=== PATIENT | female | born 1960 | race Caucasian/White ===

== ENCOUNTER → 2019-04-09 11:04 | Outpatient (CLI) | payer OTHER, SELFPAY ==
--- NOTE | 2019-04-09 11:15 | RAD_ITS ---
STUDY: X-RAY - LEFT FOOT CLINICAL: Female, 58 years old. Patient awoke one day ago with intense heel pain, no trauma TECHNIQUE: 3 view(s) of the foot. COMPARISON: Comparison is made with prior examination of June 02, 2015. FINDINGS: There is a plantar calcaneal spur. Normal visualized subtalar, talonavicular, calcaneocuboid, tarsal and tarsometatarsal articulations. Normal metatarsi. Normal metatarsophalangeal joint of the great toe. Normal tibial and fibular sesamoid bones. Normal interphalangeal joint of the great toe. Normal phalanges of the great toe. Normal second through fifth metatarsophalangeal joints. Normal interphalangeal joints and phalanges of the lesser toes. The soft tissue structures are unremarkable. RAD/Foot min 3 Views IMPRESSION: Plantar spur. Electronically Signed: Dalton Hernandez, at 12:14 EST , Service support ,
== END ==
PROVIDERS: PCP Internal Medicine; Referring Provider Nurse Practitioner; Visit Provider Nurse Practitioner
DX: M79.672 Pain in left foot (principal)
CPT/HCPCS: 73630

== ENCOUNTER → 2019-05-28 12:46 | Outpatient (CLI) | payer OTHER, SELFPAY ==
--- NOTE | 2019-05-28 12:51 | CDU_ITS ---
Reason For Study: stenosis Rt. Velocities/BP Lt. Velocities/BP Prox CCA 91.7/21.3 cm/sec. Prox CCA 92.8/31.4 cm/sec. Mid CCA 69.5/22.6 cm/sec. Mid CCA 82.7/27.4 cm/sec. Dist CCA 65.6/22.6 cm/sec. Dist CCA 64.2/27.4 cm/sec. Prox ICA 56.5/18.6 cm/sec. Prox ICA 60.5/24.9 cm/sec. Mid ICA 182.8/62.1 cm/sec. Mid ICA 213.5/77.5 cm/sec. Dist ICA 134.5/57.7 cm/sec. Dist ICA 185.2/59.2 cm/sec. Rt. ICA/CCA = 2.6. Lt. ICA/CCA = 2.6. Prox ECA 79.9/17.3 cm/sec. Prox ECA 70.4/18.8 cm/sec. Rt. Vert. 130.1/44.5 cm/sec. Lt. Vert. 64.2/29.8 cm/sec. Right Extracranial There is intimal thickening but no significant atherosclerotic plaque noted in the right common carotid artery. There is intimal thickening but no significant atherosclerotic plaque noted in the right internal carotid artery. There is intimal thickening but no significant atherosclerotic plaque noted in the right external carotid artery. Antegrade flow is noted in the right vertebral artery. Left Extracranial There is intimal thickening but no significant atherosclerotic plaque noted in the left common carotid artery. There is intimal thickening but no significant atherosclerotic plaque noted in the left internal carotid artery. There is intimal thickening but no significant atherosclerotic plaque noted in the left external carotid artery. Antegrade flow is noted in the left vertebral artery. Procedure Carotid Duplex [id number]. The exam was diagnostic. Exam performed in department. Interpretation Summary Moderate (50-69%) stenosis right extracranial internal carotid. Moderate (50-69%) stenosis left extracranial internal carotid. Flow within the vertebral arteries is antegrade bilaterally. Ordering Physician: Annabelle Roach Performed By: Mane Nails RVT
--- NOTE | 2019-05-28 13:20 | US_ITS ---
STUDY: THYROID ULTRASOUND REASON FOR EXAM: Female, 58 years old. THYROID NODULES TECHNIQUE: Ultrasound evaluation of the thyroid was performed with real-time and static villalobos-scale imaging. COMPARISON: Comparison is made with prior study dated August 24, 2015. FINDINGS: RIGHT LOBE: The right lobe of the thyroid gland is enlarged and measures 5.6 cm x 2 cm x 1.5 cm. There is a homogeneous echotexture. Once again, multiple nodules are seen throughout the right lobe. The largest measures 7 mm x 7 mm x 5 mm. This is partly solid and cystic. This is essentially unchanged. LEFT LOBE: The left lobe of the thyroid gland is enlarged and measures 5 cm x 1.5 cm x 1.4 cm. There is a homogeneous echotexture. Multiple nodules are seen. The largest nodule measures 5 mm x 4 mm x 4 mm. This is a solid nodule. This has decreased in size. ISTHMUS: The isthmus measures 3.0 mm. The regional lymph nodes are normal. US/Thyroid IMPRESSION: Multiple small bilateral thyroid nodules. There has been essentially no change. Electronically Signed: Dalton Hernandez, at 14:20 EDT , Service support ,
== END ==
PROVIDERS: PCP Internal Medicine; Referring Provider Internal Medicine; Visit Provider Internal Medicine
DX: E04.1 Nontoxic single thyroid nodule (principal); I65.23 Occlusion and stenosis of bilateral carotid arteries
CPT/HCPCS: 76536; 93880

== ENCOUNTER 2021-04-12 14:01 | Outpatient (CLI) | payer OTHER, SELFPAY ==
--- NOTE | 2021-04-12 14:06 | US_ITS ---
STUDY: THYROID ULTRASOUND REASON FOR EXAM: Female, 60 years old. NODULE TECHNIQUE: Ultrasound evaluation of the thyroid was performed with real-time and static villalobos-scale imaging. COMPARISON: report only of May 28 2019 1:31pm. NO IMAGES FINDINGS: RIGHT LOBE: The right lobe of the thyroid gland measures 5.5 x 2.3 cm. There is a homogeneous echotexture. There are nodules. Nodules measure 9 x 8 x 4 mm, 8 x 8 x 4 mm, 6 x 4 x 4 mm, and 5 x 4 x 2 mm. These are noted in the upper and midline. The lesion is solid / cystic with regular margins and silvestre nodular and some have intra-nodular doppler flow. Several nodules have punctate internal foci suggesting calcifications. LEFT LOBE: The left lobe of the thyroid gland measures 4.9 x 1.4 cm. There is a homogeneous echotexture. There are nodules. Nodules are visualized in the upper and lower gland. These measure 5 x 4 x 3 mm, 4 x 4 x3 mm, 6 x 4 x 4 mm, and 4 x 4 x2 mm. The lesion is solid / cystic with regular margins and silvestre nodular and some have intra-nodular doppler flow. Several nodules have punctate internal foci suggesting calcifications. ISTHMUS: The isthmus measures 3 mm. The regional lymph nodes are normal. US/Thyroid IMPRESSION: There are RIGHT nodules. This nodule is mixed cystic and solid, hyperechoic or isoechoic, [id number], smoothly marginated and contains punctate echogenic foci. TI-RADS points: 5. TI-RADS category: TR4. This nodule is moderately suspicious. Recommend follow-up thyroid ultrasounds at 1, 2, 3 and 5 years. There are left nodules. This nodule is mixed cystic and solid, hyperechoic or isoechoic, [id number], smoothly marginated and contains punctate echogenic foci. TI-RADS points: 5. TI-RADS category: TR4. This nodule is moderately suspicious. Recommend follow-up thyroid ultrasounds at 1, 2, 3 and 5 years. Electronically Signed: Eric Larios MD at 15:25 EST ,
--- NOTE | 2021-04-12 14:40 | CT_ITS ---
EXAM: CT ANGIOGRAPHY NECK WITHOUT AND WITH INTRAVENOUS CONTRAST CLINICAL INDICATION: CAD TECHNIQUE: Routine carotid CT angiography protocol was performed without and with intravenous contrast. Nascet criteria using the distal ICAs for comparison were used for evaluation of stenoses. This CT exam was performed using one or more of the following dose reduction techniques: automated exposure control, adjustment of the mA and/or kV according to patient size, and/or use of iterative reconstruction technique. This report was created using [employer] report generation technology. MIP reconstructed images were created and reviewed. CONTRAST: IV 100mL Isovue-370 COMPARISON: None. FINDINGS: VASCULATURE: RIGHT COMMON CAROTID ARTERY: Unremarkable. No occlusion or significant stenosis. No dissection. RIGHT INTERNAL CAROTID ARTERY: Unremarkable. Extracranial segment is patent with no occlusion or significant stenosis. No dissection. RIGHT EXTERNAL CAROTID ARTERY: Unremarkable. No occlusion. RIGHT VERTEBRAL ARTERY: Unremarkable. No occlusion or significant stenosis. No dissection. LEFT COMMON CAROTID ARTERY: Unremarkable. No occlusion or significant stenosis. No dissection. LEFT INTERNAL CAROTID ARTERY: There are no acute findings of the right and left internal carotid artery. ALL ABOVE CRITERIA BY NASCET. Extracranial segment is patent with no occlusion or significant stenosis. No dissection. LEFT EXTERNAL CAROTID ARTERY: Unremarkable. No occlusion. LEFT VERTEBRAL ARTERY: Unremarkable. No occlusion or significant stenosis. No dissection. GREAT VESSELS OF AORTIC ARCH: Unremarkable. Normal anatomy, patent. NECK: BONES/JOINTS: There are degenerative findings of the cervical spine. SOFT TISSUES: Unremarkable. THYROID: The thyroid is heterogenous. It contains nodules. This should be further evaluated with ultrasound. This can be performed as an outpatient. LUNG APICES: Clear. CAROTID STENOSIS REFERENCE USING NASCET CRITERIA: % ICA stenosis = (1 - narrowest ICA diameter/diameter of distal cervical ICA) x 100. Mild - <50% stenosis. Moderate - 50-69% stenosis. Severe - 70-94% stenosis. Near occlusion - 95-99% stenosis. Occluded - 100% stenosis. CT/CTA Neck W/WO Contrast IMPRESSION: 1. The thyroid is heterogenous. It contains nodules. This should be further evaluated with ultrasound. This can be performed as an outpatient. 2. There are no acute findings of the right and left internal carotid artery. ALL ABOVE CRITERIA BY NASCET. Electronically Signed: Eric Larios MD at 15:14 EST ,
== END 2021-04-12 23:59 | disposition home or self-care (01) ==
LOC: CT 14:04
PROVIDERS: PCP Internal Medicine; Referring Provider Internal Medicine; Visit Provider Internal Medicine
DX: I65.23 Occlusion and stenosis of bilateral carotid arteries (principal); E04.1 Nontoxic single thyroid nodule; Z78.0 Asymptomatic menopausal state
CPT/HCPCS: 70498; 76536; Q9967; A4216

== ENCOUNTER 2021-04-21 11:02 | Outpatient (CLI) | payer OTHER, SELFPAY ==
--- NOTE | 2021-04-21 11:10 | BD_ITS ---
STUDY: DUAL ENERGY X-RAY ABSORPTIOMETRY / DXA REASON FOR EXAM: Female, 60 years old. 627.8Menopausal postmenopausalBONE DENSITY REASON FOR EXAM TECHNIQUE: Bone Mineral Density (BMD) measurements of lumbar spine and bilateral hips were obtained. COMPARISON: Comparison is made with prior study dated 10/20/2015. FINDINGS: Lumbar Spine (L1-L4): g/cm2 (0.822) / T-score (-2.0) / Z-score (0.7) Findings are suggestive of osteopenia with a moderate fracture risk. Left Femur Total: g/cm2 (0.818) / T-score (-1.0) / Z-score (-0.1) Left Femoral Neck: g/cm2 (0.713) / T-score (-1.2) / Z-score (0.0) Right Femur Total: g/cm2 (0.896) / T-score (-0.4) / Z-score (0.6) Right Femoral Neck: g/cm2 (0.783) / T-score (-0.6) / Z-score (0.7) The T-Scores on the most recent prior examination were: Lumbar Spine (L1-L4): There has been worsening of bone density since the previous examination. Left Femur Total: which represents a worsening of 11.7%. Right Femur Total: which represents a worsening of 8.8%. BD/Dexa Bone Density Study IMPRESSION: The patient is considered osteopenic as outlined below according to World Pardeep Organization (WHO) criteria with a moderate fracture risk. There has been worsening of bone density since the previous examination. Reference Information: The T-score is the number of standard deviations above or below the standard which is normal for young adults at their peak bone mineral density. The World Health Organization (WHO) interprets the T-scores as follows: Above -1 Normal bone density Between -1 and -2.5 Osteopenia Equal to / or below -2.5 Osteoporosis As a practical clinical guideline, osteopenia may be graded as follows: Mild -1 through -1.5 Moderate -1.6 through -2.0 Severe -2.1 through -2.4 The Z-score is the number of standard deviations above or below age-matched controls. A Z-score of less than -1.5 would be considered abnormal. References: 1. NIH Osteoporosis and Related Bone Diseases www osteo.org 2. International Society for Clinical Densitometry www iscd.org 3. National Osteoporosis Foundation www nof.org Electronically Signed: Dalton Hernandez MD at 14:47 EST ,
== END 2021-04-21 23:59 | disposition home or self-care (01) ==
LOC: OPBD 11:02
PROVIDERS: PCP Internal Medicine; Referring Provider Internal Medicine; Visit Provider Internal Medicine
DX: Z78.0 Asymptomatic menopausal state (principal)
CPT/HCPCS: 77080

== ENCOUNTER 2021-05-12 11:00 | Outpatient (RCR) | payer OTHER, SELFPAY ==
--- NOTE | 2021-03-30 08:55 | HP.PTEVAL_ITS ---
Patient's Visit Information SIRENA NARVAEZ is a 60 year old F referred to Physical Therapy by Dr. Annabelle Roach DO with a diagnosis of L shoulder pain. Date of Evaluation: 03/23/21 Physical Therapist: Diego Singleton DPT - Visit Plan Frequency: 1-2x /Week Duration: 4 Weeks Plan: 1.) Start with RTC stability/strengthening exercises- non painful. 2.) Add in silvestre scapular strengthening exercises- non painful. 3.) progress HEP as tolerated to increase daily carry over. Pt. to continue with her exercise routines avoiding painful movements, patient consents. eval HEP: mid row BTB 3x10, shoulder extension GTB 3x10, shoulder SL ER 1# 3x10- fatigue, avoid pain - Subjective Pt. is here today for her initial evaluation with diagnosis of L shoulder pain. Pt. reports no mech of injury, but feels like it is more from repetitive motions. she reports minimal issues with lifting her L shoulder up, but has a hard time with any sort of weight. She likes to exercises and does so a local recreation center. Pt. reports pain at L shoulder joint and into deltoid region. No falls or mechanical injury of sort. She is still able to do some of her wt. lifting, but has had to stop frequently due to L shoulder pain/weakness. Pt. is sleeping well and is able to do most of her ADLs without issues. She is hopeful to increase her strength and get back to all of her recreational working out routines without increase in L shoulder issues. - Pain L shoulder Pain Intensity (Out of 10): 0 Pain Intensity Range: 0, 5 - Objective POSTURE: Pt. has decent posture in stance. Normal shoulder heights bilaterally. Pt. has normal cervical spine posture as well. PALPATION: Pt. has some mild tenderness at sub acromial space, but not much. Pt. has not pain in cervical spine. NEURO: Normal sensation and DTR of BUEs. ROM: RUE: full shoulder ROM without increase in symptoms. L shoulder: AROM: flexion 170deg mild increase NW at end range, abd 170deg mild increase NW at end range, functional ER C5 NE, functional IR L1 mild increase NW. PROM: full ROM, but does have increased pain with end ranges of motions. MMT: RUE: 5/5 throughout. LUE: elbow: 5/5 throughout; shoulder: flexion 4+/5 increase NW, abd 4+/5 increase NW, ext 5/5, ER 4/5 increase NW, IR 5-/5 mild increase NW - Special Tests R Shoulder Lift Off Test - Subscapular Tear: Negative R Shoulder Drop Sign - IS Test: Negative R Shoulder Empty Can - SS: Positive R Shoulder Belly Press - SupScap: Negative R Shoulder Neer - Impingement: Positive R Shoulder Gonzalez Tu - Impingement: Positive R Shoulder Biceps Load Test - Labrum: Negative R Shoulder Speeds Test - Labrum/Biceps: Positive - Balance/Special Test Scores Quick DASH Score: 40.9075 - Goals Goal 1:: LTG: Pt. to be educated in exercise program for RTC strengthening and silvestre scapular strengthening. Goal Time Frame: 2-4 Weeks Goal 2:: STG: Pt. to have full L shoulder ROM without increase in symptoms. Goal Time Frame: 2 Weeks Goal 3:: LTG: Pt. to have increased L shoulder strength to at least 5-/5 throughout without increase in symptoms. Goal Time Frame: 2-4 Weeks Goal 4:: LTG: Pt. to resume all exercise programs and routines without increased L shoulder pain. Goal Time Frame: 4-6 Weeks - Rehabilitation Potential Physical Therapy Diagnosis: Pt. has signs and symptoms consistent with L shoulder pain. She had some end range soreness and some mild weakness of her RTC on the L side. She had positive signs for impingement and RTC pathologies. With all being said I think she has a strain, maybe a slight degenerative tear of her RTC on the L side causing her symptoms to be worse with impinging the cuff and with straining from resistance exercises. I would like to introduce some RTC stability exercises to ease symptoms with all gym and exercise routines. Rehabilitation Potential: Excellent - Anticipated Interventions Patient/Client Instruction: Educate patient on: Condition, Plan of Care, Risk Factors, Benefits of Fitness Program For the Purpose of:: To foster healthy habits, To improve decision making, To facilitate caregiver knowledge, To improve self management, To prevent re- injury, To improve ability to perform tasks related to life management Therapeutic Exercise to Include: Strength training, Power training, Body mechanics, Postural training, Flexibilty training, Scapular Strength/Stabilization For the Purpose of:: To decrease pain, To increase ROM, To improve nutrient delivery to tissue, To improve muscle performance and motor function, To improve health of tissue, To decrease soft tissue restriction, To increase flexibility/ROM, To improve endurance Manual Therapy Techniques to Include: Mobilization For the Purpose of:: To decrease pain, To decrease swelling/inflammation, To increase ROM, To improve nutrient delivery to tissue Ultrasound (thermal/non thermal): Yes For the Purpose of:: To decrease pain, To increase ROM, To improve nutrient delivery to tissue Thank you for the opportunity to evaluate your patient. For Medicare and Medicare HMO plans, please review the plan of care and approve it. It will need to be FAXED BACK to us at [phone] for Medicare purposes. For Medicare only, by signing this I certify the plan of care. Please let me know if there are questions or concerns regarding this plan of care. Physician Signature: Date:
--- NOTE | 2021-06-04 12:13 | HP.PTDCSUM ---
It has been my pleasure to treat SIRENA NARVAEZ referred by Dr. Annabelle Roach DO, with the diagnosis of L shoulder pain for a total of 6 visit(s). Discharge Date: 05/12/21 Please see the following information for a summary of their discharge status. Subjective: pt. reports I am doing really well. She reports no issues. She is back to all exercise routines without issues. She continues to be consistent with her shoulder exercises as well. L shoulder Pain Intensity (Out of 10): 0 % Improvement: 95 Objective/Function: Pt. is overall doing well. She has full ROM without increase in symptoms. She has good strength and is progressing with ER endurance without issues. Pt. is I with HEP as well. She will be DC from PT at this point in time. No pain pre or post PT this date. Pt. is sleeping without symptoms. Goal 1:: LTG: Pt. to be educated in exercise program for RTC strengthening and silvestre scapular strengthening. Goal Progress: Goal Met Goal 2:: STG: Pt. to have full L shoulder ROM without increase in symptoms. Goal Progress: Goal Met Goal 3:: LTG: Pt. to have increased L shoulder strength to at least 5-/5 throughout without increase in symptoms. Goal Progress: Goal Met Goal 4:: LTG: Pt. to resume all exercise programs and routines without increased L shoulder pain. Goal Progress: Goal Met Plan: Pt. to be Dc to HEP at this point in time. Discharge Comments: Pt. was treated with shoulder strengthening and with DN to teres minor and infraspintus regions. Pt. is doing very well and is I with HEP. Pt. will be DC to HEP at this point in time. If there are questions or concerns regarding this patient's physical therapy, please feel free to call me at [phone]. Thank you for the referral of this patient. Sincerely, Diego Lora Sipos, DPT Balance/Gait/Functional tests - Balance/Special Test Scores Quick DASH Score: 0
== END 2021-05-12 19:00 | disposition home or self-care (01) ==
LOC: PT 11:00
PROVIDERS: PCP Internal Medicine; Referring Provider Internal Medicine; Visit Provider Internal Medicine
DX: M25.512 Pain in left shoulder (principal)
CPT/HCPCS: 97035; 97110; 97161

== ENCOUNTER → 2023-02-17 | Outpatient (CLI) | payer OTHER, SELFPAY ==
--- NOTE | 2023-02-17 07:19 | CT_ITS ---
STUDY: CTA NECK WITH CONTRAST REASON FOR EXAM: Female, 62 years old. Bilateral carotid artery stenosis RADIATION DOSAGE (If Supplied By Facility): CTDIvol = ( 16.60 ) mGy, DLP = ( 375.15 ) mGycm TECHNIQUE: CT angiography with multi-detector data acquisition was performed from the aortic arch to the skull base following intravenous administration of IV 100mL Isovue-370. MIP images were reconstructed from the axial data set. Post-processing of the angiographic images was performed, with multiplanar reformation and 3D reconstruction. Individualized dose optimization techniques were used for this CT. COMPARISON: Comparison is made with prior study dated April 12, 2021. FINDINGS: There is a 6.9 mm hypodensity in the anterior midportion of the right lobe of the thyroid. AORTIC ARCH: There is atherosclerotic calcific plaque formation of the aortic arch and great vessels arising from the aortic arch, without a hemodynamically significant stenosis. There is a normal origin of the brachiocephalic, left common carotid, and left subclavian arteries. RIGHT CAROTID ARTERIES: Normal right common carotid artery (CCA). Normal right common carotid bulb. Normal origin of the right internal carotid (ICA) artery without a hemodynamically significant stenosis. The mid and distal portion of the cervical portion of the right internal carotid artery has a serrated appearance. No significant stenosis seen. Normal origin of the right external carotid artery (ECA). LEFT CAROTID ARTERIES: Normal left common carotid artery (CCA). Normal left common carotid bulb. Normal origin of the left internal carotid (ICA) artery without a hemodynamically significant stenosis. Normal visualized cervical portion of the left internal carotid artery. Normal origin of the left external carotid artery (ECA). VERTEBRAL ARTERIES: Normal bilateral vertebral arteries. CT/CTA Neck W/WO Contrast IMPRESSION: No significant stenosis seen. appearance of the mid and distal cervical portion of the right internal carotid artery. Fibromuscular hyperplasia should be ruled out. No significant stenosis seen. Electronically Signed: Dalton Hernandez MD at 10:19 EST ,
[2023-02-17 07:46] LABS: CREATININE FINGERSTICK < 1.0 mg/dL (0.55-1.02); EGFR FINGERSTICK > 60.0000 mL/min (>60)
== END | disposition home or self-care (01) ==
LOC: CT 07:17
PROVIDERS: PCP Internal Medicine; Referring Provider Internal Medicine; Visit Provider Internal Medicine
DX: I65.23 Occlusion and stenosis of bilateral carotid arteries (principal)
CPT/HCPCS: 70498; Q9967

== ENCOUNTER → 2023-03-09 | Outpatient (CLI) | payer OTHER, SELFPAY ==
--- NOTE | 2023-03-09 16:22 | MRI_ITS ---
STUDY: MRI BRAIN WITH AND WITHOUT CONTRAST (ATTENTION INTERNAL AUDITORY CANALS - I.A.C.''s) REASON FOR EXAM: Female, 62 years old. HEARING LOSS , TINNITUS LEFT EAR TECHNIQUE: Standardized multiplanar fat and water weighted pulse sequences were obtained. ml of 11ml clariscan contrast material was administered intravenously for the contrast portion of the examination. COMPARISON: None. FINDINGS: Normal bilateral temporal bones. Normal bilateral internal auditory canals. There is no demonstrated intracanalicular or cisternal vestibular schwannoma ( acoustic neuroma ). There is no enhancement of the bilateral VIIth or VIIIth cranial nerves. Normal bilateral cochlea, vestibules and semicircular canals. No cerebellar pontine angle mass or cyst. No demonstrated Mondini''s malformation. No visualized abnormal connection between the middle and inner ear. Normal size of the ventricles and extra-axial spaces for the patient''s age. Normal white matter tracts of the supratentorial brain. There is no evidence for recent intracranial ischemia or other cause of cytotoxic edema on diffusion weighted imaging (DWI). Normal T2* images of the brain without demonstrated susceptibility artifact. There is no demonstrated hemosiderin stain. There are no demyelinating plagues of the supratentorial brain, brainstem or cerebellum. There are no findings suspicious for multiple sclerosis (MS). There is no visualized ring-enhancing lesions or abnormal thickening or enhancement of meninges or dura. Normal bilateral basal ganglia. Normal thalami. Normal flow voids within the major intracranial circulation suggesting patency by spin echo criteria. Normal venous enhancement. There is no enhancing intra-axial or extra-axial abnormality. There is no extra-axial fluid accumulation. Normal sella turcica, pituitary gland, infundibular stalk, optic chiasm and hypothalamus. Normal tectal plate and pineal gland. Normal midbrain, lakshmi and medulla. Normal cerebellum. Normal basal cisterns. No demonstrated orbital abnormality, within the constraints of a routine brain study. Normal visualized paranasal sinuses. Normal calvarium and skull base. Normal visualized soft tissue structures. Normal visualized upper cervical spine. MRI/Brain W/WO Contrast IMPRESSION: Normal unenhanced and enhanced MRI of the bilateral internal auditory canals (I.A.C''s). Electronically Signed: Odell Grady MD at 15:32 EST ,
== END | disposition home or self-care (01) ==
LOC: MRI 16:15
PROVIDERS: PCP Internal Medicine; Referring Provider Otolaryngology Otolaryngology/Facial Plastic Surgery; Visit Provider Otolaryngology Otolaryngology/Facial Plastic Surgery
DX: H90.3 Sensorineural hearing loss, bilateral (principal); H93.12 Tinnitus, left ear
CPT/HCPCS: 70553; A9575

== ENCOUNTER → 2023-04-25 | Outpatient (CLI) | payer OTHER, SELFPAY ==
--- NOTE | 2023-04-25 08:45 | BD_ITS ---
STUDY: DUAL ENERGY X-RAY ABSORPTIOMETRY / DXA REASON FOR EXAM: Female, 62 years old. 733.90OsteopeniaBONE DENSITY REASON FOR EXAM TECHNIQUE: Bone Mineral Density (BMD) measurements of lumbar spine and bilateral hips were obtained. COMPARISON: Comparison is made with prior study dated April 21, 2021. FINDINGS: Lumbar Spine (L1-L4): g/cm2 (0.825) / T-score (-2.0) / Z-score (-0.5) Findings are suggestive of osteopenia with a moderate fracture risk. Left Femur Total: g/cm2 (0.786) / T-score (-1.3) / Z-score (-0.2) Left Femoral Neck: g/cm2 (0.686) / T-score (-1.5) / Z-score (-0.1) Right Femur Total: g/cm2 (0.859) / T-score (-0.7) / Z-score (0.4) Right Femoral Neck: g/cm2 (0.743) / T-score (-1.0) / Z-score (0.4) The T-Scores on the most recent prior examination were: Lumbar Spine (L1-L4): There has been improvement of bone density since the previous examination. Left Femur Total: which represents a worsening of 3.9%. Right Femur Total: which represents a worsening of 4.1%. BD/Dexa Bone Density Study IMPRESSION: The patient is considered osteopenic as outlined below according to World Parde[employer] Organization (WHO) criteria with a moderate fracture risk. There has been worsening of bone density since the previous examination. Reference Information: The T-score is the number of standard deviations above or below the standard which is normal for young adults at their peak bone mineral density. The World Health Organization (WHO) interprets the T-scores as follows: Above -1 Normal bone density Between -1 and -2.5 Osteopenia Equal to / or below -2.5 Osteoporosis As a practical clinical guideline, osteopenia may be graded as follows: Mild -1 through -1.5 Moderate -1.6 through -2.0 Severe -2.1 through -2.4 The Z-score is the number of standard deviations above or below age-matched controls. A Z-score of less than -1.5 would be considered abnormal. References: 1. NIH Osteoporosis and Related Bone Diseases www osteo.org 2. International Society for Clinical Densitometry www iscd.org 3. National Osteoporosis Foundation www nof.org Electronically Signed: Dalton Hernandez MD at 14:39 EST ,
== END | disposition home or self-care (01) ==
LOC: OPBD 08:30
PROVIDERS: PCP Internal Medicine; Referring Provider Internal Medicine; Visit Provider Internal Medicine
DX: M85.80 Other specified disorders of bone density and structure, unspecified site (principal)
CPT/HCPCS: 77080

== ENCOUNTER → 2024-11-13 | Outpatient (CLI) | payer OTHER, SELFPAY ==
--- OUTSIDE RECORDS SUMMARY | 2024-11-13 22:09 | XMS RPT_ITS | CCD ---
Author Organization [facility] Care Team Providers Care Rug Dyer Helper Name Role Phone Kevin Gricel Fam Primary Care Provider CiesaChristina E Unavailable Darwin Lanier Unavailable Akshat Casper Unavailable Hearing Services-- Bhavna Mendes Unavail able Kelly Victor Unavailable Tiera Vaughn Unavailable Unavailable Annabelle Roach Unavailable Unavailable Unavailable Ciesa Christina WILLIAM E Unavailable [facility], He [facility] Unavailable Dr. Darwin Lanier Unavailable [phone] Dr. Akshat Casper Unavailable Hearing Services-- Bhavna Mendes Unavail able Kelly Victor Unavailable [phone] Tiera Vaughn RN Unavailable Unavailable Annabelle Roach DO Unavailable Slarb PRODUCTION CORRUGATOR, Amanda Unavailable Unavailable Unavailable Unavailable Elian Fung LPN Unavailable Unavailable Gravius SENIOR BENEFITS ANALYST, Vonda Unavailable Unavailable Rupal Marrero LPN Unavailable Unavailable Dr. Annabelle Roach Primary Care Provider [phone] Dr. Annabelle Roach Referring Provider Dr. Tomas Young Attending Provider Cibowen Christina Unavailable Annabelle Roach DO Unavailable [phone] Gricel Thomas Primary Care Provider [phone] Annabelle Roach Primary Care Unavailable Claudette, Theron Diehl Referring Unavailable Claudette, Theron Diehl Attending Unavailable Doc, Annabelle Primary Care Unavailable Doc, Annabelle Referring Unavailable Doc, Annabelle Attending Unavailable Doc, Annabelle Attending Unavailable Doc, Annabelle Primary Care Unavailable Annabelle Roach Referring Unavailable Gricel Thomas Primary Care Provider [phone] GRICEL THOMAS Referring Unavailab le GRICEL THOMAS Primary Care Unavailab le Allergies Allergy Classification Reported Allergen(s) Allergy Type Date of Onset Reaction(s) Facility (15 sources) Mold spore; Translations: [Mold Spores] Allergy to substance (finding) [facility] Work Phone: Comment on above: and grass (15 sources) Simvastatin; Translations: [Simvastatin *ANTIHYPERLIPID EMICS*] Drug Allergy [facility] Work Phone: Medications Completed/Discontinued Medications Medication Drug Class(es) Dates Sig (Normalized) Sig (Original) acetaminophen 500 mg / HYDROcodone bitartrate 5 mg oral tablet (15 sources) Opioid Agonist Start: 02-08-2011 End: 03-29-2011 take 1 tablet by mouth once daily at bedtime as needed VICODIN, 5-500MG (Oral Tablet) 1 Tablet qhs prn for 0 days Quantity: 20 {Tablet} Refills: 0 Ordered: 29-Mar-2011 Tania Blanco RN Start : 08-Feb-2011 End : 29-Mar-2011 Inactive [id number] 200 actuat albuterol 0.09 mg/actuat metered dose inhaler (15 sources) beta2-Adrenergic Agonist Start: 10-30-2009 End: 02-02-2011 PROVENTIL HFA, 108 (90 Base)MCG/ACT (Inhalation Aerosol Solution) 2 (two) Aerosol Soln qid prn for 0 days Quantity: 1 {Aerosol_Soln} Refills: 0 Ordered: 02-Feb-2011 Mayda Mike Start : 30-Oct-2009 End : 02-Feb-2011 Inactive Start: 10-30-2009 End: 02-02-2011 PROVENTIL HFA, 108 (90 Base) MCG/ACT (Inhalation Aerosol Solution) 2 (two) Aerosol Soln qid prn for 0 days Quantity: 1 {Aerosol_Soln} Refills: 0 Ordered: 02-Feb-2011 Mayda Mike Start : 30-Oct-2009 End : 02-Feb-2011 Inactive amoxicillin 875 mg / clavulanate 125 mg oral tablet (15 sources) Penicillin-class Antibacterial Start: 02-22-2017 End: 03-04-2017 take 1 tablet by mouth twice daily Augmentin 875-125 MG Oral Tablet 1 Tablet bid for 10 days Quantity: 20 {Tablet} Refills: 0 Ordered: 22-Feb-2017 Christina Lawler Mary Start : 22-Feb-2017 End : 04-Mar-2017 Inactive aspirin 81 mg delayed release oral tablet (20 sources) Platelet Aggregation Inhibitor, Nonsteroidal Anti-inflammatory Drug Start: 06-03-2019 End: 03-19-2021 take 1 tablet by mouth once daily Aspirin 81 MG Oral Tablet Delayed Release 1 (one) Tablet daily, for 0 days Quantity: 30 {Tablet} Refills: 0 Ordered: 19-Mar-2021 Amanda Hope LPN Start : 03-Jun-2019 End : 19-Mar-2021 Inactive Start: 10-05-2014 End: 04-09-2019 take 1 tablet by mouth once daily Aspirin Childrens 81 MG Oral Tablet Chewable 1 (one) Tablet Chewable Tablet Chewable qd for 0 days Quantity: 30 {Tablet} Refills: 0 Ordered: 09-Apr-2019 Amanda Hope LPN Start : 05-Oct-2014 End : 09-Apr-2019 Inactive 24 hr clarithromycin 500 mg extended release oral tablet (15 sources) Macrolide Antimicrobial Start: 10-30-2009 End: 02-02-2011 take 2 tablets by mouth once daily BIAXIN XL, 500MG (Oral Tablet Extended Release 24 Hour) 2 (two) Tablet ER 24HR qd for 0 days Quantity: 20 {Tablet_ER_24HR} Refills: 0 Ordered: 02-Feb-2011 Mayda Mike Start : 30-Oct-2009 End : 02-Feb-2011 Inactive codeine phosphate 2 mg/ml / guaiFENesin 20 mg/ml oral solution (15 sources) Opioid Agonist Start: 02-22-2017 End: 04-09-2019 take 4 mL by mouth once daily at bedtime as needed Cheratussin AC 100-10 MG/5ML Oral Solution 4 Milliliter qhs prn for 0 days Quantity: 120 {Milliliter} Refills: 0 Ordered: 09-Apr-2019 Amanda Hope LPN Start : 22-Feb-2017 End : 09-Apr-2019 Inactive 24 hr desloratadine 5 mg / pseudoephedrine sulfate 240 mg extended release oral tablet (15 sources) alpha-Adrenergic Agonist, Histamine-1 Receptor Antagonist take 1 tablet by mouth every twenty-four hours CLARINEX-D 24 HOUR, 5-240MG (Oral Tablet Extended Release 24 Hour) 1 qd (5-240 MG) Inactive diclofenac sodium 20 mg/ml topical solution (20 sources) Nonsteroidal Anti-inflammatory Drug Start: 04-09-2019 End: 05-16-2019 Pennsaid 2 % Transdermal Solution 1 (one) Pump bid for 0 days Quantity: 6 {Packet} Refills: 0 Ordered: 16-May-2019 Vonda Jewell CMA Start : 09-Apr-2019 End : 16-May-2019 Inactive Start: 04-19-2016 End: 01-13-2017 take 1 tablet by mouth twice daily as needed Diclofenac Sodium 50 MG Oral Tablet Delayed Release 1 (one) Tablet DR bid prn with food for 0 days Quantity: 60 {Tablet} Refills: 0 Ordered: 13-Jan-2017 Amanda Hope LPN Start : 19-Apr-2016 End : 13-Jan-2017 Inactive docosahexaenoic acid 120 mg / eicosapentaenoic acid 180 mg oral capsule (15 sources) take 1 capsule by mouth once daily OMEGA 3, 1000MG (Oral Capsule) 1 cap daily (1000 MG) Inactive fexofenadine hydrochloride 180 mg oral tablet (15 sources) Histamine-1 Receptor Antagonist Start: take 1 tablet by mouth once daily JEFERSON, 180MG (Oral Tablet) 1 Tablet daily for 0 days Quantity: 30 {Tablet} Refills: 0 Ordered: 30-Oct-2009 Mellisa Velasquez Start : 22-Oct-2009 Inactive fluticasone furoate 0.0275 mg/actuat metered dose nasal spray (15 sources) Corticosteroid Start: End: VERAMYST, 27.5MCG/SPRAY (Nasal Suspension) 2 (two) Suspension qd prn for 7 days Quantity: 1 {Suspension} Refills: 0 Ordered: 28-Jul-2009 Start : 28-Jul-2009 End : 04-Aug-2009 Inactive meloxicam 15 mg oral tablet (20 sources) Nonsteroidal Anti-inflammatory Drug Start: 022 take 1 tablet by mouth once daily at mealtime Meloxicam 15 MG Oral Tablet 1 (one) Tablet qd with food for 0 days Quantity: 21 {Tablet} Refills: 0 Ordered: 02-Apr-2021 Doc Annabelle Start : 02-Apr-2021 Active Start: 03-19-2021 take 1 tablet by javad th once daily at mealtime Meloxicam 15 MG Oral Tablet 1 (one) Tablet qd with food for 0 days Quantity: 21 {Tablet} Refills: 0 Ordered: 19-Mar-2021 Annabelle Roach DO Start : 19-Mar-2021 Active Start: 10-14-2015 End: 01-13-2017 take 1 tablet by mouth once daily as needed Meloxicam 7.5 MG Oral Tablet 1 (one) Tablet Tablet daily, prn for 0 days Quantity: 30 {Tablet} Refills: 1 Ordered: 13-Jan-2017 Amanda Hope LPN Start : 14-Oct-2015 End : 13-Jan-2017 Inactive naproxen 500 mg oral tablet (15 sources) Nonsteroidal Anti-inflammatory Drug Start: 04-09-2019 End: 05-16-2019 take 1 tablet by mouth twice daily as needed for pain Naproxen 500 MG Oral Tablet 1 (one) Tablet bid prn for pain for 0 days Quantity: 30 {Tablet} Refills: 0 Ordered: 16-May-2019 Vonda Jewell CMA Start : 09-Apr-2019 End : 16-May-2019 Inactive Comments: with food Comment on above: with food No current meds (15 sources) No current meds Inactive ofloxacin 3 mg/ml ophthalmic solution (15 sources) Quinolone Antimicrobial Start: 03-29-2011 End: 07-16-2014 OCUFLOX, 0.3% (Ophthalmic Solution) 1 Solution gtt q 4 hours for 2 days then q 6 hours for 5 days for 0 days Refills: 0 Ordered: 16-Jul-2014 Mayda Mike Start : 29-Mar-2011 End : 16-Jul-2014 Discontinued rosuvastatin calcium 5 mg oral tablet (15 sources) HMG-CoA Reductase Inhibitor Start: 07-31-2015 End: 01-13-2017 take 1 tablet by mouth two times weekly Crestor 5 MG Oral Tablet 1 (one) Tablet 2 times a week for 30 days Quantity: 45 {Tablet} Refills: 4 Ordered: 13-Jan-2017 Amanda Hope LPN Start : 31-Jul-2015 End : 13-Jan-2017 Inactive simvastatin 10 mg oral tablet (15 sources) HMG-CoA Reductase Inhibitor Start: 10-03-2014 End: 01-13-2017 take 1 tablet by mouth once daily Simvastatin 10 MG Oral Tablet 1 (one) Tablet Tablet qd for 0 days Quantity: 30 {Tablet} Refills: 5 Ordered: 13-Jan-2017 Amanda Hope LPN Start : 03-Oct-2014 End : 13-Jan-2017 Inactive sulfacetamide sodium 100 mg/ml ophthalmic solution (15 sources) Sulfonamide Antibacterial Start: 01-13-2017 End: 02-22-2017 Bleph-10 10 % Ophthalmic Solution 1-2 Metric Drop q 2-3 hr x 7 days for 0 days Quantity: 1 {Bottle} Refills: 0 Ordered: 22-Feb-2017 Tania Blanco RN Start : 13-Jan-2017 End : 22-Feb-2017 Inactive NEGATED: Highlighted row has not occurred!drug or medication (2 sources) No Known Historical Medications NEGATED: Highlighted row has not occurred!No Known Historical Medications (13 sources) No Known Historical Medications Problems Active Problems Problem Classification Problem Date Documented Date Episodic/Chronic Headache; including migraine (20 sources) Headache; Translations: [Headache] 06-03-2019 Episodic Comment on above: think may have been coing from neck Immunizations and screening for infectious disease (20 sources) Need for prophylactic vaccination and inoculation against influenza; Translations: [Needs influenza immunization] Resolved: 04-19-2016 04-19-2016 Episodic Inflammation; infection of eye (except that caused by tuberculosis or sexually transmitteddisease) (20 sources) Serous conjunctivitis; Translations: [Conjunctivitis] Resolved: 07-16-2014 01-13-2017 Episodic Nutritional deficiencies (8 sources) Vitamin D deficiency; Translations: [Vitamin D deficiency] 04-28-2021 Chronic Nutritional deficiencies (20 sources) Vitamin B12 deficiency (non anemic); Translations: [Cobalamin deficiency] 06-03-2019 Episodic Comment on above: pt going to do oral since pretty asx - moved her to injecti ons once a month and cherelle in summer and if normal try orals Occlusion or stenosis of precerebral arteries (15 sources) Occlusion and stenosis of bilateral carotid arteries; Translations: [Bilateral stenosis of carotid arteries] Onset: 02-23-2023 06-03-2019 Chronic Comment on above: moderate 50-69% b/l and will do cta with contrazst to fu next yrdoesnt tolerate statins- h/o of trying 3- of them- cresto, lipitor and simvastain-terrible muslce aches Other bone disease and musculoskeletal deformities (8 sources) Osteopenia; Translations: [Osteopenia] 04-28-2021 Episodic Comment on above: mona do ca++ , vit D and wt bearing exercise- cherelle dexa 24mo Other bone disease and musculoskeletal deformities (1 source) Other specified disorders of bone density and structure, unspecified site; Translations: [Other specified disorders of bone density and structure, unspecified site] Onset: 04-25-2023 Episodic Other circulatory disease (15 sources) Cardiovascular symptoms; Translations: [Other symptoms involving cardiovascular system] 06-03-2019 Episodic Other circulatory disease (20 sources) Elevated blood-pressure reading without diagnosis of hypertension; Translations: [Elevated blood-pressure reading without diagnosis of hypertension] Resolved: 05-16-2019 05-16-2019 Episodic Other ear and sense organ disorders (15 sources) Bilateral hearing loss; Translations: [Hearing loss, bilateral] 06-03-2019 Chronic Comment on above: wears hearing aids Other ear and sense organ disorders (1 source) Sensorineural hearing loss, bilateral; Translations: [Sensorineural hearing loss, bilateral] Onset: 03-14-2023 Chronic Other ear and sense organ disorders (15 sources) Impacted cerumen; Translations: [Cerumen impaction] 06-03-2019 Episodic Other lower respiratory disease (20 sources) Cough; Translations: [Cough] 06-03-2019 Episodic Other non-traumatic joint disorders (15 sources) Hip pain; Translations: [Hip pain, acute, right] 06-03-2019 Episodic Other non-traumatic joint disorders (13 sources) Shoulder pain; Translations: [Acute pain of left shoulder] 03-19-2021 Episodic Other screening for suspected conditions (not mental disorders or infectious disease) (20 sources) Patient encounter status; Translations: [Encounter for screening for lipid disorder] 03-19-2021 Episodic Comment on above: pt refused postmenopausal witho ut estrogen Other upper respiratory disease (20 sources) Allergic rhinitis due to other allergen Chronic Other upper respiratory disease (15 sources) Allergic rhinitis; Translations: [Allergic rhinitis due to other allergen] 06-03-2019 Chronic Comment on above: add mucinex and wate r Other upper respiratory infections (20 sources) Acute pharyngitis; Translations: [Acute sinusitis, unspecified] Resolved: 04-19-2016 04-19-2016 Episodic Peripheral and visceral atherosclerosis (15 sources) Arteriosclerotic vascular disease; Translations: [Atherosclerosis] 06-03-2019 Chronic Residual codes; unclassified (20 sources) FH: Diabetes mellitus; Translations: [Family history of diabetes mellitus] 06-03-2019 Episodic Residual codes; unclassified (20 sources) Body mass index 20-24 - normal; Translations: [BMI 21.0-21.9, adult] Resolved: 03-19-2021 03-19-2021 Episodic Residual codes; unclassified (13 sources) Current non-smoker ; Translations: [Current non-smoker] 03-19-2021 Episodic Residual codes; unclassified (13 sources) Postmenopausal state; Translations: [Postmenopausal (Renamed from Postmenopausal status)] 03-19-2021 Episodic Screening and history of mental health and substance abuse codes (1 source) Encounter for screening for depression; Translations: [Encounter for screening for depression] Onset: 05-22-2024 Episodic Spondylosis; intervertebral disc disorders; other back problems (6 sources) Cervical radiculopathy; Translations: [Cervical radiculopathy] 06-03-2019 Chronic Comment on above: doing massotherapy a nd chiropractic Spondylosis; intervertebral disc disorders; other back problems (20 sources) Cervical radiculopathy; Translations: [Cervical radiculopathy] Resolved: 03-19-2021 03-19-2021 Episodic Comment on above: doing massotherapy a nd chiropractic Thyroid disorders (20 sources) Thyroid nodule; Translations: [Thyroid Nodule] 06-03-2019 Chronic Comment on above: fu annual Unclassified (20 sources) Current non-smoker ; Translations: [Current non-smoker] 06-03-2019 Unclassified (20 sources) Unclassified (20 sources) Body mass index 20-24 - normal; Translations: [BMI 24.0-24.9, adult] 06-03-2019 Unclassified (20 sources) Atherosclerosis Unclassified (20 sources) Screening status; Translations: [Encounter for screening for malignant neoplasm of colon (Renamed from Special screening for malignant neoplasms, colon)] 06-03-2019 Comment on above: postmenopausal witho ut estrogen Unclassified (15 sources) Carotid Bruits (785.9) Unclassified (15 sources) Elevated Blood Pressure without diagnosis of Hypertension (796.2) Unclassified (20 sources) screening Resolved: 04-19-2016 04-19-2016 Unclassified (20 sources) Finding of body mass index; Translations: [BMI between 19-24,adult] Resolved: 01-13-2017 01-13-2017 Unclassified (20 sources) Bilateral carotid artery stenosis Unclassified (20 sources) Chronic heel pain, unspecified laterality Unclassified (15 sources) Cerumen impaction Unclassified (20 sources) Hearing loss, bilateral Unclassified (15 sources) Hip pain, acute, right Unclassified (15 sources) Bilateral plantar fasciitis Unclassified (17 sources) BMI 21.0-21.9, adult Unclassified (17 sources) Postmenopausal (Renamed from Postmenopausal status) Unclassified (13 sources) Encounter for screening for lipid disorder Unclassified (13 sources) Acute pain of left shoulder Past or Other Problems Problem Classification Problem Date Documented Date Episodic/Chronic Administrative/socia l admission (15 sources) Administrative reason for encounter; Translations: [Other general medical examination for administrative purposes] Resolved: 1 02-02-2011 Episodic Headache; including migraine (15 sources) Headache; including migraine Influenza (2 sources) Influenza Nonmalignant breast conditions (4 sources) Mammographic microcalcification of breast; Translations: [Mammographic microcalcification found on diagnostic imaging of breast] Onset: 9 01-05-2009 Episodic Occlusion or stenosis of precerebral arteries (1 source) Bilateral carotid artery stenosis; Translations: [Bilateral carotid artery stenosis] 06-03-2019 Comment on above: moderate 50-69% b/l and will do cta with contrazst to fu next yrdoesnt tolerate statins- h/o of trying 3- of them- cresto, lipitor and simvastain-terrible muslce aches Other connective tissue disease (15 sources) Heel pain; Translations: [Chronic heel pain, unspecified laterality] Resolved: 0 05-16-2019 Episodic Comment on above: getting better with therapy Other connective tissue disease (13 sources) Bilateral plantar fasciitis; Translations: [Bilateral plantar fasciitis] Resolved: 0 05-16-2019 Episodic Other connective tissue disease (13 sources) Pain in left foot; Translations: [Left foot pain] Resolved: 0 05-16-2019 Episodic Comment on above: left heel, burning w orse after hike, ? plantar fasciitis, vs burning heels syndrome will rule out stress fracture, send to welding engineer Other connective tissue disease (2 sources) Pain in left foot; Translations: [Left foot pain] Resolved: 0 05-16-2019 Comment on above: left heel, burning w orse after hike, ? plantar fasciitis, vs burning heels syndrome will rule out stress fracture, send to welding engineer Other connective tissue disease (2 sources) Bilateral plantar fasciitis; Translations: [Bilateral plantar fasciitis] Resolved: 0 05-16-2019 Other eye disorders (13 sources) Red left eye; Translations: [Redness of eye, left] Resolved: 0 05-16-2019 Episodic Residual codes; unclassified (2 sources) Needs influenza immunization; Translations: [NEED FOR PROPHYLACTIC VACCINATION AND INOCULATION AGAINST INFLUENZA (V04.81) (Renamed from Need for prophylactic vaccination and inoculation against influenza)] Resolved: 7 04-19-2016 Episodic Residual codes; unclassified (13 sources) Finding of body mass index; Translations: [BMI between 19-24,adult] Resolved: 7 01-13-2017 Episodic Unclassified (20 sources) abnormal carotid doppler 06-03-2019 Unclassified (15 sources) Other general medical examination for administrative purposes (V70.3) Unclassified (15 sources) Cerumen impaction (380.4) Unclassified (15 sources) cyst removed from left breast benign [facility] 06-03-2019 Unclassified (15 sources) Deliveries (Parity); Translations: [Deliveries (Parity)] 06-03-2019 Comment on above: 2 Unclassified (15 sources) Acute Conjuctivitis (372.01) Unclassified (15 sources) Pregnancies (); Translations: [Pregnancies ()] 06-03-2019 Comment on above: 2 Unclassified (15 sources) Carotid Stenosis (433.10) Unclassified (20 sources) [facility] EXAM Resolved: 7 04-19-2016 Unclassified (15 sources) Pharyngitis, acute Unclassified (17 sources) Red left eye; Translations: [Redness of eye, left] Resolved: 0 05-16-2019 Unclassified (15 sources) Unspecified Diagnosis Resolved: 7 04-19-2016 Unclassified (15 sources) Left foot pain Unclassified (1 source) Patient encounter status; Translations: [Screening for osteoporosis (Renamed from Encounter for screening for osteoporosis)] 06-03-2019 Comment on above: postmenopausal witho ut estrogen Results Test Name Value Interpretation Reference Range Facility [facility]CRE[facility] 05-22 [facility] * * *Final Report* * * DATE OF EXAM: May 22 2024 10:42AM [id number] - [facility]CRE[facility] / PROCEDURE REASON: Z12.31 Encounter for screening mammogram for malignant neoplasm of breast * * * * Physician Interpretation * * * * [place] [address] #[id number] - [facility] HISTORY: 63 year-old patient seen for screening. No current complaints. Patient states no personal history of breast cancer. COMPARISON STUDIES: The present examination has been compared to prior imaging studies dated 06/19/2018 (mammogram), 10/02/2019 (mammogram), 03/09/2021 (mammogram), 03/15/2022 (mammogram) and 03/23/2023 (mammogram). MAMMOGRAM TECHNIQUE: The study was acquired using full field digital technology and interpreted from soft copy. Digital Breast Tomosynthesis (DBT) images were obtained and used to assist in the interpretation of this examination. MAMMOGRAM FINDINGS: The breasts are heterogeneously dense, which may obscure small masses. No suspicious masses, calcifications or other abnormalities are seen in either breast. There is a biopsy marker seen in the left breast IMPRESSION: There is no mammographic evidence of malignancy in either breast. Routine screening mammogram is recommended. Annual mammogram will be due in 1 year. BI-RADS Category 1: Negative RISK: Based on the Tyrer-Cuzick (TC) risk assessment model, this patient has a 8.8% lifetime risk of developing breast cancer, meaning they are at average risk for developing breast cancer. However, this is only an estimate based on available history provided on the patient's questionnaire. We encourage all patients to talk with their providers about these results, further recommendations for managing breast health, and appropriate supplemental screening options if the patient has dense breast tissue. Interpreting Radiologist: Evangelina Vick M.D. Electronically signed on: 05/23/2024 [employer]S Sw[employer] Coach: JOSSUE Transcribe Date/Time: May 22 2024 10:16A Dictated by : EVANGELINA VICK MD This examination was interpreted and the report reviewed and electronically signed by: EVANGELINA VICK MD on May 23 2024 4:49PM EST [id number] Normal [facility] Dexa Bone Density Studyon Dexa Bone Density Study [facility] Imaging Services [address] [place] [id number] Dexa Bone Density Study MR#: [id number] Acct: [id number] Name: JUSTINE RAPP Rep #: [id number] : 1960 F 62 From: Dalton parra MD PCP: Dr. Annabelle Roach, Status: REG CLI Study: Dexa Bone Density Study Date of Exam: 04/25/23 Exam# [id number] Ordering Dr: Annabelle Roach DO [id number] STUDY: DUAL ENERGY X-RAY ABSORPTIOMETRY / DXA REASON FOR EXAM: Female, 62 years old. 733.90OsteopeniaBONE DENSITY REASON FOR EXAM TECHNIQUE: Bone Mineral Density (BMD) measurements of lumbar spine and bilateral hips were obtained. COMPARISON: Comparison is made with prior study dated April 21, 2021. FINDINGS: Lumbar Spine (L1-L4): g/cm2 (0.825) / T-score (-2.0) / Z-score (-0.5) Findings are suggestive of osteopenia with a moderate fracture risk. Left Femur Total: g/cm2 (0.786) / T-score (-1.3) / Z-score (-0.2) Left Femoral Neck: g/cm2 (0.686) / T-score (-1.5) / Z-score (-0.1) Right Femur Total: g/cm2 (0.859) / T-score (-0.7) / Z-score (0.4) Right Femoral Neck: g/cm2 (0.743) / T-score (-1.0) / Z-score (0.4) The T-Scores on the most recent prior examination were: Lumbar Spine (L1-L4): There has been improvement of bone density since the previous examination. Left Femur Total: which represents a worsening of 3.9%. Right Femur Total: which represents a worsening of 4.1%. BD/Dexa Bone Density Study IMPRESSION: The patient is considered osteopenic as outlined below according to World Parde[employer] Organization (WHO) criteria with a moderate fracture risk. There has been worsening of bone density since the previous examination. Reference Information: The T-score is the number of standard deviations above or below the standard which is normal for young adults at their peak bone mineral density. The World Health Organization (WHO) interprets the T-scores as follows: Above -1 Normal bone density Between -1 and -2.5 Osteopenia Equal to / or below -2.5 Osteoporosis As a practical clinical guideline, osteopenia may be graded as follows: Mild -1 through -1.5 Moderate -1.6 through -2.0 Severe -2.1 through -2.4 The Z-score is the number of standard deviations above or below age-matched controls. A Z-score of less than -1.5 would be considered abnormal. References: 1. NIH Osteoporosis and Related Bone Diseases www osteo.org 2. International Society for Clinical Densitometry www iscd.org 3. National Osteoporosis Foundation www nof.org Electronically Signed: Dalton Hernandez MD at 14:39 EST , CC: Dr. Annabelle Roach DO Men'S Swim Coach: Signed Normal [facility] Brain W/WO Contraston 2023 Brain W/WO Contrast [facility] Imaging Services [address] [place] [address] Brain W/WO Contrast MR#: [id number] Acct: [id number] Name: JUSTINE RAPP Rep #: [id number] : 1960 F 62 From: Odell stout MD PCP: Dr. Annabelle Roach, Status: REG CLI Study: Brain W/WO Contrast Date of Exam: 03/09/23 Exam# [id number] Ordering Dr: Theron Wilkins [place] [id number] STUDY: MRI BRAIN WITH AND WITHOUT CONTRAST (ATTENTION INTERNAL AUDITORY CANALS - I.A.C.''s) REASON FOR EXAM: Female, 62 years old. HEARING LOSS , TINNITUS LEFT EAR TECHNIQUE: Standardized multiplanar fat and water weighted pulse sequences were obtained. ml of 11ml clariscan contrast material was administered intravenously for the contrast portion of the examination. COMPARISON: None. FINDINGS: Normal bilateral temporal bones. Normal bilateral internal auditory canals. There is no demonstrated intracanalicular or cisternal vestibular schwannoma (acoustic neuroma). There is no enhancement of the bilateral VIIth or VIIIth cranial nerves. Normal bilateral cochlea, vestibules and semicircular canals. No cerebellar pontine angle mass or cyst. No demonstrated Mondini''s malformation. No visualized abnormal connection between the middle and inner ear. Normal size of the ventricles and extra-axial spaces for the patient''s age. Normal white matter tracts of the supratentorial brain. There is no evidence for recent intracranial ischemia or other cause of cytotoxic edema on diffusion weighted imaging (DWI). Normal T2* images of the brain without demonstrated susceptibility artifact. There is no demonstrated hemosiderin stain. There are no demyelinating plagues of the supratentorial brain, brainstem or cerebellum. There are no findings suspicious for multiple sclerosis (MS). There is no visualized ring-enhancing lesions or abnormal thickening or enhancement of meninges or dura. Normal bilateral basal ganglia. Normal thalami. Normal flow voids within the major intracranial circulation suggesting patency by spin echo criteria. Normal venous enhancement. There is no enhancing intra-axial or extra-axial abnormality. There is no extra-axial fluid accumulation. Normal sella turcica, pituitary gland, infundibular stalk, optic chiasm and hypothalamus. Normal tectal plate and pineal gland. Normal midbrain, lakshmi and medulla. Normal cerebellum. Normal basal cisterns. No demonstrated orbital abnormality, within the constraints of a routine brain study. Normal visualized paranasal sinuses. Normal calvarium and skull base. Normal visualized soft tissue structures. Normal visualized upper cervical spine. MRI/Brain W/WO Contrast IMPRESSION: Normal unenhanced and enhanced MRI of the bilateral internal auditory canals (I.A.C''s). Electronically Signed: Odell Grady MD at 15:32 EST , CC: Dr. Theron Wilkins MD; Dr. Annabelle Roach DO Men'S Swim Coach: Signed Normal [facility] Basophil percentageOrdered B y: Annabelle Roach on 02-17-2023 Basophil percentage < 1.0 mg/dL 0.55-1.[address] [facility] CREATININE FINGERSTICKon CREATININE WB < 1.0 Normal 0.55-1.02 [facility] Comment on above: Performed By: #### L 9100.0200 #### [facility] [address] [place], [address] EGFR WB > 60.0000 Normal >60 [facility] Comment on above: Performed By: #### L 9100.0200 #### [facility] [address] [place], [address] CTA Neck W/WO Contraston CTA Neck W/WO Contrast [facility] Imaging Services [address] [place] [address] CTA Neck W/WO Contrast MR#: [id number] Acct: [id number] Name: JUSTINE RAPP Rep #: [id number] : 1960 F 62 From: Dalton parra MD PCP: Dr. Annabelle Roach, Status: REG [facility] Study: CTA Neck W/WO Contrast Date of Exam: 02/17/23 Exam# [id number] Ordering Dr: Annabelle Roach DO [id number] STUDY: CTA NECK WITH CONTRAST REASON FOR EXAM: Female, 62 years old. Bilateral carotid artery stenosis RADIATION DOSAGE (If Supplied By Facility): CTDIvol = ( 16.60 ) mGy, DLP = ( 375.15 ) mGycm TECHNIQUE: CT angiography with multi-detector data acquisition was performed from the aortic arch to the skull base following intravenous administration of IV 100mL Isovue-370. MIP images were reconstructed from the axial data set. Post-processing of the angiographic images was performed, with multiplanar reformation and 3D reconstruction. Individualized dose optimization techniques were used for this CT. COMPARISON: Comparison is made with prior study dated April 12, 2021. FINDINGS: There is a 6.9 mm hypodensity in the anterior midportion of the right lobe of the thyroid. AORTIC ARCH: There is atherosclerotic calcific plaque formation of the aortic arch and great vessels arising from the aortic arch, without a hemodynamically significant stenosis. There is a normal origin of the brachiocephalic, left common carotid, and left subclavian arteries. RIGHT CAROTID ARTERIES: Normal right common carotid artery (CCA). Normal right common carotid bulb. Normal origin of the right internal carotid (ICA) artery without a hemodynamically significant stenosis. The mid and distal portion of the cervical portion of the right internal carotid artery has a serrated appearance. No significant stenosis seen. Normal origin of the right external carotid artery (ECA). LEFT CAROTID ARTERIES: Normal left common carotid artery (CCA). Normal left common carotid bulb. Normal origin of the left internal carotid (ICA) artery without a hemodynamically significant stenosis. Normal visualized cervical portion of the left internal carotid artery. Normal origin of the left external carotid artery (ECA). VERTEBRAL ARTERIES: Normal bilateral vertebral arteries. CT/CTA Neck W/WO Contrast IMPRESSION: No significant stenosis seen. appearance of the mid and distal cervical portion of the right internal carotid artery. Fibromuscular hyperplasia should be ruled out. No significant stenosis seen. Electronically Signed: Dalton Hernandez MD at 10:19 EST , CC: Dr. Annabelle Roach, DO Men'S Swim Coach: Signed Normal [facility] No Panel InformationOrdered By: Annabelle Roach on 02-17-2023 Bedside Estimated GFR (eGFR) > 60.0000 mL/min >60 [facility] [address] CARDIAC SCORINGon -[address] CARDIAC SCORING Patient Name: JUSTINE RAPP STUDY: CT CARDIAC SCORING; 06/29/2021 3:34 pm INDICATION: ATHEROSCLEROSIS I70.9. COMPARISON: None. ACCESSION NUMBER(S): [id number] ORDERING CLINICIAN: CHRISTINA LAWLER TECHNIQUE: Using prospective ECG gating, CT scan of the coronary arteries was performed without intravenous contrast. Coronary calcium scoring was performed according to the method of Agatston. FINDINGS: The score and distribution of calcium in the coronary arteries is as follows: LM 0 LAD 0 LCx 0 RCA 0 Total 0 The visualized mid/lower ascending thoracic aorta, is normal in size, measuring 3.4 cm in diameter. There are mild scattered atherosclerotic calcifications of visualized arch of the thoracic aorta.The heart is normal in size. No pericardial effusion is present.Main pulmonary artery is normal in caliber. There is no evidence of lymphadenopathy or mass within the visualized mediastinum.The visualized esophagus is unremarkable. The visualized segments of the lungsare normally expanded. No focal consolidation, pneumothorax, or pleural effusion. No abnormal pulmonary nodule. Bibasilar scarring/atelectasis is seen predominately involving the left basilar region. The visualized subdiaphragmatic structures appear intact. Small hiatal hernia. There are mild multilevel degenerative changes in the visualized spine. Left breast calcification is present. IMPRESSION: 1. Coronary artery calcium score of 0 *. 2. Small hiatal hernia. 3. Left breast calcification is present. Correlate with recent mammogram. *Coronary Artery Calcium Gated and Nongated Agatston score Score Risk 0 Very low 1-99 Mildly increased 100-299 Moderately increased >300 Moderate to severely increased Delvis et al. JCCT 2016 (http://dx.doi.org/10. 1016/j.jcct.2016.11.00 3) [place] 10-Year CHD Risk with Coronary Artery Calcification can be calcuated using link below https://www.sheffield-nhlbi .org/MESACHDRisk/MesaR iskScore/RiskScore.asp x Estella gillette al. JACC 2015 (http://dx.doi.org/10. 1016/j.j acc.2015.08.035) Electronically signed by: MIGUEL ANGEL MENDEZ MD Normal [facility] LIPID PANEL (03984)Ordered B y: Airport Guide on 03-19-2021 Cholesterol [Mass/Vol] 228 mg/dL Abnormal 100-199 [facility]; [facility] Work Phone: Comment on above: PATIENT WAS FASTINGP ERFORMED BY: [facility]6[address] [facility] [id number] Cholesterol in HDL [Mass/Vol] 101 mg/dL Normal [facility]; [facility] Work Phone: Comment on above: PATIENT WAS FASTINGP ERFORMED BY: RAMU [facility] Gpkyam6576 [address] RoadDublin [place] [id number] Triglyceride [Mass/Vol] 53 mg/dL Normal 0-149 [facility]; [facility] Work Phone: Comment on above: PATIENT WAS FASTINGP ERFORMED BY: CB [facility] Bzjauj3708 [address] RoadDublin [place] [id number] LIPID PANEL (61286) 9 mg/dL Normal 5-40 Compr ens[facility]; [facility] Work Phone: Comment on above: PATIENT WAS FASTINGP ERFORMED BY: RAMU [facility] Zpoual3719 [address] RoadDublin [place] [id number] LIPID PANEL (77281) 118 mg/dL Abnormal 0-99 [facility]; [facility] Work Phone: Comment on above: PATIENT WAS FASTINGP ERFORMED BY: RAMU [facility] Iscqyk8784 [address] RoadDublin [place] [id number] LIPID PANEL (29775) 1.2 {ratio} Normal 0.0-3.2 [facility]; [facility] Work Phone: Comment on above: LDL/HDL Ratio Men Wo men 1/2 Avg.Risk 1.0 1.5 Avg.Risk 3.6 3.2 2X Avg.Risk 6.2 5.0 3X Avg.Risk 8.0 6.1 PATIENT WAS FASTINGP ERFORMED BY: RAMU [facility] Cifocl72[address]Dublin [place] [id number] TSH ([id number])Ordered By: Jhon Baptiste on 03-19-2021 TSH Qn 0.741 {uIU/mL} Normal 0.450-4.500 [facility] Internal Medicine; [facility] Work Phone: Comment on above: PATIENT WAS FASTINGP ERFORMED BY: RAMU [facility] Oubanv60[address] RoadDublin [place] [id number] VITAMIN B-12 (CYANOCOBALAMIN ) (56833)Ordered By: Airport Guide on 03-19-2021 Cobalamin (Vitamin B12) [Mass/Vol] 328 pg/mL Normal 232-1245 [facility]; [facility] Work Phone: Comment on above: PATIENT WAS FASTINGP ERFORMED BY: SingspielUniversity HospitalHjqvbz8886 [facility] [id number] CNCOon 03-09-2021 CNCO HNO ID: [id number] Author: Mammography Coordinator Service: ? Author Type: Physician Type: Letter Filed: 03/10/2021 11:36 PM Note Text: [address] [address] March 09, 2021 PID: [id number] Justine Fernandez Tamela [address] [place] [address] Dear Ms. Rapp, We are pleased to inform you that the results of your recent breast imaging exam on 03/09/2021 are normal. Early detection of cancer is very important. We also understand recommendations regarding breast cancer screening are controversial. Please discuss with your primary care provider which strategy is best for you and whether a mammogram is right for you. Your imaging studies and report will be kept on file at [facility] as part of your permanent medical record and are available for your continuing care. Thank you for allowing us to help in meeting your health care needs. Sincerely, Dr. Webster Interpreting Radiologist [facility] (Normal over 40) Normal [facility] VITAMIN B-12 (CYANOCOBALAMIN ) ([id number])Ordered By: Airport Guide on 11-27-2019 Cobalamin (Vitamin B12) [Mass/Vol] 656 pg/mL Normal 232-1245 [facility] Work Phone: Comment on above: do at very end of ap ril or early july; PATIENT NOT FASTINGPERFORMED BY: LabSt. [facility] Nkzcrs7573 [facility] [id number] [facility] SCREENINGon 10-02-2019 SARIKA SCREENING Final Report DATE OF EXAM: Oct 02 2019 11:30AM LYNDA 0581 - [facility] SCREENING / PROCEDURE REASON: Screening Physician Interpretation #[id number] - SARIKA SCREENING BILATERAL DIGITAL SCREENING MAMMOGRAM WITH CAD: 10/02/2019 HISTORY: Routine screening mammogram. Patient reports no breast problems. RESULT: TECHNIQUE: The study was acquired using full field digital technology and interpreted from soft copy. Current study was also evaluated with a Computer Aided Detection (CAD). Comparison is made to exams dated: 06/19/2018 mammogram, 06/14/2017 mammogram, 02/09/2016 mammogram, 12/09/2014 mammogram, 09/04/2012 mammogram, and 03/15/2011 mammogram - [facility]. The tissue of both breasts is heterogeneously dense. This may lower the sensitivity of mammography. There is a biopsy clip in the left breast. No significant masses, calcifications, or other findings are seen in either breast. There has been no significant interval change. IMPRESSION: BENIGN FINDING There is no mammographic evidence of malignancy. A 1 year screening mammogram is recommended. Butch miller/cris:10/02/2019 11:44:17 Template Layout Worker(s): Arabella Muhammad (Olimpia)(M), [facility] letter sent: Normal over 40 Mammogram BI-RADS: 2 Benign finding Multiple national specialty organizations have released breast cancer screening guidelines for women at average risk for developing breast cancer - guidelines that are based on both evidence and opinion, yet differ on when to start and how often to screen for breast cancer. With representation from Breast Imaging, Internal Medicine, Women's Health, Family Medicine, and Medical/Surgical Oncology, the [facility] has carefully reviewed the data and reached the following consensus: 1) All women should engage in shared decision-making with their providers to decide when to start and how often to screen; 2) All women should have the opportunity to start screening mammography at age 40; 3) For women ages 45-55, we recommend annual screening mammograms; 4) For women ages 55 and over, we support both the transition from an annual to a biennial interval if this aligns more with patient's values and preferences, or continuation with annual screening; 5) All women should discuss with their providers when to stop screening mammograms. Men'S Swim Coach: Cris Transcribe Date/Time: Oct 02 2019 11:15A Dictated by : BUTCH SHELTON MD This examination was interpreted and the report reviewed and electronically signed by: BUTCH SHELTON MD on Oct 02 2019 11:44AM EST Normal [facility] Otheron 10-02-2019 [facility] CBC W/AUTO DIFF WBC (13645)O rdered By: Airport Guide on 05-16-2019 Basophils (Bld) [#/Vol] 0.0 {x10E3/uL} Normal 0.0-0.2 [facility] Work Phone: Comment on above: Test(s) 883338-NQS-S ; 174782-QSR-G; 846832-FPX-V; 813257-Wzucswwakagwj; 055521-Hmvoowvqocc, Total; 754155-CFV-W (Total);610547-Asaca LDL-P; 894071-HTS Size; 831868-XR-SG Scorewas developed and its performance characteristics determinedby [employer]. It has not been cleared or approved by the Foodand Drug Administration.PATIENT WAS FASTINGPERFORMED BY: [employer] [facility] [id number] BY: Liquid70 [facility]ThatBusWilson [facility] Center [id number] Basophils (Bld) [#/Vol] 0.0 10*3/uL Normal 0.0-0.2 [facility]; [facility] Work Phone: Comment on above: Test(s) 065846-DYG-W ; 434525-EPQ-B; 649630-EJV-T; 205341-Vrywifpeovecl; 282669-Kmqhlpyegce, Total; 032849-ETA-R (Total);928545-Zxzsr LDL-P; 160237-AAI Size; 617396-ER-NV Scorewas developed and its performance characteristics determinedby [employer]. It has not been cleared or approved by the Foodand Drug Administration.PATIENT WAS FASTINGPERFORMED BY: Bunkspeed1447 [facility] [id number] BY: Liquid70 [facility]ThatBusWilson [facility] Center [id number] Basophils/100 WBC (Bld) 1 % Normal [facility] Work Phone: Comment on above: Test(s) 846145-WPI-R ; 170691-QUH-A; 075407-NSQ-H; 674727-Xcoryfyedijnv; 044967-Pddgsveswhx, Total; 833832-ZCI-V (Total);217362-Qdqoh LDL-P; 236189-GQT Size; 077121-NQ-VO Scorewas developed and its performance characteristics determinedby [employer]. It has not been cleared or approved by the Foodand Drug Administration.PATIENT WAS FASTINGPERFORMED BY: SpareFoot[address] [id number] BY: SpareFootCarlsbad Medical CenterSogjwn5130 [facility] [id number] Eosinophils (Bld) [#/Vol] 0.2 {x10E3/uL} Normal 0.0-0.4 [facility] Work Phone: Comment on above: Test(s) 520306-JPE-V ; 993860-MAC-G; 861870-NWX-A; 037412-Sgyyrtfqlxjfq; 977911-Lwwguvmpued, Total; 984107-KKM-L (Total);550231-Rucen LDL-P; 444705-XPD Size; 773565-SY-CK Scorewas developed and its performance characteristics determinedby [employer]. It has not been cleared or approved by the Foodand Drug Administration.PATIENT WAS FASTINGPERFORMED BY: SpareFoot[address] [id number] BY: SpareFootUniversity HospitalPisiul8075 [facility] [id number] Eosinophils (Bld) [#/Vol] 0.2 10*3/uL Normal 0.0-0.4 [facility]; [facility] Work Phone: Comment on above: Test(s) 493566-LND-H ; 171043-WBN-B; 320214-YEA-N; 955215-Kvmtwkmqrobko; 172116-Mcmfjjozfvr, Total; 505576-JEC-D (Total);462823-Eyefx LDL-P; 765735-CDE Size; 538777-AH-GG Scorewas developed and its performance characteristics determinedby [employer]. It has not been cleared or approved by the Foodand Drug Administration.PATIENT WAS FASTINGPERFORMED BY: [employer] [address] [id number] BY: SpareFootCarlsbad Medical CenterJxuiec9680 [facility] [id number] Eosinophils/100 WBC (Bld) 3 % Normal [facility] Work Phone: Comment on above: Test(s) 118512-WKX-T ; 394642-CTW-S; 699015-DSH-V; 331205-Txehmcvlxyohk; 417516-Wejwdzxagef, Total; 504413-XCG-A (Total);039695-Ccrpw LDL-P; 985875-KIH Size; 411986-SK-UP Scorewas developed and its performance characteristics determinedby [employer]. It has not been cleared or approved by the Foodand Drug Administration.PATIENT WAS FASTINGPERFORMED BY: [employer] [address] [id number] BY: Iizuu Eomdch6959 [facility] [id number] Erythrocyte distribution width (RBC) [Ratio] 12.0 % Normal 11.7-15.4 [facility] Work Phone: Comment on above: Test(s) 055634-IAU-O ; 803818-WWR-M; 376974-EHH-C; 881671-Lszkbyswmxaee; 330678-Fdrdsztihsc, Total; 377229-QAM-P (Total);541638-Tmzif LDL-P; 517157-VLV Size; 663638-CJ-LA Scorewas developed and its performance characteristics determinedby [employer]. It has not been cleared or approved by the Foodand Drug Administration.PATIENT WAS FASTINGPERFORMED BY: [employer] [address] [id number] BY: MarketoUniversity HospitalEiyzpj2596 [facility] [id number] Hematocrit (Bld) [Volume fraction] 38.6 % Normal 34.0-46.6 [facility] Work Phone: Comment on above: Test(s) 269713-AKU-F ; 774928-YQU-U; 960635-UZQ-W; 559750-Rmbiqjpibfxbb; 318084-Vhaxoirdtzj, Total; 697232-ATW-V (Total);690919-Otpic LDL-P; 024154-ZWZ Size; 061389-CH-VW Scorewas developed and its performance characteristics determinedby [employer]. It has not been cleared or approved by the Foodand Drug Administration.PATIENT WAS FASTINGPERFORMED BY: [employer] [address] [id number] BY: [employer] Tqedje3285 [facility] [id number] Hemoglobin (Bld) [Mass/Vol] 13.5 g/dL Normal 11.1-15.9 [facility] Work Phone: Comment on above: Test(s) 591508-BTM-J ; 987071-KZZ-U; 447637-ANG-V; 641027-Purgjycnjrzum; 447964-Bruwsecvgbv, Total; 461220-IDM-I (Total);321342-Taoop LDL-P; 963357-QTI Size; 795839-ZH-SC Scorewas developed and its performance characteristics determinedby [employer]. It has not been cleared or approved by the Foodand Drug Administration.PATIENT WAS FASTINGPERFORMED BY: [employer] [address] [id number] BY: [employer] Dibnpu6869 [facility] [id number] Immature granulocytes (Bld) [#/Vol] 0.0 {x10E3/uL} Normal 0.0-0.1 [facility] Work Phone: Comment on above: Test(s) 950474-NSB-Y ; 811773-IRU-A; 798547-CAB-T; 423512-Wgjygxblyvplk; 327048-Xufkivvbgbf, Total; 117035-YYT-R (Total);749401-Bpdbi LDL-P; 437233-IVU Size; 672529-IY-NS Scorewas developed and its performance characteristics determinedby [employer]. It has not been cleared or approved by the Foodand Drug Administration.PATIENT WAS FASTINGPERFORMED BY: [employer] [address] [id number] BY: Liquid70 FarfetchAtrium Health Cabarrus [id number] Immature granulocytes (Bld) [#/Vol] 0.0 10*3/uL Normal 0.0-0.1 [facility]; [facility] Work Phone: Comment on above: Test(s) 637262-IOJ-T ; 192023-DKD-W; 019861-EXX-Y; 816244-Amzuxbfwchunz; 098845-Xkioxolpjbi, Total; 817666-PNZ-H (Total);979242-Lcgst LDL-P; 205079-KOK Size; 182935-RD-DT Scorewas developed and its performance characteristics determinedby [employer]. It has not been cleared or approved by the Foodand Drug Administration.PATIENT WAS FASTINGPERFORMED BY: [employer] [address] [id number] BY: [employer]6370 CatchThatBusWilson Medical Center [id number] Immature granulocytes/100 WBC (Bld) 0 % Normal [facility] Work Phone: Comment on above: Test(s) 287593-ALJ-T ; 849701-DTU-S; 177646-EYI-R; 862709-Qpdnmqebglgyc; 146946-Gukrfywvyga, Total; 171756-NVE-H (Total);945811-Bejjh LDL-P; 962558-RAR Size; 250330-FN-DF Scorewas developed and its performance characteristics determinedby [employer]. It has not been cleared or approved by the Foodand Drug Administration.PATIENT WAS FASTINGPERFORMED BY: [employer] [address] [id number] BY: MarketoUniversity HospitalLlbfch2822 [address] YotpoAtrium Health Cabarrus [id number] Lymphocytes (Bld) [#/Vol] 1.2 {x10E3/uL} Normal 0.7-3.1 [facility] Work Phone: Comment on above: Test(s) 270019-VJB-P ; 999337-YWN-W; 662023-EIC-I; 391713-Mzexvetkvbtgg; 005046-Wrrabdnsuko, Total; 747675-SLB-J (Total);550638-Nqkqd LDL-P; 112778-IVO Size; 062981-VS-LQ Scorewas developed and its performance characteristics determinedby [employer]. It has not been cleared or approved by the Foodand Drug Administration.PATIENT WAS FASTINGPERFORMED BY: [employer] [address] [id number] BY: Liquid70 [facility] [id number] Lymphocytes (Bld) [#/Vol] 1.2 10*3/uL Normal 0.7-3.1 [facility]; [facility] Work Phone: Comment on above: Test(s) 359272-HKA-M ; 118439-BWS-L; 264096-RBO-N; 688513-Upucuyggnyxyl; 477961-Bwzfugpruct, Total; 230089-UBZ-S (Total);209551-Odxwr LDL-P; 602277-DQI Size; 795765-EV-IS Scorewas developed and its performance characteristics determinedby [employer]. It has not been cleared or approved by the FoodDedicated Devices Drug Administration.PATIENT WAS FASTINGPERFORMED BY: [employer] [address] [id number] BY: Databricks6370 [facility] [id number] Lymphocytes/100 WBC (Bld) 27 % Normal [facility] Work Phone: Comment on above: Test(s) 440163-DOX-F ; 204623-PLM-I; 855403-QFZ-T; 761797-Gfttwhmwrolck; 870937-Rjtuxdxfkce, Total; 531472-ODI-Y (Total);500543-Hfyxh LDL-P; 886667-MAY Size; 828179-BK-CS Scorewas developed and its performance characteristics determinedby [employer]. It has not been cleared or approved by the Foodand Drug Administration.PATIENT WAS FASTINGPERFORMED BY: [employer] [address] [id number] BY: SpareFoot Izuegf4128 [facility]Is[facility] PharmaceuticalsWilson [facility] [id number] MCH (RBC) [Entitic mass] 35.2 pg Abnormal 26.6-33.0 [facility] Internal Medicine Work Phone: Comment on above: Test(s) 817426-MZM-Q ; 647305-YIK-P; 718196-HDF-Y; 607674-Awphlmbfyijuk; 247045-Sgzvgrtgmck, Total; 607739-QNC-Z (Total);431157-Vrswq LDL-P; 200859-AWB Size; 104054-OE-TY Scorewas developed and its performance characteristics determinedby [employer]. It has not been cleared or approved by the Foodand Drug Administration.PATIENT WAS FASTINGPERFORMED BY: Kera[address] [id number] BY: SpareFootCarlsbad Medical CenterYijzdl9672 [facility]landIsis PharmaceuticalsWilson Medical Center [id number] MCHC (RBC) [Mass/Vol] 35.0 g/dL Normal 31.5-35.7 [facility] Internal Medicine Work Phone: Comment on above: Test(s) 989692-JBD-V ; 444383-DKQ-Z; 403839-ZPM-M; 133833-Phbtvhkblglyo; 823127-Fooipzvoywi, Total; 176245-IGN-Y (Total);597400-Wcidm LDL-P; 862890-HUJ Size; 718416-GS-DS Scorewas developed and its performance characteristics determinedby [employer]. It has not been cleared or approved by the Foodand Drug Administration.PATIENT WAS FASTINGPERFORMED BY: [employer] [address] [id number] BY: SpareFootUniversity HospitalJlodgx6419 [facility] [id number] MCV (RBC) [Entitic vol] 101 fL Abnormal 79-97 [facility] Internal Medicine Work Phone: Comment on above: Test(s) 687153-MUP-V ; 171209-SWJ-M; 057266-ICB-R; 777948-Kjwdtrohcnzxi; 074507-Cibcoeywoyk, Total; 004378-NRD-S (Total);776156-Dexbs LDL-P; 368527-FNT Size; 146190-XB-GL Scorewas developed and its performance characteristics determinedby [employer]. It has not been cleared or approved by the Foodand Drug Administration.PATIENT WAS FASTINGPERFORMED BY: [employer] [address] [id number] BY: [employer] Cllfcn9822 [facility] [id number] Monocytes (Bld) [#/Vol] 0.5 {x10E3/uL} Normal 0.1-0.9 [facility] Work Phone: Comment on above: Test(s) 073465-ZDV-A ; 093675-WSZ-B; 790556-HIO-O; 474303-Jjqssfutvnxol; 875521-Fyuekfddqjy, Total; 277281-KHA-L (Total);923301-Zrzgs LDL-P; 884306-FWK Size; 610653-ZT-IW Scorewas developed and its performance characteristics determinedby [employer]. It has not been cleared or approved by the Foodand Drug Administration.PATIENT WAS FASTINGPERFORMED BY: [employer] [address] [id number] BY: [employer] Pggqdp2471 [facility] [id number] Monocytes (Bld) [#/Vol] 0.5 10*3/uL Normal 0.1-0.9 [facility]; [facility] Work Phone: Comment on above: Test(s) 086941-AGP-S ; 173860-NBW-Z; 922174-KNV-E; 781373-Cydfzxfjgossf; 782245-Tisgravlhua, Total; 862593-KMJ-W (Total);992122-Dqzkg LDL-P; 544054-KEI Size; 577883-PY-VJ Scorewas developed and its performance characteristics determinedby [employer]. It has not been cleared or approved by the Foodand Drug Administration.PATIENT WAS FASTINGPERFORMED BY: [employer] [address] [id number] BY: Sp[employer]Foot Sxfefm7738 [facility] [id number] Monocytes/100 WBC (Bld) 10 % Normal [facility] Work Phone: Comment on above: Test(s) 321048-GZZ-M ; 018132-KNT-U; 470896-ISO-C; 700895-Dbkchairkjcco; 699084-Onpaoxvovcv, Total; 431870-FCH-C (Total);326354-Yoydx LDL-P; 472673-TOT Size; 288458-HH-AC Scorewas developed and its performance characteristics determinedby [employer]. It has not been cleared or approved by the Foodand Drug Administration.PATIENT WAS FASTINGPERFORMED BY: Kera[address] [id number] BY: Liquid70 [facility] [id number] Neutrophils (Bld) [#/Vol] 2.6 {x10E3/uL} Normal 1.4-7.0 [facility] Work Phone: Comment on above: Test(s) 894866-LKU-F ; 185451-HWT-Q; 743328-YMJ-I; 643109-Ffftijklpsuod; 432298-Qhpfofavabh, Total; 244566-FYP-C (Total);621658-Wtlrd LDL-P; 510854-BHP Size; 735347-QR-YK Scorewas developed and its performance characteristics determinedby [employer]. It has not been cleared or approved by the Foodand Drug Administration.PATIENT WAS FASTINGPERFORMED BY: [employer] [address] [id number] BY: MarketoUniversity HospitalTofxma3249 [facility] [id number] Neutrophils (Bld) [#/Vol] 2.6 10*3/uL Normal 1.4-7.0 [facility]; [facility] Work Phone: Comment on above: Test(s) 944428-YMR-T ; 890909-SDI-D; 282253-VYM-G; 885744-Zbbhhdlvahzro; 131753-Mzbplzzslfu, Total; 607672-KSA-H (Total);302282-Dmjyh LDL-P; 779309-UWI Size; 028794-KB-YM Scorewas developed and its performance characteristics determinedby [employer]. It has not been cleared or approved by the Foodand Drug Administration.PATIENT WAS FASTINGPERFORMED BY: [employer] [address] [id number] BY: Liquid70 FarfetchAtrium Health Cabarrus [id number] Neutrophils/100 WBC (Bld) 59 % Normal [facility] Work Phone: Comment on above: Test(s) 523128-CZJ-K ; 359313-QLO-B; 313395-XUX-S; 049101-Rxplycftrxnkk; 573852-Vbaqxuniikn, Total; 339917-EFU-I (Total);767941-Cpxgz LDL-P; 898025-JBQ Size; 157987-FG-VX Scorewas developed and its performance characteristics determinedby [employer]. It has not been cleared or approved by the Foodand Drug Administration.PATIENT WAS FASTINGPERFORMED BY: [employer] [address] [id number] BY: Databricks6370 [facility]osaSaint [facility] [id number] Platelets (Bld) [#/Vol] 240 {x10E3/uL} Normal 150-450 [facility] Work Phone: Comment on above: Test(s) 865056-EZZ-B ; 802038-FVK-I; 914726-MHZ-C; 808104-Oozjizhawwtzt; 082523-Vxkovoyagld, Total; 429203-CYM-O (Total);682416-Eqfqm LDL-P; 666322-CHP Size; 412602-RT-TA Scorewas developed and its performance characteristics determinedby [facility] [employer]. It has not been cleared or approved by the Foodand Drug Administration.PATIENT WAS FASTINGPERFORMED BY: [facility] [facility] Wcdxtexfxk3895 [facility] [id number] BY: cycleWood Solutions [facility] Fponsj4297 Sosa YotpoAtrium Health Cabarrus [id number] Platelets (Bld) [#/Vol] 240 10*3/uL Normal 150-450 [facility] Internal Medicine; [facility] Work Phone: Comment on above: Test(s) 540045-MOC-V ; 129055-WEV-O; 016718-UOB-M; 811437-Rejarrbljsnxz; 662466-Fzbqkmdokpk, Total; 703579-XCK-Z (Total);467149-Xboix LDL-P; 346342-AQT Size; 766950-II-XR Scorewas developed and its performance characteristics determinedby [employer]. It has not been cleared or approved by the Foodand Drug Administration.PATIENT WAS FASTINGPERFORMED BY: [employer]rp Ovmlxgusmp90[address] [id number] BY: cycleWood Solutions [facility] Swkblw5678 [facility] [id number] RBC (Bld) [#/Vol] 3.84 {x10E6/uL} Normal 3.77-5.28 [facility] Internal [facility] Work Phone: Comment on above: Test(s) 181920-TTJ-T ; 689817-WIR-X; 756733-QRI-Y; 049260-Adynvungefoqw; 582867-Stvoquxmtzo, Total; 580614-NFL-D (Total);284191-Zblbo LDL-P; 715733-BXJ Size; 192904-LS-YH Scorewas developed and its performance characteristics determinedby [employer]. It has not been cleared or approved by the Foodand Drug Administration.PATIENT WAS FASTINGPERFORMED BY: [facility] [address] [id number] BY: cycleWood Solutions [facility] Cnqpok2933 [facility] [id number] RBC (Bld) [#/Vol] 3.84 10*6/uL Normal 3.77-5.28 [facility]; [facility] Work Phone: Comment on above: Test(s) 588088-DNT-S ; 924791-SWM-F; 311892-DAW-Y; 766974-Cbjwmywmtubqz; 269936-Aswkawtocis, Total; 905409-CDQ-L (Total);067316-Dgbfi LDL-P; 209765-GIL Size; 243986-LL-UJ Scorewas developed and its performance characteristics determinedby [employer]. It has not been cleared or approved by the Foodand Drug Administration.PATIENT WAS FASTINGPERFORMED BY: Kera[address] [id number] BY: Liquid70 [facility] [id number] WBC (Bld) [#/Vol] 4.5 {x10E3/uL} Normal 3.4-10.8 [facility] Internal Medicine Work Phone: Comment on above: Test(s) 808866-SLR-R ; 447520-KVR-S; 676883-LOM-V; 393743-Pbammrhdqcjll; 678108-Kxhiwodripc, Total; 321676-CIA-E (Total);339124-Bgtqt LDL-P; 770324-KGC Size; 777908-GE-ER Scorewas developed and its performance characteristics determinedby [employer]. It has not been cleared or approved by the Foodand Drug Administration.PATIENT WAS FASTINGPERFORMED BY: Kera[address] [id number] BY: Databricks6370 [facility] [id number] WBC (Bld) [#/Vol] 4.5 10*3/uL Normal 3.4-10.8 [facility]; [facility] Work Phone: Comment on above: Test(s) 831087-GKZ-V ; 755834-SUX-S; 472376-MMI-V; 606384-Nzrfmohiiafqt; 893652-Ejizlmagcnk, Total; 894994-VLM-I (Total);082732-Rqcar LDL-P; 395979-VCY Size; 122851-GI-IT Scorewas developed and its performance characteristics determinedby [employer]. It has not been cleared or approved by the Foodand Drug Administration.PATIENT WAS FASTINGPERFORMED BY: [employer] [address] [id number] BY: Databricks6370 [facility] [id number] METABOLIC PANEL, COMPREHENSI VE (95590)Ordered By: Airport Guide on 05-16-2019 Albumin [Mass/Vol] 4.6 g/dL Normal 3.8-4.9 [facility] Internal Medicine Work Phone: Comment on above: Test(s) 138851-NNH-Z ; 059947-FWK-P; 577943-YLD-V; 228699-Wldsflklxopsi; 235161-Omaxmhyfazf, Total; 123454-FSP-U (Total);821412-Rgzon LDL-P; 058109-LSL Size; 845215-DH-SH Scorewas developed and its performance characteristics determinedby [employer]. It has not been cleared or approved by the Foodand Drug Administration.PATIENT WAS FASTINGPERFORMED BY: [employer] [address] [id number] BY: Databricks6370 [facility] [id number] Albumin/Globulin [Mass ratio] 2.0 {ratio} Normal 1.2-2.2 [facility] Internal Medicine Work Phone: Comment on above: Test(s) 617869-FOD-B ; 482614-CXK-Q; 281771-LPW-O; 297621-Fndmmiysurkra; 860609-Dxrjzcpgtyc, Total; 787384-AZC-Z (Total);724656-Afjea LDL-P; 639580-IPZ Size; 206242-UM-TS Scorewas developed and its performance characteristics determinedby [employer]. It has not been cleared or approved by the Foodand Drug Administration.PATIENT WAS FASTINGPERFORMED BY: [employer] [address] [id number] BY: Liquid70 [facility] [id number] ALP [Catalytic activity/Vol] 77 [iU]/L Normal 39-117 [facility] Work Phone: Comment on above: Test(s) 222847-NFL-D ; 903987-XBU-D; 994807-SBK-K; 878665-Ttewrkkplnsnd; 798076-Uuwlrxztxxq, Total; 665950-HPU-P (Total);110676-Nieju LDL-P; 153902-LUG Size; 888900-HQ-CE Scorewas developed and its performance characteristics determinedby [employer]. It has not been cleared or approved by the Foodand Drug Administration.PATIENT WAS FASTINGPERFORMED BY: [employer] [address] [id number] BY: Liquid70 [facility] [id number] ALP [Catalytic activity/Vol] 77 U/L Normal 39-117 [facility] Internal [facility]; [facility] Work Phone: Comment on above: Test(s) 496333-SPG-J ; 363704-MDK-P; 224926-UVS-D; 330416-Rgwpkhcylyarx; 062720-Lqxyvgdufuu, Total; 032595-KKP-V (Total);737869-Jhzyq LDL-P; 147659-AJW Size; 796757-GS-TY Scorewas developed and its performance characteristics determinedby [employer]. It has not been cleared or approved by the Foodand Drug Administration.PATIENT WAS FASTINGPERFORMED BY: [employer] [address] [id number] BY: Sp[employer]Foot Xvvvxg1636 [facility] [id number] ALT [Catalytic activity/Vol] 11 [iU]/L Normal 0-32 [facility] Work Phone: Comment on above: Test(s) 626400-ARG-C ; 028177-ZWW-W; 668784-TCH-W; 738308-Umhayxqogfhfw; 203293-Rkfmccvkgsj, Total; 262370-BXJ-F (Total);723903-Nkmun LDL-P; 781998-WZQ Size; 269832-FB-CU Scorewas developed and its performance characteristics determinedby [employer]. It has not been cleared or approved by the Foodand Drug Administration.PATIENT WAS FASTINGPERFORMED BY: SpareFoot[address] [id number] BY: SpareFootCarlsbad Medical CenterOllfvu6414 [facility] [id number] ALT [Catalytic activity/Vol] 11 U/L Normal 0-32 [facility]; [facility] Work Phone: Comment on above: Test(s) 156960-QWH-J ; 489834-QTR-W; 135017-NNE-R; 025145-Pryiacnavzdcq; 963930-Jlopgewcdon, Total; 840153-IWP-D (Total);313541-Aanoc LDL-P; 529148-URX Size; 466076-HH-RQ Scorewas developed and its performance characteristics determinedby [employer]. It has not been cleared or approved by the Foodand Drug Administration.PATIENT WAS FASTINGPERFORMED BY: SpareFoot[address] [id number] BY: SpareFoot Rzxvxs0665 Sosa YotpoAtrium Health Cabarrus [id number] AST [Catalytic activity/Vol] 19 [iU]/L Normal 0-40 [facility] Internal Medicine Work Phone: Comment on above: Test(s) 839253-LZC-H ; 841064-KHD-D; 580261-DJA-E; 536624-Xhbbwgkncidhr; 108766-Wfouowecamu, Total; 527132-YPI-J (Total);077525-Swfof LDL-P; 634298-YIM Size; 646634-BU-GZ Scorewas developed and its performance characteristics determinedby [employer]. It has not been cleared or approved by the Foodand Drug Administration.PATIENT WAS FASTINGPERFORMED BY: SpareFoot[address] [id number] BY: SpareFootUniversity HospitalScsvuu9910 [facility] [id number] AST [Catalytic activity/Vol] 19 U/L Normal 0-40 [facility]; [facility] Work Phone: Comment on above: Test(s) 803663-OTJ-O ; 873318-LIO-L; 391837-YPI-T; 559801-Cgsmyewxjppxh; 222533-Opvjwcytgco, Total; 160847-PFL-M (Total);414319-Mcyin LDL-P; 192685-MOE Size; 342999-PI-ZK Scorewas developed and its performance characteristics determinedby [employer]. It has not been cleared or approved by the Foodand Drug Administration.PATIENT WAS FASTINGPERFORMED BY: Kera[address] [id number] BY: Liquid70 [facility]osaSaint [facility] [id number] Bilirubin [Mass/Vol] 0.6 mg/dL Normal 0.0-1.2 [facility] Internal Medicine Work Phone: Comment on above: Test(s) 251830-UIV-J ; 986461-MUV-A; 748386-CPQ-Z; 973179-Wqeragphxplil; 870591-Doemiqrxbzz, Total; 113672-HDI-E (Total);039699-[place] LDL-P; 688163-BSI Size; 131950-ZB-VE Scorewas developed and its performance characteristics determinedby [employer]. It has not been cleared or approved by the Foodand Drug Administration.PATIENT WAS FASTINGPERFORMED BY: [employer] [address] [id number] BY: Databricks6370 [facility] [id number] Calcium [Mass/Vol] 9.5 mg/dL Normal 8.7-10.2 [facility] Internal Medicine Work Phone: Comment on above: Test(s) 199051-VBA-F ; 027200-TFV-G; 921187-BDZ-J; 255718-Enhxncdazoler; 120987-Zpveatmukqh, Total; 645172-ZDW-W (Total);534537-Zihak LDL-P; 163623-XSW Size; 914296-LH-SR Scorewas developed and its performance characteristics determinedby [facility] [employer]. It has not been cleared or approved by the Foodand Drug Administration.PATIENT WAS FASTINGPERFORMED BY: [employer] [address] [id number] BY: Sp[employer]Foot Jjzukc5537 [facility] [id number] Chloride [Moles/Vol] 103 mmol/L Normal 96-106 [facility] Internal Medicine Work Phone: Comment on above: Test(s) 147222-EAG-B ; 559316-JVN-L; 513512-SXJ-Z; 369291-Tfdqppytqgjsq; 346723-Fkpdjjruxla, Total; 900001-ZCU-X (Total);728165-Svbkt LDL-P; 544749-EGI Size; 120169-BN-PJ Scorewas developed and its performance characteristics determinedby [employer]. It has not been cleared or approved by the Foodand Drug Administration.PATIENT WAS FASTINGPERFORMED BY: [employer] [address] [id number] BY: Gnar[employer] Systems6370 [facility] [id number] CO2 [Moles/Vol] 24 mmol/L Normal 20-29 [facility] Internal Medicine Work Phone: Comment on above: Test(s) 189157-MVZ-X ; 349810-VTG-Z; 852144-RXA-P; 453850-Ymcqkqnsyvctv; 602827-Thbnvfsbrcn, Total; 664813-HUY-Q (Total);673069-Bpwqy LDL-P; 930634-AIT Size; 553542-QS-GQ Scorewas developed and its performance characteristics determinedby [employer]. It has not been cleared or approved by the Foodand Drug Administration.PATIENT WAS FASTINGPERFORMED BY: [employer] [address] [id number] BY: [employer] Csndkj5626 [facility] [id number] Creatinine [Mass/Vol] 0.70 mg/dL Normal 0.57-1.00 [facility] Work Phone: Comment on above: Test(s) 596183-HZF-W ; 429106-JPT-W; 201071-LYT-I; 488043-Rcfndcugmngml; 507361-Fecgnoyglzg, Total; 087394-CZH-I (Total);419174-Pzsyn LDL-P; 330179-JQE Size; 606834-XK-UU Scorewas developed and its performance characteristics determinedby [employer]. It has not been cleared or approved by the Foodand Drug Administration.PATIENT WAS FASTINGPERFORMED BY: [employer] [address] [id number] BY: Liquid70 [facility] [id number] GFR/1.73 sq M predicted among blacks CKD-EPI (S/P/Bld) [Vol rate/Area] 111 mL/min/1.73 Normal [facility] Work Phone: Comment on above: Test(s) 499164-NLQ-A ; 034535-VTO-F; 173951-OZG-L; 588028-Ybwadsfglbknf; 228908-Lqnigwhvfgg, Total; 788314-NOI-T (Total);990343-Zaxro LDL-P; 075335-HEL Size; 493350-YP-US Scorewas developed and its performance characteristics determinedby [employer]. It has not been cleared or approved by the Foodand Drug Administration.PATIENT WAS FASTINGPERFORMED BY: [employer] [address] [id number] BY: Databricks6370 [facility] [id number] GFR/1.73 sq M predicted among non-blacks CKD-EPI (S/P/Bld) [Vol rate/Area] 96 mL/min/1.73 Normal [facility] Work Phone: Comment on above: Test(s) 697991-GLP-Q ; 193754-PGB-W; 762933-IAB-T; 984400-Zqayuqhkaircq; 875671-Lohppnsupwp, Total; 670389-ONU-Y (Total);875727-Xpdhs LDL-P; 446078-YME Size; 155171-EV-JR Scorewas developed and its performance characteristics determinedby [employer]. It has not been cleared or approved by the Foodand Drug Administration.PATIENT WAS FASTINGPERFORMED BY: [employer] [id number] BY: SpareFoot Yfocup9527 SosaSysClassAtrium Health Cabarrus [id number] Globulin (S) [Mass/Vol] 2.3 g/dL Normal 1.5-4.5 [facility] Internal Medicine Work Phone: Comment on above: Test(s) 279352-BGW-M ; 387073-CEY-S; 766495-ZLC-U; 842323-Qubewpaaatnxm; 470375-Ototrvoznhi, Total; 343225-YYF-E (Total);687240-Vqcvq LDL-P; 559389-XJL Size; 045857-WT-PQ Scorewas developed and its performance characteristics determinedby [employer] [facility] [employer]. It has not been cleared or approved by the Foodand Drug Administration.PATIENT WAS FASTINGPERFORMED BY: [employer] [address] [id number] BY: Liquid70 Sosa YotpoAtrium Health Cabarrus [id number] Glucose [Mass/Vol] 87 mg/dL Normal 65-99 [facility] Internal Medicine Work Phone: Comment on above: Test(s) 737369-CMQ-Q ; 221966-XNJ-B; 231736-YHF-M; 580332-Eqemscnsbfhqc; 207552-Vhrrfgfbsxw, Total; 376426-ZVZ-M (Total);389577-Rhqyp LDL-P; 402514-CEK Size; 835690-LY-AL Scorewas developed and its performance characteristics determinedby [employer] [facility] [employer]. It has not been cleared or approved by the Foodand Drug Administration.PATIENT WAS FASTINGPERFORMED BY: [employer] [id number] BY: Databricks6370 Sosa YotpoAtrium Health Cabarrus [id number] Potassium [Moles/Vol] 4.5 mmol/L Normal 3.5-5.2 [facility] Internal Medicine Work Phone: Comment on above: Test(s) 534591-LNU-E ; 770027-VPJ-I; 879214-EWF-I; 682702-Qlhjyqgxfpgly; 109715-Sdmrjzwldnj, Total; 859362-HBT-P (Total);831490-Kokvz LDL-P; 566332-LNL Size; 944204-NR-CY Scorewas developed and its performance characteristics determinedby [facility] [employer]. It has not been cleared or approved by the Foodand Drug Administration.PATIENT WAS FASTINGPERFORMED BY: Kera[address] [id number] BY: Liquid70 SosaSaint [facility] Hospital [id number] Protein [Mass/Vol] 6.9 g/dL Normal 6.0-8.5 [facility] Internal Medicine Work Phone: Comment on above: Test(s) 041398-DCF-J ; 888383-KFJ-X; 914966-NOH-J; 185066-Osxnjnympsfbq; 935340-Lgiczlkdrdu, Total; 168631-JNX-W (Total);287614-Wzxea LDL-P; 281315-GIR Size; 241393-BP-GX Scorewas developed and its performance characteristics determinedby [facility] [employer]. It has not been cleared or approved by the Foodand Drug Administration.PATIENT WAS FASTINGPERFORMED BY: Kera[address] [id number] BY: Databricks6370 SosaSaint [facility] [id number] Sodium [Moles/Vol] 142 mmol/L Normal 134-144 [facility] Internal Medicine Work Phone: Comment on above: Test(s) 770042-ANX-K ; 095711-JCG-Z; 054621-NBT-O; 336651-Ryygbcbbhxmfh; 375665-Msatlikddpr, Total; 655210-TDF-T (Total);513142-Hofxh LDL-P; 690777-ORY Size; 165709-FS-YK Scorewas developed and its performance characteristics determinedby [facility] [employer]. It has not been cleared or approved by the Foodand Drug Administration.PATIENT WAS FASTINGPERFORMED BY: [employer] [address] [id number] BY: Marketo Jakjol6147 FarfetchAtrium Health Cabarr[facility] [id number] Urea nitrogen [Mass/Vol] 13 mg/dL Normal 6-24 [facility] Work Phone: Comment on above: Test(s) 715566-UNI-R ; 025670-CRQ-J; 397465-VXL-X; 301292-Xqhikrmimflum; 609407-Ajfaazabbas, Total; 619896-OVL-R (Total);362510-Xancb LDL-P; 286564-TGH Size; 792733-WF-YM Scorewas developed and its performance characteristics determinedby [employer] [facility] [employer]. It has not been cleared or approved by the Foodand Drug Administration.PATIENT WAS FASTINGPERFORMED BY: Kera[address] [id number] BY: [employer]abricks6370 [facility]Wilson [facility] [id number] Urea nitrogen/Creatinine [Mass ratio] 19 mg/mg Normal 9- [facility] Work Phone: Comment on above: Test(s) 047749-KYX-A ; 692371-IPP-Y; 037613-PPD-U; 812978-Meqlgmllcpynu; 119031-Ajmytczildn, Total; 050488-YUD-F (Total);890558-Azlqo LDL-P; 693822-LLO Size; 795512-PQ-DV Scorewas developed and its performance characteristics determinedby [facility] [employer]. It has not been cleared or approved by the Foodand Drug Administration.PATIENT WAS FASTINGPERFORMED BY: [employer] [address] [id number] BY: Iizuu Sibruy4618 [facility] [id number] NMR Profile (64417)Ordered B y: Airport Guide on 05-16-2019 Cholesterol [Mass/Vol] 224 mg/dL Abnormal 100-199 [facility] Work Phone: Comment on above: Test(s) 322016-CFX-H ; 371619-RTA-E; 396410-FIA-I; 149357-Ccjcatbnfozga; 026148-Coihhhtaecy, Total; 035241-EBL-C (Total);349077-Ysikl LDL-P; 910152-FHI Size; 540738-HV-HH Scorewas developed and its performance characteristics determinedby [employer]. It has not been cleared or approved by the Foodand Drug Administration.PATIENT WAS FASTINGPERFORMED BY: Bunkspeed[address] [place] [address] [id number] BY: YappeAtrium Health Cabarrus [id number] Lipoprotein.alpha [Moles/Vol] 37.5 umol/L Normal [facility] Work Phone: Comment on above: Test(s) 307925-JOW-P ; 515123-XNA-C; 998573-KAC-X; 873450-Iqscxrstlgwjw; 776742-Dntefdszzbv, Total; 594874-NTP-T (Total);308995-Hmjzw LDL-P; 334074-FAN Size; 949442-GS-RB Scorewas developed and its performance characteristics determinedby [employer]. It has not been cleared or approved by the Foodand Drug Administration.PATIENT WAS FASTINGPERFORMED BY: Kera[address] [id number] BY: Liquid70 [facility]Saint [facility] [id number] Lipoprotein.beta.subp article [Entitic length] 21.4 nm Normal [facility] Work Phone: Comment on above: INTERPRETATIVE INFORMATION PARTICLE CONCENTRATION AND SIZE <--Lower CVD Risk Higher CVD Risk--> LDL AND HDL PARTICLES Percentile in Reference Population HDL-P (total) High 75th 50th 25th Low >34.9 34.9 30.5 26.7 <26.7 . Small LDL-P Low 25th 50th 75th High <117 117 527 839 >839 . LDL Size <-Large (Pattern A)-> <-Small (Pattern B)-> 23.0 20.6 20.5 19.0 Small LDL-P and LDL Size are associated with CVD risk, but not afterLDL-P is taken into account. Test(s) 699270-YFI-G ; 197529-EEB-T; 893895-MGH-L; 862899-Xkcbgtdedudgq; 461410-Vmqhjehqpqk, Total; 458547-UNS-Z (Total);863898-Ypvnr LDL-P; 831450-HUZ Size; 459898-KM-XR Scorewas developed and its performance characteristics determinedby [employer]. It has not been cleared or approved by the Foodand Drug Administration.PATIENT WAS FASTINGPERFORMED BY: [employer] [address] [id number] BY: [employer] Ldkmpw3226 [facility] [id number] Lipoprotein.beta.subp article [Moles/Vol] 1099 nmol/L Abnormal Comprehens[facility] e Internal Medicine Work Phone: Comment on above: Low < 1000 Moderate 1000 - 1299 Borderline-High 1300 - 1599 High 1600 - 2000 Very High > 2000 Test(s) 076794-BNQ-P ; 364871-ZLP-G; 782792-RMK-Q; 844426-Ebttmgfpuakhh; 502298-Jvfauiseufz, Total; 661698-WOI-M (Total);648741-Rmdcp LDL-P; 408491-WQA Size; 218357-JF-AY Scorewas developed and its performance characteristics determinedby [employer]. It has not been cleared or approved by the Foodand Drug Administration.PATIENT WAS FASTINGPERFORMED BY: BN [facility] [address] [id number] BY: [employer] Cjxjtq0888 [facility] [id number] Lipoprotein.beta.subp article.small [Moles/Vol] <90 Normal [facility] Work Phone: Comment on above: Test(s) 805817-FRQ-K ; 031374-PBC-I; 007554-PPX-U; 791286-Ythugzkmbnfar; 616330-Thqhnzckaix, Total; 081480-JUP-F (Total);232927-Euvhn LDL-P; 300060-LUM Size; 417898-UJ-AT Scorewas developed and its performance characteristics determinedby [employer]. It has not been cleared or approved by the Foodand Drug Administration.PATIENT WAS FASTINGPERFORMED BY: [employer] [address] [id number] BY: [employer]6370 [facility] [id number] Triglyceride [Mass/Vol] 62 mg/dL Normal 0-149 [facility] Work Phone: Comment on above: Test(s) 951342-CIG-X ; 649064-VPR-C; 564914-YFK-N; 041355-Zzbqrabmafwoe; 321377-Cebkbipsdai, Total; 148236-FJN-K (Total);868578-Scpbe LDL-P; 960555-JWT Size; 629164-ZT-EA Scorewas developed and its performance characteristics determinedby [employer]. It has not been cleared or approved by the Foodand Drug Administration.PATIENT WAS FASTINGPERFORMED BY: [employer] [address] [id number] BY: MarketoUniversity HospitalDwfkfx0446 [facility] [id number] NMR Profile (46893) 93 mg/dL Normal [facility] Internal Medicine Work Phone: Comment on above: Test(s) 137627-DAG-V ; 586501-CGN-X; 417757-FXJ-H; 914019-Hvcqlvxsoxrqz; 079267-Hepheamlfsz, Total; 186481-EKZ-F (Total);649924-Eyecn LDL-P; 303153-SDS Size; 565049-UK-BD Scorewas developed and its performance characteristics determinedby [employer]. It has not been cleared or approved by the Foodand Drug Administration.PATIENT WAS FASTINGPERFORMED BY: [employer] [address] [id number] BY: Iizuu Lmrlmy0611 [facility] [id number] NMR Profile (59831) 119 mg/dL Abnormal 0-99 [facility] Internal Medicine Work Phone: Comment on above: . Optimal < 100 Abov e optimal 100 - 129 Borderline 130 - 159 High 160 - 189 Very high > 189 .LDL-C is inaccurate if patient is non-fasting. Test(s) 704174-TUG-K ; 823061-SGC-X; 668155-ABG-W; 777575-Hjjhrwnaicvoy; 249280-Nxkslvrrgml, Total; 766808-BSO-Y (Total);390030-Ldvgs LDL-P; 171483-IJA Size; 769368-GR-IW Scorewas developed and its performance characteristics determinedby [employer]. It has not been cleared or approved by the Foodand Drug Administration.PATIENT WAS FASTINGPERFORMED BY: [employer] [address] [id number] BY: MarketoUniversity HospitalCogdqs4124 [facility] [id number] T3, FREE (TRIDOTHYRONINE) (8 1837)Ordered By: Airport Guide on 05-16-2019 Free T3 [Mass/Vol] 2.7 pg/mL Normal 2.0-4.4 [facility] Internal Medicine Work Phone: Comment on above: Test(s) 569573-KMU-K ; 055024-GKM-O; 177013-NKC-K; 095669-Xprjfpftwdvls; 879658-Lozhilypmhq, Total; 427243-SNW-X (Total);865347-Myfdn LDL-P; 237974-YTE Size; 535358-BN-KB Scorewas developed and its performance characteristics determinedby [employer]. It has not been cleared or approved by the Foodand Drug Administration.PATIENT WAS FASTINGPERFORMED BY: [employer] [address] [id number] BY: SpareFootUniversity HospitalJvivax9866 [facility] [id number] T4, FREE (THYROXINE) (57771) Ordered By: Airport Guide on 05-16-2019 Free T4 [Mass/Vol] 0.91 ng/dL Normal 0.82-1.77 [facility] Internal Medicine Work Phone: Comment on above: Test(s) 643631-RWM-P ; 634313-QOQ-B; 323912-JCY-F; 352526-Mpmvcmnfopkzc; 396033-Dmfibequhsy, Total; 651385-TYH-M (Total);074300-Dcmst LDL-P; 224712-HOS Size; 122182-FH-UV Scorewas developed and its performance characteristics determinedby [employer]. It has not been cleared or approved by the Foodand Drug Administration.PATIENT WAS FASTINGPERFORMED BY: [employer] [address] [id number] BY: Iizuu Hdjwmu1375 [facility] [id number] TSH (77168)Ordered By: [employer] Molding Equipment Operator on 05-16-2019 TSH Qn 0.875 {uIU/mL} Normal 0.450-4.500 [facility] Internal Medicine Work Phone: Comment on above: Test(s) 253744-GCM-B ; 366915-CYF-V; 873156-DXU-K; 247070-Tzojzfdquhklj; 150812-Soywskwwfnd, Total; 571750-JUE-H (Total);886824-Vbroo LDL-P; 197603-YZM Size; 231886-ZW-ZN Scorewas developed and its performance characteristics determinedby [employer]. It has not been cleared or approved by the Foodand Drug Administration.PATIENT WAS FASTINGPERFORMED BY: [employer] [address] [id number] BY: RAMU Messerlin6370 [facility] [id number] C-REACTIVE PROTEIN (32117)Or dered By: Airport Guide on 04-18-2016 CRP [Mass/Vol] 0.6 mg/L Normal 0.0-4.9 [facility] Internal Medicine Work Phone: Comment on above: PATIENT WAS FASTINGP ERFORMED BY: RMAU LabCecily MesserKlozor5809 [facility] [id number] LIPID PANEL (46283)Ordered B y: Airport Guide on 04-18-2016 Cholesterol [Mass/Vol] 181 mg/dL Normal 100-199 [facility] Work Phone: Comment on above: PATIENT WAS FASTINGP ERFORMED BY: RAMU Garcia6370 [facility] [id number] Cholesterol in HDL [Mass/Vol] 81 mg/dL Normal [facility] Work Phone: Comment on above: PATIENT WAS FASTINGP ERFORMED BY: RAMU Messerlin6370 [facility] [id number] Cholesterol in LDL [Mass/Vol] 90 mg/dL Normal 0-99 [facility] Work Phone: Comment on above: PATIENT WAS FASTINGP ERFORMED BY: RAMU Messerlin6370 [facility] [id number] Cholesterol in LDL/Cholesterol in HDL [Mass ratio] 1.1 {ratio_units} Normal 0.0-3.2 [facility] Work Phone: Comment on above: LDL/HDL Ratio Men Wo men 1/2 Avg.Risk 1.0 1.5 Avg.Risk 3.6 3.2 2X Avg.Risk 6.2 5.0 3X Avg.Risk 8.0 6.1 PATIENT WAS FASTINGP ERFORMED BY: RAMU LabCecily MesserMhgaqr8840 [facility] [id number] Cholesterol in VLDL [Mass/Vol] 10 mg/dL Normal 5-40 [facility] Work Phone: Comment on above: PATIENT WAS FASTINGP ERFORMED BY: RAMU Messerlin6370 [facility] [id number] Triglyceride [Mass/Vol] 51 mg/dL Normal 0-149 [facility] Work Phone: Comment on above: PATIENT WAS FASTINGP ERFORMED BY: RAMU Messerlin6370 [facility] [id number] METABOLIC PANEL, COMPREHENSI VE (38678)Ordered By: Airport Guide on 04-18-2016 Albumin [Mass/Vol] 4.5 g/dL Normal 3.5-5.5 [facility] Internal Medicine Work Phone: Comment on above: PATIENT WAS FASTINGP ERFORMED BY: [place] 3978870 [facility] [id number] Albumin/Globulin [Mass ratio] 1.9 {ratio} Normal 1.1-2.5 [facility] Work Phone: Comment on above: Effective May the reference interval for A/G Ratio will be changing to: Age Male Female 0 - 7 days 1.1 - 2.3 1.1 - 2.3 8 - 30 days 1.2 - 2.8 1.2 - 2.8 1 - 6 months 1.3 - 3.6 1.3 - 3.6 7 months - 5 years 1.5 - 2.6 1.5 - 2.6 > 5 years 1.2 - 2.2 1.2 - 2.2 PATIENT WAS FASTINGP ERFORMED BY: [facility]6370 [facility] [id number] ALP [Catalytic activity/Vol] 65 [iU]/L Normal 39-117 [facility] Work Phone: Comment on above: PATIENT WAS FASTINGP ERFORMED BY: [facility]6370 [facility] [id number] ALP [Catalytic activity/Vol] 65 U/L Normal 39-117 [facility]; [facility] Work Phone: Comment on above: PATIENT WAS FASTINGP ERFORMED BY: [facility]6370 [facility] [id number] ALT [Catalytic activity/Vol] 11 [iU]/L Normal 0-32 [facility] Work Phone: Comment on above: PATIENT WAS FASTINGP ERFORMED BY: CB [facility] Rzcjfa5571 Sosa RoadDublin [place] [id number] ALT [Catalytic activity/Vol] 11 U/L Normal 0-32 [facility]; [facility] Work Phone: Comment on above: PATIENT WAS FASTINGP ERFORMED BY: CB [facility] Ytljjm8502 Sosa RoadDublin [place] [id number] AST [Catalytic activity/Vol] 15 [iU]/L Normal 0-40 [facility] Work Phone: Comment on above: PATIENT WAS FASTINGP ERFORMED BY: CB [facility] Wckigl6207 [address] RoadDublin [place] [id number] AST [Catalytic activity/Vol] 15 U/L Normal 0-40 [facility]; [facility] Work Phone: Comment on above: PATIENT WAS FASTINGP ERFORMED BY: [facility] Rzaebh0967 [address] RoadDublin [place] [id number] Bilirubin [Mass/Vol] 0.9 mg/dL Normal 0.0-1.2 [facility] Work Phone: Comment on above: PATIENT WAS FASTINGP ERFORMED BY: [facility] Ncmbuz8688 Sosa RoadDublin [place] [id number] Calcium [Mass/Vol] 9.1 mg/dL Normal 8.7-10.2 [facility] Internal Medicine Work Phone: Comment on above: PATIENT WAS FASTINGP ERFORMED BY: [facility] Itrmre4701 [address] RoadDublin [place] [id number] Chloride [Moles/Vol] 104 mmol/L Normal 96-106 [facility] Work Phone: Comment on above: PATIENT WAS FASTINGP ERFORMED BY: CB [facility] Ersmvv9282 [address] RoadDublin [place] [id number] CO2 [Moles/Vol] 21 mmol/L Normal 18-29 [facility] Internal [facility] Work Phone: Comment on above: PATIENT WAS FASTINGP ERFORMED BY: CB [facility] Bpaait3798 [address] RoadDublin [place] [id number] Creatinine [Mass/Vol] 0.67 mg/dL Normal 0.57-1.00 [facility] Internal Medicine Work Phone: Comment on above: PATIENT WAS FASTINGP ERFORMED BY: CB [facility] Qpehla4298 [address] RoadDublin [place] [id number] GFR/1.73 sq M predicted among blacks CKD-EPI (S/P/Bld) [Vol rate/Area] 115 mL/min/1.73 Normal [facility] Internal Medicine Work Phone: Comment on above: PATIENT WAS FASTINGP ERFORMED BY: CB [facility] Wolmkp8537 [address] RoadDublin [place] [id number] GFR/1.73 sq M predicted among non-blacks CKD-EPI (S/P/Bld) [Vol rate/Area] 100 mL/min/1.73 Normal [facility] Internal Medicine Work Phone: Comment on above: PATIENT WAS FASTINGP ERFORMED BY: CB [facility] Gyqmxs3545 [address] RoadDublin [place] [id number] Globulin (S) [Mass/Vol] 2.4 g/dL Normal 1.5-4.5 [facility] Internal Medicine Work Phone: Comment on above: PATIENT WAS FASTINGP ERFORMED BY: CB [facility] Rrcfhe8659 [address] RoadDublin [place] [id number] Glucose [Mass/Vol] 83 mg/dL Normal 65-99 [facility] Internal Medicine Work Phone: Comment on above: PATIENT WAS FASTINGP ERFORMED BY: CB [facility] Evgzun7509 [address] RoadDublin [place] [id number] Potassium [Moles/Vol] 4.5 mmol/L Normal 3.5-5.2 [facility] Internal Medicine Work Phone: Comment on above: PATIENT WAS FASTINGP ERFORMED BY: CB [facility] Ducmtc1298 [address] RoadDublin [place] [id number] Protein [Mass/Vol] 6.9 g/dL Normal 6.0-8.5 [facility] Internal Medicine Work Phone: Comment on above: PATIENT WAS FASTINGP ERFORMED BY: RAMU Nehemiah Garcia6370 [facility] [id number] Sodium [Moles/Vol] 141 mmol/L Normal 134-144 [facility] Internal Medicine Work Phone: Comment on above: PATIENT WAS FASTINGP ERFORMED BY: RAMU Rafal Qdjirl0824 [facility] [id number] Urea nitrogen [Mass/Vol] 20 mg/dL Normal 6-24 [facility] Work Phone: Comment on above: PATIENT WAS FASTINGP ERFORMED BY: RAMU Anne [facility]St. [facility] Xgaxph9674 [facility] [id number] Urea nitrogen/Creatinine [Mass ratio] 30 mg/mg Abnormal 9- [facility] Work Phone: Comment on above: PATIENT WAS FASTINGP ERFORMED BY: RAMU Anne MarieSt. Louis [facility] Jtymgh1087 [facility] [id number] SED RATE ERYTHROCYTE (15494) Ordered By: Airport Guide on 04-18-2016 ESR (Bld) [Velocity] 2 mm/h Normal 0-40 [facility] Internal Medicine Work Phone: Comment on above: PATIENT WAS FASTINGP ERFORMED BY: RAMU LabSt. [facility] Oadtdf2335 [facility] [id number] LIPID PANEL (82194)Ordered B y: Airport Guide on 07-24-2015 Cholesterol [Mass/Vol] 173 mg/dL Normal 100-199 [facility] Work Phone: Comment on above: PATIENT WAS FASTINGP ERFORMED BY: RAMU LabSt. [facility] Qmwdtz6579 [facility] [id number]; non-emergent till apt Cholesterol in HDL [Mass/Vol] 88 mg/dL Normal [facility] Work Phone: Comment on above: According to ATP-III Guidelines, HDL-C >59 mg/dL is considered anegative risk factor for CHD. PATIENT WAS FASTINGP ERFORMED BY: RAMU LabChildren[facility]6370 [facility] [id number]; non-emergent till apt Cholesterol in LDL [Mass/Vol] 75 mg/dL Normal 0-99 [facility] Work Phone: Comment on above: PATIENT WAS FASTINGP ERFORMED BY: RAMU [facility] Auynbq0603 [facility] [id number]; non-emergent till apt Cholesterol in LDL/Cholesterol in HDL [Mass ratio] 0.9 {ratio_units} Normal 0.0-3.2 [facility] Work Phone: Comment on above: LDL/HDL Ratio Men Wo men 1/2 Avg.Risk 1.0 1.5 Avg.Risk 3.6 3.2 2X Avg.Risk 6.2 5.0 3X Avg.Risk 8.0 6.1 PATIENT WAS FASTINGP ERFORMED BY: RAMU LabChildren'[facility]6370 [facility] [id number]; non-emergent till apt Cholesterol in VLDL [Mass/Vol] 10 mg/dL Normal 5-40 [facility] Work Phone: Comment on above: PATIENT WAS FASTINGP ERFORMED BY: RAMU [facility] Kvmcya8696 [facility] [id number]; non-emergent till apt Triglyceride [Mass/Vol] 51 mg/dL Normal 0-149 [facility] Work Phone: Comment on above: PATIENT WAS FASTINGP ERFORMED BY: RAMU [facility] Zmfvum9682 [facility] [id number]; non-emergent till apt METABOLIC PANEL, COMPREHENSI VE (70968)Ordered By: Airport Guide on 07-24-2015 Albumin [Mass/Vol] 4.5 g/dL Normal 3.5-5.5 [facility] Internal Medicine Work Phone: Comment on above: PATIENT WAS FASTINGP ERFORMED BY: RAMU [facility] Xitrva1649 [facility] [id number] Information: [id number],[id number] Albumin/Globulin [Mass ratio] 2.0 {ratio} Normal 1.1-2.5 [facility] Work Phone: Comment on above: PATIENT WAS FASTINGP ERFORMED BY: RAMU Nehemiah Messerlin6370 [address] Roadblin [place] [id number] Information: 480784,[id number] ALP [Catalytic activity/Vol] 62 [iU]/L Normal 39-117 [facility] Work Phone: Comment on above: PATIENT WAS FASTINGP ERFORMED BY: RAMU [facility] Oflumo3111 [address] Roadblin [place] [id number] Information: [id number],[id number] ALP [Catalytic activity/Vol] 62 U/L Normal 39-117 [facility]; [facility] Work Phone: Comment on above: PATIENT WAS FASTINGP ERFORMED BY: RAMU Nehemiah Messerlin6370 [address] Roadblin [place] [id number] Information: [id number] ALT [Catalytic activity/Vol] 8 [iU]/L Normal 0-32 [facility] Work Phone: Comment on above: PATIENT WAS FASTINGP ERFORMED BY: RAMU Rafal Cophhs1541 [address] [facility]in [place] [id number] Information: 599133,[id number] ALT [Catalytic activity/Vol] 8 U/L Normal 0-32 [facility]; [facility] Work Phone: Comment on above: PATIENT WAS FASTINGP ERFORMED BY: RAMU Rafal Qhnsae3933 [address] [facility]in [place] [id number] Information: 389436,[id number] AST [Catalytic activity/Vol] 16 [iU]/L Normal 0-40 [facility] Work Phone: Comment on above: PATIENT WAS FASTINGP ERFORMED BY: RAMU [facility] Fwrulv2858 [address] [facility] Hospitalblin [place] [id number] Information: [id number] AST [Catalytic activity/Vol] 16 U/L Normal 0-40 [facility]; [facility] Work Phone: Comment on above: PATIENT WAS FASTINGP ERFORMED BY: RAMU [facility] Ahwohl5930 [address] [facility]in [place] [id number] Information: 047089,[id number] Bilirubin [Mass/Vol] 1.0 mg/dL Normal 0.0-1.2 [facility] rehensive Internal Medicine Work Phone: Comment on above: PATIENT WAS FASTINGP ERFORMED BY: RAMU [facility] Pifvvf2699 [address] [facility] [id number] Information: [id number],[id number] Calcium [Mass/Vol] 9.3 mg/dL Normal 8.7-10.2 [facility] Internal Medicine Work Phone: Comment on above: PATIENT WAS FASTINGP ERFORMED BY: RAMU LabChildren'S [facility] Of [facility]6370 [facility] [id number] Information: [id number] Chloride [Moles/Vol] 102 mmol/L Normal 97-108 [facility] Work Phone: Comment on above: PATIENT WAS FASTINGP ERFORMED BY: RAMU [facility] Jshtvl0860 [facility] [id number] Information: [id number] CO2 [Moles/Vol] 24 mmol/L Normal 18-29 [facility] Internal Medicine Work Phone: Comment on above: PATIENT WAS FASTINGP ERFORMED BY: RAMU LabSt. [facility] Pgtqas6603 [facility] [id number] Information: [id number] Creatinine [Mass/Vol] 0.70 mg/dL Normal 0.57-1.00 [facility] Work Phone: Comment on above: PATIENT WAS FASTINGP ERFORMED BY: LabSt. [facility] Qaacqg3031 [facility] [id number] Information: 861144,[id number] GFR/1.73 sq M predicted among blacks CKD-EPI (S/P/Bld) [Vol rate/Area] 114 mL/min/1.73 Normal [facility] Work Phone: Comment on above: PATIENT WAS FASTINGP ERFORMED BY: [place] 3978870 [facility] [id number] Information: 547646,Q88458 GFR/1.73 sq M predicted among non-blacks CKD-EPI (S/P/Bld) [Vol rate/Area] 99 mL/min/1.73 Normal [facility] Internal Medicine Work Phone: Comment on above: PATIENT WAS FASTINGP ERFORMED BY: [address] [id number] Information: [id number] Globulin (S) [Mass/Vol] 2.2 g/dL Normal 1.5-4.5 [facility] Internal Medicine Work Phone: Comment on above: PATIENT WAS FASTINGP ERFORMED BY: [address] [id number] Information: [id number],[id number] Glucose [Mass/Vol] 91 mg/dL Normal 65-99 [facility] Internal Medicine Work Phone: Comment on above: PATIENT WAS FASTINGP ERFORMED BY: [address] [id number] Information: 652877,[id number] Potassium [Moles/Vol] 4.3 mmol/L Normal 3.5-5.2 [facility] Internal Medicine Work Phone: Comment on above: PATIENT WAS FASTINGP ERFORMED BY: [address] [id number] Information: [id number] Protein [Mass/Vol] 6.7 g/dL Normal 6.0-8.5 [facility] Internal Medicine Work Phone: Comment on above: PATIENT WAS FASTINGP ERFORMED BY: [place] 3978870 [facility] [id number] Information: 076721,H72614 Sodium [Moles/Vol] 141 mmol/L Normal 134-144 [facility] Internal Medicine Work Phone: Comment on above: PATIENT WAS FASTINGP ERFORMED BY: RAMU [facility] Owouhn8[address] [facility] [id number] Information: 666807,[id number] Urea nitrogen [Mass/Vol] 14 mg/dL Normal 6-24 [facility] Work Phone: Comment on above: PATIENT WAS FASTINGP ERFORMED BY: RAMU [facility] Xmused2128 [address] [facility] [id number] Information: [id number] Urea nitrogen/Creatinine [Mass ratio] 20 mg/mg Normal 9-23 [facility] Work Phone: Comment on above: PATIENT WAS FASTINGP ERFORMED BY: RAMU [facility] Onkfvv6657 [facility] [id number] Information: [id number],[id number] LIPID PANEL (76058)Ordered B y: Airport Guide on 02-10-2015 Cholesterol [Mass/Vol] 172 mg/dL Normal 100-199 [facility] Work Phone: Comment on above: PATIENT WAS FASTINGP ERFORMED BY: RAMU [facility] Lbtlwr8309 [facility] [id number] Cholesterol in HDL [Mass/Vol] 88 mg/dL Normal [facility] Work Phone: Comment on above: According to ATP-III Guidelines, HDL-C >59 mg/dL is considered anegative risk factor for CHD. PATIENT WAS FASTINGP ERFORMED BY: RAMU [facility] Atzhoo0418 [facility] [id number] Cholesterol in LDL [Mass/Vol] 75 mg/dL Normal 0-99 [facility] Work Phone: Comment on above: PATIENT WAS FASTINGP ERFORMED BY: RAMU [facility] Ybjjcu2021 [facility] [id number] Cholesterol in LDL/Cholesterol in HDL [Mass ratio] 0.9 {ratio_units} Normal 0.0-3.2 Comprehensive Internal Medicine Work Phone: Comment on above: LDL/HDL Ratio Men Wo men 1/2 Avg.Risk 1.0 1.5 Avg.Risk 3.6 3.2 2X Avg.Risk 6.2 5.0 3X Avg.Risk 8.0 6.1 PATIENT WAS FASTINGP ERFORMED BY: RAMU Rafalkristen Hnjcat9818 [facility] [place] [id number] Cholesterol in VLDL [Mass/Vol] 9 mg/dL Normal 5-40 [facility] Work Phone: Comment on above: PATIENT WAS FASTINGP ERFORMED BY: RAMU Nehemiah Garcia6370 [facility] [place] [id number] Triglyceride [Mass/Vol] 45 mg/dL Normal 0-149 [facility] Work Phone: Comment on above: PATIENT WAS FASTINGP ERFORMED BY: RAMU Messerlin6370 [facility] [id number] METABOLIC PANEL, COMPREHENSI VE ([id number])Ordered By: Airport Guide on 02-10-2015 Albumin [Mass/Vol] 4.2 g/dL Normal 3.5-5.5 [facility] Internal Medicine Work Phone: Comment on above: PATIENT WAS FASTINGP ERFORMED BY: RAMU Messerlin6370 [facility] [id number] Information: [id number]; apt. Albumin/Globulin [Mass ratio] 1.8 {ratio} Normal 1.1-2.5 [facility] Work Phone: Comment on above: PATIENT WAS FASTINGP ERFORMED BY: RAMU Messerlin6370 [facility] [id number] Information: [id number]; apt. ALP [Catalytic activity/Vol] 69 [iU]/L Normal 39-117 [facility] Work Phone: Comment on above: PATIENT WAS FASTINGP ERFORMED BY: RAMU Rafalkristen Itowhm1445 [facility] Road[facility] [place] [id number] Information: [id number]; apt. ALP [Catalytic activity/Vol] 69 U/L Normal 39-117 [facility]; [facility] Work Phone: Comment on above: PATIENT WAS FASTINGP ERFORMED BY: [facility] Iquaaq39[address] Roadblin [place] [id number] Information: [id number]; apt. ALT [Catalytic activity/Vol] 14 [iU]/L Normal 0-32 [facility] Work Phone: Comment on above: PATIENT WAS FASTINGP ERFORMED BY: CB [facility] Rtmatq6175 S[address] Roadblin [place] [id number] Information: [id number]; apt. ALT [Catalytic activity/Vol] 14 U/L Normal 0-32 [facility]; [facility] Work Phone: Comment on above: PATIENT WAS FASTINGP ERFORMED BY: [facility] Mzerlq3685 [address] Roadblin [place] [id number] Information: [id number]; apt. AST [Catalytic activity/Vol] 19 [iU]/L Normal 0-40 [facility] Work Phone: Comment on above: PATIENT WAS FASTINGP ERFORMED BY: [facility] Dmyaoa94[address] Roadbl[address] [place] [id number] Information: [id number]; apt. AST [Catalytic activity/Vol] 19 U/L Normal 0-40 [facility]; [facility] Work Phone: Comment on above: PATIENT WAS FASTINGP ERFORMED BY: [facility] Xumnrr7209 [address] RoadCone Health Medcenter High Pointin [place] [id number] Information: [id number]; apt. Bilirubin [Mass/Vol] 0.5 mg/dL Normal 0.0-1.2 [facility] Internal Medicine Work Phone: Comment on above: PATIENT WAS FASTINGP ERFORMED BY: [facility] Bowslb3[address] Road[address] [place] [id number] Information: [id number]; apt. Calcium [Mass/Vol] 9.6 mg/dL Normal 8.7-10.2 [facility] Internal Medicine Work Phone: Comment on above: PATIENT WAS FASTINGP ERFORMED BY: RAMU [facility] Rqzthi7706 [address] [facility] [id number] Information: [id number]; apt. Chloride [Moles/Vol] 105 mmol/L Normal 97-108 [facility] Work Phone: Comment on above: PATIENT WAS FASTINGP ERFORMED BY: CB [facility] Ngpryn2114 S[address] [facility] [place] [id number] Information: [id number],[id number]; apt. CO2 [Moles/Vol] 26 mmol/L Normal 18-29 [facility] Internal Medicine Work Phone: Comment on above: PATIENT WAS FASTINGP ERFORMED BY: RAMU [facility] Ndrzkr4887 [facility] [id number] Information: 611350,L98094; apt. Creatinine [Mass/Vol] 0.76 mg/dL Normal 0.57-1.00 [facility] Work Phone: Comment on above: PATIENT WAS FASTINGP ERFORMED BY: ARMU [facility] Fslqxt3711 [facility] [id number] Information: 479044,[id number]; apt. GFR/1.73 sq M predicted among blacks CKD-EPI (S/P/Bld) [Vol rate/Area] 104 mL/min/1.73 Normal [facility] Work Phone: Comment on above: PATIENT WAS FASTINGP ERFORMED BY: RAMU [facility] Jxigjl8522 [facility] [id number] Information: [id number]; apt. GFR/1.73 sq M predicted among non-blacks CKD-EPI (S/P/Bld) [Vol rate/Area] 90 mL/min/1.73 Normal [facility] Work Phone: Comment on above: PATIENT WAS FASTINGP ERFORMED BY: [facility]6370 [facility] [id number] Information: [id number]; apt. Globulin (S) [Mass/Vol] 2.4 g/dL Normal 1.5-4.5 [facility] Internal Medicine Work Phone: Comment on above: PATIENT WAS FASTINGP ERFORMED BY: [place] 3978870 [facility] [id number] Information: [id number],G69554; apt. Glucose [Mass/Vol] 95 mg/dL Normal 65-99 [facility] Internal Medicine Work Phone: Comment on above: PATIENT WAS FASTINGP ERFORMED BY: [place] 3978870 [facility] [id number] Information: 355412,[id number]; apt. Potassium [Moles/Vol] 4.8 mmol/L Normal 3.5-5.2 [facility] Internal Medicine Work Phone: Comment on above: PATIENT WAS FASTINGP ERFORMED BY: [address] [id number] Information: 178663,R15046; apt. Protein [Mass/Vol] 6.6 g/dL Normal 6.0-8.5 [facility] Internal Medicine Work Phone: Comment on above: PATIENT WAS FASTINGP ERFORMED BY: [place] 3978870 [facility] [id number] Information: 543314,S35713; apt. Sodium [Moles/Vol] 142 mmol/L Normal 134-144 [facility] Internal Medicine Work Phone: Comment on above: PATIENT WAS FASTINGP ERFORMED BY: [facility]6370 [facility] [id number] Information: 213783,[id number]; apt. Urea nitrogen [Mass/Vol] 13 mg/dL Normal 6-24 [facility] Work Phone: Comment on above: PATIENT WAS FASTINGP ERFORMED BY: [facility]6370 [facility] [id number] Information: [id number],[id number]; apt. Urea nitrogen/Creatinine [Mass ratio] 17 mg/mg Normal 9-23 [facility] Work Phone: Comment on above: PATIENT WAS FASTINGP ERFORMED BY: [place] 3978870 [facility] [id number] Information: 157001,S57796; apt. Rapid Strep Test, Office ([phone])on 12-11-2014 S. pyogenes Ag EIA Ql (Throat) Negative Normal [facility]; [facility] Work Phone: S. pyogenes Ag IA Ql (Unsp spec) Negative Normal [facility] Work Phone: FRANSISCA CULTURE-OTHER ([id number])Ord ered By: Airport Guide on 03-29-2011 Bacteria identified Respiratory culture Nom (Unsp spec) RRF Normal [facility] Work Phone: Comment on above: Routine respiratory addy throat; PATIENT NOT FASTINGPERFORMED BY: [place] 3978870 [facility] [id number] Information: SRC:GAYATRI S19592 Bacteria identified Respiratory culture Nom (Unsp spec) Final report Normal [facility] Work Phone: Comment on above: throat; PATIENT NOT FASTINGPERFORMED BY: [facility]6370 [facility] [id number] Information: SRC:THRT [id number] Rapid Strep Test, Office ([phone])on 03-29-2011 S. pyogenes Ag EIA Ql (Throat) Negative Normal [facility]; [facility] Work Phone: S. pyogenes Ag IA Ql (Unsp spec) Negative Normal [facility] Work Phone: LIPID PANEL ([id number])Ordered B y: Airport Guide on 07-28-2009 Cholesterol [Mass/Vol] 181 mg/dL Normal 100-199 [facility] Work Phone: Comment on above: PATIENT WAS FASTINGP ERFORMED BY: [facility] Hmwukf7627 [facility] [id number] Information: ADD C84570 AND DRAW FEE 99 6660 Cholesterol in HDL [Mass/Vol] 87 mg/dL Normal [facility] Work Phone: Comment on above: According to ATP-III Guidelines, HDL-C >59 mg/dL is considered anegative risk factor for CHD. PATIENT WAS FASTINGP ERFORMED BY: [facility] Ixvebk5228 [facility] [id number] Information: ADD [id number] AND DRAW FEE 99 6660 Cholesterol in LDL [Mass/Vol] 85 mg/dL Normal 0-99 [facility] Work Phone: Comment on above: PATIENT WAS FASTINGP ERFORMED BY: [facility] Afxsew6058 [facility] [id number] Information: ADD [id number] AND DRAW FEE 99 6660 Cholesterol in LDL/Cholesterol in HDL [Mass ratio] 1.0 {ratio_units} Normal 0.0-3.2 [facility] Work Phone: Comment on above: PATIENT WAS FASTINGP ERFORMED BY: [facility] Wogfol4737 [facility] [id number] Information: ADD [id number] AND DRAW FEE 99 6660 Cholesterol in VLDL [Mass/Vol] 9 mg/dL Normal 5-40 [facility] Work Phone: Comment on above: PATIENT WAS FASTINGP ERFORMED BY: [facility] Izxjws7619 [facility] [id number] Information: ADD [id number] AND DRAW FEE 99 6660 Triglyceride [Mass/Vol] 43 mg/dL Normal 0-149 [facility] Work Phone: Comment on above: PATIENT WAS FASTINGP ERFORMED BY: [facility] Fbkdgf4291 [facility] [id number] Information: ADD [id number] AND DRAW FEE 99 [id number] Vital Signs Date Time Vital Sign Value Performing Clinician Facility 04-28-2021 08:18-0500 Body height 156.84 cm Annabelle Roach DO Work Phone: [facility]; [facility] Work Phone: Comment on above: partial vs taken as this is phone encoun ter due to covid 04-28-2021 08:18-0500 Body mass index (BMI) [Ratio] 21.39 kg/m2 Annabelle Millanon DO Work Phone: [facility]; [facility] Work Phone: Comment on above: partial vs taken as this is phone encoun ter due to covid 04-28-2021 08:18-0500 Body surface area Derived from formula 1.51 m2 Annabelle Roach DO Work Phone: [facility]; [facility] Work Phone: Comment on above: partial vs taken as this is phone encoun ter due to covid 04-28-2021 08:18-0500 Body weight 52.62 kg Annabelle Roach DO Work Phone: [facility]; [facility] Work Phone: Comment on above: partial vs taken as this is phone encoun ter due to covid 04-28-2021 08:18-0500 Diastolic blood pressure 72 mm[Hg] Annabelle Roach DO Work Phone: [facility]; [facility] Work Phone: Comment on above: Patient Position: Sitting partial vs taken as this is phone encounter due to covid 04-28-2021 08:18-0500 Heart rate 76 /min Annabelle Millanon DO Work Phone: [facility]; [facility] Work Phone: Comment on above: Pattern: Regular partial vs taken as this is phone encounter due to covid 04-28-2021 08:18-0500 Systolic blood pressure 114 mm[Hg] Annabelle Doc DO Work Phone: [facility]; [facility] Work Phone: Comment on above: Patient Position: Sitting partial vs taken as this is phone encounter due to covid 04-21-2021 10:08-0500 Body height 157.[address] Annabelle Roach Work Phone: [facility] Work Phone: 03-19-2021 09:43-0500 Body height 156.84 cm Annabelle Roach DO Work Phone: [facility]; [facility] Work Phone: Comment on above: intentional wt loss so far 27#-- IF and exercising 03-19-2021 09:43-0500 Body mass index (BMI) [Ratio] 21.39 kg/m2 Annabelle Roach DO Work Phone: [facility]; [facility] Work Phone: Comment on above: intentional wt loss so far 27#-- IF and exercising 03-19-2021 09:43-0500 Body surface area Derived from formula 1.51 m2 Annabelle Roach DO Work Phone: [facility]; [facility] Work Phone: Comment on above: intentional wt loss so far 27#-- IF and exercising 03-19-2021 09:43-0500 Body temperature 97.6 [degF] Annabelle Roach DO Work Phone: [facility]; [facility] Work Phone: Comment on above: Method: Oral intentional wt loss so far 27#-- IF and exercising 03-19-2021 09:43-0500 Body weight 52.62 kg Annabelle Roach DO Work Phone: [facility]; [facility] Work Phone: Comment on above: intentional wt loss so far 27#-- IF and exercising 03-19-2021 09:43-0500 Diastolic blood pressure 68 mm[Hg] Annabelle Roach DO Work Phone: [facility]; [facility] Work Phone: Comment on above: Patient Position: Sitting; Cuff Location : Left Arm; Cuff Size: Standard intentional wt loss so far 27#-- IF and exercising 03-19-2021 09:43-0500 Heart rate 73 /min Annabelle Raoch DO Work Phone: [facility]; [facility] Work Phone: Comment on above: Pattern: Regular intentional wt loss so far 27#-- IF and exercising 03-19-2021 09:43-0500 Respiratory rate 16 /min Annabelle Roach DO Work Phone: [facility]; [facility] Work Phone: Comment on above: Pattern: Unlabored intentional wt loss so far 27#-- IF and exercising 03-19-2021 09:43-0500 SaO2% (BldA) [Mass fraction] 99 % Annabelle Roach DO Work Phone: [facility]; [facility] Work Phone: Comment on above: Room air intentional wt loss so far 27#-- IF and exercising 03-19-2021 09:43-0500 Systolic blood pressure 108 mm[Hg] Annabelle Roach DO Work Phone: [facility]; [facility] Work Phone: Comment on above: Patient Position: Sitting; Cuff Location : Left Arm; Cuff Size: Standard intentional wt loss so far 27#-- IF and exercising 06-03-2019 08:46-0400 BMI (Body Mass Index) 24.71 kg/m2 Tiera Vaughn RN [facility] Work Phone: Comment on above: Vital signs not obtained d/t call or vir tual visit 06-03-2019 08:46-0400 Body weight 60.78 kg Tiera Vaughn RN [facility] Work Phone: Comment on above: Vital signs not obtained d/t call or vir tual visit 06-03-2019 08:46-0400 BSA (Body Surface Area) 1.61 m2 Tiera Vaughn RN [facility] Work Phone: Comment on above: Vital signs not obtained d/t call or vir tual visit 06-03-2019 08:46-0400 Height 156.84 cm Tiera Vaughn RN [facility] Work Phone: Comment on above: Vital signs not obtained d/t call or vir tual visit 05-16-2019 07:31-0400 BMI (Body Mass Index) 24.71 kg/m2 Vonda Jewell CMA [facility] Work Phone: 05-16-2019 07:31-0400 Body Temperature 96.5 [degF] Vonda Jewell CMA [facility] Work Phone: Comment on above: Method: Temporal 05-16-2019 07:31-0400 Body weight 60.78 kg Vonda Jewell CMA [facility] Work Phone: 05-16-2019 07:31-0400 BP Diastolic 87 mm[Hg] Vonda Jewell CMA [facility] Work Phone: Comment on above: Patient Position: Sitting; Cuff Location : Left Arm; Cuff Size: Standard 05-16-2019 07:31-0400 BP Systolic 126 mm[Hg] Vonda Jewell CMA [facility] Work Phone: Comment on above: Patient Position: Sitting; Cuff Location : Left Arm; Cuff Size: Standard 05-16-2019 07:31-0400 BSA (Body Surface Area) 1.61 m2 Vonda Jewell CMA [facility] Work Phone: 05-16-2019 07:31-0400 Height 156.84 cm Vonda Jewell CMA [facility] Work Phone: 05-16-2019 07:31-0400 Pulse (Heart Rate) 62 /min Vonda Jewell CMA Comprehens hortencia Internal Medicine Work Phone: Comment on above: Pattern: Regular 05-16-2019 07:31-0400 Pulse Oximetry 98 % Christina Lawler [facility] Work Phone: Comment on above: Room air 05-16-2019 07:31-0400 Respiratory Rate 14 /min Vonda Jewell CMA [facility] Work Phone: Comment on above: Pattern: Unlabored 05-16-2019 07:31-0400 SaO2% (BldA) [Mass fraction] 98 % Vonda Jewell [facility]; [facility] Work Phone: Comment on above: Room air 04-09-2019 10:08-0500 BMI (Body Mass Index) 24.15 kg/m2 Amanda Slarb [employer]ODUCTION COR[employer]ATOR [facility] Work Phone: 04-09-2019 10:08-0500 Body Temperature 97.3 [degF] Amanda Slarb [employer]ODUCTION [employer] [facility] Work Phone: 04-09-2019 10:08-0500 Body weight 59.42 kg Amanda Slarb PRODUCTION COR[employer]ATOR [facility] Work Phone: 04-09-2019 10:08-0500 BP Diastolic 80 mm[Hg] Amanda Slarb [employer]ODUCTION [employer] [facility] Work Phone: Comment on above: Patient Position: Sitting; Cuff Location : Left Arm; Cuff Size: Standard 04-09-2019 10:08-0500 BP Systolic 122 mm[Hg] Amanda Slarb PRODUCTION COR[employer]ATOR [facility] Work Phone: Comment on above: Patient Position: Sitting; Cuff Location : Left Arm; Cuff Size: Standard 04-09-2019 10:08-0500 BSA (Body Surface Area) 1.59 m2 Amanda Slarb PRODUCTION COR[employer]ATOR [facility] Work Phone: 04-09-2019 10:08-0500 Height 156.84 cm Amanda Slarb PRODUCTION COR[employer]ATOR [facility] Work Phone: 04-09-2019 10:08-0500 Pulse (Heart Rate) 83 /min Amanda Slarb PRODUCTION COR[employer]ATOR Comprehens[facility] e [facility] Work Phone: Comment on above: Pattern: Regular 04-09-2019 10:08-0500 Pulse Oximetry 98 % Christina Lawler [facility] Work Phone: Comment on above: Room air 04-09-2019 10:08-0500 Respiratory Rate 16 /min Amanda Slarb [employer]ODUCTION COR[employer]ATOR [facility] Work Phone: Comment on above: Pattern: Unlabored 04-09-2019 10:08-0500 SaO2% (BldA) [Mass fraction] 98 % Amanda Jayy DRISCOLL [facility]; [facility] Work Phone: Comment on above: Room air 02-22-2017 08:42-0500 BMI (Body Mass Index) 24.15 kg/m2 Tania Blanco RN [facility] Work Phone: 02-22-2017 08:42-0500 Body Temperature 97.9 [degF] Tania Blanco RN [facility] Work Phone: Comment on above: Method: Temporal 02-22-2017 08:42-0500 Body weight 59.42 kg Tania Blanco RN [facility] Work Phone: 02-22-2017 08:42-0500 BP Diastolic 62 mm[Hg] Tania Blanco RN [facility] Work Phone: Comment on above: Patient Position: Sitting; Cuff Location : Left Arm; Cuff Size: Standard 02-22-2017 08:42-0500 BP Systolic 110 mm[Hg] Tania Blanco RN [facility] Work Phone: Comment on above: Patient Position: Sitting; Cuff Location : Left Arm; Cuff Size: Standard 02-22-2017 08:42-0500 BSA (Body Surface Area) 1.59 m2 Tania Blanco RN [facility] Work Phone: 02-22-2017 08:42-0500 Height 156.84 cm Tania Blanco RN [facility] Work Phone: 02-22-2017 08:42-0500 Pulse (Heart Rate) 82 /min Tania Blanco RN [facility] Work Phone: Comment on above: Pattern: Regular 02-22-2017 08:42-0500 Pulse Oximetry 98 % Christina Belkysbowen [facility] Work Phone: Comment on above: Room air 02-22-2017 08:42-0500 Respiratory Rate 16 /min Tania Blanco RN [facility] Work Phone: Comment on above: Pattern: Unlabored 02-22-2017 08:42-0500 SaO2% (BldA) [Mass fraction] 98 % Tania Blanco RN [facility]; [facility] Work Phone: Comment on above: Room air 01-13-2017 10:11-0500 BMI (Body Mass Index) 24.15 kg/m2 Amanda Hope [employer]ODUCTION COR[employer]UGATOR [facility] Work Phone: 01-13-2017 10:11-0500 Body Temperature 96.9 [degF] Amanda Slarb PRODUCTION CORRUGATOR [facility] Work Phone: 01-13-2017 10:11-0500 Body weight 59.42 kg Amanda Saundrarb [employer]ODUCTION CORRUGATOR [facility] Work Phone: 01-13-2017 10:11-0500 BP Diastolic 74 mm[Hg] Amanda Slarb PRODUCTION CORRUGATOR [facility] Work Phone: Comment on above: Patient Position: Sitting; Cuff Location : Left Arm; Cuff Size: Standard 01-13-2017 10:11-0500 BP Systolic 122 mm[Hg] Amanda Slarb PRODUCTION CORRUGATOR [facility] Work Phone: Comment on above: Patient Position: Sitting; Cuff Location : Left Arm; Cuff Size: Standard 01-13-2017 10:11-0500 BSA (Body Surface Area) 1.59 m2 Amanda Slarb PRODUCTION CORRUGATOR [facility] Work Phone: 01-13-2017 10:11-0500 Height 156.84 cm Amanda Saundrarb PRODUCTION CORRUGATOR [facility] Work Phone: 01-13-2017 10:11-0500 Pulse (Heart Rate) 74 /min Amanda Arguellorb PRODUCTION CORRUGATOR Comprehens[facility] e [facility] Medicine Work Phone: Comment on above: Pattern: Regular 01-13-2017 10:11-0500 Pulse Oximetry 98 % Christina Lawler [facility] Work Phone: Comment on above: Room air 01-13-2017 10:11-0500 Respiratory Rate 18 /min Amanda Hope PRODUCTION CORRUGATOR [facility] Work Phone: Comment on above: Pattern: Unlabored 01-13-2017 10:11-0500 SaO2% (BldA) [Mass fraction] 98 % Amanda Arguellobraden DRISCOLL [facility]; [facility] Work Phone: Comment on above: Room air 04-19-2016 08:30-0500 BMI (Body Mass Index) 24.34 kg/m2 Mayda Cee [facility] Work Phone: 04-19-2016 08:30-0500 Body Temperature 98 [degF] Mayda Cee [facility] Work Phone: Comment on above: Method: Temporal 04-19-2016 08:30-0500 Body weight 59.88 kg Mayda Cee [facility] Work Phone: 04-19-2016 08:30-0500 BP Diastolic 80 mm[Hg] Mayda Mike [facility] Work Phone: Comment on above: Patient Position: Sitting; Cuff Location : Left Arm; Cuff Size: Standard 04-19-2016 08:30-0500 BP Systolic 128 mm[Hg] Mayda Cee [facility] Work Phone: Comment on above: Patient Position: Sitting; Cuff Location : Left Arm; Cuff Size: Standard 04-19-2016 08:30-0500 BSA (Body Surface Area) 1.6 m2 Mayda Mike [facility] Work Phone: 04-19-2016 08:30-0500 Height 156.84 cm Mayda Mike [facility] Work Phone: 04-19-2016 08:30-0500 Pulse (Heart Rate) 74 /min Mayda Mike Comprehensiv [facility] Work Phone: Comment on above: Pattern: Regular 04-19-2016 08:30-0500 Pulse Oximetry 99 % Christina Lawler [facility] Work Phone: Comment on above: Room air 04-19-2016 08:30-0500 Respiratory Rate 16 /min Mayda iMke [facility] Work Phone: Comment on above: Pattern: Unlabored 04-19-2016 08:30-0500 SaO2% (BldA) [Mass fraction] 99 % Mayda Mike [facility]; [facility] Work Phone: Comment on above: Room air 10-14-2015 13:29-0400 BMI (Body Mass Index) 23.6 kg/m2 Mayda Mike [facility] Work Phone: 10-14-2015 13:29-0400 Body Temperature 97.8 [degF] Mayda Mike [facility] Work Phone: Comment on above: Method: Temporal 10-14-2015 13:290400 Body weight 58.06 kg Mayda Mike [facility] Work Phone: 10-14-2015 13:29-0400 BP Diastolic 72 mm[Hg] Mayda Mike [facility] Work Phone: Comment on above: Patient Position: Sitting; Cuff Location : Left Arm; Cuff Size: Standard 10-14-2015 13:29-0400 BP Systolic 112 mm[Hg] Mayda Mike [facility] Work Phone: Comment on above: Patient Position: Sitting; Cuff Location : Left Arm; Cuff Size: Standard 10-14-2015 13:29-0400 BSA (Body Surface Area) 1.58 m2 Mayda Mike [facility] Internal Medicine Work Phone: 10-14-2015 13:29-0400 Height 156.84 cm Mayda Joshuaradha [facility] Internal Medicine Work Phone: 10-14-2015 13:29-0400 Pulse (Heart Rate) 72 /min [facility]da [facility] Work Phone: Comment on above: Pattern: Regular 10-14-2015 13:29-0400 Pulse Oximetry 98 % Christina Lawler [facility] Internal Medicine Work Phone: Comment on above: Room air 10-14-2015 13:29-0400 Respiratory Rate 15 /min Mayda Joshuaradha [facility] Internal Medicine Work Phone: Comment on above: Pattern: Unlabored 10-14-2015 13:29-0400 SaO2% (BldA) [Mass fraction] 98 % Mayda Tresradha [facility] Internal Medicine; [facility] Work Phone: Comment on above: Room air 07-31-2015 10:45-0400 BMI (Body Mass Index) 23.42 kg/m2 Mayda Mike [facility] Internal Medicine Work Phone: 07-31-2015 10:45-0400 Body Temperature 97.6 [degF] Mayda Terancrispin [facility] Internal Medicine Work Phone: Comment on above: Method: Temporal 07-31-2015 10:45-0400 Body weight 57.61 kg Mayda Teranbebetoradha [facility] Internal Medicine Work Phone: 07-31-2015 10:45-0400 BP Diastolic 82 mm[Hg] Mayda Terancrispin [facility] Internal Medicine Work Phone: Comment on above: Patient Position: Sitting; Cuff Location : Left Arm; Cuff Size: Standard 07-31-2015 10:45-0400 BP Systolic 136 mm[Hg] Mayda Joshuaradha [facility] Internal Medicine Work Phone: Comment on above: Patient Position: Sitting; Cuff Location : Left Arm; Cuff Size: Standard 07-31-2015 10:45-0400 BSA (Body Surface Area) 1.57 m2 Mayda Terancrispin [facility] Internal Medicine Work Phone: 07-31-2015 10:45-0400 Height 156.84 cm Mayda Cee [facility] Internal Medicine Work Phone: 07-31-2015 10:45-0400 Pulse (Heart Rate) 68 /min Mayda Mike [facility] Internal [facility] Work Phone: Comment on above: Pattern: Regular 07-31-2015 10:45-0400 Pulse Oximetry 100 % Christina Lawler [facility] Internal Medicine Work Phone: Comment on above: Room air 07-31-2015 10:45-0400 Respiratory Rate 15 /min Mayda Cee [facility] Internal Medicine Work Phone: Comment on above: Pattern: Unlabored 07-31-2015 10:45-0400 SaO2% (BldA) [Mass fraction] 100 % Mayda Cee [facility] Internal Medicine; [facility] Internal Medicine Work Phone: Comment on above: Room air 06-02-2015 14:06-0400 BMI (Body Mass Index) 24.34 kg/m2 Mayda Terancrispin [facility] Internal Medicine Work Phone: 06-02-2015 14:06-0400 Body Temperature 98.1 [degF] Mayda Cee [facility] Internal Medicine Work Phone: Comment on above: Method: Temporal 06-02-2015 14:06-0400 Body weight 59.88 kg Mayda Cee [facility] Internal Medicine Work Phone: 06-02-2015 14:06-0400 BP Diastolic 94 mm[Hg] Mayda Cee [facility] Internal Medicine Work Phone: Comment on above: Patient Position: Sitting; Cuff Location : Left Arm; Cuff Size: Standard 06-02-2015 14:06-0400 BP Systolic 138 mm[Hg] Mayda Terancrispin [facility] Internal Medicine Work Phone: Comment on above: Patient Position: Sitting; Cuff Location : Left Arm; Cuff Size: Standard 06-02-2015 14:06-0400 BSA (Body Surface Area) 1.6 m2 Mayda Cee [facility] Internal Medicine Work Phone: 06-02-2015 14:06-0400 Height 156.84 cm Mayda Mike [facility] Internal Medicine Work Phone: 06-02-2015 14:06-0400 Pulse (Heart Rate) 72 /min Mayda Cee [facility] Internal Medicine Work Phone: Comment on above: Pattern: Regular 06-02-2015 14:06-0400 Pulse Oximetry 96 % Christina Lawler [facility] Internal Medicine Work Phone: Comment on above: Room air 06-02-2015 14:06-0400 Respiratory Rate 15 /min Mayda Mike [facility] Internal Medicine Work Phone: Comment on above: Pattern: Unlabored 06-02-2015 14:06-0400 SaO2% (BldA) [Mass fraction] 96 % Mayda Cee [facility] Internal Medicine; [facility] Internal Medicine Work Phone: Comment on above: Room air 02-17-2015 08:32-0500 BMI (Body Mass Index) 23.97 kg/m2 Mayda Cee [facility] Internal Medicine Work Phone: 02-17-2015 08:32-0500 Body Temperature 98.5 [degF] Mayda Cee [facility] Internal Medicine Work Phone: Comment on above: Method: Temporal 02-17-2015 08:32-0500 Body weight 58.97 kg Mayda Cee [facility] Internal Medicine Work Phone: 02-17-2015 08:32-0500 BP Diastolic 78 mm[Hg] Mayda Cee [facility] Internal Medicine Work Phone: Comment on above: Patient Position: Sitting; Cuff Location : Left Arm; Cuff Size: Standard 02-17-2015 08:32-0500 BP Systolic 116 mm[Hg] Mayda Terancrispin [facility] Internal Medicine Work Phone: Comment on above: Patient Position: Sitting; Cuff Location : Left Arm; Cuff Size: Standard 02-17-2015 08:32-0500 BSA (Body Surface Area) 1.59 m2 Mayda Cee [facility] Internal Medicine Work Phone: 02-17-2015 08:32-0500 Height 156.84 cm Mayda Mike [facility] Internal Medicine Work Phone: 02-17-2015 08:32-0500 Pulse (Heart Rate) 88 /min [facility] Work Phone: Comment on above: Pattern: Regular 02-17-2015 08:32-0500 Pulse Oximetry 98 % Christina Lawler [facility] Internal Medicine Work Phone: Comment on above: Room air 02-17-2015 08:32-0500 Respiratory Rate 16 /min Mayda Cee [facility] Internal Medicine Work Phone: Comment on above: Pattern: Unlabored 02-17-2015 08:32-0500 SaO2% (BldA) [Mass fraction] 98 % Mayda Mike [facility]; [facility] Work Phone: Comment on above: Room air 12-11-2014 12:11-0400 BMI (Body Mass Index) 23.6 kg/m2 Tania Blanco RN [facility] Work Phone: 12-11-2014 12:11-0400 Body Temperature 97.3 [degF] Tania Blanco RN [facility] Work Phone: Comment on above: Method: Temporal 12-11-2014 12:11-0400 Body weight 58.06 kg Tania Blanco RN [facility] Work Phone: 12-11-2014 12:11-0400 BP Diastolic 70 mm[Hg] Tania Blanco RN [facility] Work Phone: Comment on above: Patient Position: Sitting; Cuff Location : Left Arm; Cuff Size: Standard 12-11-2014 12:11-0400 BP Systolic 116 mm[Hg] Tania Blanco RN [facility] Work Phone: Comment on above: Patient Position: Sitting; Cuff Location : Left Arm; Cuff Size: Standard 12-11-2014 12:11-0400 BSA (Body Surface Area) 1.58 m2 Tania Blanco RN [facility] Work Phone: 12-11-2014 12:11-0400 Height 156.84 cm Tania Blanco RN [facility] Work Phone: 12-11-2014 12:11-0400 Pulse (Heart Rate) 72 /min Tania Blanco RN [facility] Work Phone: Comment on above: Pattern: Regular 12-11-2014 12:11-0400 Pulse Oximetry 98 % Christina Lawler [facility] Work Phone: Comment on above: Room air 12-11-2014 12:11-0400 Respiratory Rate 16 /min Tania Blanco RN [facility] Work Phone: Comment on above: Pattern: Unlabored 12-11-2014 12:11-0400 SaO2% (BldA) [Mass fraction] 98 % Tania Blanco RN [facility]; [facility] Work Phone: Comment on above: Room air 11-13-2014 12:06-0400 BMI (Body Mass Index) 23.6 kg/m2 Mayda Terancrispin [facility] Internal Medicine Work Phone: 11-13-2014 12:06-0400 Body Temperature 97.8 [degF] Mayda Cee [facility] Internal Medicine Work Phone: Comment on above: Method: Temporal 11-13-2014 12:060400 Body weight 58.06 kg Mayda Cee [facility] Internal Medicine Work Phone: 11-13-2014 12:06-0400 BP Diastolic 78 mm[Hg] Mayda Cee [facility] Internal Medicine Work Phone: Comment on above: Patient Position: Sitting; Cuff Location : Left Arm; Cuff Size: Standard 11-13-2014 12:06-0400 BP Systolic 116 mm[Hg] Mayda Terancrispin [facility] Internal Medicine Work Phone: Comment on above: Patient Position: Sitting; Cuff Location : Left Arm; Cuff Size: Standard 11-13-2014 12:06-0400 BSA (Body Surface Area) 1.58 m2 Mayda Cee [facility] Internal Medicine Work Phone: 11-13-2014 12:06-0400 Height 156.84 cm Mayda Mike [facility] Internal Medicine Work Phone: 11-13-2014 12:06-0400 Pulse (Heart Rate) 94 /min [facility]da Cee [facility] Work Phone: Comment on above: Pattern: Regular 11-13-2014 12:06-0400 Respiratory Rate 16 /min Mayda Cee [facility] Internal Medicine Work Phone: Comment on above: Pattern: Unlabored 10-03-2014 08:36-0400 BMI (Body Mass Index) 23.05 kg/m2 Mayda Mike [facility] Internal Medicine Work Phone: 10-03-2014 08:36-0400 Body Temperature 97.2 [degF] Mayda Mike [facility] Internal Medicine Work Phone: Comment on above: Method: Oral 10-03-2014 08:36-0400 Body weight 56.7 kg Mayda Mike [facility] Internal Medicine Work Phone: 10-03-2014 08:36-0400 BP Diastolic 84 mm[Hg] Mayda Mike [facility] Internal Medicine Work Phone: Comment on above: Patient Position: Sitting; Cuff Location : Left Arm; Cuff Size: Standard 10-03-2014 08:36-0400 BP Systolic 126 mm[Hg] Mayda Mike [facility] Internal Medicine Work Phone: Comment on above: Patient Position: Sitting; Cuff Location : Left Arm; Cuff Size: Standard 10-03-2014 08:36-0400 BSA (Body Surface Area) 1.56 m2 Mayda Mike [facility] Internal Medicine Work Phone: 10-03-2014 08:36-0400 Height 156.84 cm Mayda Mike [facility] Internal Medicine Work Phone: 10-03-2014 08:36-0400 Pulse (Heart Rate) 72 /min Mayda Mike [facility] Internal Medicine Work Phone: Comment on above: Pattern: Regular 10-03-2014 08:36-0400 Respiratory Rate 16 /min Mayda Mike [facility] Internal Medicine Work Phone: Comment on above: Pattern: Unlabored 07-16-2014 14:33-0400 BMI (Body Mass Index) 23.79 kg/m2 Mayda Mike [facility] Internal Medicine Work Phone: 07-16-2014 14:33-0400 Body Temperature 98.7 [degF] Mayda Mike [facility] Internal Medicine Work Phone: Comment on above: Method: Oral 07-16-2014 14:33-0400 Body weight 58.51 kg Mayda Mike [facility] Internal Medicine Work Phone: 07-16-2014 14:33-0400 BP Diastolic 86 mm[Hg] Mayda Terancrispin [facility] Internal Medicine Work Phone: Comment on above: Patient Position: Sitting; Cuff Location : Left Arm; Cuff Size: Standard 07-16-2014 14:33-0400 BP Systolic 110 mm[Hg] Mayda Mike [facility] Internal Medicine Work Phone: Comment on above: Patient Position: Sitting; Cuff Location : Left Arm; Cuff Size: Standard 07-16-2014 14:33-0400 BSA (Body Surface Area) 1.58 m2 Mayda Cee [facility] Internal Medicine Work Phone: 07-16-2014 14:33-0400 Height 156.84 cm Mayda Cee [facility] Internal Medicine Work Phone: 07-16-2014 14:33-0400 Pulse (Heart Rate) 72 /min [facility] Cee [facility] Work Phone: Comment on above: Pattern: Regular 07-16-2014 14:33-0400 Respiratory Rate 16 /min Mayda Cee [facility] Internal Medicine Work Phone: Comment on above: Pattern: Unlabored 03-29-2011 09:11-0500 BMI (Body Mass Index) 23.97 kg/m2 Tania Blanco RN [facility] Work Phone: 03-29-2011 09:11-0500 Body Temperature 96.3 [degF] Tania Blanco RN [facility] Work Phone: Comment on above: Method: Oral 03-29-2011 09:11-0500 Body weight 58.97 kg Tania Blanco RN [facility] Work Phone: 03-29-2011 09:11-0500 BP Diastolic 66 mm[Hg] Tania Blanco RN [facility] Work Phone: Comment on above: Patient Position: Sitting; Cuff Location : Left Arm; Cuff Size: Standard 03-29-2011 09:11-0500 BP Systolic 112 mm[Hg] Tania Blanco RN [facility] Work Phone: Comment on above: Patient Position: Sitting; Cuff Location : Left Arm; Cuff Size: Standard 03-29-2011 09:11-0500 BSA (Body Surface Area) 1.59 m2 Tania Blanco RN [facility] Work Phone: 03-29-2011 09:11-0500 Height 156.84 cm Tania Blanco RN [facility] Work Phone: 03-29-2011 09:11-0500 Pulse (Heart Rate) 70 /min Tania Blanco RN [facility] Work Phone: Comment on above: Pattern: Regular 03-29-2011 09:11-0500 Pulse Oximetry 98 % Christina Belkysbowen [facility] Work Phone: Comment on above: Room air 03-29-2011 09:11-0500 Respiratory Rate 16 /min Tania Balnco RN [facility] Work Phone: Comment on above: Pattern: Unlabored 03-29-2011 09:11-0500 SaO2% (BldA) [Mass fraction] 98 % Tania Linda [facility]; [facility] Work Phone: Comment on above: Room air 02-08-2011 09:13-0500 BMI (Body Mass Index) 23.97 kg/m2 Mayda Mike [facility] Internal Medicine Work Phone: 02-08-2011 09:13-0500 Body Temperature 97.7 [degF] Mayda Mike [facility] Internal Medicine Work Phone: 02-08-2011 09:13-0500 Body weight 58.97 kg Mayda Linda Internal Medicine Work Phone: 02-08-2011 09:13-0500 BP Diastolic 80 mm[Hg] Mayda Mike [facility] Internal Medicine Work Phone: Comment on above: Patient Position: Sitting; Cuff Location : Left Arm; Cuff Size: Large 02-08-2011 09:13-0500 BP Systolic 114 mm[Hg] Mayda Mike [facility] Internal Medicine Work Phone: Comment on above: Patient Position: Sitting; Cuff Location : Left Arm; Cuff Size: Large 02-08-2011 09:13-0500 BSA (Body Surface Area) 1.59 m2 Mayda Mike [facility] Internal Medicine Work Phone: 02-08-2011 09:13-0500 Height 156.84 cm Mayda Mike [facility] Internal Medicine Work Phone: 02-08-2011 09:13-0500 Pulse (Heart Rate) 88 /min Mayda Mike [facility] Internal Medicine Work Phone: Comment on above: Pattern: Regular 02-08-2011 09:13-0500 Respiratory Rate 16 /min Mayda Mike [facility] Internal Medicine Work Phone: Comment on above: Pattern: Unlabored 02-02-2011 12:07-0500 BMI (Body Mass Index) 23.97 kg/m2 Mayda Joshuaradha [facility] Internal Medicine Work Phone: 02-02-2011 12:07-0500 Body Temperature 97 [degF] Mayda Mike [facility] Internal Medicine Work Phone: 02-02-2011 12:07-0500 Body weight 58.97 kg Mayda Mike [facility] Internal Medicine Work Phone: 02-02-2011 12:07-0500 BP Diastolic 84 mm[Hg] Mayda Mike [facility] Internal Medicine Work Phone: Comment on above: Patient Position: Sitting; Cuff Location : Left Arm; Cuff Size: Large 02-02-2011 12:07-0500 BP Systolic 114 mm[Hg] Mayda Mike [facility] Internal Medicine Work Phone: Comment on above: Patient Position: Sitting; Cuff Location : Left Arm; Cuff Size: Large 02-02-2011 12:07-0500 BSA (Body Surface Area) 1.59 m2 Mayda Mike [facility] Internal Medicine Work Phone: 02-02-2011 12:07-0500 Height 156.84 cm [facility] Work Phone: 02-02-2011 12:07-0500 Pulse (Heart Rate) 80 /min Mayda Mike [facility] Internal Medicine Work Phone: Comment on above: Pattern: Regular 02-02-2011 12:07-0500 Respiratory Rate 16 /min Mayda Mike [facility] Internal Medicine Work Phone: Comment on above: Pattern: Unlabored 10-30-2009 10:39-0400 Body Temperature 98.4 [degF] [facility] Internal Medicine Work Phone: Comment on above: Method: Oral 10-30-2009 10:39-0400 Body weight 57.15 kg [facility] Internal Medicine Work Phone: 10-30-2009 10:39-0400 BP Diastolic 78 mm[Hg] [facility] Internal Medicine Work Phone: Comment on above: Patient Position: Sitting; Cuff Location : Left Arm; Cuff Size: Standard 10-30-2009 10:39-0400 BP Systolic 104 mm[Hg] [facility] Internal Medicine Work Phone: Comment on above: Patient Position: Sitting; Cuff Location : Left Arm; Cuff Size: Standard 10-30-2009 10:39-0400 Pulse (Heart Rate) 78 /min [facility] Internal Medicine Work Phone: Comment on above: Pattern: Regular 10-30-2009 10:39-0400 Respiratory Rate 18 /min [facility] Internal Medicine Work Phone: Comment on above: Pattern: Unlabored 10-22-2009 10:20-0400 Body Temperature 97.7 [degF] [facility] Internal Medicine Work Phone: Comment on above: Method: Oral 10-22-2009 10:20-0400 Body weight 56.76 kg [facility] Internal Medicine Work Phone: 10-22-2009 10:20-0400 BP Diastolic 70 mm[Hg] [facility] Internal Medicine Work Phone: Comment on above: Patient Position: Sitting; Cuff Location : Left Arm; Cuff Size: Standard 10-22-2009 10:20-0400 BP Systolic 102 mm[Hg] Christina Lawler [facility] Internal Medicine Work Phone: Comment on above: Patient Position: Sitting; Cuff Location : Left Arm; Cuff Size: Standard 10-22-2009 10:20-0400 Pulse (Heart Rate) 68 /min Christina Lawler [facility] Internal Medicine Work Phone: Comment on above: Pattern: Regular 10-22-2009 10:20-0400 Respiratory Rate 16 /min Christina Lawler [facility] Internal Medicine Work Phone: Comment on above: Pattern: Unlabored 07-28-2009 09:33-0400 BMI (Body Mass Index) 22.5 kg/m2 Christina Lawler [facility] Internal Medicine Work Phone: 07-28-2009 09:33-0400 Body Temperature 96.1 [degF] Christina Lawler [facility] Internal Medicine Work Phone: Comment on above: Method: Oral 07-28-2009 09:33-0400 Body weight 55.79 kg Christina Lawler [facility] Internal Medicine Work Phone: 07-28-2009 09:33-0400 BP Diastolic 76 mm[Hg] Christina Lawler [facility] Internal Medicine Work Phone: Comment on above: Patient Position: Sitting; Cuff Location : Left Arm; Cuff Size: Standard 07-28-2009 09:33-0400 BP Systolic 110 mm[Hg] Christina Lawler [facility] Internal Medicine Work Phone: Comment on above: Patient Position: Sitting; Cuff Location : Left Arm; Cuff Size: Standard 07-28-2009 09:33-0400 BSA (Body Surface Area) 1.55 m2 Christina Lawler [facility] Internal Medicine Work Phone: 07-28-2009 09:33-0400 Height 157.48 cm Christina Lawler [facility] Internal Medicine Work Phone: 07-28-2009 09:33-0400 Pulse (Heart Rate) 64 /min Christina Lawler [facility] Internal Medicine Work Phone: Comment on above: Pattern: Regular 07-28-2009 09:33-0400 Respiratory Rate 14 /min Christina Lawler [facility] Internal Medicine Work Phone: Comment on above: Pattern: Unlabored 05-28-2009 12:33-0400 Body Temperature 97.2 [degF] Christina Lawler [facility] Internal Medicine Work Phone: Comment on above: Method: Oral 05-28-2009 12:33-0400 [facility] 56[facility]27 [facility] Work Phone: 05-28-2009 12:33-0400 BP Diastolic 60 mm[Hg] [facility] Work Phone: Comment on above: Patient Position: Sitting; Cuff Location : Left Arm; Cuff Size: Standard 05-28-2009 12:33-0400 BP Systolic 98 mm[Hg] Christina Lawler [facility] Internal Medicine Work Phone: Comment on above: Patient Position: Sitting; Cuff Location : Left Arm; Cuff Size: Standard 05-28-2009 12:33-0400 Pulse (Heart Rate) 64 /min Christina Lawler [facility] Internal Medicine Work Phone: Comment on above: Pattern: Regular 05-28-2009 12:33-0400 Respiratory Rate 18 /min [facility] Work Phone: Comment on above: Pattern: Unlabored Encounters Encounter Date Encounter Type Care Provider Facility Start: 05-22-2024 ambulatory GRICEL Alvarez acility:[facility] Start: 05-22-2024 End: 05-22-2024 Subsequent hospital visit by physician [facility] Comment on above: Encounter for screen ing for depression [Z13.31] Start: 04-25-2023 ambulatory Annabelle Roach Facilit y:[facility] Start: 04-25-2023 End: 04-25-2023 ambulatory [facility] Work Phone: Start: 04-25-2023 End: 04-25-2023 Patient encounter procedure [facility]-Outpatient Bone Densitometry Work Phone: Start: 03-09-2023 End: 03-09-2023 Patient encounter procedure [facility]-MRI - WC Work Phone: Start: 03-09-2023 End: 03-09-2023 ambulatory Annabelle Roach [facility] Work Phone: Start: 02-17-2023 End: 02-17-2023 ambulatory Annabelle Roach [facility] Work Phone: Start: 02-17-2023 End: 02-17-2023 Patient encounter procedure [facility]-Cat Scan, [facility] Work Phone: Start: 03-16-2022 Documentation procedure Mammog panda Coordinator [facility] Start: 03-16-2022 Letter encounter Mammography Coordinator [place] [facility]CI[facility] NOT LISTED Start: 03-15-2022 End: 03-15-2022 Subsequent hospital visit by physician [facility] Comment on above: Encounter for screen ing mammogram for malignant neoplasm of breast [Z12.31] Start: 06-10-2021 End: 06-10-2021 Annotation/Addendum Christina Lawler Work Phone: [facility] Start: 05-12-2021 End: 05-12-2021 Office outpatient visit 5 minutes Christina Lawler CNP Work Phone: [facility] Start: 05-12-2021 End: 05-12-[address] Annabelle Roach Work Phone: [facility]-Physical Therapy Start: 04-28-2021 End: 04-28-2021 Office outpatient visit 15 minutes Christina Lawler CNP Work Phone: [facility] Start: 04-23-2021 End: 05-12-2021 Phone Encounter Christina Lawler CNP Work Phone: [facility] Start: 04-23-2021 Review Christina Lawler CNP Work Phone: [facility] Start: 04-21-2021 End: 04-21-[address] Annabelle Roach Work Phone: [facility]-Outpatient Bone Densitometry Start: 04-12-2021 End: 04-12-[address] Annabelle Roach Work Phone: [facility] Start: 03-26-2021 End: 03-26-2021 Office outpatient visit 5 minutes Christina Kaitlin INSTRUMENTAL MUSICIAN Work Phone: [facility] Start: 03-26-2021 Review Christina Kaitlin INSTRUMENTAL MUSICIAN Work Phone: [facility] Start: 03-25-2021 End: 03-25-2021 Office outpatient visit 5 minutes Christina Kaitlin INSTRUMENTAL MUSICIAN Work Phone: [facility] Start: 03-23-2021 End: 04-06-2021 Office outpatient visit 5 minutes Christina Kaitlin INSTRUMENTAL MUSICIAN Work Phone: [facility] Start: 03-23-2021 Review Christina Kaitlin INSTRUMENTAL MUSICIAN Work Phone: [facility] Start: 03-19-2021 End: 03-19-[address] Annabelle Roach Work Phone: [facility] Start: 03-19-2021 End: 03-19-2021 Office outpatient visit 25 minutes Christina Kaitlin INSTRUMENTAL MUSICIAN Work Phone: [facility] Start: 03-19-2021 Review Christina Rizvibowen INSTRUMENTAL MUSICIAN Work Phone: [facility] Start: 10-02-2019 End: 10-02-2019 Subsequent hospital visit by physician [facility] Comment on above: screening mammogram Start: 06-03-2019 End: 06-03-2019 Office outpatient visit 15 minutes Christina Linda [facility] Start: 05-16-2019 End: 05-16-2019 Office outpatient visit 25 minutes Christina Linda [facility] Start: 04-09-2019 End: 04-09-2019 Office outpatient visit 15 minutes Christina Linda [facility] Start: 02-22-2017 End: 02-22-2017 Office outpatient visit 15 minutes Christina Linda [facility] Start: 01-13-2017 End: 01-13-2017 Office outpatient visit 15 minutes Christina Ciesa [facility] Start: 04-19-2016 End: 04-19-2016 Office outpatient visit 25 minutes [facility] Start: 12-09-2015 End: 12-09-2015 Phone Encounter [facility] Start: 10-14-2015 End: 10-15-2015 Office outpatient visit 25 minutes [facility] Start: 07-31-2015 End: 08-03-2015 Office outpatient visit 25 minutes [facility] Start: 06-02-2015 End: 06-04-2015 Office outpatient visit 15 minutes [facility] Start: 02-17-2015 End: 02-17-2015 Office outpatient visit 15 minutes [facility] Start: 12-11-2014 End: 12-11-2014 Office outpatient visit 15 minutes [facility] Start: 12-05-2014 End: 12-05-2014 Office outpatient visit 5 minutes [facility] Start: 11-13-2014 End: 11-13-2014 Office outpatient visit 15 minutes [facility] Start: 10-03-2014 End: 10-05-2014 Office outpatient visit 25 minutes [facility] Start: 07-16-2014 End: 07-17-2014 Office outpatient visit 15 minutes [facility] Start: 03-29-2011 End: 03-29-2011 Patient encounter procedure [facility] Start: 02-08-2011 End: 02-10-2011 Patient encounter procedure [facility] Start: 02-02-2011 End: 02-03-2011 Patient encounter procedure [facility] Start: 10-30-2009 End: 11-01-2009 Patient encounter procedure [facility] Start: 10-22-2009 End: 10-22-2009 Office outpatient visit 15 minutes [facility] Start: 07-28-2009 End: 07-28-2009 Patient encounter procedure [facility] Start: 05-28-2009 End: 05-28-2009 Patient encounter procedure [facility] Procedures Date Procedure Procedure Detail Performing Clinician Start: 04-25-2023 Dual energy X-ray absorptiometry Start: 03-09-2023 MRI of brain with contrast Start: 02-17-2023 CT angiography of neck vessels Start: 03-15-2022 Mammography Mammography Coordinator Start: 06-04-2021 End: 06-04-2021 PT D/C Summary (1) Comments: See Note; NOTES: [facility] Physical Therapy [facility] [address] [place] [address] / REHABILITATION SERVICES DISCHARGE SUMMARY MR#: [id number] Acct: [id number] Name: JUSTINE RAPP Rep #: [id number] : 1960 60 From: Diego Singleton DPT Referring Dr.: Dr. Annabelle Roach DO Status: REG RCR Insurance: [facility] [id number] [facility] PACKAGE PLAN It has been my pleasure to treat JUSTINE RAPP referred by Dr. Annabelle Roach DO, with the diagnosis of L shoulder pain for a total of 6 visit(s). Discharge Date: 05/12/21 Please see the following information for a summary of their discharge status. Subjective: pt. reports I am doing really well. She reports no issues. She is back to all exercise routines without issues. She continues to be consistent with her shoulder exercises as well. L shoulder Pain Intensity (Out of 10): 0 % Improvement: 95 Objective/Function: Pt. is overall doing well. She has full ROM without increase in symptoms. She has good strength and is progressing with ER endurance without issues. Pt. is I with HEP as well. She will be DC from PT at this point in time. No pain pre or post PT this date. Pt. is sleeping without symptoms. Goal 1:: LTG: Pt. to be educated in exercise program for RTC strengthening and silvestre scapular strengthening. Goal Progress: Goal Met Goal 2:: STG: Pt. to have full L shoulder ROM without increase in symptoms. Goal Progress: Goal Met Goal 3:: LTG: Pt. to have increased L shoulder strength to at least 5-/5 throughout without increase in symptoms. Goal Progress: Goal Met Goal 4:: LTG: Pt. to resume all exercise programs and routines without increased L shoulder pain. Goal Progress: Goal Met Plan: Pt. to be Dc to HEP at this point in time. Discharge Comments: Pt. was treated with shoulder strengthening and with DN to teres minor and infraspintus regions. Pt. is doing very well and is I with HEP. Pt. will be DC to HEP at this point in time. If there are questions or concerns regarding this patient's physical therapy, please feel free to call me at [phone]. Thank you for the referral of this patient. Sincerely, Diego Singleton, DPT Balance/Gait/Functional tests - Balance/Special Test Scores Quick DASH Score: 0 <Electronically signed by Diego Singleton DPT> 06/04/21 1213 CC: Dr. Annabelle Roach DO CLS Signed Christina Lawler Work Phone: Start: 04-21-2021 End: 04-22-2021 Dexa Bone Density Study Comments: See Note; NOTES: [facility] Imaging Services [address] [place] [address] Dexa Bone Density Study MR#: [id number] Acct: [id number] Name: JUSTINE RAPP Rep #: [id number] : 1960 F 60 From: Dalton parra MD PCP: Dr. Annabelle Roach DO Status: [facility] Study: Dexa Bone Density Study Date of Exam: 04/21/21 Exam# [id number] Ordering Dr: Annabelle Roach DO STUDY: DUAL ENERGY X-RAY ABSORPTIOMETRY / DXA REASON FOR EXAM: Female, 60 years old. 627.8Menopausal postmenopausalBONE DENSITY REASON FOR EXAM TECHNIQUE: Bone Mineral Density (BMD) measurements of lumbar spine and bilateral hips were obtained. COMPARISON: Comparison is made with prior study dated 10/20/2015. FINDINGS: Lumbar Spine (L1-L4): g/cm2 (0.822) / T-score (-2.0) / Z-score (0.7) Findings are suggestive of osteopenia with a moderate fracture risk. Left Femur Total: g/cm2 (0.818) / T-score (-1.0) / Z-score (-0.1) Left Femoral Neck: g/cm2 (0.713) / T-score (-1.2) / Z-score (0.0) Right Femur Total: g/cm2 (0.896) / T-score (-0.4) / Z-score (0.6) Right Femoral Neck: g/cm2 (0.783) / T-score (-0.6) / Z-score (0.7) The T-Scores on the most recent prior examination were: Lumbar Spine (L1-L4): There has been worsening of bone density since the previous examination. Left Femur Total: which represents a worsening of 11.7%. Right Femur Total: which represents a worsening of 8.8%. BD/Dexa Bone Density Study IMPRESSION: The patient is considered osteopenic as outlined below according to World Pardeep Organization (WHO) criteria with a moderate fracture risk. There has been worsening of bone density since the previous examination. Reference Information: The T-score is the number of standard deviations above or below the standard which is normal for young adults at their peak bone mineral density. The World Health Organization (WHO) interprets the T-scores as follows: Above -1 Normal bone density Between -1 and -2.5 Osteopenia Equal to / or below -2.5 Osteoporosis As a practical clinical guideline, osteopenia may be graded as follows: Mild -1 through -1.5 Moderate -1.6 through -2.0 Severe -2.1 through -2.4 The Z-score is the number of standard deviations above or below age-matched controls. A Z-score of less than -1.5 would be considered abnormal. References: 1. NIH Osteoporosis and Related Bone Diseases www osteo.org 2. International Society for Clinical Densitometry www iscd.org 3. National Osteoporosis Foundation www nof.org Electronically Signed: Dalton Hernandez MD at 14:47 EST , CC: Dr. Annabelle Roach DO Men'S Swim Coach: Bruce Roach DO Work Phone: Start: 04-21-2021 Dual energy X-ray absorptiometry Dr. Annabelle Roach Work Phone: Start: 04-12-2021 CT angiography of neck vessels Dr. Annabelle Roach Work Phone: Start: 04-12-2021 End: 04-12-2021 CTA Neck W/WO Contrast Comments: See Note; NOTES: [facility] Imaging Services [address] [place] [address] CTA Neck W/WO Contrast MR#: [id number] Acct: [id number] Name: JUSTINE RAPP Rep #: [id number] : 1960 F 60 From: Eric Carrillo PCP: Dr. Annabelle Roach DO Status: REG CLI Study: CTA Neck W/WO Contrast Date of Exam: 04/12/21 Exam# [id number] Ordering Dr: Annabelle Roach DO EXAM: CT ANGIOGRAPHY NECK WITHOUT AND WITH INTRAVENOUS CONTRAST CLINICAL INDICATION: CAD TECHNIQUE: Routine carotid CT angiography protocol was performed without and with intravenous contrast. Nascet criteria using the distal ICAs for comparison were used for evaluation of stenoses. This CT exam was performed using one or more of the following dose reduction techniques: automated exposure control, adjustment of the mA and/or kV according to patient size, and/or use of iterative reconstruction technique. This report was created using Animoca report generation technology. MIP reconstructed images were created and reviewed. CONTRAST: IV 100mL Isovue-370 COMPARISON: None. FINDINGS: VASCULATURE: RIGHT COMMON CAROTID ARTERY: Unremarkable. No occlusion or significant stenosis. No dissection. RIGHT INTERNAL CAROTID ARTERY: Unremarkable. Extracranial segment is patent with no occlusion or significant stenosis. No dissection. RIGHT EXTERNAL CAROTID ARTERY: Unremarkable. No occlusion. RIGHT VERTEBRAL ARTERY: Unremarkable. No occlusion or significant stenosis. No dissection. LEFT COMMON CAROTID ARTERY: Unremarkable. No occlusion or significant stenosis. No dissection. LEFT INTERNAL CAROTID ARTERY: There are no acute findings of the right and left internal carotid artery. ALL ABOVE CRITERIA BY NASCET. Extracranial segment is patent with no occlusion or significant stenosis. No dissection. LEFT EXTERNAL CAROTID ARTERY: Unremarkable. No occlusion. LEFT VERTEBRAL ARTERY: Unremarkable. No occlusion or significant stenosis. No dissection. GREAT VESSELS OF AORTIC ARCH: Unremarkable. Normal anatomy, patent. NECK: BONES/JOINTS: There are degenerative findings of the cervical spine. SOFT TISSUES: Unremarkable. THYROID: The thyroid is heterogenous. It contains nodules. This should be further evaluated with ultrasound. This can be performed as an outpatient. LUNG APICES: Clear. CAROTID STENOSIS REFERENCE USING NASCET CRITERIA: % ICA stenosis = (1 - narrowest ICA diameter/diameter of distal cervical ICA) x 100. Mild - <50% stenosis. Moderate - 50-69% stenosis. Severe - 70-94% stenosis. Near occlusion - 95-99% stenosis. Occluded - 100% stenosis. CT/CTA Neck W/WO Contrast IMPRESSION: 1. The thyroid is heterogenous. It contains nodules. This should be further evaluated with ultrasound. This can be performed as an outpatient. 2. There are no acute findings of the right and left internal carotid artery. ALL ABOVE CRITERIA BY NASCET. Electronically Signed: Eric Larios MD at 15:14 EST Reading Location ID and State: [facility] / [place] , Service support , CC: Dr. Annabelle Roach DO Men'S Swim Coach: Signed Annabelle Roach DO Work Phone: Start: 04-12-2021 End: 04-12-2021 Thyroid Comments: See Note; NOTES: [facility] Imaging Services [address] [place] [address] Thyroid MR#: [id number] Acct: [id number] Name: JUSTINE RAPP Rep #: [id number] : 1960 F 60 From: Eric Carrillo PCP: Dr. Annabelle Roach DO Status: REG CLI Study: Thyroid Date of Exam: 04/12/21 Exam# [id number] Ordering Dr: Annabelle Roach DO STUDY: THYROID ULTRASOUND REASON FOR EXAM: Female, 60 years old. NODULE TECHNIQUE: Ultrasound evaluation of the thyroid was performed with real-time and static villalobos-scale imaging. COMPARISON: report only of May 28 2019 1:31pm. NO IMAGES FINDINGS: RIGHT LOBE: The right lobe of the thyroid gland measures 5.5 x 2.3 cm. There is a homogeneous echotexture. There are nodules. Nodules measure 9 x 8 x 4 mm, 8 x 8 x 4 mm, 6 x 4 x 4 mm, and 5 x 4 x 2 mm. These are noted in the upper and midline. The lesion is solid / cystic with regular margins and silvestre nodular and some have intra-nodular doppler flow. Several nodules have punctate internal foci suggesting calcifications. LEFT LOBE: The left lobe of the thyroid gland measures 4.9 x 1.4 cm. There is a homogeneous echotexture. There are nodules. Nodules are visualized in the upper and lower gland. These measure 5 x 4 x 3 mm, 4 x 4 x3 mm, 6 x 4 x 4 mm, and 4 x 4 x2 mm. The lesion is solid / cystic with regular margins and silvestre nodular and some have intra-nodular doppler flow. Several nodules have punctate internal foci suggesting calcifications. ISTHMUS: The isthmus measures 3 mm. The regional lymph nodes are normal. US/Thyroid IMPRESSION: There are RIGHT nodules. This nodule is mixed cystic and solid, hyperechoic or isoechoic, [id number], smoothly marginated and contains punctate echogenic foci. TI-RADS points: 5. TI-RADS category: TR4. This nodule is moderately suspicious. Recommend follow-up thyroid ultrasounds at 1, 2, 3 and 5 years. There are left nodules. This nodule is mixed cystic and solid, hyperechoic or isoechoic, [id number], smoothly marginated and contains punctate echogenic foci. TI-RADS points: 5. TI-RADS category: TR4. This nodule is moderately suspicious. Recommend follow-up thyroid ultrasounds at 1, 2, 3 and 5 years. Electronically Signed: Eric Larios MD at 15:25 EST Reading Location ID and State: [facility] / [place] , Service support , CC: Dr. Annabelle Roach DO Men'S Swim Coach: Signed Annabelle Roach DO Work Phone: Start: 04-12-[address] Annabelle Roach Work Phone: Start: 03-30-2021 End: 03-30-2021 Inital Evaluation (1) - PT Comments: See Note; NOTES: [facility] Physical Therapy [facility] [address] [place] [address] / REHABILITATION SERVICES INITIAL EVALUATION MR#: [id number] Acct: [id number] Name: JUSTINE RAPP Rep #: [id number] : 1960 60 From: Diego Singleton DPT Referring Dr.: Dr. Annabelle Roach DO Status: REG R Insurance: [facility] [id number] [facility] PACKAGE PLAN Patient's Visit Information JUSTINE RAPP is a 60 year old F referred to Physical Therapy by Dr. Annabelle Roach DO with a diagnosis of L shoulder pain. Date of Evaluation: 03/23/21 Physical Therapist: NANETTE MilesT - Visit Plan Frequency: 1-2x /Week Duration: 4 Weeks Plan: 1.) Start with RTC stability/strengthening exercises- non painful. 2.) Add in silvestre scapular strengthening exercises- non painful. 3.) progress HEP as tolerated to increase daily carry over. Pt. to continue with her exercise routines avoiding painful movements, patient consents. eval HEP: mid row BTB 3x10, shoulder extension GTB 3x10, shoulder SL ER 1# 3x10- fatigue, avoid pain - Subjective Pt. is here today for her initial evaluation with diagnosis of L shoulder pain. Pt. reports no mech of injury, but feels like it is more from repetitive motions. she reports minimal issues with lifting her L shoulder up, but has a hard time with any sort of weight. She likes to exercises and does so a local recreation center. Pt. reports pain at L shoulder joint and into deltoid region. No falls or mechanical injury of sort. She is still able to do some of her wt. lifting, but has had to stop frequently due to L shoulder pain/weakness. Pt. is sleeping well and is able to do most of her ADLs without issues. She is hopeful to increase her strength and get back to all of her recreational working out routines without increase in L shoulder issues. - Pain L shoulder Pain Intensity (Out of 10): 0 Pain Intensity Range: 0, 5 - Objective POSTURE: Pt. has decent posture in stance. Normal shoulder heights bilaterally. Pt. has normal cervical spine posture as well. PALPATION: Pt. has some mild tenderness at sub acromial space, but not much. Pt. has not pain in cervical spine. NEURO: Normal sensation and DTR of BUEs. ROM: RUE: full shoulder ROM without increase in symptoms. L shoulder: AROM: flexion 170deg mild increase NW at end range, abd 170deg mild increase NW at end range, functional ER C5 NE, functional IR L1 mild increase NW. PROM: full ROM, but does have increased pain with end ranges of motions. MMT: RUE: 5/5 throughout. LUE: elbow: 5/5 throughout; shoulder: flexion 4+/5 increase NW, abd 4+/5 increase NW, ext 5/5, ER 4/5 increase NW, IR 5-/5 mild increase NW - Special Tests R Shoulder Lift Off Test - Subscapular Tear: Negative R Shoulder Drop Sign - IS Test: Negative R Shoulder Empty Can - SS: Positive R Shoulder Belly Press - SupScap: Negative R Shoulder Neer - Impingement: Positive R Shoulder Gonzalez Tu - Impingement: Positive R Shoulder Biceps Load Test - Labrum: Negative R Shoulder Speeds Test - Labrum/Biceps: Positive - Balance/Special Test Scores Quick DASH Score: 40.9075 - Goals Goal 1:: LTG: Pt. to be educated in exercise program for RTC strengthening and silvestre scapular strengthening. Goal Time Frame: 2-4 Weeks Goal 2:: STG: Pt. to have full L shoulder ROM without increase in symptoms. Goal Time Frame: 2 Weeks Goal 3:: LTG: Pt. to have increased L shoulder strength to at least 5-/5 throughout without increase in symptoms. Goal Time Frame: 2-4 Weeks Goal 4:: LTG: Pt. to resume all exercise programs and routines without increased L shoulder pain. Goal Time Frame: 4-6 Weeks - Rehabilitation Potential Physical Therapy Diagnosis: Pt. has signs and symptoms consistent with L shoulder pain. She had some end range soreness and some mild weakness of her RTC on the L side. She had positive signs for impingement and RTC pathologies. With all being said I think she has a strain, maybe a slight degenerative tear of her RTC on the L side causing her symptoms to be worse with impinging the cuff and with straining from resistance exercises. I would like to introduce some RTC stability exercises to ease symptoms with all gym and exercise routines. Rehabilitation Potential: Excellent - Anticipated Interventions Patient/Client Instruction: Educate patient on: Condition, Plan of Care, Risk Factors, Benefits of Fitness Program For the Purpose of:: To foster healthy habits, To improve decision making, To facilitate caregiver knowledge, To improve self management, To prevent re-injury, To improve ability to perform tasks related to life management Therapeutic Exercise to Include: Strength training, Power training, Body mechanics, Postural training, Flexibilty training, Scapular Strength/Stabilization For the Purpose of:: To decrease pain, To increase ROM, To improve nutrient delivery to tissue, To improve muscle performance and motor function, To improve health of tissue, To decrease soft tissue restriction, To increase flexibility/ROM, To improve endurance Manual Therapy Techniques to Include: Mobilization For the Purpose of:: To decrease pain, To decrease swelling/inflammation, To increase ROM, To improve nutrient delivery to tissue Ultrasound (thermal/non thermal): Yes For the Purpose of:: To decrease pain, To increase ROM, To improve nutrient delivery to tissue Thank you for the opportunity to evaluate your patient. For Medicare and Medicare HMO plans, please review the plan of care and approve it. It will need to be FAXED BACK to us at [phone] for Medicare purposes. For Medicare only, by signing this I certify the plan of care. Please let me know if there are questions or concerns regarding this plan of care. Physician Signature: ___Date: <Electronically signed by Diego Singleton DPT> 03/30/21 0856 CC: Dr. Annabelle Roach DO CLS Signed Christina Lawler CNP Work Phone: Start: 03-19-2021 Plain X-ray of shoulder Dr. Annabelle chilel Work Phone: Start: 03-19-2021 End: 03-19-2021 Shoulder min 2 Views Comments: See Note; NOTES: [facility] Radiology [address] [place] [address] Shoulder min 2 Views MR#: [id number] Acct: [id number] Name: JUSTINE RAPP Rep #: [id number] : 1960 F 60 From: Radu Waller MD PCP: Dr. Annabelle Roach DO Status: DEP AMB Study: Shoulder min 2 Views Date of Exam: 03/19/21 Exam# [id number] Ordering Dr: Annabelle Roach DO STUDY: X-RAY - LEFT SHOULDER REASON FOR EXAM: Female, 60 years old. Pain with lifting for 2 weeks TECHNIQUE: 4 view(s) of the shoulder. COMPARISON: None. FINDINGS: Normal glenohumeral articulation. Normal acromioclavicular joint. Normal acromion. Normal humeral head and visualized proximal humerus. The soft tissue structures are unremarkable. Normal visualized pulmonary apex. RAD/Shoulder min 2 Views IMPRESSION: No fracture or malalignment. Electronically Signed: Radu Waller MD (Brooks) at 15:33 EST , Service support , CC: Dr. Annabelle Roach DO Men'S Swim Coach: Signed Annabelle Roach DO Work Phone: Start: 03-09-2021 Mammography Mammo/Bone Hosp Start: 10-02-2019 Screening mammography bi 2-view breast inc cad [facility] Work Phone: Start: 10-02-2019 Mammography Mammo/Bone Hosp Start: 05-29-2019 End: 05-29-2019 Carotid Duplex Ultrasound Comments: See Note; NOTES: [facility] Cardiovascular Services [address] [place] [address] Carotid Duplex Ultrasound 05/28/19 1301 MR#: [id number] Acct: [id number] Name: JUSTINE RAPP Rep #: [id number] : 1960 58 From: Rahul Velasquez MD Attending Dr: Annabelle Roach DO Status: REG CLI Ordering Dr: Annabelle Roach DO Date: 05/28/19 Location: US Sex: F C Admitted: Reason For Study: stenosis Rt. Velocities/BP Lt. Velocities/BP Prox CCA 91.7/21.3 cm/sec. Prox CCA 92.8/31.4 cm/sec. Mid CCA 69.5/22.6 cm/sec. Mid CCA 82.7/27.4 cm/sec. Dist CCA 65.6/22.6 cm/sec. Dist CCA 64.2/27.4 cm/sec. Prox ICA 56.5/18.6 cm/sec. Prox ICA 60.5/24.9 cm/sec. Mid ICA 182.8/62.1 cm/sec. Mid ICA 213.5/77.5 cm/sec. Dist ICA 134.5/57.7 cm/sec. Dist ICA 185.2/59.2 cm/sec. Rt. ICA/CCA = 2.6. Lt. ICA/CCA = 2.6. Prox ECA 79.9/17.3 cm/sec. Prox ECA 70.4/18.8 cm/sec. Rt. Vert. 130.1/44.5 cm/sec. Lt. Vert. 64.2/29.8 cm/sec. Right Extracranial There is intimal thickening but no significant atherosclerotic plaque noted in the right common carotid artery. There is intimal thickening but no significant atherosclerotic plaque noted in the right internal carotid artery. There is intimal thickening but no significant atherosclerotic plaque noted in the right external carotid artery. Antegrade flow is noted in the right vertebral artery. Left Extracranial There is intimal thickening but no significant atherosclerotic plaque noted in the left common carotid artery. There is intimal thickening but no significant atherosclerotic plaque noted in the left internal carotid artery. There is intimal thickening but no significant atherosclerotic plaque noted in the left external carotid artery. Antegrade flow is noted in the left vertebral artery. Procedure Carotid Duplex 30512. The exam was diagnostic. Exam performed in department. Interpretation Summary Moderate (50-69%) stenosis right extracranial internal carotid. Moderate (50-69%) stenosis left extracranial internal carotid. Flow within the vertebral arteries is antegrade bilaterally. Ordering Physician: Annabelle Roach Performed By: Mane Nails RVT 05/29/192007 Date Rahul Velasquez MD CC: Annabelle Roach DO Date Dictated: 05/28/19 1301 Date Transcribed: 05/29/192007 Men'S Swim Coach: Signed Annabelle Roach Work Phone: Start: 05-28-2019 End: 05-28-2019 Thyroid Comments: See Note; NOTES: [facility] Imaging Services [address] [place], [place] [address] [place] [address] Thyroid MR#: [id number] Acct: [id number] Name: JUSTINE RAPP Rep #: [id number] : 1960 F 58 From: Dalton Hernandez MD PCP: Annabelle Roach DO Status: REG CLI Study: Thyroid Date of Exam: 05/28/19 Exam# [id number] Ordering Dr: Annabelle Roach DO STUDY: THYROID ULTRASOUND REASON FOR EXAM: Female, 58 years old. THYROID NODULES TECHNIQUE: Ultrasound evaluation of the thyroid was performed with real-time and static villalobos-scale imaging. COMPARISON: Comparison is made with prior study dated August 24, 2015. FINDINGS: RIGHT LOBE: The right lobe of the thyroid gland is enlarged and measures 5.6 cm x 2 cm x 1.5 cm. There is a homogeneous echotexture. Once again, multiple nodules are seen throughout the right lobe. The largest measures 7 mm x 7 mm x 5 mm. This is partly solid and cystic. This is essentially unchanged. LEFT LOBE: The left lobe of the thyroid gland is enlarged and measures 5 cm x 1.5 cm x 1.4 cm. There is a homogeneous echotexture. Multiple nodules are seen. The largest nodule measures 5 mm x 4 mm x 4 mm. This is a solid nodule. This has decreased in size. ISTHMUS: The isthmus measures 3.0 mm. The regional lymph nodes are normal. US/Thyroid IMPRESSION: Multiple small bilateral thyroid nodules. There has been essentially no change. Electronically Signed: Dalton Hernandez, at 14:20 EDT , Service support , CC: Annabelle Roach DO Men'S Swim Coach: Signed Annabelle Roach Work Phone: Start: 04-09-2019 End: 04-09-2019 Foot min 3 Views Comments: See Note; NOTES: [facility] Imaging Services [address] [place] [address] Foot min 3 Views MR#: [id number] Acct: [id number] Name: JUSTINE RAPP Rep #: [id number] : 1960 F 58 From: Dalton Hernandez MD PCP: Priyanka Holliday DO Status: REG CLI Study: Foot min 3 Views Date of Exam: 04/09/19 Exam# [id number] Ordering Dr: Christina Lawler STUDY: X-RAY - LEFT FOOT CLINICAL: Female, 58 years old. Patient awoke one day ago with intense heel pain, no trauma TECHNIQUE: 3 view(s) of the foot. COMPARISON: Comparison is made with prior examination of June 02, 2015. FINDINGS: There is a plantar calcaneal spur. Normal visualized subtalar, talonavicular, calcaneocuboid, tarsal and tarsometatarsal articulations. Normal metatarsi. Normal metatarsophalangeal joint of the great toe. Normal tibial and fibular sesamoid bones. Normal interphalangeal joint of the great toe. Normal phalanges of the great toe. Normal second through fifth metatarsophalangeal joints. Normal interphalangeal joints and phalanges of the lesser toes. The soft tissue structures are unremarkable. RAD/Foot min 3 Views IMPRESSION: Plantar spur. Electronically Signed: Dalton Hernandez, at 12:14 EST , Service support , CC: SIOMARA Lawler; Priyanka Holliday DO Men'S Swim Coach: Signed Christina Lawler Work Phone: Start: 12-15-2015 End: 12-15-2015 CTA Neck W/WO Contrast Comments: See Note; NOTES: [facility] Imaging Services [address] [place] [address] Verdana 4d CTA Neck W/WO Contrast MR#: [id number] Acct: [id number] Name: JUSTINE RAPP Rep #: [id number] : 1960 F 55 From: Eric Larios MD PCP: Priyanka Holliday DO Status: REG CLI Study: CTA Neck W/WO Contrast Date of Exam: 12/15/15 Exam# [id number] Ordering Dr: Priyanka Holliday DO STUDY: CTA NECK WITH CONTRAST REASON FOR EXAM: Female, 55 years old. F/U CAROTID DOPPLER, ? BILAT CAROTID THICKENING RADIATION DOSAGE (If Supplied By Facility): CTDIvol = ( 14.81 ) mGy, DLP = ( 388.54 ) mGycm TECHNIQUE: CT angiography with multi-detector data acquisition was performed from the aortic arch to the skull base following intravenous administration of 100 ml of Isovue 370 contrast. MIP images were reconstructed from the axial data set. Post-processing of the angiographic images was performed, with multiplanar reformation and 3D reconstruction. Individualized dose optimization techniques were used for this CT. COMPARISON: MRA - Neck - 13:24 FINDINGS: AORTIC ARCH: Normal visualized aortic arch. Normal origins of the brachiocephalic, left common carotid, and left subclavian arteries. RIGHT CAROTID ARTERIES: Normal right common carotid artery (CCA). Normal right common carotid bulb. Normal origin of the right internal carotid (ICA) artery without a hemodynamically significant stenosis. Normal visualized cervical portion of the right internal carotid artery. Normal origin of the right external carotid artery (ECA). LEFT CAROTID ARTERIES: Normal left common carotid artery (CCA). Normal left common carotid bulb. Normal origin of the left internal carotid (ICA) artery without a hemodynamically significant stenosis. Normal visualized cervical portion of the left internal carotid artery. Normal origin of the left external carotid artery (ECA). VERTEBRAL ARTERIES: Normal bilateral vertebral arteries. CT/CTA Neck W/WO Contrast IMPRESSION: Normal bilateral cervical carotid and vertebral arteries. Electronically Signed: Eric Larios MD at 22:28 EDT , Service support [phone], CC: Priyanka Holliday DO Men'S Swim Coach: Signed Priyanka Holliday Work Phone: Start: 10-21-2015 End: 10-21-2015 MRA Neck WITH and W/O Contrast Comments: See Note; NOTES: [facility] Imaging Services [address] [place] [address] Verdana 4d MRA Neck WITH and W/O Contrast MR#: [id number] Acct: [id number] Name: JUSTINE RAPP Rep #: [id number] : 1960 F 55 From: Darwin Mays MD PCP: Priyanka Holliday DO Status: REG CLI Study: MRA Neck WITH and W/O Contrast Date of Exam: 10/21/15 Exam# [id number] Ordering Dr: Priyanka Holliday DO STUDY: MRA NECK WITH AND WITHOUT CONTRAST REASON FOR EXAM: Female, 55 years old. Carotid stenosis TECHNIQUE: 3-D svnr-ps-xrfukx (TOF) imaging was performed in an 1.5 T MRI scanner. 7 ml of Gadavist was administered for the contrast enhanced images. COMPARISON: None. FINDINGS: RIGHT CAROTID ARTERIES: Normal right common carotid artery (CCA). Normal right common carotid bulb. Normal origin of the right internal carotid (ICA) artery without a hemodynamically significant stenosis. Normal visualized cervical portion of the right internal carotid artery. Normal origin of the right external carotid artery (ECA). LEFT CAROTID ARTERIES: Normal left common carotid artery (CCA). Normal left common carotid bulb. Normal origin of the left internal carotid (ICA) artery without a hemodynamically significant stenosis. Normal visualized cervical portion of the left internal carotid artery. Normal origin of the left external carotid artery (ECA). VERTEBRAL ARTERIES: Normal antegrade flow within the bilateral vertebral artery without a hemodynamically significant stenosis. MRI/MRA Neck WITH and W/O Contrast IMPRESSION: Normal bilateral cervical carotid and vertebral arteries. Electronically Signed: Darwin Mays MD at 23:15 EDT , Service support [phone], CC: Priyanka Holliday DO Men'S Swim Coach: Signed Priyanka Holliday Work Phone: Start: 10-20-2015 End: 10-20-2015 Dexa Bone Density Study (HP) Comments: See Note; NOTES: [facility] Imaging Services [address] [place] [address] Verdana 4d Dexa Bone Density Study (HP) MR#: [id number] Acct: [id number] Name: JUSTINE RAPP Rep #: [id number] : 1960 F 55 From: Dalton Hernandez MD PCP: Priyanka Holliday DO Status: REG CLI Study: Dexa Bone Density Study (HP) Date of Exam: 10/20/15 Exam# [id number] Ordering Dr: Priyanka Holliday DO STUDY: DUAL ENERGY X-RAY ABSORPTIOMETRY / DXA REASON FOR EXAM: Female, 55 years old. The patient is perimenopausal. TECHNIQUE: Bone Mineral Density (BMD) measurements of lumbar spine and bilateral hips were obtained. COMPARISON: None. FINDINGS: Lumbar Spine (L1-L4): g/cm2 (1.123) / T-score (-0.5) / Z-score (0.3) Findings are suggestive of normal bone density with a low fracture risk. Left Femur Total: g/cm2 (0.992) / T-score (-0.1) / Z-score (0.5) Left Femoral Neck: g/cm2 (0.964) / T-score (-0.5) / Z-score (0.4) Right Femur Total: g/cm2 (1.051) / T-score (0.3) / Z-score (1.0) Right Femoral Neck: g/cm2 (1.035) / T-score (0.0) / Z-score (0.9) HPBD/Dexa Bone Density Study (HP) IMPRESSION: The patient is considered normal as outlined below according to World Pardeep Organization (WHO) criteria with a low fracture risk. Reference Information: The T-score is the number of standard deviations above or below the standard which is normal for young adults at their peak bone mineral density. The World Health Organization (WHO) interprets the T-scores as follows: Above -1 Normal bone density Between -1 and -2.5 Osteopenia Equal to / or below -2.5 Osteoporosis As a practical clinical guideline, osteopenia may be graded as follows: Mild -1 through -1.5 Moderate -1.6 through -2.0 Severe -2.1 through -2.4 The Z-score is the number of standard deviations above or below age-matched controls. A Z-score of less than -1.5 would be considered abnormal. References: 1. NIH Osteoporosis and Related Bone Diseases http://www.osteo.org 2. International Society for Clinical Densitometry http://www.iscd.org 3. National Osteoporosis Foundation http://www.nof.org Electronically Signed: Dalton Hernandez MD at 13:10 EDT Tel [phone], Service support [phone], CC: Priyanka Holliday DO Men'S Swim Coach: Signed Priyanka Holliday Work Phone: Start: 08-26-2015 End: 08-26-2015 Carotid Duplex Ultrasound Comments: See Note; NOTES: [facility] Cardiovascular Services [address] [place] [address] Carotid Duplex Ultrasound 08/24/15 0835 MR#: [id number] Acct: [id number] Name: JUSTINE RAPP Rep #: [id number] : 1960 55 From: Quinten Posadas MD Attending Dr: Priyanka Holliday DO Status: REG CLI Ordering Dr: Priyanka Holliday DO Date: 08/24/15 Location: US Sex: F C Admitted: Reason For Study: Carotid stenosis Rt. Velocities/BP Lt. Velocities/BP Prox CCA 76.2/20.5 cm/sec. Prox CCA 84.4/21.7 cm/sec. Mid CCA 83.3/22.9 cm/sec. Mid CCA 88.5/28.7 cm/sec. Dist CCA 67.4/22.9 cm/sec. Dist CCA 70.4/25.8 cm/sec. Prox ICA 65.7/19.3 cm/sec. Prox ICA 69.2/27.0 cm/sec. Mid ICA 155.0/64.4 cm/sec. Mid ICA 179.0/75.9 cm/sec. Dist ICA 175.0/66.4 cm/sec. Dist ICA 193.0/79.1 cm/sec. Rt. ICA/CCA = 2.1. Lt. ICA/CCA = 2.2. Prox ECA 78.0/15.2 cm/sec. Prox ECA 62.1/12.9 cm/sec. Rt. Vert. 50.4/22.9 cm/sec. Lt. Vert. 73.3/28.7 cm/sec. Right Extracranial There is intimal thickening but no significant atherosclerotic plaque noted in the right common carotid artery. There is no significant atherosclerotic plaque noted in the right internal carotid artery. There is no significant atherosclerotic plaque noted in the right external carotid artery. Antegrade flow is noted in the right vertebral artery. Left Extracranial There is intimal thickening but no significant atherosclerotic plaque noted in the left common carotid artery. There is no significant atherosclerotic plaque noted in the left internal carotid artery. There is no significant atherosclerotic plaque noted in the left external carotid artery. Antegrade flow is noted in the left vertebral artery. Procedure Carotid Duplex [id number]. Exam performed in department. Interpretation Summary Moderate (50-69%) stenosis right extracranial internal carotid. Moderate (50-69%) stenosis left extracranial internal carotid. Flow within the vertebral arteries is antegrade bilaterally. Ordering Physician: Priyanka Holliday Performed By: Marjan Tristan RVT 08/26/15 1636 Date Quinten Posadas MD CC: Priyanka Holliday DO Date Dictated: 08/24/15 0835 Date Transcribed: 08/26/151635 Men'S Swim Coach: Signed Priyanka Holliday Work Phone: Start: 08-24-2015 End: 08-24-2015 Thyroid Comments: See Note; NOTES: [facility] Imaging Services [address] [place] [address] Verdana 4d Thyroid MR#: [id number] Acct: [id number] Name: JUSTINE RAPP Rep #: [id number] : 1960 F 55 From: Dalton Hernandez MD PCP: Priyanka Holliday DO Status: REG CLI Study: Thyroid Date of Exam: 08/24/15 Exam# [id number] Ordering Dr: Priyanka Holliday DO STUDY: THYROID ULTRASOUND REASON FOR EXAM: Female, 55 years old. History of thyroid nodules. TECHNIQUE: Ultrasound evaluation of the thyroid was performed with real-time and static villalobos-scale imaging. COMPARISON: Comparison is made with prior study dated August 12, 2014. FINDINGS: RIGHT LOBE: The right lobe of the thyroid gland measures 4.8 cm x 1.4 cm x 1.5 cm. There is a homogeneous echotexture. Once again, there are 5 subcentimeter nodules in the right lobe of the thyroid. These are unchanged. The largest measures 6 mm x 4 mm x 7 mm. LEFT LOBE: The left lobe of the thyroid gland measures 5.2 cm x 1.3 cm 1.3 cm. There is a homogeneous echotexture. There are 3 small isoechoic solid nodules within the left lobe. The largest measures 7 mm x 4 mm x 4 mm. This is unchanged. ISTHMUS: The isthmus measures 3.0 mm. The regional lymph nodes are normal. IMPRESSION: Stable examination demonstrating small bilateral subcentimeter nodules. Electronically Signed: Dalton Hernandez MD at 11:16 EDT Tel [phone], Service support [phone], CC: Priyanka Holliday DO Men'S Swim Coach: Signed Priyanka Holliday Work Phone: Start: 07-31-2015 End: 07-31-2015 Hip 2-3 Views with Pelvis Comments: See Note; NOTES: [facility] Imaging Services [address] [place] [address] Verdana 4d Hip 2-3 Views with Pelvis MR#: [id number] Acct: [id number] Name: JUSTINE RAPP Rep #: [id number] : 1960 F 55 From: Dalton Hernandez MD PCP: Priyanka Holliday DO Status: REG CLI Study: Hip 2-3 Views with Pelvis Date of Exam: 07/31/15 Exam# [id number] Ordering Dr: Priyanka Holliday DO STUDY: X-RAY - PELVIS AND RIGHT HIP REASON FOR EXAM: Female, 55 years old. Right hip pain. TECHNIQUE: Radiological exam, hip, unilateral, with pelvis when performed; 2 or 3 views. COMPARISON: None. FINDINGS: There is a non-specific bowel gas pattern. There are multiple calcified phleboliths. Normal bilateral iliac wings, sacroiliac joints and visualized sacrum. Normal bilateral superior and inferior pubic rami. There is narrowing with sclerosis of the pubic symphysis. Normal bilateral ischial tuberosities. Normal visualized femoral head. Normal acetabulum. Normal hip joint. IMPRESSION: No acute abnormality is seen. Electronically Signed: Dalton Hernandez MD at 12:33 EDT Tel [phone], Service support [phone], RAD/Hip 2-3 Views with Pelvis IMPRESSION: No acute abnormality is seen. Electronically Signed: Dalton Hernandez MD at 12:33 EDT Tel [phone], Service support [phone], CC: Priyanka Holliday DO Men'S Swim Coach: Signed Priyanka Holliday Work Phone: Start: 06-02-2015 End: 06-02-2015 Foot min 3 Views Comments: See Note; NOTES: [facility] Imaging Services [address] [place] [address] Verda 4d Foot min 3 Views MR#: [id number] Acct: [id number] Name: JUSTINE RAPP Rep #: [id number] : 1960 F 54 From: Eric Larios MD PCP: Priyanka Holliday DO Status: REG CLI Study: Foot min 3 Views Date of Exam: 06/02/15 Exam# [id number] Ordering Dr: Priyanka Holliday DO STUDY: X-RAY - LEFT FOOT CLINICAL: Female, 54 years old. heel pain, no trauma TECHNIQUE: 3 view(s) of the foot. COMPARISON: None. FINDINGS: There is a plantar calcaneal spur. Normal visualized subtalar, talonavicular, calcaneocuboid, tarsal and tarsometatarsal articulations. Normal metatarsi. Normal metatarsophalangeal joint of the great toe. Normal tibial and fibular sesamoid bones. Normal interphalangeal joint of the great toe. Normal phalanges of the great toe. Normal second through fifth metatarsophalangeal joints. Normal interphalangeal joints and phalanges of the lesser toes. The soft tissue structures are unremarkable. IMPRESSION: There is a calcaneal spur. Electronically Signed: Eric Larios MD at 16:15 EDT , Service support [phone], RAD/Foot min 3 Views IMPRESSION: There is a calcaneal spur. Electronically Signed: Eric Larios MD at 16:15 EDT , Service support [phone], CC: Priyanka Holliday DO Men'S Swim Coach: Signed Priyanka Holliday Work Phone: Start: 08-13-2014 End: 08-13-2014 Carotid Duplex Ultrasound Comments: See Note; NOTES: [facility] Cardiovascular Services [address] [place] [address] Carotid Duplex Ultrasound 08/12/14 1222 MR#: [id number] Acct: [id number] Name: JUSTINE RAPP Rep #: [id number] : 1960 54 From: Quinten Posadas MD Attending Dr: Priyanka Holliday DO Status: REG CLI Ordering Dr: Priyanka Holliday DO Date: 08/12/14 Location: US Sex: F C Admitted: Rt. Velocities/BP Lt. Velocities/BP Prox CCA 92.0/22.9 cm/sec. Prox CCA 85.6/28.1 cm/sec. Mid CCA 82.7/21.1 cm/sec. Mid CCA 87.4/25.2 cm/sec. Dist CCA 74.5/24.6 cm/sec. Dist CCA 72.7/24.6 cm/sec. Prox ICA 48.7/18.8 cm/sec. Prox ICA 70.4/29.3 cm/sec. Mid ICA 162.0/61.9 cm/sec. Mid ICA 129.0/66.0 cm/sec. Dist ICA 168.0/71.3 cm/sec. Dist ICA 190.0/68.1 cm/sec. Rt. ICA/CCA = 2.0. Lt. ICA/CCA = 2.2. Prox ECA 68.0/15.8 cm/sec. Prox ECA 68.0/13.5 cm/sec. Rt. Vert. 60.9/21.9 cm/sec. Lt. Vert. 83.0/34.3 cm/sec. Right Extracranial There is no significant atherosclerotic plaque noted in the right common carotid artery. There is no significant atherosclerotic plaque noted in the right internal carotid artery. There is no significant atherosclerotic plaque noted in the right external carotid artery. Antegrade flow is noted in the right vertebral artery. Left Extracranial There is no significant atherosclerotic plaque noted in the left common carotid artery. There is no significant atherosclerotic plaque noted in the left internal carotid artery. There is no significant atherosclerotic plaque noted in the left external carotid artery. Antegrade flow is noted in the left vertebral artery. Procedure Carotid Duplex 45596. Exam performed in department. Interpretation Summary Moderate (50-69%) stenosis right extracranial internal carotid. Moderate (50-69%) stenosis left extracranial internal carotid. Flow within the vertebral arteries is antegrade bilaterally. Ordering Physician: Priyanka Holliday Performed By: Marjan Tristan RVT 08/12/14 2312 Date Quinten Posadas MD CC: Priyanka Holliday DO Date Dictated: 08/12/14 1222 Date Transcribed: 08/12/14 2312 Men'S Swim Coach: Signed Priyanka Magana Phone: Start: 08-12-2014 End: 08-12-2014 Thyroid Comments: See Note; NOTES: [facility] Imaging Services [address] [place] [address] Ultrasound Report MR#: [id number] Acct: [id number] Name: JUSTINE RAPP Rep #: [id number] : 1960 F 54 From: Emiliano Hunter MD PCP: Priyanka Holliday DO Status: REG CLI Study: Thyroid Date of Exam: 08/12/14 Exam# [id number] Ordering Dr: Priyanka Holliday DO STUDY: THYROID ULTRASOUND REASON FOR EXAM: Female, 54 years old. Thyroid nodule. TECHNIQUE: Ultrasound evaluation of the thyroid was performed with real-time and static villalobos-scale imaging. COMPARISON: None. FINDINGS: RIGHT LOBE: The right lobe of the thyroid gland measures 4.9 x 1.4 x 1.5 cm. There is a homogeneous echotexture. There are several moderately defined, mixed echogenic lesions consistent with thyroid nodules. One of the largest is 6 x 6 x 4 mm, residing in the anterior upper pole. LEFT LOBE: The left lobe of the thyroid gland measures 4.6 x 1.3 x 1.3 cm. There is a homogeneous echotexture. There are multiple small, moderately defined mixed echogenic lesions consistent with thyroid nodules. One of the largest is in the anterior lower pole, measuring 6 x 5 x 5 mm. ISTHMUS: The isthmus measures 2.0 mm. The regional lymph nodes are normal. IMPRESSION: Findings of a multinodular goiter, as described. All of the focal lesions are less than 1 cm in diameter. 12 month followup study is suggested to confirm stability. Electronically Signed: Irving Hunter MD at 18:50 EDT , Service support [phone], CC: Priyanka Holliday DO Men'S Swim Coach: Signed Priyanka Holliday Work Phone: Screening for osteoporosis Screening for osteoporosis (Renamed from Encounter for screening for osteoporosis) Christina Lawler Screening for osteoporosis Screening for osteoporosis (Renamed from Encounter for screening for osteoporosis) Christina Lawler INSTRUMENTAL MUSICIAN Work Phone: Plan of Treatment Date Care Activity Detail Author Start: 2036 RSV Vaccine (1 - 1-d ose 75+ series) RSV Vaccine (1 - 1-dose 75+ series) [facility] Start: 03-23-2024 Screening for malign ant neoplasm of breast Mammogram Screening [facility] Start: 11-05-2023 Covid-19 Vaccine () Covid-19 Vaccine () [facility] Start: 11-05-2023 Influenza vaccination Influenza Vacc ine (#1) [facility] Start: 03-15-2023 Mammography MAMMOGRAM [facility] Start: 03-09-2022 Mammography MAMMOGRAM [facility] Start: 03-06-2022 DEPRESSION ASSESSMENT DEPRESSION ASS ESSMENT [facility] Start: 11-04-2021 Influenza vaccination INFLUENZA (#1) [facility] Start: 05-11-2021 COVID-19 VACCINE (4 - Booster for Moderna series) COVID-19 VACCINE (4 - Booster for Moderna series) [facility] Start: 04-28-2021 Procedure Education Eprescribe d prescriptions (G8553) [facility]; [facility] Work Phone: Start: 04-28-2021 Provider Instruction s for Treatment Reviewed Diagnostic Tests [facility]; [facility] Work Phone: Start: 04-28-2021 Assay of thyroid stimulating hormone tsh TSH (06797) [facility]; [facility] Work Phone: Start: 04-28-2021 Cyanocobalamin vitam in b-12 VITAMIN B-12 (CYANOCOBALAMIN) (75484) [facility]; [facility] Work Phone: Start: 04-28-2021 25 hydroxy includes fractions if performed CALCIFEDIOL (25921) [facility]; [facility] Work Phone: Start: 03-19-2021 Procedure Education Eprescribe d prescriptions (G8553) [facility]; [facility] Work Phone: Start: 03-19-2021 Assay of thyroid stimulating hormone tsh TSH (82242) [facility]; [facility] Work Phone: Start: 03-19-2021 Lipid panel LIPID PANEL (56349) [facility] Work Phone: Start: 03-19-2021 Cyanocobalamin vitam in b-12 VITAMIN B-12 (CYANOCOBALAMIN) (27498) [facility]; [facility] Work Phone: Start: 10-01-2020 Mammography MAMMOGRAM [facility] Start: 11-05-2019 Influenza vaccination INFLUENZA (#1) [facility] Start: 06-03-2019 Provider Instruction s for Treatment [facility] Work Phone: Start: 05-16-2019 Procedure Education Eprescribe d prescriptions (G8553) [facility] Work Phone: Start: 05-16-2019 Oncology colorectal screening [place] 10 dna markrs Cologuard - Strool Based DNA Test, CRC SCREEN (34536) [facility] Work Phone: Start: 04-09-2019 Procedure Education Eprescribe d prescriptions (G8553) [facility] Work Phone: Start: 04-09-2019 Provider Instruction s for Treatment Follow up in 2 weeks [facility] Work Phone: Start: 02-22-2017 Procedure Education Eprescribe d prescriptions (G8553) [facility] Work Phone: Start: 02-22-2017 Provider Instruction s for Treatment [facility] Work Phone: Start: 01-13-2017 Procedure Education Eprescribe d prescriptions (G8553) [facility] Work Phone: Start: 01-13-2017 Provider Instruction s for Treatment [facility] Work Phone: Start: 04-19-2016 Procedure Education Eprescribe d prescriptions (G8553) [facility] Work Phone: Start: 04-19-2016 Blood count complete auto&auto difrntl wbc CBC W/AUTO DIFF WBC (50775) [facility] Work Phone: Start: 04-19-2016 Comprehensive metabo lic panel METABOLIC PANEL, COMPREHENSIVE (14001) [facility] Work Phone: Start: 10-14-2015 Procedure Education Eprescribe d prescriptions (G8553) [facility] Work Phone: Start: 07-31-2015 Procedure Education Eprescribe d prescriptions (G8553) [facility] Work Phone: Start: 07-31-2015 Assay of thyroid stimulating hormone tsh TSH (10923) [facility]; [facility] Work Phone: Start: 07-31-2015 TSH Qn TSH (30135) [facility] Work Phone: Start: 07-31-2015 Comprehensive metabo lic panel METABOLIC PANEL, COMPREHENSIVE (27612) [facility] Work Phone: Start: 07-31-2015 Lipid panel LIPID PANEL (72569) [facility] Work Phone: Start: 06-02-2015 Procedure Education Eprescribe d prescriptions (G8553) [facility] Work Phone: Start: 02-17-2015 Procedure Education Eprescribe d prescriptions (G8553) [facility] Work Phone: Start: 12-11-2014 Procedure Education Eprescribe d prescriptions (G8553) [facility] Work Phone: Start: 12-11-2014 Cul bact xcpt urine blood/stool aerobic isol Throat Culture (49786) [facility] Work Phone: Start: 11-13-2014 Procedure Education Eprescribe d prescriptions (G8553) [facility] Work Phone: Start: 10-03-2014 Procedure Education Eprescribe d prescriptions (G8553) [facility] Work Phone: Start: 07-16-2014 Urnls dip stick/tabl et reagent auto microscopy URINALYSIS, W/ MICRO ([id number]) [facility] Work Phone: Start: 07-16-2014 Comprehensive metabo lic panel METABOLIC PANEL, COMPREHENSIVE (37576) [facility] Work Phone: Start: 07-16-2014 Lipid panel LIPID PANEL (05504) [facility] Work Phone: Start: 07-16-2014 Assay of thyroid stimulating hormone tsh TSH (52397) [facility]; [facility] Work Phone: Start: 07-16-2014 TSH Qn TSH (13376) [facility] Work Phone: Start: 07-21-2011 Pneumococcal Vaccine : 50+ (1 of 1 - PCV) Pneumococcal Vaccine: 50+ (1 of 1 - PCV) [facility] Start: 07-21-2011 SHINGRIX VACCINE (1 of 2) SHINGRIX VACCINE (1 of 2) [facility] Start: 07-21-2011 Tuberculosis screening COLOREC LISS CANCER SCREENING,SEE MODIFIER [facility] Start: 03-29-2011 Provider Instruction s for Treatment *Antibiotic Usage Education - Female [facility] Work Phone: Start: 02-02-2011 Assay of thyroid stimulating hormone tsh TSH (70392) [facility]; [facility] Work Phone: Comment on above: stat Start: 02-02-2011 TSH Qn TSH (36418) [facility] Work Phone: Comment on above: stat Start: 02-02-2011 Blood count manual c ell count each CBC WITH MANUAL DIFF (51256) [facility] Work Phone: Comment on above: stat Start: 02-02-2011 Comprehensive metabo lic panel METABOLIC PANEL, COMPREHENSIVE (49548) [facility] Work Phone: Comment on above: stat Start: 02-02-2011 Sedimentation rate r bc non-automated SED RATE ERYTHROCYTE (87115) [facility] Work Phone: Comment on above: stat Start: 10-22-2009 Provider Instruction s for Treatment [facility] Work Phone: Start: 05-28-2009 Provider Instruction s for Treatment [facility] Work Phone: Start: 2006 COLOGUARD (FIT-DNA) COLOGUARD (FIT-D NA) [facility] Start: 2006 Colonoscopy COLONOSCOPY [facility] Start: 2006 COLORECTAL CANCER SCREENING COLORECTAL CANCER SCREENING [facility] Start: [address] COLONOGRAPHY [facility] Start: 2006 DIABETES SCREEN DIABETES SCREEN [facility] Start: 2006 Diabetes Screening Diabetes Screenin g [facility] Start: 2006 FECAL OCCULT BLOOD FECAL OCCULT BLOO D [facility] Start: 2006 Lipid panel Lipid Screening [facility] Start: 2006 LIPID SCREEN LIPID SCREEN [facility] Start: 2006 Screening for malign ant neoplasm of colon [facility] Start: 2006 SIGMOIDOSCOPY SIGMOIDOSCOPY [facility] Start: 07-21-1991 HPV TESTING HPV TESTING [facility] Start: 1982 PAP TESTING PAP TESTING [facility] Start: 1982 Screening for malign ant neoplasm of cervix Cervical Cancer Screening [facility] Start: 1980 Urine microalbumin profile [facility] Start: 07-21-1979 Anxiety Screening Anxiety Screening [facility] Start: 07-21-1979 Depression Screening Depression Scre ening [facility] Start: 07-21-1979 HEPATITIS C SCREENING HEPATITIS C [facility] Start: 07-21-1979 Hepatitis C screening Hepatitis C [facility] Start: 07-21-1979 HIV SCREENING HIV SCREENING [facility] Start: 07-21-1979 HIV screening HIV Screening [facility] Work Phone: [facility] Work Phone: [facility] Work Phone: [facility] Work Phone: [facility] Work Phone[facility] Work Phone: [facility] Work Phone[facility] Work Phone: [facility] Work Phone: [facility] Work Phone: [facility] Work Phone[facility] Work Phone: [facility] Work Phone: [facility] Work Phone: [facility]; [facility] Work Phone: [facility] Work Phone: [facility]; [facility] Work Phone[facility]; [facility] Work Phone: [facility]; [facility] Work Phone: [facility]; [facility] Work Phone: [facility]; [facility] Work Phone: [facility]; [facility] Work Phone: Immunizations Immunization Date Immunization Notes Care Provider Darius sadler 03-16-2021 COVID-Moderna (50 MCG/0.25 ML) Christina Lawler INSTRUMENTAL MUSICIAN Work Phone: [facility]; [facility] Work Phone: 06-18-2020 COVID-Moderna (100 MCG/0.5 ML) Christina Lawler INSTRUMENTAL MUSICIAN Work Phone: [facility]; [facility] Work Phone: 05-21-2020 COVID-Moderna (100 MCG/0.5 ML) Christina Lawler INSTRUMENTAL MUSICIAN Work Phone: [facility]; [facility] Work Phone: Payers Date Payer Category Payer Self-pay [id number] 2017 Private Health Insurance [facility] CHOICE PLUS [id number] 2017-Present HMO [id number] 2017 Private Health Insurance [id number] [facility] [id number] 2015 Private Health Insurance [id number] Unknown [facility] Unknown [facility] PACKAGE PLAN [id number] Unknown [id number] Unknown [id number] Unknown 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, has horse farm Exercises regularly, 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 , Lives with spouse Tobacco use: Tobacco use: [facility] Work Phone: Comment on above: same status 03.29.11 Tobacco use: Tobacco use: [facility] Work Phone: Comment on above: same status 03.29.11 Start: 1960 Sex Assigned At Female W [facility] Start: 02-10-2020 Area Deprivation Index Area De privation Index Answer Date Recorded National Score (1-100), lower number is lower risk Not on file 02/10/2020 State Score (1-10), lower number is lower risk Not on file 02/10/2020 Data from: https://www.[facility]arsh[facility] odcal.medicine.[facility]. [facility]/. Last address used for calculation Not on file 02/10/2020 [facility] National Score (1-100), lower number is lower risk Not on file [facility] Start: 03-05-2023 Gender identity Identifies as female gender (finding) [facility] Start: 03-05-2023 Sexual orientation Heterosexual (girish miranda) [facility] Functional Status Date Assessment Result Facility 05-16-2019 LP-IR Score LP-IR Score 29 [facility] Work Phone: Comment on above: INSULIN RESISTANCE Gutierrez MATHEWS <--Insulin Sensitive Insulin Resistant--> Percentile in Reference PopulationInsulin Resistance ScoreLP-IR Score Low 25th 50th 75th High <27 27 45 63 >63LP-IR Score is inaccurate if patient is non-fasting. .The LP-IR score is a laboratory developed index that has beenassociated with insulin resistance and diabetes risk and should beused as one component of a physician's clinical assessment. Test(s) 570560-QWI-C ; 947732-MZW-K; 064364-NHP-B; 758402-Wyzharuqzzfty; 103015-Mntappskeoj, Total; 202172-NPF-F (Total);764538-Qdtmh LDL-P; 821038-BFE Size; 317769-IF-MZ Scorewas developed and its performance characteristics determinedby [employer]. It has not been cleared or approved by the Foodand Drug Administration.PATIENT WAS FASTINGPERFORMED BY: BN [facility] [employer] [facility] [address] [id number] BY: CB LabFlowboxUniversity [id number] [facility] [id number] Clinical Notes 03-09-2021 to 05-22-2024 Parag Agrawal RT(R) - 05/22/2024 10:30 AM EDTLetter - Mammography Coordinator - 03/16/2022 11:11 AM LINDSEY DiazR) - 03/15/2022 8:00 AM EST Note Date & Type Note Facility 05-22-2024 History of Presen t illness Narrative Radiology Service Progress Note PATIENT NAME: Justine Rapp DATE OF SERVICE: May 22, 2024 TIME: 10:14 AM PATIENT IDENTITY VERIFICATION COMPLETED USING TWO (2) IDENTIFIERS: Name and Date of confirmed by patient verbally. FALL SCREENING: Has the patient had 2 falls in the last year or 1 fall with injury or currently using an Ambulatory Assistive Device (Walker, Cane, Wheelchair, Crutches, etc.)? No PATIENT GENDER DATA: Assigned female at . status: : No status: NO. PATIENT RELEVANT IMPLANT DATA REVIEWED: Not Applicable PATIENT PRESENTS WITH AN IMPLANTABLE OR ATTACHED HIP HOP DANCE INSTRUCTOR: No RADIOLOGY DEPARTMENT: Mammography PERIPHERAL IV DATA: Not applicable SIGNED BY: CHARBEL Muhammad) May 22, 2024 10:14 AM documented in this encounter [facility] 05-22-2024 Note HNO ID: [id number] Author: PARAG AGRAWAL RT (R) Service: Radiology Author Type: Technologist Type: Progress Notes Filed: 05/22/2024 10:14 Note Text: Radiology Service Progress Note PATIENT NAME: Justine Rapp DATE OF SERVICE: May 22, 2024 TIME: 10:14 AM PATIENT IDENTITY VERIFICATION COMPLETED USING TWO (2) IDENTIFIERS: Name and Date of confirmed by patient verbally. FALL SCREENING: Has the patient had 2 falls in the last year or 1 fall with injury or currently using an Ambulatory Assistive Device (Walker, Cane, Wheelchair, Crutches, etc.)? No PATIENT GENDER DATA: Assigned female at . status: : No status: NO. PATIENT RELEVANT IMPLANT DATA REVIEWED: Not Applicable PATIENT PRESENTS WITH AN IMPLANTABLE OR ATTACHED HIP HOP DANCE INSTRUCTOR: No RADIOLOGY DEPARTMENT: Mammography PERIPHERAL IV DATA: Not applicable SIGNED BY: RT Sabina(R) May 22, 2024 10:14 AM [facility] 03-16-2022 Miscellaneous Notes [address] [address] March 16, 2022 PID: [id number] Justine Rapp [address] [place] [address] Dear Ms. Rapp, We are pleased to inform you that the results of your recent breast imaging exam on 03/15/2022 are normal. Early detection of cancer is very important. We also understand recommendations regarding breast cancer screening are controversial. Please discuss with your primary care provider which strategy is best for you and whether a mammogram is right for you. Your imaging studies and report will be kept on file at [facility] as part of your permanent medical record and are available for your continuing care. Thank you for allowing us to help in meeting your health care needs. Sincerely, Dr. Vick Interpreting Radiologist [facility] (Normal over 40) documented in this encounter [facility] 03-15-2022 History of Presen t illness Narrative Radiology Service Progress Note PATIENT NAME: Justine Rapp DATE OF SERVICE: March 15, 2022 TIME: 8:15 AM PATIENT IDENTITY VERIFICATION COMPLETED USING TWO (2) IDENTIFIERS: Name and Date of confirmed by patient verbally. FALL SCREENING: Has the patient had 2 falls in the last year or 1 fall with injury or currently using an Ambulatory Assistive Device (Walker, Cane, Wheelchair, Crutches, etc.)? No PATIENT GENDER DATA: Female. status: : No status: N/A PATIENT RELEVANT IMPLANT DATA REVIEWED: Not Applicable RADIOLOGY DEPARTMENT: Mammography PERIPHERAL IV DATA: Not applicable SIGNED BY: RT Sabina(R) March 15, 2022 8:15 AM documented in this encounter [facility] 03-09-2021 Note HNO ID: [id number] Author: RT Muhammad (R) Service: ? Author Type: Technologist Type: Progress Notes Filed: 03/09/2021 3:49 PM Note Text: Radiology Service Progress Note PATIENT NAME: Justine Rapp DATE OF SERVICE: March 09, 2021 TIME: 3:49 PM PATIENT IDENTITY VERIFICATION COMPLETED USING TWO (2) IDENTIFIERS: Name and Date of confirmed by patient verbally. FALL SCREENING: Has the patient had 2 falls in the last year or 1 fall with injury or currently using an Ambulatory Assistive Device (Walker, Cane, Wheelchair, Crutches, etc.)? No PATIENT GENDER DATA: Female. status: : No status: N/A PATIENT RELEVANT IMPLANT DATA REVIEWED: Not Applicable RADIOLOGY DEPARTMENT: Mammography PERIPHERAL IV DATA: Not applicable SIGNED BY: CHARBEL Muhammad) March 09, 2021 3:49 PM [facility] Evaluation note No assessment inform ation available [facility] Work Phone: Instructions Name Patient Instructions Indication:BMI 21.0-21.9, adult Start: 2 Instruction Type:Provider Instructions for Treatment How to Access Health Information Online using Patient Portal and 3rd [employer] Apps Indication:BMI 21.0-21.9, adult Start: 2 Instruction Type:Patient Education How to access health information online Indication:Current non-smoker Start: 0 Instruction Type:Patient Education How to access health information online - Detail Indication:Current non-smoker Start: 0 Instruction Type:Patient Education Patient Instructions Indication:Current non-smoker Start: 0 Instruction Type:Provider Instructions for Treatment How to access health information online Indication:Current non-smoker Start: 0 Instruction Type:Patient Education How to access health information online - Detail Indication:Current non-smoker Start: 0 Instruction Type:Patient Education Patient Instructions Indication:Current non-smoker Start: 0 Instruction Type:Provider Instructions for Treatment How to access health information online Indication:Left foot pain Start:09-Apr-2019 Instruction Type:Patient Education How to access health information online - Detail Indication:Left foot pain Start:09-Apr-2019 Instruction Type:Patient Education Patient Instructions Indication:Left foot pain Start:09-Apr-2019 Instruction Type:Provider Instructions for Treatment How to access health information online Indication:Current non-smoker Start: Instruction Type:Patient Education How to access health information online - Detail Indication:Current non-smoker Start: Instruction Type:Patient Education Patient Instructions Indication:Current non-smoker Start: Instruction Type:Provider Instructions for Treatment How to access health information online Indication:Redness of eye, left Start: Instruction Type:Patient Education How to access health information online - Detail Indication:Redness of eye, left Start: Instruction Type:Patient Education Patient Instructions Indication:Redness of eye, left Start: Instruction Type:Provider Instructions for Treatment How to access health information online Indication:BMI between 19-24,adult Start: Instruction Type:Patient Education How to access health information online - Detail Indication:BMI between 19-24,adult Start: Instruction Type:Patient Education Patient Instructions Indication:BMI between 19-24,adult Start: Instruction Type:Provider Instructions for Treatment How to access health information online Indication:Current non-smoker Start: 6 Instruction Type:Patient Education How to access health information online - Detail Indication:Current non-smoker Start: Instruction Type:Patient Education Patient Instructions Indication:Current non-smoker Start: 6 Instruction Type:Provider Instructions for Treatment How to access health information online Indication:Atherosclerosis Start: Instruction Type:Patient Education How to access health information online - Detail Indication:Atherosclerosis Start: Instruction Type:Patient Education Patient Instructions Indication:Atherosclerosis Start: Instruction Type:Provider Instructions for Treatment How to access health information online Indication:Chronic heel pain, unspecified laterality Start: Instruction Type:Patient Education How to access health information online - Detail Indication:Chronic heel pain, unspecified laterality Start: Instruction Type:Patient Education Patient Instructions Indication:Chronic heel pain, unspecified laterality Start: 6 Instruction Type:Provider Instructions for Treatment How to access health information online Indication:Bilateral carotid artery stenosis Start: 5 Instruction Type:Patient Education How to access health information online - Detail Indication:Bilateral carotid artery stenosis Start: 5 Instruction Type:Patient Education Patient Instructions Indication:Bilateral carotid artery stenosis Start: 5 Instruction Type:Provider Instructions for Treatment How to access health information online Indication:Pharyngitis, acute Start:11-Dec-2014 Instruction Type:Patient Education How to access health information online - Detail Indication:Pharyngitis, acute Start:11-Dec-2014 Instruction Type:Patient Education Patient Instructions Indication:Pharyngitis, acute Start:11-Dec-2014 Instruction Type:Provider Instructions for Treatment How to access health information online Indication:Atherosclerosis Start: 5 Instruction Type:Patient Education How to access health information online - Detail Indication:Atherosclerosis Start: 5 Instruction Type:Patient Education Patient Instructions Indication:Atherosclerosis Start: 5 Instruction Type:Provider Instructions for Treatment How to access health information online Indication:Bilateral carotid artery stenosis Start: 5 Instruction Type:Patient Education How to access health information online - Detail Indication:Bilateral carotid artery stenosis Start: 5 Instruction Type:Patient Education Patient Instructions Indication:Bilateral carotid artery stenosis Start: 5 Instruction Type:Provider Instructions for Treatment Patient Instructions Indication:Headache Start: 5 Instruction Type:Provider Instructions for Treatment [facility]; [facility] Work Phone: Instructions* Name Dates Details Patient Instructions Indication:BMI 21.0-21.9, adult Start:19-Mar-2021 Instruction Type:Provider Instructions for Treatment How to Access Health Informa tion Online using Patient Portal and 3rd [employer] Apps Indication:BMI 21.0-21.9, adult Start:19-Mar-2021 Instruction Type:Patient Education How to access health informa tion online Indication:Current non-smoker Start:03-Jun-2019 Instruction Type:Patient Education How to access health informa tion online - Detail Indication:Current non-smoker Start:03-Jun-2019 Instruction Type:Patient Education Patient Instructions Indication:Current non-smoker Start:03-Jun-2019 Instruction Type:Provider Instructions for Treatment How to access health informa tion online Indication:Current non-smoker Start:16-May-2019 Instruction Type:Patient Education How to access health informa tion online - Detail Indication:Current non-smoker Start:16-May-2019 Instruction Type:Patient Education Patient Instructions Indication:Current non-smoker Start:16-May-2019 Instruction Type:Provider Instructions for Treatment How to access health informa tion online Indication:Left foot pain Start:09-Apr-2019 Instruction Type:Patient Education How to access health informa tion online - Detail Indication:Left foot pain Start:09-Apr-2019 Instruction Type:Patient Education Patient Instructions Indication:Left foot pain Start:09-Apr-2019 Instruction Type:Provider Instructions for Treatment How to access health informa tion online Indication:Current non-smoker Start:22-Feb-2017 Instruction Type:Patient Education How to access health informa tion online - Detail Indication:Current non-smoker Start:22-Feb-2017 Instruction Type:Patient Education Patient Instructions Indication:Current non-smoker Start:22-Feb-2017 Instruction Type:Provider Instructions for Treatment How to access health informa tion online Indication:Redness of eye, left Start:13-Jan-2017 Instruction Type:Patient Education How to access health informa tion online - Detail Indication:Redness of eye, left Start:13-Jan-2017 Instruction Type:Patient Education Patient Instructions Indication:Redness of eye, left Start:13-Jan-2017 Instruction Type:Provider Instructions for Treatment How to access health informa tion online Indication:BMI between 19-24,adult Start:19-Apr-2016 Instruction Type:Patient Education How to access health informa tion online - Detail Indication:BMI between 19-24,adult Start:19-Apr-2016 Instruction Type:Patient Education Patient Instructions Indication:BMI between 19-24,adult Start:19-Apr-2016 Instruction Type:Provider Instructions for Treatment How to access health informa tion online Indication:Current non-smoker Start:14-Oct-2015 Instruction Type:Patient Education How to access health informa tion online - Detail Indication:Current non-smoker Start:14-Oct-2015 Instruction Type:Patient Education Patient Instructions Indication:Current non-smoker Start:14-Oct-2015 Instruction Type:Provider Instructions for Treatment How to access health informa tion online Indication:Atherosclerosis Start:31-Jul-2015 Instruction Type:Patient Education How to access health informa tion online - Detail Indication:Atherosclerosis Start:31-Jul-2015 Instruction Type:Patient Education Patient Instructions Indication:Atherosclerosis Start:31-Jul-2015 Instruction Type:Provider Instructions for Treatment How to access health informa tion online Indication:Chronic heel pain, unspecified laterality Start:02-Jun-2015 Instruction Type:Patient Education How to access health informa tion online - Detail Indication:Chronic heel pain, unspecified laterality Start:02-Jun-2015 Instruction Type:Patient Education Patient Instructions Indication:Chronic heel pain, unspecified laterality Start:02-Jun-2015 Instruction Type:Provider Instructions for Treatment How to access health informa tion online Indication:Bilateral carotid artery stenosis Start:17-Feb-2015 Instruction Type:Patient Education How to access health informa tion online - Detail Indication:Bilateral carotid artery stenosis Start:17-Feb-2015 Instruction Type:Patient Education Patient Instructions Indication:Bilateral carotid artery stenosis Start:17-Feb-2015 Instruction Type:Provider Instructions for Treatment How to access health informa tion online Indication:Pharyngitis, acute Start:11-Dec-2014 Instruction Type:Patient Education How to access health informa tion online - Detail Indication:Pharyngitis, acute Start:11-Dec-2014 Instruction Type:Patient Education Patient Instructions Indication:Pharyngitis, acute Start:11-Dec-2014 Instruction Type:Provider Instructions for Treatment How to access health informa tion online Indication:Atherosclerosis Start:13-Nov-2014 Instruction Type:Patient Education How to access health informa tion online - Detail Indication:Atherosclerosis Start:13-Nov-2014 Instruction Type:Patient Education Patient Instructions Indication:Atherosclerosis Start:13-Nov-2014 Instruction Type:Provider Instructions for Treatment How to access health informa tion online Indication:Bilateral carotid artery stenosis Start:03-Oct-2014 Instruction Type:Patient Education How to access health informa tion online - Detail Indication:Bilateral carotid artery stenosis Start:03-Oct-2014 Instruction Type:Patient Education Patient Instructions Indication:Bilateral carotid artery stenosis Start:03-Oct-2014 Instruction Type:Provider Instructions for Treatment Patient Instructions Indication:Headache Start:16-Jul-2014 Instruction Type:Provider Instructions for Treatment [facility]; [facility] Work Phone: Instructions* Name Dates Details Patient Instructions Indication:BMI 21.0-21.9, adult Start:19-Mar-2021 Instruction Type:Provider Instructions for Treatment How to Access Health Informa tion Online using Patient Portal and 3rd [employer] Apps Indication:BMI 21.0-21.9, adult Start:19-Mar-2021 Instruction Type:Patient Education How to access health informa tion online Indication:Current non-smoker Start:03-Jun-2019 Instruction Type:Patient Education How to access health informa tion online - Detail Indication:Current non-smoker Start:03-Jun-2019 Instruction Type:Patient Education Patient Instructions Indication:Current non-smoker Start:03-Jun-2019 Instruction Type:Provider Instructions for Treatment How to access health informa tion online Indication:Current non-smoker Start:16-May-2019 Instruction Type:Patient Education How to access health informa tion online - Detail Indication:Current non-smoker Start:16-May-2019 Instruction Type:Patient Education Patient Instructions Indication:Current non-smoker Start:16-May-2019 Instruction Type:Provider Instructions for Treatment How to access health informa tion online Indication:Left foot pain Start:09-Apr-2019 Instruction Type:Patient Education How to access health informa tion online - Detail Indication:Left foot pain Start:09-Apr-2019 Instruction Type:Patient Education Patient Instructions Indication:Left foot pain Start:09-Apr-2019 Instruction Type:Provider Instructions for Treatment How to access health informa tion online Indication:Current non-smoker Start:22-Feb-2017 Instruction Type:Patient Education How to access health informa tion online - Detail Indication:Current non-smoker Start:22-Feb-2017 Instruction Type:Patient Education Patient Instructions Indication:Current non-smoker Start:22-Feb-2017 Instruction Type:Provider Instructions for Treatment How to access health informa tion online Indication:Redness of eye, left Start:13-Jan-2017 Instruction Type:Patient Education How to access health informa tion online - Detail Indication:Redness of eye, left Start:13-Jan-2017 Instruction Type:Patient Education Patient Instructions Indication:Redness of eye, left Start:13-Jan-2017 Instruction Type:Provider Instructions for Treatment How to access health informa tion online Indication:BMI between 19-24,adult Start:19-Apr-2016 Instruction Type:Patient Education How to access health informa tion online - Detail Indication:BMI between 19-24,adult Start:19-Apr-2016 Instruction Type:Patient Education Patient Instructions Indication:BMI between 19-24,adult Start:19-Apr-2016 Instruction Type:Provider Instructions for Treatment How to access health informa tion online Indication:Current non-smoker Start:14-Oct-2015 Instruction Type:Patient Education How to access health informa tion online - Detail Indication:Current non-smoker Start:14-Oct-2015 Instruction Type:Patient Education Patient Instructions Indication:Current non-smoker Start:14-Oct-2015 Instruction Type:Provider Instructions for Treatment How to access health informa tion online Indication:Atherosclerosis Start:31-Jul-2015 Instruction Type:Patient Education How to access health informa tion online - Detail Indication:Atherosclerosis Start:31-Jul-2015 Instruction Type:Patient Education Patient Instructions Indication:Atherosclerosis Start:31-Jul-2015 Instruction Type:Provider Instructions for Treatment How to access health informa tion online Indication:Chronic heel pain, unspecified laterality Start:02-Jun-2015 Instruction Type:Patient Education How to access health informa tion online - Detail Indication:Chronic heel pain, unspecified laterality Start:02-Jun-2015 Instruction Type:Patient Education Patient Instructions Indication:Chronic heel pain, unspecified laterality Start:02-Jun-2015 Instruction Type:Provider Instructions for Treatment How to access health informa tion online Indication:Bilateral carotid artery stenosis Start:17-Feb-2015 Instruction Type:Patient Education How to access health informa tion online - Detail Indication:Bilateral carotid artery stenosis Start:17-Feb-2015 Instruction Type:Patient Education Patient Instructions Indication:Bilateral carotid artery stenosis Start:17-Feb-2015 Instruction Type:Provider Instructions for Treatment How to access health informa tion online Indication:Pharyngitis, acute Start:11-Dec-2014 Instruction Type:Patient Education How to access health informa tion online - Detail Indication:Pharyngitis, acute Start:11-Dec-2014 Instruction Type:Patient Education Patient Instructions Indication:Pharyngitis, acute Start:11-Dec-2014 Instruction Type:Provider Instructions for Treatment How to access health informa tion online Indication:Atherosclerosis Start:13-Nov-2014 Instruction Type:Patient Education How to access health informa tion online - Detail Indication:Atherosclerosis Start:13-Nov-2014 Instruction Type:Patient Education Patient Instructions Indication:Atherosclerosis Start:13-Nov-2014 Instruction Type:Provider Instructions for Treatment How to access health informa tion online Indication:Bilateral carotid artery stenosis Start:03-Oct-2014 Instruction Type:Patient Education How to access health informa tion online - Detail Indication:Bilateral carotid artery stenosis Start:03-Oct-2014 Instruction Type:Patient Education Patient Instructions Indication:Bilateral carotid artery stenosis Start:03-Oct-2014 Instruction Type:Provider Instructions for Treatment Patient Instructions Indication:Headache Start:16-Jul-2014 Instruction Type:Provider Instructions for Treatment [facility]; [facility] Work Phone: Instructions* Name Dates Details Patient Instructions Indication:BMI 21.0-21.9, adult Start:19-Mar-2021 Instruction Type:Provider Instructions for Treatment How to Access Health Informa tion Online using Patient Portal and [employer] Apps Indication:BMI 21.0-21.9, adult Start:19-Mar-2021 Instruction Type:Patient Education How to access health informa tion online Indication:Current non-smoker Start:03-Jun-2019 Instruction Type:Patient Education How to access health informa tion online - Detail Indication:Current non-smoker Start:03-Jun-2019 Instruction Type:Patient Education Patient Instructions Indication:Current non-smoker Start:03-Jun-2019 Instruction Type:Provider Instructions for Treatment How to access health informa tion online Indication:Current non-smoker Start:16-May-2019 Instruction Type:Patient Education How to access health informa tion online - Detail Indication:Current non-smoker Start:16-May-2019 Instruction Type:Patient Education Patient Instructions Indication:Current non-smoker Start:16-May-2019 Instruction Type:Provider Instructions for Treatment How to access health informa tion online Indication:Left foot pain Start:09-Apr-2019 Instruction Type:Patient Education How to access health informa tion online - Detail Indication:Left foot pain Start:09-Apr-2019 Instruction Type:Patient Education Patient Instructions Indication:Left foot pain Start:09-Apr-2019 Instruction Type:Provider Instructions for Treatment How to access health informa tion online Indication:Current non-smoker Start:22-Feb-2017 Instruction Type:Patient Education How to access health informa tion online - Detail Indication:Current non-smoker Start:22-Feb-2017 Instruction Type:Patient Education Patient Instructions Indication:Current non-smoker Start:22-Feb-2017 Instruction Type:Provider Instructions for Treatment How to access health informa tion online Indication:Redness of eye, left Start:13-Jan-2017 Instruction Type:Patient Education How to access health informa tion online - Detail Indication:Redness of eye, left Start:13-Jan-2017 Instruction Type:Patient Education Patient Instructions Indication:Redness of eye, left Start:13-Jan-2017 Instruction Type:Provider Instructions for Treatment How to access health informa tion online Indication:BMI between 19-24,adult Start:19-Apr-2016 Instruction Type:Patient Education How to access health informa tion online - Detail Indication:BMI between 19-24,adult Start:19-Apr-2016 Instruction Type:Patient Education Patient Instructions Indication:BMI between 19-24,adult Start:19-Apr-2016 Instruction Type:Provider Instructions for Treatment How to access health informa tion online Indication:Current non-smoker Start:14-Oct-2015 Instruction Type:Patient Education How to access health informa tion online - Detail Indication:Current non-smoker Start:14-Oct-2015 Instruction Type:Patient Education Patient Instructions Indication:Current non-smoker Start:14-Oct-2015 Instruction Type:Provider Instructions for Treatment How to access health informa tion online Indication:Atherosclerosis Start:31-Jul-2015 Instruction Type:Patient Education How to access health informa tion online - Detail Indication:Atherosclerosis Start:31-Jul-2015 Instruction Type:Patient Education Patient Instructions Indication:Atherosclerosis Start:31-Jul-2015 Instruction Type:Provider Instructions for Treatment How to access health informa tion online Indication:Chronic heel pain, unspecified laterality Start:02-Jun-2015 Instruction Type:Patient Education How to access health informa tion online - Detail Indication:Chronic heel pain, unspecified laterality Start:02-Jun-2015 Instruction Type:Patient Education Patient Instructions Indication:Chronic heel pain, unspecified laterality Start:02-Jun-2015 Instruction Type:Provider Instructions for Treatment How to access health informa tion online Indication:Bilateral carotid artery stenosis Start:17-Feb-2015 Instruction Type:Patient Education How to access health informa tion online - Detail Indication:Bilateral carotid artery stenosis Start:17-Feb-2015 Instruction Type:Patient Education Patient Instructions Indication:Bilateral carotid artery stenosis Start:17-Feb-2015 Instruction Type:Provider Instructions for Treatment How to access health informa tion online Indication:Pharyngitis, acute Start:11-Dec-2014 Instruction Type:Patient Education How to access health informa tion online - Detail Indication:Pharyngitis, acute Start:11-Dec-2014 Instruction Type:Patient Education Patient Instructions Indication:Pharyngitis, acute Start:11-Dec-2014 Instruction Type:Provider Instructions for Treatment How to access health informa tion online Indication:Atherosclerosis Start:13-Nov-2014 Instruction Type:Patient Education How to access health informa tion online - Detail Indication:Atherosclerosis Start:13-Nov-2014 Instruction Type:Patient Education Patient Instructions Indication:Atherosclerosis Start:13-Nov-2014 Instruction Type:Provider Instructions for Treatment How to access health informa tion online Indication:Bilateral carotid artery stenosis Start:03-Oct-2014 Instruction Type:Patient Education How to access health informa tion online - Detail Indication:Bilateral carotid artery stenosis Start:03-Oct-2014 Instruction Type:Patient Education Patient Instructions Indication:Bilateral carotid artery stenosis Start:03-Oct-2014 Instruction Type:Provider Instructions for Treatment Patient Instructions Indication:Headache Start:16-Jul-2014 Instruction Type:Provider Instructions for Treatment [facility]; [facility] Work Phone: Instructions* Name Dates Details Patient Instructions Indication:BMI 21.0-21.9, adult Start:19-Mar-2021 Instruction Type:Provider Instructions for Treatment How to Access Health Informa tion Online using Patient Portal and [employer]rd [employer] Apps Indication:BMI 21.0-21.9, adult Start:19-Mar-2021 Instruction Type:Patient Education How to access health informa tion online Indication:Current non-smoker Start:03-Jun-2019 Instruction Type:Patient Education How to access health informa tion online - Detail Indication:Current non-smoker Start:03-Jun-2019 Instruction Type:Patient Education Patient Instructions Indication:Current non-smoker Start:03-Jun-2019 Instruction Type:Provider Instructions for Treatment How to access health informa tion online Indication:Current non-smoker Start:16-May-2019 Instruction Type:Patient Education How to access health informa tion online - Detail Indication:Current non-smoker Start:16-May-2019 Instruction Type:Patient Education Patient Instructions Indication:Current non-smoker Start:16-May-2019 Instruction Type:Provider Instructions for Treatment How to access health informa tion online Indication:Left foot pain Start:09-Apr-2019 Instruction Type:Patient Education How to access health informa tion online - Detail Indication:Left foot pain Start:09-Apr-2019 Instruction Type:Patient Education Patient Instructions Indication:Left foot pain Start:09-Apr-2019 Instruction Type:Provider Instructions for Treatment How to access health informa tion online Indication:Current non-smoker Start:22-Feb-2017 Instruction Type:Patient Education How to access health informa tion online - Detail Indication:Current non-smoker Start:22-Feb-2017 Instruction Type:Patient Education Patient Instructions Indication:Current non-smoker Start:22-Feb-2017 Instruction Type:Provider Instructions for Treatment How to access health informa tion online Indication:Redness of eye, left Start:13-Jan-2017 Instruction Type:Patient Education How to access health informa tion online - Detail Indication:Redness of eye, left Start:13-Jan-2017 Instruction Type:Patient Education Patient Instructions Indication:Redness of eye, left Start:13-Jan-2017 Instruction Type:Provider Instructions for Treatment How to access health informa tion online Indication:BMI between 19-24,adult Start:19-Apr-2016 Instruction Type:Patient Education How to access health informa tion online - Detail Indication:BMI between 19-24,adult Start:19-Apr-2016 Instruction Type:Patient Education Patient Instructions Indication:BMI between 19-24,adult Start:19-Apr-2016 Instruction Type:Provider Instructions for Treatment How to access health informa tion online Indication:Current non-smoker Start:14-Oct-2015 Instruction Type:Patient Education How to access health informa tion online - Detail Indication:Current non-smoker Start:14-Oct-2015 Instruction Type:Patient Education Patient Instructions Indication:Current non-smoker Start:14-Oct-2015 Instruction Type:Provider Instructions for Treatment How to access health informa tion online Indication:Atherosclerosis Start:31-Jul-2015 Instruction Type:Patient Education How to access health informa tion online - Detail Indication:Atherosclerosis Start:31-Jul-2015 Instruction Type:Patient Education Patient Instructions Indication:Atherosclerosis Start:31-Jul-2015 Instruction Type:Provider Instructions for Treatment How to access health informa tion online Indication:Chronic heel pain, unspecified laterality Start:02-Jun-2015 Instruction Type:Patient Education How to access health informa tion online - Detail Indication:Chronic heel pain, unspecified laterality Start:02-Jun-2015 Instruction Type:Patient Education Patient Instructions Indication:Chronic heel pain, unspecified laterality Start:02-Jun-2015 Instruction Type:Provider Instructions for Treatment How to access health informa tion online Indication:Bilateral carotid artery stenosis Start:17-Feb-2015 Instruction Type:Patient Education How to access health informa tion online - Detail Indication:Bilateral carotid artery stenosis Start:17-Feb-2015 Instruction Type:Patient Education Patient Instructions Indication:Bilateral carotid artery stenosis Start:17-Feb-2015 Instruction Type:Provider Instructions for Treatment How to access health informa tion online Indication:Pharyngitis, acute Start:11-Dec-2014 Instruction Type:Patient Education How to access health informa tion online - Detail Indication:Pharyngitis, acute Start:11-Dec-2014 Instruction Type:Patient Education Patient Instructions Indication:Pharyngitis, acute Start:11-Dec-2014 Instruction Type:Provider Instructions for Treatment How to access health informa tion online Indication:Atherosclerosis Start:13-Nov-2014 Instruction Type:Patient Education How to access health informa tion online - Detail Indication:Atherosclerosis Start:13-Nov-2014 Instruction Type:Patient Education Patient Instructions Indication:Atherosclerosis Start:13-Nov-2014 Instruction Type:Provider Instructions for Treatment How to access health informa tion online Indication:Bilateral carotid artery stenosis Start:03-Oct-2014 Instruction Type:Patient Education How to access health informa tion online - Detail Indication:Bilateral carotid artery stenosis Start:03-Oct-2014 Instruction Type:Patient Education Patient Instructions Indication:Bilateral carotid artery stenosis Start:03-Oct-2014 Instruction Type:Provider Instructions for Treatment Patient Instructions Indication:Headache Start:16-Jul-2014 Instruction Type:Provider Instructions for Treatment [facility]; [facility] Work Phone: Instructions* Name Dates Details Patient Instructions Indication:BMI 21.0-21.9, adult Start:19-Mar-2021 Instruction Type:Provider Instructions for Treatment How to Access Health Informa tion Online using Patient Portal and [employer]rd [employer] Apps Indication:BMI 21.0-21.9, adult Start:19-Mar-2021 Instruction Type:Patient Education How to access health informa tion online Indication:Current non-smoker Start:03-Jun-2019 Instruction Type:Patient Education How to access health informa tion online - Detail Indication:Current non-smoker Start:03-Jun-2019 Instruction Type:Patient Education Patient Instructions Indication:Current non-smoker Start:03-Jun-2019 Instruction Type:Provider Instructions for Treatment How to access health informa tion online Indication:Current non-smoker Start:16-May-2019 Instruction Type:Patient Education How to access health informa tion online - Detail Indication:Current non-smoker Start:16-May-2019 Instruction Type:Patient Education Patient Instructions Indication:Current non-smoker Start:16-May-2019 Instruction Type:Provider Instructions for Treatment How to access health informa tion online Indication:Left foot pain Start:09-Apr-2019 Instruction Type:Patient Education How to access health informa tion online - Detail Indication:Left foot pain Start:09-Apr-2019 Instruction Type:Patient Education Patient Instructions Indication:Left foot pain Start:09-Apr-2019 Instruction Type:Provider Instructions for Treatment How to access health informa tion online Indication:Current non-smoker Start:22-Feb-2017 Instruction Type:Patient Education How to access health informa tion online - Detail Indication:Current non-smoker Start:22-Feb-2017 Instruction Type:Patient Education Patient Instructions Indication:Current non-smoker Start:22-Feb-2017 Instruction Type:Provider Instructions for Treatment How to access health informa tion online Indication:Redness of eye, left Start:13-Jan-2017 Instruction Type:Patient Education How to access health informa tion online - Detail Indication:Redness of eye, left Start:13-Jan-2017 Instruction Type:Patient Education Patient Instructions Indication:Redness of eye, left Start:13-Jan-2017 Instruction Type:Provider Instructions for Treatment How to access health informa tion online Indication:BMI between 19-24,adult Start:19-Apr-2016 Instruction Type:Patient Education How to access health informa tion online - Detail Indication:BMI between 19-24,adult Start:19-Apr-2016 Instruction Type:Patient Education Patient Instructions Indication:BMI between 19-24,adult Start:19-Apr-2016 Instruction Type:Provider Instructions for Treatment How to access health informa tion online Indication:Current non-smoker Start:14-Oct-2015 Instruction Type:Patient Education How to access health informa tion online - Detail Indication:Current non-smoker Start:14-Oct-2015 Instruction Type:Patient Education Patient Instructions Indication:Current non-smoker Start:14-Oct-2015 Instruction Type:Provider Instructions for Treatment How to access health informa tion online Indication:Atherosclerosis Start:31-Jul-2015 Instruction Type:Patient Education How to access health informa tion online - Detail Indication:Atherosclerosis Start:31-Jul-2015 Instruction Type:Patient Education Patient Instructions Indication:Atherosclerosis Start:31-Jul-2015 Instruction Type:Provider Instructions for Treatment How to access health informa tion online Indication:Chronic heel pain, unspecified laterality Start:02-Jun-2015 Instruction Type:Patient Education How to access health informa tion online - Detail Indication:Chronic heel pain, unspecified laterality Start:02-Jun-2015 Instruction Type:Patient Education Patient Instructions Indication:Chronic heel pain, unspecified laterality Start:02-Jun-2015 Instruction Type:Provider Instructions for Treatment How to access health informa tion online Indication:Bilateral carotid artery stenosis Start:17-Feb-2015 Instruction Type:Patient Education How to access health informa tion online - Detail Indication:Bilateral carotid artery stenosis Start:17-Feb-2015 Instruction Type:Patient Education Patient Instructions Indication:Bilateral carotid artery stenosis Start:17-Feb-2015 Instruction Type:Provider Instructions for Treatment How to access health informa tion online Indication:Pharyngitis, acute Start:11-Dec-2014 Instruction Type:Patient Education How to access health informa tion online - Detail Indication:Pharyngitis, acute Start:11-Dec-2014 Instruction Type:Patient Education Patient Instructions Indication:Pharyngitis, acute Start:11-Dec-2014 Instruction Type:Provider Instructions for Treatment How to access health informa tion online Indication:Atherosclerosis Start:13-Nov-2014 Instruction Type:Patient Education How to access health informa tion online - Detail Indication:Atherosclerosis Start:13-Nov-2014 Instruction Type:Patient Education Patient Instructions Indication:Atherosclerosis Start:13-Nov-2014 Instruction Type:Provider Instructions for Treatment How to access health informa tion online Indication:Bilateral carotid artery stenosis Start:03-Oct-2014 Instruction Type:Patient Education How to access health informa tion online - Detail Indication:Bilateral carotid artery stenosis Start:03-Oct-2014 Instruction Type:Patient Education Patient Instructions Indication:Bilateral carotid artery stenosis Start:03-Oct-2014 Instruction Type:Provider Instructions for Treatment Patient Instructions Indication:Headache Start:16-Jul-2014 Instruction Type:Provider Instructions for Treatment [facility]; [facility] Work Phone: Instructions* Name Dates Details Patient Instructions Indication:BMI 21.0-21.9, adult Start:19-Mar-2021 Instruction Type:Provider Instructions for Treatment How to Access Health Informa tion Online using Patient Portal and [employer] Apps Indication:BMI 21.0-21.9, adult Start:19-Mar-2021 Instruction Type:Patient Education How to access health informa tion online Indication:Current non-smoker Start:03-Jun-2019 Instruction Type:Patient Education How to access health informa tion online - Detail Indication:Current non-smoker Start:03-Jun-2019 Instruction Type:Patient Education Patient Instructions Indication:Current non-smoker Start:03-Jun-2019 Instruction Type:Provider Instructions for Treatment How to access health informa tion online Indication:Current non-smoker Start:16-May-2019 Instruction Type:Patient Education How to access health informa tion online - Detail Indication:Current non-smoker Start:16-May-2019 Instruction Type:Patient Education Patient Instructions Indication:Current non-smoker Start:16-May-2019 Instruction Type:Provider Instructions for Treatment How to access health informa tion online Indication:Left foot pain Start:09-Apr-2019 Instruction Type:Patient Education How to access health informa tion online - Detail Indication:Left foot pain Start:09-Apr-2019 Instruction Type:Patient Education Patient Instructions Indication:Left foot pain Start:09-Apr-2019 Instruction Type:Provider Instructions for Treatment How to access health informa tion online Indication:Current non-smoker Start:22-Feb-2017 Instruction Type:Patient Education How to access health informa tion online - Detail Indication:Current non-smoker Start:22-Feb-2017 Instruction Type:Patient Education Patient Instructions Indication:Current non-smoker Start:22-Feb-2017 Instruction Type:Provider Instructions for Treatment How to access health informa tion online Indication:Redness of eye, left Start:13-Jan-2017 Instruction Type:Patient Education How to access health informa tion online - Detail Indication:Redness of eye, left Start:13-Jan-2017 Instruction Type:Patient Education Patient Instructions Indication:Redness of eye, left Start:13-Jan-2017 Instruction Type:Provider Instructions for Treatment How to access health informa tion online Indication:BMI between 19-24,adult Start:19-Apr-2016 Instruction Type:Patient Education How to access health informa tion online - Detail Indication:BMI between 19-24,adult Start:19-Apr-2016 Instruction Type:Patient Education Patient Instructions Indication:BMI between 19-24,adult Start:19-Apr-2016 Instruction Type:Provider Instructions for Treatment How to access health informa tion online Indication:Current non-smoker Start:14-Oct-2015 Instruction Type:Patient Education How to access health informa tion online - Detail Indication:Current non-smoker Start:14-Oct-2015 Instruction Type:Patient Education Patient Instructions Indication:Current non-smoker Start:14-Oct-2015 Instruction Type:Provider Instructions for Treatment How to access health informa tion online Indication:Atherosclerosis Start:31-Jul-2015 Instruction Type:Patient Education How to access health informa tion online - Detail Indication:Atherosclerosis Start:31-Jul-2015 Instruction Type:Patient Education Patient Instructions Indication:Atherosclerosis Start:31-Jul-2015 Instruction Type:Provider Instructions for Treatment How to access health informa tion online Indication:Chronic heel pain, unspecified laterality Start:02-Jun-2015 Instruction Type:Patient Education How to access health informa tion online - Detail Indication:Chronic heel pain, unspecified laterality Start:02-Jun-2015 Instruction Type:Patient Education Patient Instructions Indication:Chronic heel pain, unspecified laterality Start:02-Jun-2015 Instruction Type:Provider Instructions for Treatment How to access health informa tion online Indication:Bilateral carotid artery stenosis Start:17-Feb-2015 Instruction Type:Patient Education How to access health informa tion online - Detail Indication:Bilateral carotid artery stenosis Start:17-Feb-2015 Instruction Type:Patient Education Patient Instructions Indication:Bilateral carotid artery stenosis Start:17-Feb-2015 Instruction Type:Provider Instructions for Treatment How to access health informa tion online Indication:Pharyngitis, acute Start:11-Dec-2014 Instruction Type:Patient Education How to access health informa tion online - Detail Indication:Pharyngitis, acute Start:11-Dec-2014 Instruction Type:Patient Education Patient Instructions Indication:Pharyngitis, acute Start:11-Dec-2014 Instruction Type:Provider Instructions for Treatment How to access health informa tion online Indication:Atherosclerosis Start:13-Nov-2014 Instruction Type:Patient Education How to access health informa tion online - Detail Indication:Atherosclerosis Start:13-Nov-2014 Instruction Type:Patient Education Patient Instructions Indication:Atherosclerosis Start:13-Nov-2014 Instruction Type:Provider Instructions for Treatment How to access health informa tion online Indication:Bilateral carotid artery stenosis Start:03-Oct-2014 Instruction Type:Patient Education How to access health informa tion online - Detail Indication:Bilateral carotid artery stenosis Start:03-Oct-2014 Instruction Type:Patient Education Patient Instructions Indication:Bilateral carotid artery stenosis Start:03-Oct-2014 Instruction Type:Provider Instructions for Treatment Patient Instructions Indication:Headache Start:16-Jul-2014 Instruction Type:Provider Instructions for Treatment [facility]; [facility] Work Phone: Instructions* Name Dates Details Patient Instructions Indication:BMI 21.0-21.9, adult Start:19-Mar-2021 Instruction Type:Provider Instructions for Treatment How to Access Health Informa tion Online using Patient Portal and [employer]rd [employer] Apps Indication:BMI 21.0-21.9, adult Start:19-Mar-2021 Instruction Type:Patient Education How to access health informa tion online Indication:Current non-smoker Start:03-Jun-2019 Instruction Type:Patient Education How to access health informa tion online - Detail Indication:Current non-smoker Start:03-Jun-2019 Instruction Type:Patient Education Patient Instructions Indication:Current non-smoker Start:03-Jun-2019 Instruction Type:Provider Instructions for Treatment How to access health informa tion online Indication:Current non-smoker Start:16-May-2019 Instruction Type:Patient Education How to access health informa tion online - Detail Indication:Current non-smoker Start:16-May-2019 Instruction Type:Patient Education Patient Instructions Indication:Current non-smoker Start:16-May-2019 Instruction Type:Provider Instructions for Treatment How to access health informa tion online Indication:Left foot pain Start:09-Apr-2019 Instruction Type:Patient Education How to access health informa tion online - Detail Indication:Left foot pain Start:09-Apr-2019 Instruction Type:Patient Education Patient Instructions Indication:Left foot pain Start:09-Apr-2019 Instruction Type:Provider Instructions for Treatment How to access health informa tion online Indication:Current non-smoker Start:22-Feb-2017 Instruction Type:Patient Education How to access health informa tion online - Detail Indication:Current non-smoker Start:22-Feb-2017 Instruction Type:Patient Education Patient Instructions Indication:Current non-smoker Start:22-Feb-2017 Instruction Type:Provider Instructions for Treatment How to access health informa tion online Indication:Redness of eye, left Start:13-Jan-2017 Instruction Type:Patient Education How to access health informa tion online - Detail Indication:Redness of eye, left Start:13-Jan-2017 Instruction Type:Patient Education Patient Instructions Indication:Redness of eye, left Start:13-Jan-2017 Instruction Type:Provider Instructions for Treatment How to access health informa tion online Indication:BMI between 19-24,adult Start:19-Apr-2016 Instruction Type:Patient Education How to access health informa tion online - Detail Indication:BMI between 19-24,adult Start:19-Apr-2016 Instruction Type:Patient Education Patient Instructions Indication:BMI between 19-24,adult Start:19-Apr-2016 Instruction Type:Provider Instructions for Treatment How to access health informa tion online Indication:Current non-smoker Start:14-Oct-2015 Instruction Type:Patient Education How to access health informa tion online - Detail Indication:Current non-smoker Start:14-Oct-2015 Instruction Type:Patient Education Patient Instructions Indication:Current non-smoker Start:14-Oct-2015 Instruction Type:Provider Instructions for Treatment How to access health informa tion online Indication:Atherosclerosis Start:31-Jul-2015 Instruction Type:Patient Education How to access health informa tion online - Detail Indication:Atherosclerosis Start:31-Jul-2015 Instruction Type:Patient Education Patient Instructions Indication:Atherosclerosis Start:31-Jul-2015 Instruction Type:Provider Instructions for Treatment How to access health informa tion online Indication:Chronic heel pain, unspecified laterality Start:02-Jun-2015 Instruction Type:Patient Education How to access health informa tion online - Detail Indication:Chronic heel pain, unspecified laterality Start:02-Jun-2015 Instruction Type:Patient Education Patient Instructions Indication:Chronic heel pain, unspecified laterality Start:02-Jun-2015 Instruction Type:Provider Instructions for Treatment How to access health informa tion online Indication:Bilateral carotid artery stenosis Start:17-Feb-2015 Instruction Type:Patient Education How to access health informa tion online - Detail Indication:Bilateral carotid artery stenosis Start:17-Feb-2015 Instruction Type:Patient Education Patient Instructions Indication:Bilateral carotid artery stenosis Start:17-Feb-2015 Instruction Type:Provider Instructions for Treatment How to access health informa tion online Indication:Pharyngitis, acute Start:11-Dec-2014 Instruction Type:Patient Education How to access health informa tion online - Detail Indication:Pharyngitis, acute Start:11-Dec-2014 Instruction Type:Patient Education Patient Instructions Indication:Pharyngitis, acute Start:11-Dec-2014 Instruction Type:Provider Instructions for Treatment How to access health informa tion online Indication:Atherosclerosis Start:13-Nov-2014 Instruction Type:Patient Education How to access health informa tion online - Detail Indication:Atherosclerosis Start:13-Nov-2014 Instruction Type:Patient Education Patient Instructions Indication:Atherosclerosis Start:13-Nov-2014 Instruction Type:Provider Instructions for Treatment How to access health informa tion online Indication:Bilateral carotid artery stenosis Start:03-Oct-2014 Instruction Type:Patient Education How to access health informa tion online - Detail Indication:Bilateral carotid artery stenosis Start:03-Oct-2014 Instruction Type:Patient Education Patient Instructions Indication:Bilateral carotid artery stenosis Start:03-Oct-2014 Instruction Type:Provider Instructions for Treatment Patient Instructions Indication:Headache Start:16-Jul-2014 Instruction Type:Provider Instructions for Treatment [facility]; [facility] Work Phone: Instructions* Name Dates Details Patient Instructions Indication:Current non-smoker Start:28-Apr-2021 Instruction Type:Provider Instructions for Treatment How to Access Health Informa tion Online using Patient Portal and [employer]rd [employer] Apps Indication:Current non-smoker Start:28-Apr-2021 Instruction Type:Patient Education Patient Instructions Indication:BMI 21.0-21.9, adult Start:19-Mar-2021 Instruction Type:Provider Instructions for Treatment How to Access Health Informa tion Online using Patient Portal and [employer]rd [employer] Apps Indication:BMI 21.0-21.9, adult Start:19-Mar-2021 Instruction Type:Patient Education How to access health informa tion online Indication:Current non-smoker Start:03-Jun-2019 Instruction Type:Patient Education How to access health informa tion online - Detail Indication:Current non-smoker Start:03-Jun-2019 Instruction Type:Patient Education Patient Instructions Indication:Current non-smoker Start:03-Jun-2019 Instruction Type:Provider Instructions for Treatment How to access health informa tion online Indication:Current non-smoker Start:16-May-2019 Instruction Type:Patient Education How to access health informa tion online - Detail Indication:Current non-smoker Start:16-May-2019 Instruction Type:Patient Education Patient Instructions Indication:Current non-smoker Start:16-May-2019 Instruction Type:Provider Instructions for Treatment How to access health informa tion online Indication:Left foot pain Start:09-Apr-2019 Instruction Type:Patient Education How to access health informa tion online - Detail Indication:Left foot pain Start:09-Apr-2019 Instruction Type:Patient Education Patient Instructions Indication:Left foot pain Start:09-Apr-2019 Instruction Type:Provider Instructions for Treatment How to access health informa tion online Indication:Current non-smoker Start:22-Feb-2017 Instruction Type:Patient Education How to access health informa tion online - Detail Indication:Current non-smoker Start:22-Feb-2017 Instruction Type:Patient Education Patient Instructions Indication:Current non-smoker Start:22-Feb-2017 Instruction Type:Provider Instructions for Treatment How to access health informa tion online Indication:Redness of eye, left Start:13-Jan-2017 Instruction Type:Patient Education How to access health informa tion online - Detail Indication:Redness of eye, left Start:13-Jan-2017 Instruction Type:Patient Education Patient Instructions Indication:Redness of eye, left Start:13-Jan-2017 Instruction Type:Provider Instructions for Treatment How to access health informa tion online Indication:BMI between 19-24,adult Start:19-Apr-2016 Instruction Type:Patient Education How to access health informa tion online - Detail Indication:BMI between 19-24,adult Start:19-Apr-2016 Instruction Type:Patient Education Patient Instructions Indication:BMI between 19-24,adult Start:19-Apr-2016 Instruction Type:Provider Instructions for Treatment How to access health informa tion online Indication:Current non-smoker Start:14-Oct-2015 Instruction Type:Patient Education How to access health informa tion online - Detail Indication:Current non-smoker Start:14-Oct-2015 Instruction Type:Patient Education Patient Instructions Indication:Current non-smoker Start:14-Oct-2015 Instruction Type:Provider Instructions for Treatment How to access health informa tion online Indication:Atherosclerosis Start:31-Jul-2015 Instruction Type:Patient Education How to access health informa tion online - Detail Indication:Atherosclerosis Start:31-Jul-2015 Instruction Type:Patient Education Patient Instructions Indication:Atherosclerosis Start:31-Jul-2015 Instruction Type:Provider Instructions for Treatment How to access health informa tion online Indication:Chronic heel pain, unspecified laterality Start:02-Jun-2015 Instruction Type:Patient Education How to access health informa tion online - Detail Indication:Chronic heel pain, unspecified laterality Start:02-Jun-2015 Instruction Type:Patient Education Patient Instructions Indication:Chronic heel pain, unspecified laterality Start:02-Jun-2015 Instruction Type:Provider Instructions for Treatment How to access health informa tion online Indication:Bilateral carotid artery stenosis Start:17-Feb-2015 Instruction Type:Patient Education How to access health informa tion online - Detail Indication:Bilateral carotid artery stenosis Start:17-Feb-2015 Instruction Type:Patient Education Patient Instructions Indication:Bilateral carotid artery stenosis Start:17-Feb-2015 Instruction Type:Provider Instructions for Treatment How to access health informa tion online Indication:Pharyngitis, acute Start:11-Dec-2014 Instruction Type:Patient Education How to access health informa tion online - Detail Indication:Pharyngitis, acute Start:11-Dec-2014 Instruction Type:Patient Education Patient Instructions Indication:Pharyngitis, acute Start:11-Dec-2014 Instruction Type:Provider Instructions for Treatment How to access health informa tion online Indication:Atherosclerosis Start:13-Nov-2014 Instruction Type:Patient Education How to access health informa tion online - Detail Indication:Atherosclerosis Start:13-Nov-2014 Instruction Type:Patient Education Patient Instructions Indication:Atherosclerosis Start:13-Nov-2014 Instruction Type:Provider Instructions for Treatment How to access health informa tion online Indication:Bilateral carotid artery stenosis Start:03-Oct-2014 Instruction Type:Patient Education How to access health informa tion online - Detail Indication:Bilateral carotid artery stenosis Start:03-Oct-2014 Instruction Type:Patient Education Patient Instructions Indication:Bilateral carotid artery stenosis Start:03-Oct-2014 Instruction Type:Provider Instructions for Treatment Patient Instructions Indication:Headache Start:16-Jul-2014 Instruction Type:Provider Instructions for Treatment [facility]; [facility] Work Phone: Instructions* Name Dates Details Patient Instructions Indication:Current non-smoker Start:28-Apr-2021 Instruction Type:Provider Instructions for Treatment How to Access Health Informa tion Online using Patient Portal and [employer]rd [employer] Apps Indication:Current non-smoker Start:28-Apr-2021 Instruction Type:Patient Education Patient Instructions Indication:BMI 21.0-21.9, adult Start:19-Mar-2021 Instruction Type:Provider Instructions for Treatment How to Access Health Informa tion Online using Patient Portal and [employer] Apps Indication:BMI 21.0-21.9, adult Start:19-Mar-2021 Instruction Type:Patient Education How to access health informa tion online Indication:Current non-smoker Start:03-Jun-2019 Instruction Type:Patient Education How to access health informa tion online - Detail Indication:Current non-smoker Start:03-Jun-2019 Instruction Type:Patient Education Patient Instructions Indication:Current non-smoker Start:03-Jun-2019 Instruction Type:Provider Instructions for Treatment How to access health informa tion online Indication:Current non-smoker Start:16-May-2019 Instruction Type:Patient Education How to access health informa tion online - Detail Indication:Current non-smoker Start:16-May-2019 Instruction Type:Patient Education Patient Instructions Indication:Current non-smoker Start:16-May-2019 Instruction Type:Provider Instructions for Treatment How to access health informa tion online Indication:Left foot pain Start:09-Apr-2019 Instruction Type:Patient Education How to access health informa tion online - Detail Indication:Left foot pain Start:09-Apr-2019 Instruction Type:Patient Education Patient Instructions Indication:Left foot pain Start:09-Apr-2019 Instruction Type:Provider Instructions for Treatment How to access health informa tion online Indication:Current non-smoker Start:22-Feb-2017 Instruction Type:Patient Education How to access health informa tion online - Detail Indication:Current non-smoker Start:22-Feb-2017 Instruction Type:Patient Education Patient Instructions Indication:Current non-smoker Start:22-Feb-2017 Instruction Type:Provider Instructions for Treatment How to access health informa tion online Indication:Redness of eye, left Start:13-Jan-2017 Instruction Type:Patient Education How to access health informa tion online - Detail Indication:Redness of eye, left Start:13-Jan-2017 Instruction Type:Patient Education Patient Instructions Indication:Redness of eye, left Start:13-Jan-2017 Instruction Type:Provider Instructions for Treatment How to access health informa tion online Indication:BMI between 19-24,adult Start:19-Apr-2016 Instruction Type:Patient Education How to access health informa tion online - Detail Indication:BMI between 19-24,adult Start:19-Apr-2016 Instruction Type:Patient Education Patient Instructions Indication:BMI between 19-24,adult Start:19-Apr-2016 Instruction Type:Provider Instructions for Treatment How to access health informa tion online Indication:Current non-smoker Start:14-Oct-2015 Instruction Type:Patient Education How to access health informa tion online - Detail Indication:Current non-smoker Start:14-Oct-2015 Instruction Type:Patient Education Patient Instructions Indication:Current non-smoker Start:14-Oct-2015 Instruction Type:Provider Instructions for Treatment How to access health informa tion online Indication:Atherosclerosis Start:31-Jul-2015 Instruction Type:Patient Education How to access health informa tion online - Detail Indication:Atherosclerosis Start:31-Jul-2015 Instruction Type:Patient Education Patient Instructions Indication:Atherosclerosis Start:31-Jul-2015 Instruction Type:Provider Instructions for Treatment How to access health informa tion online Indication:Chronic heel pain, unspecified laterality Start:02-Jun-2015 Instruction Type:Patient Education How to access health informa tion online - Detail Indication:Chronic heel pain, unspecified laterality Start:02-Jun-2015 Instruction Type:Patient Education Patient Instructions Indication:Chronic heel pain, unspecified laterality Start:02-Jun-2015 Instruction Type:Provider Instructions for Treatment How to access health informa tion online Indication:Bilateral carotid artery stenosis Start:17-Feb-2015 Instruction Type:Patient Education How to access health informa tion online - Detail Indication:Bilateral carotid artery stenosis Start:17-Feb-2015 Instruction Type:Patient Education Patient Instructions Indication:Bilateral carotid artery stenosis Start:17-Feb-2015 Instruction Type:Provider Instructions for Treatment How to access health informa tion online Indication:Pharyngitis, acute Start:11-Dec-2014 Instruction Type:Patient Education How to access health informa tion online - Detail Indication:Pharyngitis, acute Start:11-Dec-2014 Instruction Type:Patient Education Patient Instructions Indication:Pharyngitis, acute Start:11-Dec-2014 Instruction Type:Provider Instructions for Treatment How to access health informa tion online Indication:Atherosclerosis Start:13-Nov-2014 Instruction Type:Patient Education How to access health informa tion online - Detail Indication:Atherosclerosis Start:13-Nov-2014 Instruction Type:Patient Education Patient Instructions Indication:Atherosclerosis Start:13-Nov-2014 Instruction Type:Provider Instructions for Treatment How to access health informa tion online Indication:Bilateral carotid artery stenosis Start:03-Oct-2014 Instruction Type:Patient Education How to access health informa tion online - Detail Indication:Bilateral carotid artery stenosis Start:03-Oct-2014 Instruction Type:Patient Education Patient Instructions Indication:Bilateral carotid artery stenosis Start:03-Oct-2014 Instruction Type:Provider Instructions for Treatment Patient Instructions Indication:Headache Start:16-Jul-2014 Instruction Type:Provider Instructions for Treatment [facility]; [facility] Work Phone: Instructions* Name Dates Details Patient Instructions Indication:Current non-smoker Start:28-Apr-2021 Instruction Type:Provider Instructions for Treatment How to Access Health Informa tion Online using Patient Portal and [employer] Apps Indication:Current non-smoker Start:28-Apr-2021 Instruction Type:Patient Education Patient Instructions Indication:BMI 21.0-21.9, adult Start:19-Mar-2021 Instruction Type:Provider Instructions for Treatment How to Access Health Informa tion Online using Patient Portal and [employer] Apps Indication:BMI 21.0-21.9, adult Start:19-Mar-2021 Instruction Type:Patient Education How to access health informa tion online Indication:Current non-smoker Start:03-Jun-2019 Instruction Type:Patient Education How to access health informa tion online - Detail Indication:Current non-smoker Start:03-Jun-2019 Instruction Type:Patient Education Patient Instructions Indication:Current non-smoker Start:03-Jun-2019 Instruction Type:Provider Instructions for Treatment How to access health informa tion online Indication:Current non-smoker Start:16-May-2019 Instruction Type:Patient Education How to access health informa tion online - Detail Indication:Current non-smoker Start:16-May-2019 Instruction Type:Patient Education Patient Instructions Indication:Current non-smoker Start:16-May-2019 Instruction Type:Provider Instructions for Treatment How to access health informa tion online Indication:Left foot pain Start:09-Apr-2019 Instruction Type:Patient Education How to access health informa tion online - Detail Indication:Left foot pain Start:09-Apr-2019 Instruction Type:Patient Education Patient Instructions Indication:Left foot pain Start:09-Apr-2019 Instruction Type:Provider Instructions for Treatment How to access health informa tion online Indication:Current non-smoker Start:22-Feb-2017 Instruction Type:Patient Education How to access health informa tion online - Detail Indication:Current non-smoker Start:22-Feb-2017 Instruction Type:Patient Education Patient Instructions Indication:Current non-smoker Start:22-Feb-2017 Instruction Type:Provider Instructions for Treatment How to access health informa tion online Indication:Redness of eye, left Start:13-Jan-2017 Instruction Type:Patient Education How to access health informa tion online - Detail Indication:Redness of eye, left Start:13-Jan-2017 Instruction Type:Patient Education Patient Instructions Indication:Redness of eye, left Start:13-Jan-2017 Instruction Type:Provider Instructions for Treatment How to access health informa tion online Indication:BMI between 19-24,adult Start:19-Apr-2016 Instruction Type:Patient Education How to access health informa tion online - Detail Indication:BMI between 19-24,adult Start:19-Apr-2016 Instruction Type:Patient Education Patient Instructions Indication:BMI between 19-24,adult Start:19-Apr-2016 Instruction Type:Provider Instructions for Treatment How to access health informa tion online Indication:Current non-smoker Start:14-Oct-2015 Instruction Type:Patient Education How to access health informa tion online - Detail Indication:Current non-smoker Start:14-Oct-2015 Instruction Type:Patient Education Patient Instructions Indication:Current non-smoker Start:14-Oct-2015 Instruction Type:Provider Instructions for Treatment How to access health informa tion online Indication:Atherosclerosis Start:31-Jul-2015 Instruction Type:Patient Education How to access health informa tion online - Detail Indication:Atherosclerosis Start:31-Jul-2015 Instruction Type:Patient Education Patient Instructions Indication:Atherosclerosis Start:31-Jul-2015 Instruction Type:Provider Instructions for Treatment How to access health informa tion online Indication:Chronic heel pain, unspecified laterality Start:02-Jun-2015 Instruction Type:Patient Education How to access health informa tion online - Detail Indication:Chronic heel pain, unspecified laterality Start:02-Jun-2015 Instruction Type:Patient Education Patient Instructions Indication:Chronic heel pain, unspecified laterality Start:02-Jun-2015 Instruction Type:Provider Instructions for Treatment How to access health informa tion online Indication:Bilateral carotid artery stenosis Start:17-Feb-2015 Instruction Type:Patient Education How to access health informa tion online - Detail Indication:Bilateral carotid artery stenosis Start:17-Feb-2015 Instruction Type:Patient Education Patient Instructions Indication:Bilateral carotid artery stenosis Start:17-Feb-2015 Instruction Type:Provider Instructions for Treatment How to access health informa tion online Indication:Pharyngitis, acute Start:11-Dec-2014 Instruction Type:Patient Education How to access health informa tion online - Detail Indication:Pharyngitis, acute Start:11-Dec-2014 Instruction Type:Patient Education Patient Instructions Indication:Pharyngitis, acute Start:11-Dec-2014 Instruction Type:Provider Instructions for Treatment How to access health informa tion online Indication:Atherosclerosis Start:13-Nov-2014 Instruction Type:Patient Education How to access health informa tion online - Detail Indication:Atherosclerosis Start:13-Nov-2014 Instruction Type:Patient Education Patient Instructions Indication:Atherosclerosis Start:13-Nov-2014 Instruction Type:Provider Instructions for Treatment How to access health informa tion online Indication:Bilateral carotid artery stenosis Start:03-Oct-2014 Instruction Type:Patient Education How to access health informa tion online - Detail Indication:Bilateral carotid artery stenosis Start:03-Oct-2014 Instruction Type:Patient Education Patient Instructions Indication:Bilateral carotid artery stenosis Start:03-Oct-2014 Instruction Type:Provider Instructions for Treatment Patient Instructions Indication:Headache Start:16-Jul-2014 Instruction Type:Provider Instructions for Treatment [facility]; [facility] Work Phone: Instructions* Name Dates Details Patient Instructions Indication:Current non-smoker Start:28-Apr-2021 Instruction Type:Provider Instructions for Treatment How to Access Health Informa tion Online using Patient Portal and 3rd [employer] Apps Indication:Current non-smoker Start:28-Apr-2021 Instruction Type:Patient Education Patient Instructions Indication:BMI 21.0-21.9, adult Start:19-Mar-2021 Instruction Type:Provider Instructions for Treatment How to Access Health Informa tion Online using Patient Portal and 3rd [employer] Apps Indication:BMI 21.0-21.9, adult Start:19-Mar-2021 Instruction Type:Patient Education How to access health informa tion online Indication:Current non-smoker Start:03-Jun-2019 Instruction Type:Patient Education How to access health informa tion online - Detail Indication:Current non-smoker Start:03-Jun-2019 Instruction Type:Patient Education Patient Instructions Indication:Current non-smoker Start:03-Jun-2019 Instruction Type:Provider Instructions for Treatment How to access health informa tion online Indication:Current non-smoker Start:16-May-2019 Instruction Type:Patient Education How to access health informa tion online - Detail Indication:Current non-smoker Start:16-May-2019 Instruction Type:Patient Education Patient Instructions Indication:Current non-smoker Start:16-May-2019 Instruction Type:Provider Instructions for Treatment How to access health informa tion online Indication:Left foot pain Start:09-Apr-2019 Instruction Type:Patient Education How to access health informa tion online - Detail Indication:Left foot pain Start:09-Apr-2019 Instruction Type:Patient Education Patient Instructions Indication:Left foot pain Start:09-Apr-2019 Instruction Type:Provider Instructions for Treatment How to access health informa tion online Indication:Current non-smoker Start:22-Feb-2017 Instruction Type:Patient Education How to access health informa tion online - Detail Indication:Current non-smoker Start:22-Feb-2017 Instruction Type:Patient Education Patient Instructions Indication:Current non-smoker Start:22-Feb-2017 Instruction Type:Provider Instructions for Treatment How to access health informa tion online Indication:Redness of eye, left Start:13-Jan-2017 Instruction Type:Patient Education How to access health informa tion online - Detail Indication:Redness of eye, left Start:13-Jan-2017 Instruction Type:Patient Education Patient Instructions Indication:Redness of eye, left Start:13-Jan-2017 Instruction Type:Provider Instructions for Treatment How to access health informa tion online Indication:BMI between 19-24,adult Start:19-Apr-2016 Instruction Type:Patient Education How to access health informa tion online - Detail Indication:BMI between 19-24,adult Start:19-Apr-2016 Instruction Type:Patient Education Patient Instructions Indication:BMI between 19-24,adult Start:19-Apr-2016 Instruction Type:Provider Instructions for Treatment How to access health informa tion online Indication:Current non-smoker Start:14-Oct-2015 Instruction Type:Patient Education How to access health informa tion online - Detail Indication:Current non-smoker Start:14-Oct-2015 Instruction Type:Patient Education Patient Instructions Indication:Current non-smoker Start:14-Oct-2015 Instruction Type:Provider Instructions for Treatment How to access health informa tion online Indication:Atherosclerosis Start:31-Jul-2015 Instruction Type:Patient Education How to access health informa tion online - Detail Indication:Atherosclerosis Start:31-Jul-2015 Instruction Type:Patient Education Patient Instructions Indication:Atherosclerosis Start:31-Jul-2015 Instruction Type:Provider Instructions for Treatment How to access health informa tion online Indication:Chronic heel pain, unspecified laterality Start:02-Jun-2015 Instruction Type:Patient Education How to access health informa tion online - Detail Indication:Chronic heel pain, unspecified laterality Start:02-Jun-2015 Instruction Type:Patient Education Patient Instructions Indication:Chronic heel pain, unspecified laterality Start:02-Jun-2015 Instruction Type:Provider Instructions for Treatment How to access health informa tion online Indication:Bilateral carotid artery stenosis Start:17-Feb-2015 Instruction Type:Patient Education How to access health informa tion online - Detail Indication:Bilateral carotid artery stenosis Start:17-Feb-2015 Instruction Type:Patient Education Patient Instructions Indication:Bilateral carotid artery stenosis Start:17-Feb-2015 Instruction Type:Provider Instructions for Treatment How to access health informa tion online Indication:Pharyngitis, acute Start:11-Dec-2014 Instruction Type:Patient Education How to access health informa tion online - Detail Indication:Pharyngitis, acute Start:11-Dec-2014 Instruction Type:Patient Education Patient Instructions Indication:Pharyngitis, acute Start:11-Dec-2014 Instruction Type:Provider Instructions for Treatment How to access health informa tion online Indication:Atherosclerosis Start:13-Nov-2014 Instruction Type:Patient Education How to access health informa tion online - Detail Indication:Atherosclerosis Start:13-Nov-2014 Instruction Type:Patient Education Patient Instructions Indication:Atherosclerosis Start:13-Nov-2014 Instruction Type:Provider Instructions for Treatment How to access health informa tion online Indication:Bilateral carotid artery stenosis Start:03-Oct-2014 Instruction Type:Patient Education How to access health informa tion online - Detail Indication:Bilateral carotid artery stenosis Start:03-Oct-2014 Instruction Type:Patient Education Patient Instructions Indication:Bilateral carotid artery stenosis Start:03-Oct-2014 Instruction Type:Provider Instructions for Treatment Patient Instructions Indication:Headache Start:16-Jul-2014 Instruction Type:Provider Instructions for Treatment [facility]; [facility] Work Phone: Summary Purpose Family History No Family History Records FoundUnknown Family Member Name Dates Details Father Comments:Type II diabetes, h x prostate cancer Status:Active Mother Comments:mother living and h ealthy Status:Active Sister 1 Comments:living and very hea lthy Status:Active Unknown Family Member Name Dates Details Father Comments:Type II diabetes, h x prostate cancer Status:Active Mother Comments:mother living and h ealthy Status:Active Sister 1 Comments:living and very hea lthy Status:Active Unknown Family Member Name Dates Details Father Comments:Type II diabetes, h x prostate cancer Status:Active Mother Comments:mother living and h ealthy Status:Active Sister 1 Comments:living and very hea lthy Status:Active Unknown Family Member Name Dates Details Father Comments:Type II diabetes, h x prostate cancer Status:Active Mother Comments:mother living and h ealthy Status:Active Sister 1 Comments:living and very hea lthy Status:Active Unknown Family Member Name Dates Details Father Comments:Type II diabetes, h x prostate cancer Status:Active Mother Comments:mother living and h ealthy Status:Active Sister 1 Comments:living and very hea lthy Status:Active Unknown Family Member Name Dates Details Father Comments:Type II diabetes, h x prostate cancer Status:Active Mother Comments:mother living and h ealthy Status:Active Sister 1 Comments:living and very hea lthy Status:Active Unknown Family Member Name Dates Details Father Comments:Type II diabetes, h x prostate cancer Status:Active Mother Comments:mother living and h ealthy Status:Active Sister 1 Comments:living and very hea lthy Status:Active Unknown Family Member Name Dates Details Father Comments:Type II diabetes, h x prostate cancer Status:Active Mother Comments:mother living and h ealthy Status:Active Sister 1 Comments:living and very hea lthy Status:Active Unknown Family Member Name Dates Details Father Comments:Type II diabetes, h x prostate cancer Status:Active Mother Comments:mother living and h ealthy Status:Active Sister 1 Comments:living and very hea lthy Status:Active Unknown Family Member Name Dates Details Father Comments:Type II diabetes, h x prostate cancer Status:Active Mother Comments:mother living and h ealthy Status:Active Sister 1 Comments:living and very hea lthy Status:Active Unknown Family Member Name Dates Details Father Comments:Type II diabetes, h x prostate cancer Status:Active Mother Comments:mother living and h ealthy Status:Active Sister 1 Comments:living and very hea lthy Status:Active Unknown Family Member Name Dates Details Father Comments:Type II diabetes, h x prostate cancer Status:Active Mother Comments:mother living and h ealthy Status:Active Sister 1 Comments:living and very hea lthy Status:Active Unknown Family Member Name Dates Details Father Comments:Type II diabetes, h x prostate cancer Status:Active Mother Comments:mother living and h ealthy Status:Active Sister 1 Comments:living and very hea lthy Status:Active Unknown Family Member Name Dates Details Father Comments:Type II diabetes, h x prostate cancer Status:Active Mother Comments:mother living and h ealthy Status:Active Sister 1 Comments:living and very hea lthy Status:Active Advance Directives No Advanced Directives Records FoundNo Advanced Directives Records FoundNo Advanced Directives Records FoundNo Advanced Directives Records FoundNo Advanced Directives Records Found Instructions Name Dates Details How to access health informa tion online Indication:Current non-smoker Start:03-Jun-2019 Instruction Type:Patient Education How to access health informa tion online - Detail Indication:Current non-smoker Start:03-Jun-2019 Instruction Type:Patient Education Patient Instructions Indication:Current non-smoker Start:03-Jun-2019 Instruction Type:Provider Instructions for Treatment How to access health informa tion online Indication:Current non-smoker Start:16-May-2019 Instruction Type:Patient Education How to access health informa tion online - Detail Indication:Current non-smoker Start:16-May-2019 Instruction Type:Patient Education Patient Instructions Indication:Current non-smoker Start:16-May-2019 Instruction Type:Provider Instructions for Treatment How to access health informa tion online Indication:Left foot pain Start:09-Apr-2019 Instruction Type:Patient Education How to access health informa tion online - Detail Indication:Left foot pain Start:09-Apr-2019 Instruction Type:Patient Education Patient Instructions Indication:Left foot pain Start:09-Apr-2019 Instruction Type:Provider Instructions for Treatment How to access health informa tion online Indication:Current non-smoker Start:22-Feb-2017 Instruction Type:Patient Education How to access health informa tion online - Detail Indication:Current non-smoker Start:22-Feb-2017 Instruction Type:Patient Education Patient Instructions Indication:Current non-smoker Start:22-Feb-2017 Instruction Type:Provider Instructions for Treatment How to access health informa tion online Indication:Redness of eye, left Start:13-Jan-2017 Instruction Type:Patient Education How to access health informa tion online - Detail Indication:Redness of eye, left Start:13-Jan-2017 Instruction Type:Patient Education Patient Instructions Indication:Redness of eye, left Start:13-Jan-2017 Instruction Type:Provider Instructions for Treatment How to access health informa tion online Indication:BMI between 19-24,adult Start:19-Apr-2016 Instruction Type:Patient Education How to access health informa tion online - Detail Indication:BMI between 19-24,adult Start:19-Apr-2016 Instruction Type:Patient Education Patient Instructions Indication:BMI between 19-24,adult Start:19-Apr-2016 Instruction Type:Provider Instructions for Treatment How to access health informa tion online Indication:Current non-smoker Start:14-Oct-2015 Instruction Type:Patient Education How to access health informa tion online - Detail Indication:Current non-smoker Start:14-Oct-2015 Instruction Type:Patient Education Patient Instructions Indication:Current non-smoker Start:14-Oct-2015 Instruction Type:Provider Instructions for Treatment How to access health informa tion online Indication:Atherosclerosis Start:31-Jul-2015 Instruction Type:Patient Education How to access health informa tion online - Detail Indication:Atherosclerosis Start:31-Jul-2015 Instruction Type:Patient Education Patient Instructions Indication:Atherosclerosis Start:31-Jul-2015 Instruction Type:Provider Instructions for Treatment How to access health informa tion online Indication:Chronic heel pain, unspecified laterality Start:02-Jun-2015 Instruction Type:Patient Education How to access health informa tion online - Detail Indication:Chronic heel pain, unspecified laterality Start:02-Jun-2015 Instruction Type:Patient Education Patient Instructions Indication:Chronic heel pain, unspecified laterality Start:02-Jun-2015 Instruction Type:Provider Instructions for Treatment How to access health informa tion online Indication:Bilateral carotid artery stenosis Start:17-Feb-2015 Instruction Type:Patient Education How to access health informa tion online - Detail Indication:Bilateral carotid artery stenosis Start:17-Feb-2015 Instruction Type:Patient Education Patient Instructions Indication:Bilateral carotid artery stenosis Start:17-Feb-2015 Instruction Type:Provider Instructions for Treatment How to access health informa tion online Indication:Pharyngitis, acute Start:11-Dec-2014 Instruction Type:Patient Education How to access health informa tion online - Detail Indication:Pharyngitis, acute Start:11-Dec-2014 Instruction Type:Patient Education Patient Instructions Indication:Pharyngitis, acute Start:11-Dec-2014 Instruction Type:Provider Instructions for Treatment How to access health informa tion online Indication:Atherosclerosis Start:13-Nov-2014 Instruction Type:Patient Education How to access health informa tion online - Detail Indication:Atherosclerosis Start:13-Nov-2014 Instruction Type:Patient Education Patient Instructions Indication:Atherosclerosis Start:13-Nov-2014 Instruction Type:Provider Instructions for Treatment How to access health informa tion online Indication:Bilateral carotid artery stenosis Start:03-Oct-2014 Instruction Type:Patient Education How to access health informa tion online - Detail Indication:Bilateral carotid artery stenosis Start:03-Oct-2014 Instruction Type:Patient Education Patient Instructions Indication:Bilateral carotid artery stenosis Start:03-Oct-2014 Instruction Type:Provider Instructions for Treatment Patient Instructions Indication:Headache Start:16-Jul-2014 Instruction Type:Provider Instructions for Treatment Name Dates Details How to access health informa tion online Indication:Current non-smoker Start:03-Jun-2019 Instruction Type:Patient Education How to access health informa tion online - Detail Indication:Current non-smoker Start:03-Jun-2019 Instruction Type:Patient Education Patient Instructions Indication:Current non-smoker Start:03-Jun-2019 Instruction Type:Provider Instructions for Treatment How to access health informa tion online Indication:Current non-smoker Start:16-May-2019 Instruction Type:Patient Education How to access health informa tion online - Detail Indication:Current non-smoker Start:16-May-2019 Instruction Type:Patient Education Patient Instructions Indication:Current non-smoker Start:16-May-2019 Instruction Type:Provider Instructions for Treatment How to access health informa tion online Indication:Left foot pain Start:09-Apr-2019 Instruction Type:Patient Education How to access health informa tion online - Detail Indication:Left foot pain Start:09-Apr-2019 Instruction Type:Patient Education Patient Instructions Indication:Left foot pain Start:09-Apr-2019 Instruction Type:Provider Instructions for Treatment How to access health informa tion online Indication:Current non-smoker Start:22-Feb-2017 Instruction Type:Patient Education How to access health informa tion online - Detail Indication:Current non-smoker Start:22-Feb-2017 Instruction Type:Patient Education Patient Instructions Indication:Current non-smoker Start:22-Feb-2017 Instruction Type:Provider Instructions for Treatment How to access health informa tion online Indication:Redness of eye, left Start:13-Jan-2017 Instruction Type:Patient Education How to access health informa tion online - Detail Indication:Redness of eye, left Start:13-Jan-2017 Instruction Type:Patient Education Patient Instructions Indication:Redness of eye, left Start:13-Jan-2017 Instruction Type:Provider Instructions for Treatment How to access health informa tion online Indication:BMI between 19-24,adult Start:19-Apr-2016 Instruction Type:Patient Education How to access health informa tion online - Detail Indication:BMI between 19-24,adult Start:19-Apr-2016 Instruction Type:Patient Education Patient Instructions Indication:BMI between 19-24,adult Start:19-Apr-2016 Instruction Type:Provider Instructions for Treatment How to access health informa tion online Indication:Current non-smoker Start:14-Oct-2015 Instruction Type:Patient Education How to access health informa tion online - Detail Indication:Current non-smoker Start:14-Oct-2015 Instruction Type:Patient Education Patient Instructions Indication:Current non-smoker Start:14-Oct-2015 Instruction Type:Provider Instructions for Treatment How to access health informa tion online Indication:Atherosclerosis Start:31-Jul-2015 Instruction Type:Patient Education How to access health informa tion online - Detail Indication:Atherosclerosis Start:31-Jul-2015 Instruction Type:Patient Education Patient Instructions Indication:Atherosclerosis Start:31-Jul-2015 Instruction Type:Provider Instructions for Treatment How to access health informa tion online Indication:Chronic heel pain, unspecified laterality Start:02-Jun-2015 Instruction Type:Patient Education How to access health informa tion online - Detail Indication:Chronic heel pain, unspecified laterality Start:02-Jun-2015 Instruction Type:Patient Education Patient Instructions Indication:Chronic heel pain, unspecified laterality Start:02-Jun-2015 Instruction Type:Provider Instructions for Treatment How to access health informa tion online Indication:Bilateral carotid artery stenosis Start:17-Feb-2015 Instruction Type:Patient Education How to access health informa tion online - Detail Indication:Bilateral carotid artery stenosis Start:17-Feb-2015 Instruction Type:Patient Education Patient Instructions Indication:Bilateral carotid artery stenosis Start:17-Feb-2015 Instruction Type:Provider Instructions for Treatment How to access health informa tion online Indication:Pharyngitis, acute Start:11-Dec-2014 Instruction Type:Patient Education How to access health informa tion online - Detail Indication:Pharyngitis, acute Start:11-Dec-2014 Instruction Type:Patient Education Patient Instructions Indication:Pharyngitis, acute Start:11-Dec-2014 Instruction Type:Provider Instructions for Treatment How to access health informa tion online Indication:Atherosclerosis Start:13-Nov-2014 Instruction Type:Patient Education How to access health informa tion online - Detail Indication:Atherosclerosis Start:13-Nov-2014 Instruction Type:Patient Education Patient Instructions Indication:Atherosclerosis Start:13-Nov-2014 Instruction Type:Provider Instructions for Treatment How to access health informa tion online Indication:Bilateral carotid artery stenosis Start:03-Oct-2014 Instruction Type:Patient Education How to access health informa tion online - Detail Indication:Bilateral carotid artery stenosis Start:03-Oct-2014 Instruction Type:Patient Education Patient Instructions Indication:Bilateral carotid artery stenosis Start:03-Oct-2014 Instruction Type:Provider Instructions for Treatment Patient Instructions Indication:Headache Start:16-Jul-2014 Instruction Type:Provider Instructions for Treatment Chief Complaint and Reason for Visit Chief Complaint XRAY CAROTID ARTERY STENPOSIS/THYROID NODULE POST MENOPAUSAL L SHLD PN/RX HERE Chief Complaint BILAT CAROTID ARTERY STENOSIS Chief Complaint BILAT CAROTID ARTERY STENOSIS ATTN IACS HEARING LOSS Chief Complaint BILAT CAROTID ARTERY STENOSIS ATTN IACS HEARING LOSS OSTEOPENIA Additional Source Comments INFORMATION SOURCE (unrecogn ized section and content) DATE CREATED AUTHOR 10/02/2019 [facility] DATE CREATED AUTHOR AUTHOR'S ORGANIZ ATION 06/01/2021 [facility] DATE CREATED AUTHOR AUTHOR'S ORGANIZ ATION 07/08/2021 [facility] ical Center DATE CREATED AUTHOR AUTHOR'S ORGANIZ ATION 04/26/2023 [facility] DATE CREATED AUTHOR AUTHOR'S ORGANIZ ATION 05/24/2024 [facility] dical Center Source Comments (unrecognize d section and content) In the event this informatio n is protected by the Federal Confidentiality of Alcohol and Drug Abuse Patient Records regulations: The Federal rules restrict any use of the information to criminally investigate or prosecute any alcohol or drug abuse patient.[facility] the event this information is protected by the Federal Confidentiality of Alcohol and Drug Abuse Patient Records regulations: The Federal rules restrict any use of the information to criminally investigate or prosecute any alcohol or drug abuse patient.[facility] the event this information is protected by the Federal Confidentiality of Alcohol and Drug Abuse Patient Records regulations: The Federal rules restrict any use of the information to criminally investigate or prosecute any alcohol or drug abuse patient.[facility] the event this information is protected by the Federal Confidentiality of Alcohol and Drug Abuse Patient Records regulations: The Federal rules restrict any use of the information to criminally investigate or prosecute any alcohol or drug abuse patient.[facility] Goals (unrecognized section and content) Goals may be documented in a n alternate sectionGoals may be documented in an alternate sectionGoals may be documented in an alternate sectionGoals may be documented in an alternate section Care Teams (unrecognized sec tion and content) Rug Dyer Helper Relationship Specialty Start Date End Date Gricel Thomas [address] [address] PCP - General BROMINATION EQUIPMENT OPERATOR 06/14/18 Rug Dyer Helper Relationship Specialty Start Date End Date Gricel Thomas [address] [address] PCP - General BROMINATION EQUIPMENT OPERATOR 06/14/18 Team Status: Active Member Role Status Dates Dr. Priyanka Holliday , DO Family Provider Active Dr. Annabelle Roach , DO Primary Care Provider Active Team Status: Inactive Member Role Status Dates Dr. Annabelle Roach , DO Primary Care Pr sam, Attending Provider, Referring Provider Active Team Status: Inactive Member Role Status Dates Dr. Annabelle Roach , DO Primary Care Provider Active Dr. Theron Wilkins MD Attending Provider, Referring P malcolm Active Rug Dyer Helper Relationship Specialty Start Date End Date Gricel Thomas [address] [address] PCP - General Vamp Liner 06/14/18 FOR RECORDS PERTAINING TO PATIENTS WHO ARE OR HAVE BEEN ENROLLED IN A CHEMICAL DEPENDENCY/SUBSTANCEABUSE PROGRAM, SOME INFORMATION MAY BE OMITTED. This clinical summary was aggregated from multiple sources. Caution should be exercised in using it in the provision of clinical care. This summary normalizes information from multiple sources, and as a consequence, information in this document may materially change the coding, format and clinical context of patient data. In addition, data may be omitted in some cases. CLINICAL DECISIONS SHOULD BE BASED ON THE PRIMARY CLINICAL RECORDS. [facility] [employer] [facility]. provides no warranty or guarantee of the accuracy or completeness of information in this document.
== END | disposition home or self-care (01) ==
LOC: LABSPEC 15:08
PROVIDERS: PCP Internal Medicine; Referring Provider Internal Medicine; Visit Provider Internal Medicine
DX: R51.9 Headache, unspecified (principal)
CPT/HCPCS: 85652

== ENCOUNTER → 2024-12-04 | Outpatient (CLI) | payer OTHER, SELFPAY ==
--- NOTE | 2024-12-04 13:16 | CDU_ITS ---
Reason For Study Reason For Study: Bilateral ICA Stenosis Rt. Velocities/BP Lt. Velocities/BP Prox CCA 56.6/15.0 cm/sec. Prox CCA 59.5/16.8 cm/sec. Mid CCA 58.5/16.0 cm/sec. Mid CCA 61.6/15.4 cm/sec. Dist CCA 50.0/15.0 cm/sec. Dist CCA 45.3/16.8 cm/sec. Prox ICA 46.9/15.7 cm/sec. Prox ICA 46.8/17.1 cm/sec. Mid ICA 146.7/53.4 cm/sec. Mid ICA 109.3/49.6 cm/sec. Dist ICA 177.8/76.7 cm/sec. Dist ICA 120.8/50.8 cm/sec. Rt. ICA/CCA = 3.0. Lt. ICA/CCA = 2.0. Prox ECA 46.8/9.2 cm/sec. Prox ECA 62.1/12.7 cm/sec. Rt. Vert. 83.9/24.9 cm/sec. Lt. Vert. 51.7/18.2 cm/sec. Right Extracranial There is intimal thickening but no significant atherosclerotic plaque noted in the right common carotid artery. There is intimal thickening but no significant atherosclerotic plaque noted in the right internal carotid artery. The tortuous nature of the right internal carotid artery may result in flow velocities overestimating the degree of stenosis. There is intimal thickening but no significant atherosclerotic plaque noted in the right external carotid artery. Antegrade flow is noted in the right vertebral artery. Left Extracranial There is intimal thickening but no significant atherosclerotic plaque noted in the left common carotid artery. There is intimal thickening but no significant atherosclerotic plaque noted in the left internal carotid artery. The tortuous nature of the left internal carotid artery may result in flow velocities overestimating the degree of stenosis. There is intimal thickening but no significant atherosclerotic plaque noted in the left external carotid artery. Antegrade flow is noted in the left vertebral artery. Procedure Carotid Duplex 06409. This is a Carotid Duplex examination using B-mode, color flow and specral Doppler. The exam was diagnostic. Exam performed in department. VL/Carotid Duplex Ultrasound Interpretation Summary Normal right extracranial internal carotid. Tortuous vessel with turbulent flow . Normal left extracranial internal carotid. Tortuous vessel with turbulent flow. Patent and antegrade vertebrals bilaterally. Ordering Physician: Annabelle Roach Referring Physician: Annabelle Roach Performed By: Erick Mendez RVT
--- NOTE | 2024-12-04 13:16 | US_ITS ---
PROCEDURE: THYROID 12/04/2024 REASON FOR EXAM: THYROID NODULE TECHNIQUE: Procedure Code: USTHY Modality: US Procedure: THYROID COMPARISON: Previous examination dated 04/12/2021 FINDINGS: Right thyroid lobe size: 5 x 2.2 x 0.9 cm Left thyroid lobe size: 4.9 x 1.6 x 1.1 cm Isthmus: 0.2 cm Background parenchymal echotexture is homogeneous. Nodules: Mostly cystic spongiform like nodules present throughout both lobes the largest described below. All of the nodules throughout the gland demonstrating increased cystic component. Echogenic foci appear less prominent. 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 1. Lobe: Right, Location: Mid, Size: 1.1 x 0.9 x 0.5 cm, Stability: Increased Composition: Mixed cystic and solid (+1) Echogenicity: Hyper to Isoechoic (+1) Margin: Smooth (+0) Shape: Wider than tall (+0) Echogenic Foci: None (+0) TI-RADS: 2 2. Lobe: Right, Location: Mid, Size: 0.8 x 0.6 x 0.4 cm, Stability: Slightly increased Composition: Mixed cystic and solid (+1) Echogenicity: Hyper to Isoechoic (+1) Margin: Smooth (+0) Shape: Wider than tall (+0) Echogenic Foci: None (+0) TI-RADS: 2 3. Lobe: Left, Location: Mid, Size: 0.7 x 0.5 x 0.3 cm, Stability: Slightly increased Composition: Mixed cystic and solid (+1) Echogenicity: Hyper to Isoechoic (+1) Margin: Smooth (+0) Shape: Wider than tall (+0) Echogenic Foci: None (+0) TI-RADS: 2 US/Thyroid IMPRESSION: Bilateral complex thyroid nodules with increase in cystic components when thompson red to previous exam. This increase appears to be symmetrical and bilateral. The largest lesion is 1.1 cm and is located in the right midgland. The appearance of these nodules is overall benign and likely reflective of colloid cysts with an overall TI-RAD S score of 2. RECOMMENDATION: Continue ultrasound surveillance with repeat imaging in 12 months Reading Location: [id number]
== END | disposition home or self-care (01) ==
LOC: US 13:11
PROVIDERS: PCP Internal Medicine; Referring Provider Internal Medicine; Visit Provider Internal Medicine
DX: E04.1 Nontoxic single thyroid nodule (principal); I65.23 Occlusion and stenosis of bilateral carotid arteries
CPT/HCPCS: 76536; 93880

== ENCOUNTER → 2025-02-03 | Outpatient (CLI) | payer OTHER, SELFPAY ==
--- NOTE | 2025-02-03 06:55 | MRI_ITS ---
PROCEDURE: BRAIN W/WO CONTRAST 02/03/2025 REASON FOR EXAM: Headache. TECHNIQUE: Procedure Code: [id number] Modality: MR Procedure: BRAIN W/WO CONTRAST Multiplanar and multisequence images were obtained. CONTRAST: Clariscan VOLUME: 11 mL COMPARISON: MRI brain 03/09/2023 FINDINGS: No acute infarct or hemorrhage. The brain parenchyma is within normal limits. No abnormal intracranial enhancement. No extra-axial fluid collection. No significant mass effect or herniation of the brain. The ventricular system and sulci/fissures are within expected limits of size and configuration for the patient's stated age. The basal cisterns are patent. The intracranial large vessel arterial flow voids are maintained. The mastoid air cells clear. The paranasal sinuses are predominately clear. The orbits are unremarkable. The calvarial bone marrow signal is within normal limits. MRI/Brain W/WO Contrast IMPRESSION: No acute intracranial infarct, hemorrhage, significant mass effect, or patholog ic enhancing lesion. Reading Location: [id number]
--- OUTSIDE RECORDS SUMMARY | 2025-02-03 07:06 | XMS RPT_ITS | CCD ---
Author Organization [facility] CliniSyny Care Team Providers Care Manager Legal Name Role Phone Gricel Thomas Primary Care Provider [phone] Ciesa Leticia Unavailable Darwin Lanier Unavailable Akshat Casper Unavailable Hearing Services-- Bhavna Mendes Unavail able Kelly Victor Unavailable Tiera Vaughn Unavailable Unavailable Annabelle Roach Unavailable Unavailable Unavailable Ciesa STERILIZATION TECHNICIANChristina E Unavailable [facility], [facility] Unavailable Dr. Darwin Lanier Unavailable Dr. Akshat Casper Unavailable Hearing Services-- Bhavna Mendes Unavail able Kelly Victor Unavailable Tiera Vaughn RN Unavailable Unavailable Annabelle Roach DO Unavailable Slarb GLASS MAKER, Amanda Unavailable Unavailable Unavailable Unavailable Elian Fung LPN Unavailable Unavailable Gravius ACCOUNTS PAYABLE COORDINATOR, Vonda Unavailable Unavailable Rupal Marrero LPN Unavailable Unavailable Dr. Annabelle Roach Primary Care Provider [phone] Dr. Annabelle Roach Referring Provider Dr. Tomas Young Attending Provider Ciesa Christina Unavailable Doc DO, Annabelle Unavailable Gricel Thomas Primary Care Provider Gricel Thomas Primary Care Provider GRICEL THOMAS Referring Unavailab le GRICEL THOMAS Primary Care Unavailab le Doc HUFFMAN, Dr. Alanis Primary Care Physician Dr. Annabelle Roach DO Attending Physician [phone] Dr. Annabelle Roach DO Referring Provider [phone] Dr. Philippe Sams MD Attending Physician [phone] Philippe Sams Attending Unavailable DocAnnabelle Referring Unavailable Doc, Annabelle Primary Care Unavailable DocAnnabelle Primary Care Unavailable DocAnnabelle Attending Unavailable DocAnnabelle Referring Unavailable Doc, Annabelle Primary Care Unavailable Doc, Annabelle Attending Unavailable DocAnnabelle Referring Unavailable Allergies Allergy Classification Reported Allergen(s) Allergy Type [...] Start : 08-Feb-2011 End : 29-Mar-2011 Inactive [id number] 200 actuat albuterol 0.09 mg/actuat metered dose [...] Quantity: 20 {Tablet} Refills: 0 Ordered: 22-Feb-2017 Belkysyonypawan Christina Belkysyonypawan Christina Start : 22-Feb-2017 End : 04-Mar-2017 Inactive [...] tablet (15 sources) Histamine-1 Receptor Antagonist Start: 010 take 1 tablet by mouth once daily JEFERSON, 180MG (Oral Tablet) 1 Tablet daily for 0 days Quantity: 30 {Tablet} Refills: 0 Ordered: 30-Oct-2009 Mellisa Velasquez Start : 22-Oct-2009 Inactive fluticasone furoate 0.0275 mg/actuat metered dose nasal spray (15 sources) Corticosteroid Start: End: 010 VERAMYST, 27.5MCG/SPRAY (Nasal Suspension) 2 (two) Suspension qd prn for 7 days Quantity: 1 {Suspension} Refills: 0 Ordered: 28-Jul-2009 Start : 28-Jul-2009 End : 04-Aug-2009 Inactive meloxicam 15 mg oral tablet (20 sources) Nonsteroidal Anti-inflammatory Drug Start: take 1 tablet by mouth once daily at mealtime Meloxicam 15 MG Oral Tablet 1 (one) Tablet qd with food for 0 days Quantity: 21 {Tablet} Refills: 0 Ordered: 02-Apr-2021 Annabelle Roach DO Start : 02-Apr-2021 Active Start: 03-19-2021 take 1 tablet by javad once daily at mealtime Meloxicam 15 MG [...] for 0 days Refills: 0 Ordered: 16-Jul-2014 Cee Mayda Start : 29-Mar-2011 End : 16-Jul-2014 Discontinued [...] Quantity: 30 {Tablet} Refills: 5 Ordered: 13-Jan-2017 Jayy DRISCOLL Amanda Start : 03-Oct-2014 End : 13-Jan-2017 Inactive [...] think may have been coing from neck Headache; including migraine (16 sources) Headache; including migraine; Translations: [Headache, unspecified] Onset: 11-26-2024 Immunizations and screening for infectious disease (20 [...] orals Occlusion or stenosis of precerebral arteries (14 sources) Occlusion and stenosis of bilateral carotid arteries; Translations: [Bilateral stenosis of carotid arteries] 06-03-2019 Chronic Comment on above: moderate 50-69% b/l and will do cta with contrazst to fu next yrdoesnt tolerate statins- h/o of trying 3- of them- cresto, lipitor and simvastain-terrible muslce aches Other bone disease and musculoskeletal deformities (8 sources) Osteopenia; Translations: [Osteopenia] 04-28-2021 Episodic Comment on above: mona do ca++ , vit D and wt bearing exercise- cherelle dexa 24mo Other circulatory disease (15 sources) Cardiovascular symptoms; [...] aids Other ear and sense organ disorders (15 [...] Chronic Comment on above: add mucinex and lorainee r Other upper respiratory infections (20 sources) [...] (20 sources) Thyroid nodule; Translations: [Thyroid Nodule] Onset: 12-10-2024 06-03-2019 Chronic Comment on above: fu annual [...] for administrative purposes] Resolved: 1 02-02-2011 Episodic Influenza (2 sources) Influenza Nonmalignant breast conditions [...] will rule out stress fracture, send to library manager Other connective tissue disease (2 sources) Pain in left foot; Translations: [Left foot pain] Resolved: 0 05-16-2019 Comment on above: left heel, burning w orse after hike, ? plantar fasciitis, vs burning heels syndrome will rule out stress fracture, send to library manager Other connective tissue disease (2 sources) Bilateral [...] (15 sources) cyst removed from left breast [facility] 06-03-2019 Unclassified (15 sources) Deliveries (Parity); Translations: [...] Test Name Value Interpretation Reference Range Facility Carotid Duplex Ultrasoundon 12-04-2024 Carotid Duplex Ultrasound [facility] [address] [place] [address] Carotid Duplex Ultrasound 12/04/24 1401 MR#: [id number] Acct: [id number] Name: JUSTINE RAPP Rep #: [id number] : 1960 64 From: Philippe Sams MD Attending Dr: Dr. Annabelle Roach, Status: R EG CLI Ordering Dr: Annabelle Roach DO Date: 12/04/24 Location: US Sex: F C Admitted: Reason For Study Reason For Study: Bilateral ICA Stenosis Rt. Velocities/BP Lt. Velocities/BP Prox CCA 56.6/15.0 cm/sec. Prox CCA 59.5/16.8 cm/sec. Mid CCA 58.5/16.0 cm/sec. Mid CCA 61.6/15.4 cm/sec. Dist CCA 50.0/15.0 cm/sec. Dist CCA 45.3/16.8 cm/sec. Prox ICA 46.9/15.7 cm/sec. Prox ICA 46.8/17.1 cm/sec. Mid ICA 146.7/53.4 cm/sec. Mid ICA 109.3/49.6 cm/sec. Dist ICA 177.8/76.7 cm/sec. Dist ICA 120.8/50.8 cm/sec. Rt. ICA/CCA = 3.0. Lt. ICA/CCA = 2.0. Prox ECA 46.8/9.2 cm/sec. Prox ECA 62.1/12.7 cm/sec. Rt. Vert. 83.9/24.9 cm/sec. Lt. Vert. 51.7/18.2 cm/sec. Right Extracranial There is intimal thickening but no significant atherosclerotic plaque noted in the right common carotid artery. There is intimal thickening but no significant atherosclerotic plaque noted in the right internal carotid artery. The tortuous nature of the right internal carotid artery may result in flow velocities overestimating the degree of stenosis. There is intimal thickening but no significant atherosclerotic plaque noted in the right external carotid artery. Antegrade flow is noted in the right vertebral artery. Left Extracranial There is intimal thickening but no significant atherosclerotic plaque noted in the left common carotid artery. There is intimal thickening but no significant atherosclerotic plaque noted in the left internal carotid artery. The tortuous nature of the left internal carotid artery may result in flow velocities overestimating the degree of stenosis. There is intimal thickening but no significant atherosclerotic plaque noted in the left external carotid artery. Antegrade flow is noted in the left vertebral artery. Procedure Carotid Duplex 55640. This is a Carotid Duplex examination using B-mode, color flow and specral Doppler. The exam was diagnostic. Exam performed in department. VL/Carotid Duplex Ultrasound Interpretation Summary Normal right extracranial internal carotid. Tortuous vessel with turbulent flow. Normal left extracranial internal carotid. Tortuous vessel with turbulent flow. Patent and antegrade vertebrals bilaterally. Ordering Physician: Annabelle Roach Referring Physician: Annabelle Roach Performed By: Erick Mendez, RVT 12/04/241748 Date Philippe Sams MD CC: Dr. Annabelle Roach, Date Dictated: 12/04/241400 Date Transcribed: 12/04/241748 Compressor Station Engineer Chief: Signed Normal [facility] Duplex ultrasound of carotid artery reportOrdered By: Philippe Sams on 12-04-2024 Study report [facility] [address] [place] [address] Carotid Duplex Ultrasound 12/04/241400 MR#: [id number] Acct: [id number] Name: JUSTINE RAPP Rep #:[id number] : 1960 64 From: Philippe Carrillo Attending Dr: Dr. Annabelle Roach, Status: REG CLI Ordering Dr: Annabelle Roach DO Date: 12/04/24 Location: US Sex: F C Admitted: Reason For Study Reason For Study: Bilateral ICA Stenosis Rt. Velocities/BP Lt. Velocities/BP Prox CCA 56.6/15.0 cm/sec. Prox CCA 59.5/16.8 cm/sec. Mid CCA 58.5/16.0 cm/sec. Mid CCA 61.6/15.4 cm/sec. Dist CCA 50.0/15.0 cm/sec. Dist CCA 45.3/16.8 cm/sec. Prox ICA 46.9/15.7 cm/sec. Prox ICA 46.8/17.1 cm/sec. Mid ICA 146.7/53.4 cm/sec. Mid ICA 109.3/49.6 cm/sec. Dist ICA 177.8/76.7 cm/sec. Dist ICA 120.8/50.8 cm/sec. Rt. ICA/CCA = 3.0. Lt. ICA/CCA = 2.0. Prox ECA 46.8/9.2 cm/sec. Prox ECA 62.1/12.7 cm/sec. Rt. Vert. 83.9/24.9 cm/sec. Lt. Vert. 51.7/18.2 cm/sec. Right Extracranial There is intimal thickening but no significant atherosclerotic plaque noted in the right common carotid artery. There is intimal thickening but no significant atherosclerotic plaque noted in the right internal carotid artery. The tortuous nature of the right internal carotid artery may result in flow velocities overestimating the degree of stenosis. There is intimal thickening but no significant atherosclerotic plaque noted in the right external carotid artery. Antegrade flow is noted in the right vertebral artery. Left Extracranial There is intimal thickening but no significant atherosclerotic plaque noted in the left common carotid artery. There is intimal thickening but no significant atherosclerotic plaque noted in the left internal carotid artery. The tortuous nature of the left internal carotid artery may result in flow velocities overestimating the degree of stenosis. There is intimal thickening but no significant atherosclerotic plaque noted in the left external carotid artery. Antegrade flow is noted in the left vertebral artery. Procedure Carotid Duplex 94565. This is a Carotid Duplex examination using B-mode, color flow and specral Doppler. The exam was diagnostic. Exam performed in department. VL/Carotid Duplex Ultrasound Interpretation Summary Normal right extracranial internal carotid. Tortuous vessel with turbulent flow. Normal left extracranial internal carotid. Tortuous vessel with turbulent flow. Patent and antegrade vertebrals bilaterally. Ordering Physician: Annabelle Roach Referring Physician: Annabelle Roach Performed By: Erick Mendez, T 12/04/24 5539 Date _ Philippe Sams MD CC: Dr. Annabelle Roach DO ~ Date Dictated: 12/04/24 1401 Date Transcribed: 12/04/24 1749 Compressor Station Engineer Chief: Signed [facility] Work Phone: Thyroidon 12-04-2024 Thyroid [facility] Imaging Services [address] [place] [address] Thyroid MR#: [id number] Acct: [id number] Name: JUSTINE RAPP Rep #: [id number] : 1960 F 64 From: Amandeep weinberg MD PCP: Dr. Annabelle Roach DO Status: REG CLI Study: Thyroid Date of Exam: 12/04/24 Exam# [id number] Ordering Dr: Annabelle Roach DO PROCEDURE: THYROID 12/04/2024 REASON FOR EXAM: THYROID NODULE TECHNIQUE: Procedure Code: USTHY Modality: US Procedure: THYROID COMPARISON: Previous examination dated 04/12/2021 FINDINGS: Right thyroid lobe size: 5 x 2.2 x 0.9 cm Left thyroid lobe size: 4.9 x 1.6 x 1.1 cm Isthmus: 0.2 cm Background parenchymal echotexture is homogeneous. Nodules: Mostly cystic spongiform like nodules present throughout both lobes the largest described below. All of the nodules throughout the gland demonstrating increased cystic component. Echogenic foci appear less prominent. 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 1. Lobe: Right, Location: Mid, Size: 1.1 x 0.9 x 0.5 cm, Stability: Increased Composition: Mixed cystic and solid (+1) Echogenicity: Hyper to Isoechoic (+1) Margin: Smooth (+0) Shape: Wider than tall (+0) Echogenic Foci: None (+0) TI-RADS: 2 2. Lobe: Right, Location: Mid, Size: 0.8 x 0.6 x 0.4 cm, Stability: Slightly increased Composition: Mixed cystic and solid (+1) Echogenicity: Hyper to Isoechoic (+1) Margin: Smooth (+0) Shape: Wider than tall (+0) Echogenic Foci: None (+0) TI-RADS: 2 3. Lobe: Left, Location: Mid, Size: 0.7 x 0.5 x 0.3 cm, Stability: Slightly increased Composition: Mixed cystic and solid (+1) Echogenicity: Hyper to Isoechoic (+1) Margin: Smooth (+0) Shape: Wider than tall (+0) Echogenic Foci: None (+0) TI-RADS: 2 US/Thyroid IMPRESSION: Bilateral complex thyroid nodules with increase in cystic components when compared to previous exam. This increase appears to be symmetrical and bilateral. The largest lesion is 1.1 cm and is located in the right midgland. 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 RECOMMENDATION: Continue ultrasound surveillance with repeat imaging in 12 months Reading Location: [id number] CC: Dr. Annabelle Roach DO Compressor Station Engineer Chief: Signed Normal [facility] Erythrocyte Sed Rateon 11-13 SED RATE < 1 Normal 0-30 [facility] Comment on above: Performed By: #### L 101.9900 #### [facility] [address] [place] [address]. [place], [address] Erythrocyte sedimentation ra teOrdered By: Annabelle Roach on 11-13-2024 ESR (Bld) [Velocity] mm/h 0-30 [facility] SARIKA SCREENING W TOMOon 05-22 SARIKA SCREENING W DANILO * * *Final Report* * * DATE OF EXAM: May 22 2024 10:42AM LDW 0582 - SARIKA SCREENING W DANILO / PROCEDURE REASON: Z12.31 Encounter for screening mammogram for malignant neoplasm of breast * * * * Physician Interpretation * * * * [address] [address] #[id number] - [facility] SCREENING W DANILO HISTORY: 63 year-old patient [...] Evangelina Vick M.D. Electronically signed on: 05/23/2024 Compressor Station Engineer Chief: JOSSUE Transcribe Date/Time: May 22 2024 10:16A Dictated by : EVANGELINA VICK MD This examination was interpreted and the report reviewed and electronically signed by: EVANGELINA VICK MD on May 23 2024 4:49PM EST [id number] Normal [facility] Basophil percentageOrdered B y: Annabelle Roach on 02-17-2023 Basophil percentage < 1.0 mg/dL 0.55-1.02 [facility] No Panel InformationOrdered By: Annabelle Roach on 02-17-2023 Bedside Estimated GFR (eGFR) > 60.0000 mL/min >[address] [facility] [address] CARDIAC SCORINGon 06-05 CT CARDIAC SCORING Patient Name: JUSTINE RAPP STUDY: CT CARDIAC SCORING; 06/29/2021 3:34 pm INDICATION: ATHEROSCLEROSIS I70.9. COMPARISON: None. ACCESSION NUMBER(S): [id number] ORDERING CLINICIAN: CHRISTINA LAWLER TECHNIQUE: Using prospective [...] link below https://[email or web address]-nhlbi .[email or web address] iskScore/RiskScore.asp x Estella et al. JACC 2015 (http://dx.doi.org/10. 1016/j.j acc.2015.08.035) Electronically signed by: MIGUEL ANGEL MENDEZ MD Normal [facility]3] LIPID PANEL (55861)Ordered B y: Leaf Coverer on 03-19-2021 Cholesterol [Mass/Vol] 228 mg/dL Abnormal 100-199 [facility]; [facility] Work Phone: Comment on above: PATIENT WAS FASTINGP ERFORMED BY: LabcoRobert Wood Johnson University HospitalDlyjbh5887 [facility] [id number] Cholesterol in HDL [Mass/Vol] 101 mg/dL Normal [facility]; [facility] Work Phone: Comment on above: PATIENT WAS FASTINGP ERFORMED BY: RAMU Labcokristen Uppnxo0[address] RoadDublin [place] [id number] Triglyceride [Mass/Vol] 53 mg/dL Normal 0-149 [facility]; [facility] Work Phone: Comment on above: PATIENT WAS FASTINGP ERFORMED BY: RAMU [facility] Hpdaua5434 [address]osa RoadDublin [place] [id number] LIPID PANEL (96257) 9 mg/dL Normal 5-40 Compr [facility]; [facility] Work Phone: Comment on above: PATIENT WAS FASTINGP ERFORMED BY: RAMU [facility] Sywvyh8754 [address] RoadDublin [place] [id number] LIPID PANEL (77995) 118 mg/dL Abnormal 0-99 Compr [facility]; [facility] Work Phone: Comment on above: PATIENT WAS FASTINGP ERFORMED BY: RAMU Labcokristen Ljiumu[address] [facility] [place] [id number] LIPID PANEL (24609) 1.2 {ratio} Normal 0.0-3.2 Comp [facility]; [facility] Work Phone: Comment on above: LDL/HDL Ratio Men Wo men 1/2 Avg.Risk 1.0 1.5 Avg.Risk 3.6 3.2 2X Avg.Risk 6.2 5.0 3X Avg.Risk 8.0 6.1 PATIENT WAS FASTINGP ERFORMED BY: RAMU [facility] T[address] [facility] [place] [id number] TSH ([id number])Ordered By: Atmaile m Carry Out Clerk on 03-19-2021 TSH Qn 0.741 {uIU/mL} Normal 0.450-4.500 [facility] Internal Medicine; [facility] Work Phone: Comment on above: PATIENT WAS FASTINGP ERFORMED BY: RAMU [facility] Ygpkvp8[address] RoadDublin [place] [id number] VITAMIN B-12 (CYANOCOBALAMIN ) (46814)Ordered By: Leaf Coverer on 03-19-2021 Cobalamin (Vitamin B12) [Mass/Vol] 328 pg/mL Normal 232-1245 [facility]; [facility] Work Phone: Comment on above: PATIENT WAS FASTINGP ERFORMED BY: RAMU Messerlin6370 [facility] [id number] CNCOon 03-09-2021 CNCO HNO ID: [id number] Author: Mammography Coordinator Service: ? Author Type: Physician Type: Letter Filed: 03/10/2021 11:36 PM Note Text: [address] [address] March 09, 2021 PID: [id number] Justine Fernandez Tamela [address] [place] [address] Dear Ms. Rapp, We are pleased to [...] report will be kept on file at [facility] as part of your permanent medical record and are available for your continuing care. Thank you for allowing us to help in meeting your health care needs. Sincerely, Dr. Webster Interpreting Radiologist [facility] (Normal over 40) Normal [facility] VITAMIN B-12 (CYANOCOBALAMIN ) (60652)Ordered By: Leaf Coverer on 11-27-2019 Cobalamin (Vitamin B12) [Mass/Vol] 656 pg/mL Normal 232-1245 [facility] Work Phone: Comment on above: do at very end of ap ril or early july; PATIENT NOT FASTINGPERFORMED BY: RAMU LylesRobert Wood Johnson University HospitalNfaawp0312 [facility] [id number] [facility] SCREENINGon 10-02-2019 SARIKA SCREENING Final Report DATE OF EXAM: Oct 02 2019 11:30AM LYNDAW 0581 - [facility] SCREENING / PROCEDURE REASON: Screening Physician Interpretation #[id number] - [facility] SCREENING BILATERAL DIGITAL SCREENING MAMMOGRAM WITH CAD: [...] mammogram, 09/04/2012 mammogram, and 03/15/2011 mammogram - [facility]. The tissue of both breasts is [...] screening mammogram is recommended. Butch miller/cris:10/02/2019 11:44:17 Labor And Delivery Registered Nurse(s): Arabella Muhammad (Olimpia)(M), [facility] letter sent: Normal over 40 Mammogram [...] Health, Family Medicine, and Medical/Surgical Oncology, the [facility] has carefully reviewed the data and reached [...] their providers when to stop screening mammograms. Compressor Station Engineer Chief: Cris Transcribe Date/Time: Oct 02 2019 11:15A Dictated by : BUTCH SHELTON MD This examination was interpreted and the report reviewed and electronically signed by: BUTCH SHELTON MD on Oct 02 2019 11:44AM EST Normal [facility] Otheron 10-02-2019 [facility] CBC W/AUTO DIFF WBC (94980)O rdered By: Leaf Coverer on 05-16-2019 Basophils (Bld) [#/Vol] 0.0 {x10E3/uL} Normal 0.0-0.2 [facility] Work Phone: Comment on above: Test(s) 814866-LJS-U ; 439318-RYC-Y; 345303-THG-E; 129904-Dxgmfvwketzhe; 723117-Aqkepyydfja, Total; 637048-VSW-A (Total);652206-Xlzgm LDL-P; 842586-GWV Size; 947432-ZM-WF Scorewas developed and its performance characteristics determinedby [employer]. It has not been cleared or approved by the Foodand Drug Administration.PATIENT WAS FASTINGPERFORMED BY: apprupt [facility] [id number] BY: Gelato Fiasco70 [facility] LoftsFirstHealth [facility] [id number] Basophils (Bld) [#/Vol] 0.0 10*3/uL Normal 0.0-0.2 [facility]; [facility] Work Phone: Comment on above: Test(s) 500274-YLC-M ; 289658-UTZ-M; 796905-WGC-E; 390293-Lsvfnsmkvjvvt; 150241-Qpesdsushfo, Total; 772210-GCI-K (Total);761999-Cjjxj LDL-P; 837678-ZBA Size; 223044-FG-KP Scorewas developed and its performance characteristics determinedby [employer]. It has not been cleared or approved by the Foodand Drug Administration.PATIENT WAS FASTINGPERFORMED BY: apprupt [facility] [id number] BY: Heverest.[email or web address] XlumenaAtrium Health Lincoln [id number] Basophils/100 WBC (Bld) 1 % Normal [facility] Work Phone: Comment on above: Test(s) 296454-EYX-H ; 142868-ZKQ-A; 265981-KVY-G; 499873-Gemhwwdkmvrpy; 485676-Fceaheplejt, Total; 608012-IGH-O (Total);357051-Gylhw LDL-P; 525481-WDP Size; 343060-LP-SP Scorewas developed and its performance characteristics determinedby [employer]. It has not been cleared or approved by the Foodand Drug Administration.PATIENT WAS FASTINGPERFORMED BY: [address] [id number] BY: [facility] HospitalUniversity of UlsterStephen Ville [id number] [facility] [id number] Eosinophils (Bld) [#/Vol] 0.2 {x10E3/uL} Normal 0.0-0.4 [facility] Work Phone: Comment on above: Test(s) 225568-QRY-Y ; 191303-WKY-M; 691295-RLQ-F; 396934-Xtdgdtkwmcooh; 907824-Eclyyzjapan, Total; 083210-JYJ-L (Total);120541-Kppcw LDL-P; 720725-IXF Size; 340703-KQ-AV Scorewas developed and its performance characteristics determinedby [employer]. It has not been cleared or approved by the Foodand Drug Administration.PATIENT WAS FASTINGPERFORMED BY: [address] [id number] BY: HelprRobert Wood Johnson University HospitalPiclox1453 [facility] [id number] Eosinophils (Bld) [#/Vol] 0.2 10*3/uL Normal 0.0-0.4 [facility]; [facility] Work Phone: Comment on above: Test(s) 657241-HTB-T ; 258704-QVV-E; 181392-SDP-L; 416669-Qtbyoislxxqzm; 507981-Mkgmenxxcaj, Total; 676861-GRA-G (Total);569735-Pccaj LDL-P; 622106-KTT Size; 312768-PG-HH Scorewas developed and its performance characteristics determinedby [employer]. It has not been cleared or approved by the Foodand Drug Administration.PATIENT WAS FASTINGPERFORMED BY: [email or web address] [address] [id number] BY: [employer] Ovgyeq1567 XlumenaAtrium Health Lincoln [id number] Eosinophils/100 WBC (Bld) 3 % Normal [facility] Work Phone: Comment on above: Test(s) 387039-OCF-F ; 792655-ELI-Z; 244853-WQV-E; 737382-Wfsbihxxjnczm; 224607-Cyevdymjjah, Total; 693489-LHV-X (Total);919456-Pdlem LDL-P; 613670-KHE Size; 406858-XE-CL Scorewas developed and its performance characteristics determinedby [employer]. It has not been cleared or approved by the Foodand Drug Administration.PATIENT WAS FASTINGPERFORMED BY: [email or web address] [address] [id number] BY: Gelato Fiasco70 XlumenaAtrium Health Lincoln [id number] Erythrocyte distribution width (RBC) [Ratio] 12.0 % Normal 11.7-15.4 [facility] Work Phone: Comment on above: Test(s) 455212-TXC-W ; 530584-KWW-R; 325317-OMG-E; 483129-Aftqjrfixmymo; 770296-Ekgokxozvhu, Total; 609167-PTL-R (Total);773442-Zisow LDL-P; 850654-JEK Size; 644809-RY-UZ Scorewas developed and its performance characteristics determinedby Lavish Skate. It has not been cleared or approved by the Foodand Drug Administration.PATIENT WAS FASTINGPERFORMED BY: BONDS.COM [address] [id number] BY: NewCondosOnlinelin6370 Sosa IFCO SystemsFirstHealth [facility] [id number] Hematocrit (Bld) [Volume fraction] 38.6 % Normal 34.0-46.6 [facility] Work Phone: Comment on above: Test(s) 086290-GZU-G ; 588763-BXP-I; 784633-MXN-E; 740376-Tdxzedvmtmwix; 571681-Jqhoxouafoh, Total; 016178-MQP-G (Total);727799-Henqf LDL-P; 307204-MUW Size; 463775-UA-IX Scorewas developed and its performance characteristics determinedby Lavish Skate. It has not been cleared or approved by the Foodand Drug Administration.PATIENT WAS FASTINGPERFORMED BY: BONDS.COM [address] [id number] BY: Lavish Skate Percqa5520 [facility] [id number] Hemoglobin (Bld) [Mass/Vol] 13.5 g/dL Normal 11.1-15.9 [facility] Work Phone: Comment on above: Test(s) 106577-BJI-E ; 834039-UAZ-N; 704551-YXP-E; 736363-Emzjztcatgnom; 114601-Fctxrrdmiws, Total; 515043-NEW-H (Total);492840-Tkylt LDL-P; 365711-MVB Size; 468654-WJ-EB Scorewas developed and its performance characteristics determinedby Lavish Skate. It has not been cleared or approved by the Foodand Drug Administration.PATIENT WAS FASTINGPERFORMED BY: BONDS.COM [address] [id number] BY: Molecule Synth Pdcilb9996 [facility] [id number] Immature granulocytes (Bld) [#/Vol] 0.0 {x10E3/uL} Normal 0.0-0.1 [facility] Work Phone: Comment on above: Test(s) 039006-WTU-Y ; 568443-SKO-P; 388250-XQP-T; 776962-Ktrnsoqqwpzkt; 505377-Otecikesoxi, Total; 956740-VIO-I (Total);597116-Twnqz LDL-P; 960840-NJY Size; 041020-IZ-YO Scorewas developed and its performance characteristics determinedby Lavish Skate. It has not been cleared or approved by the Foodand Drug Administration.PATIENT WAS FASTINGPERFORMED BY: BN LabCo[address] [id number] BY: HelprNor-Lea General HospitalQfpmqr1278 [facility] [id number] Immature granulocytes (Bld) [#/Vol] 0.0 10*3/uL Normal 0.0-0.1 [facility]; [facility] Work Phone: Comment on above: Test(s) 937496-NST-Z ; 397439-FKL-M; 131745-ILM-Z; 080115-Cuezangvusgxi; 898851-Egfkitkcnre, Total; 474517-AGO-F (Total);559567-Zcdlr LDL-P; 586203-CMO Size; 884626-PP-PX Scorewas developed and its performance characteristics determinedby Lavish Skate. It has not been cleared or approved by the Foodand Drug Administration.PATIENT WAS FASTINGPERFORMED BY: BONDS.COM [address] [id number] BY: Heverest.ru6370 [facility] [id number] Immature granulocytes/100 WBC (Bld) 0 % Normal [facility] Work Phone: Comment on above: Test(s) 869455-GHP-Z ; 286142-MMB-T; 565537-NJL-S; 721357-Tibsmqaotzjxc; 334492-Hffchwnnuce, Total; 269628-GXL-B (Total);312384-Kvtgn LDL-P; 912592-ZQH Size; 662550-LA-RF Scorewas developed and its performance characteristics determinedby Lavish Skate. It has not been cleared or approved by the Foodand Drug Administration.PATIENT WAS FASTINGPERFORMED BY: Helpr[address] [id number] BY: Jun GroupRobert Wood Johnson University HospitalCulbaf7105 [facility] [id number] Lymphocytes (Bld) [#/Vol] 1.2 {x10E3/uL} Normal 0.7-3.1 [facility] Work Phone: Comment on above: Test(s) 237598-MZU-B ; 437576-ITL-W; 530325-BGR-E; 365283-Eeauqzpozqxns; 489634-Ytgvbolhcuu, Total; 512884-JAB-Y (Total);444012-Wwtir LDL-P; 741820-PDT Size; 782590-CD-RG Scorewas developed and its performance characteristics determinedby Lavish Skate. It has not been cleared or approved by the Foodand Drug Administration.PATIENT WAS FASTINGPERFORMED BY: BONDS.COM [address] [id number] BY: Molecule Synth Nujdte2034 [facility] [id number] Lymphocytes (Bld) [#/Vol] 1.2 10*3/uL Normal 0.7-3.1 [facility]; [facility] Work Phone: Comment on above: Test(s) 174583-FYG-O ; 723395-QAV-L; 344883-FRN-C; 352800-Mpxenczjajctm; 419409-Lpaowstlnlc, Total; 223451-AHT-T (Total);993887-Gndjx LDL-P; 237499-MKD Size; 740089-JT-NI Scorewas developed and its performance characteristics determinedby Lavish Skate. It has not been cleared or approved by the Foodand Drug Administration.PATIENT WAS FASTINGPERFORMED BY: BONDS.COM [address] [id number] BY: Heverest.ru6370 [facility] [id number] Lymphocytes/100 WBC (Bld) 27 % Normal [facility] Work Phone: Comment on above: Test(s) 734493-RTE-X ; 031644-GPG-L; 839007-LIR-D; 923384-Pffkksntoagxw; 718131-Ccekdsislpq, Total; 912082-GIX-F (Total);987019-Ignpv LDL-P; 853438-JFH Size; 344664-HI-GW Scorewas developed and its performance characteristics determinedby Lavish Skate. It has not been cleared or approved by the Foodand Drug Administration.PATIENT WAS FASTINGPERFORMED BY: BONDS.COM Yccngpbsrn0295 [facility] [id number] BY: Jun Group Pfcbyz1017 [facility] [id number] MCH (RBC) [Entitic mass] 35.2 pg Abnormal 26.6-33.0 [facility] Internal Medicine Work Phone: Comment on above: Test(s) 101652-LGK-K ; 769134-CMC-F; 132976-TEJ-C; 415716-Ccuqddmrnlnpu; 955324-Bsdvapmejkl, Total; 342180-XXF-F (Total);946560-Ixxld LDL-P; 596386-JEC Size; 347244-BA-IQ Scorewas developed and its performance characteristics determinedby Lavish Skate. It has not been cleared or approved by the Foodand Drug Administration.PATIENT WAS FASTINGPERFORMED BY: Legal River[address] [id number] BY: Gelato Fiasco70 [facility] HospitalGridAntsAtrium Health Lincoln [id number] MCHC (RBC) [Mass/Vol] 35.0 g/dL Normal 31.5-35.7 [facility] Work Phone: Comment on above: Test(s) 444012-GPA-O ; 606647-LOY-Z; 408886-RTS-Z; 238739-Uhauoxknkuunz; 305475-Ciujbpytaxh, Total; 353347-WKY-N (Total);616929-Jnwwk LDL-P; 177600-DET Size; 923341-RG-DN Scorewas developed and its performance characteristics determinedby Lavish Skate. It has not been cleared or approved by the Foodand Drug Administration.PATIENT WAS FASTINGPERFORMED BY: BONDS.COM [address] [id number] BY: NewCondosOnlinelin6370 [facility] [id number] MCV (RBC) [Entitic vol] 101 fL Abnormal 79-97 [facility] Internal Medicine Work Phone: Comment on above: Test(s) 849485-CQH-X ; 042533-FYW-W; 962159-BMW-A; 163205-Ucypryimddogq; 398330-Wsfbwklnpjk, Total; 860196-DCV-H (Total);158774-Hkpos LDL-P; 179775-YAU Size; 857239-SA-ZN Scorewas developed and its performance characteristics determinedby Lavish Skate. It has not been cleared or approved by the Foodand Drug Administration.PATIENT WAS FASTINGPERFORMED BY: Lavish Skate [address] [id number] BY: Lavish Skate Eusdbe6620 [facility] [id number] Monocytes (Bld) [#/Vol] 0.5 {x10E3/uL} Normal 0.1-0.9 [facility] Work Phone: Comment on above: Test(s) 384720-FSK-S ; 043575-EQL-M; 137773-MPB-I; 036540-Qrerjkzzvgwzi; 535637-Exskzbdfrxg, Total; 430749-DOS-D (Total);796630-Ouxrq LDL-P; 996081-IFP Size; 601085-YE-JD Scorewas developed and its performance characteristics determinedby Lavish Skate. It has not been cleared or approved by the Foodand Drug Administration.PATIENT WAS FASTINGPERFORMED BY: Lavish Skate [address] [id number] BY: Lavish Skate Esmakx2793 [facility] [id number] Monocytes (Bld) [#/Vol] 0.5 10*3/uL Normal 0.1-0.9 [facility]; [facility] Work Phone: Comment on above: Test(s) 472388-PAC-T ; 644408-ZNR-B; 750075-VAV-Y; 505306-Iysclsapxhxmp; 919086-Uyionupgfeh, Total; 114794-PRB-O (Total);897293-Cwnzy LDL-P; 499692-BQD Size; 382847-LR-LU Scorewas developed and its performance characteristics determinedby Lavish Skate. It has not been cleared or approved by the Foodand Drug Administration.PATIENT WAS FASTINGPERFORMED BY: BONDS.COM [address] [id number] BY: Jun Group Vgvpum4789 XlumenaAtrium Health Lincoln [id number] Monocytes/100 WBC (Bld) 10 % Normal [facility] Work Phone: Comment on above: Test(s) 995291-PWV-Z ; 329612-MRA-K; 600902-MOF-T; 917324-Rgryhjckfjgsk; 645294-Dggtvigufjv, Total; 506410-GQF-P (Total);666945-Kumca LDL-P; 592587-PJF Size; 301750-QF-BQ Scorewas developed and its performance characteristics determinedby Lavish Skate. It has not been cleared or approved by the Foodand Drug Administration.PATIENT WAS FASTINGPERFORMED BY: BONDS.COM [address] [id number] BY: Gelato Fiasco70 Sosa OCZ TechnologyAtrium Health Lincoln [id number] Neutrophils (Bld) [#/Vol] 2.6 {x10E3/uL} Normal 1.4-7.0 [facility] Work Phone: Comment on above: Test(s) 192234-TMK-L ; 028578-OOH-Y; 340642-IZH-Z; 343852-Umlaquavnwtmk; 452957-Onyethhewpf, Total; 769375-DKK-R (Total);488173-Ztugx LDL-P; 626987-JYI Size; 350899-KW-RD Scorewas developed and its performance characteristics determinedby Lavish Skate. It has not been cleared or approved by the Foodand Drug Administration.PATIENT WAS FASTINGPERFORMED BY: BONDS.COM [address] [id number] BY: Jun Group Ethpxo7342 [facility] [id number] Neutrophils (Bld) [#/Vol] 2.6 10*3/uL Normal 1.4-7.0 [facility]; [facility] Work Phone: Comment on above: Test(s) 008031-NPG-Q ; 361471-CYA-S; 520887-PFP-U; 050852-Hqursjzayfjlz; 273778-Fizqltttkjh, Total; 054608-SLN-O (Total);448968-Mfugg LDL-P; 728556-QZP Size; 189760-AA-XE Scorewas developed and its performance characteristics determinedby Lavish Skate. It has not been cleared or approved by the Foodand Drug Administration.PATIENT WAS FASTINGPERFORMED BY: BONDS.COM [address] [id number] BY: Gelato Fiasco70 [facility] [id number] Neutrophils/100 WBC (Bld) 59 % Normal [facility] Work Phone: Comment on above: Test(s) 256195-VZW-T ; 514518-VYZ-F; 650500-RFN-W; 935877-Kghkmcwvmellk; 986329-Rtqicfkxqkg, Total; 210483-IYJ-D (Total);165342-Kbbfg LDL-P; 485900-EDO Size; 775007-OD-CI Scorewas developed and its performance characteristics determinedby Lavish Skate. It has not been cleared or approved by the Foodand Drug Administration.PATIENT WAS FASTINGPERFORMED BY: BONDS.COM [address] [id number] BY: Heverest.ru6370 [facility] [id number] Platelets (Bld) [#/Vol] 240 {x10E3/uL} Normal 150-450 [facility] Work Phone: Comment on above: Test(s) 236737-STF-D ; 727467-QFL-Y; 045303-MBV-K; 604411-Yeuohwsiooeqg; 794629-Auofgvwdcrf, Total; 550574-GRK-F (Total);471494-Jhulj LDL-P; 653144-MKF Size; 398570-CJ-FL Scorewas developed and its performance characteristics determinedby Lavish Skate. It has not been cleared or approved by the Foodand Drug Administration.PATIENT WAS FASTINGPERFORMED BY: BONDS.COM [address] [id number] BY: Molecule Synth Wxeuff3383 Sosa [facility] [id number] Platelets (Bld) [#/Vol] 240 10*3/uL Normal 150-450 [facility]; [facility] Internal Medicine Work Phone: Comment on above: Test(s) 060711-WCE-R ; 532333-JGH-G; 362822-NDH-P; 636323-Igtyskczeawcd; 925266-Gtlcqcavtln, Total; 738463-ZZA-X (Total);566262-Nbmqq LDL-P; 745874-VQP Size; 704376-SR-LY Scorewas developed and its performance characteristics determinedby Lavish Skate. It has not been cleared or approved by the Foodand Drug Administration.PATIENT WAS FASTINGPERFORMED BY: BONDS.COM [address] [id number] BY: Molecule Synth Osphgd2836 [facility] [id number] RBC (Bld) [#/Vol] 3.84 {x10E6/uL} Normal 3.77-5.28 [facility] Internal [facility] Work Phone: Comment on above: Test(s) 990082-ARA-S ; 773901-ADA-M; 457536-IBQ-U; 382603-Byepoqwpnpzpe; 056158-Koyfrrwbiev, Total; 968135-HJU-I (Total);374227-Zaozf LDL-P; 510722-JLY Size; 789156-MU-GI Scorewas developed and its performance characteristics determinedby Lavish Skate. It has not been cleared or approved by the Foodand Drug Administration.PATIENT WAS FASTINGPERFORMED BY: BONDS.COM [address] [id number] BY: Molecule Synth Tfpyiz4972 [facility] [id number] RBC (Bld) [#/Vol] 3.84 10*6/uL Normal 3.77-5.28 [facility] Internal Medicine; [facility] Internal Medicine Work Phone: Comment on above: Test(s) 537760-FIP-K ; 489189-ZZU-B; 072938-HZV-D; 341131-Imazesfovdlah; 842145-Baxdgrodgth, Total; 014612-ZNA-R (Total);441228-Fuuvm LDL-P; 274172-JRJ Size; 429452-GJ-CZ Scorewas developed and its performance characteristics determinedby Lavish Skate. It has not been cleared or approved by the Foodand Drug Administration.PATIENT WAS FASTINGPERFORMED BY: BONDS.COM [address] [id number] BY: Heverest.ru6370 [facility] [id number] WBC (Bld) [#/Vol] 4.5 {x10E3/uL} Normal 3.4-10.8 [facility] Work Phone: Comment on above: Test(s) 088687-AEA-V ; 961554-EAG-K; 863222-HPU-O; 763625-Htmfgiaqbifuw; 013927-Vrgnfqgqrpw, Total; 512255-BMR-Z (Total);680353-Ycrdw LDL-P; 389988-ULV Size; 313926-BV-XL Scorewas developed and its performance characteristics determinedby Lavish Skate. It has not been cleared or approved by the Foodand Drug Administration.PATIENT WAS FASTINGPERFORMED BY: BONDS.COM [address] [id number] BY: Molecule Synth Saykzz4864 [facility] [id number] WBC (Bld) [#/Vol] 4.5 10*3/uL Normal 3.4-10.8 [facility] Internal Medicine; [facility] Work Phone: Comment on above: Test(s) 264222-DVX-L ; 259650-CQA-J; 099147-QSP-P; 492842-Oztqvapfmdsdr; 176555-Gscdxbobodu, Total; 651941-USE-F (Total);587110-Igtvi LDL-P; 969327-XVP Size; 859827-NG-IO Scorewas developed and its performance characteristics determinedby Lavish Skate. It has not been cleared or approved by the Foodand Drug Administration.PATIENT WAS FASTINGPERFORMED BY: BONDS.COM [address] [id number] BY: AdviceScene Enterprises6370 [facility] [id number] METABOLIC PANEL, COMPREHENSI VE (94118)Ordered By: Leaf Coverer on 05-16-2019 Albumin [Mass/Vol] 4.6 g/dL Normal 3.8-4.9 [facility] Internal Medicine Work Phone: Comment on above: Test(s) 627910-IRJ-T ; 208366-QZL-B; 065236-LPV-X; 604907-Nfryycgrxmbuw; 594159-Zrqfgtueybg, Total; 437365-JTJ-L (Total);082060-Eckke LDL-P; 099170-LEN Size; 239872-YE-UM Scorewas developed and its performance characteristics determinedby Lavish Skate. It has not been cleared or approved by the Foodand Drug Administration.PATIENT WAS FASTINGPERFORMED BY: BONDS.COM [address] [id number] BY: Heverest.ru6370 [facility] [id number] Albumin/Globulin [Mass ratio] 2.0 {ratio} Normal 1.2-2.2 [facility] Internal Medicine Work Phone: Comment on above: Test(s) 802566-IEB-U ; 808175-FER-Z; 455918-LKM-S; 342873-Iysaprbyhowoo; 406247-Hubjkyjzmsn, Total; 706710-QFQ-I (Total);004268-Imwfb LDL-P; 008637-JOJ Size; 487181-ZS-UE Scorewas developed and its performance characteristics determinedby Lavish Skate. It has not been cleared or approved by the Foodand Drug Administration.PATIENT WAS FASTINGPERFORMED BY: BONDS.COM [address] [id number] BY: Molecule Synth Nybcvs9566 [facility] [id number] ALP [Catalytic activity/Vol] 77 [iU]/L Normal 39-117 [facility] Work Phone: Comment on above: Test(s) 372044-UKK-G ; 749768-VWA-Y; 542847-NVU-S; 047419-Whtworbdondgr; 467097-Puovwunkfwl, Total; 040179-TLF-Y (Total);484831-Ydvfn LDL-P; 611209-EWC Size; 442289-AQ-XC Scorewas developed and its performance characteristics determinedby Lavish Skate. It has not been cleared or approved by the Foodand Drug Administration.PATIENT WAS FASTINGPERFORMED BY: Legal River[address] [id number] BY: Gelato Fiasco70 [facility] [id number] ALP [Catalytic activity/Vol] 77 U/L Normal 39-117 [facility] Internal Medicine; [facility] Work Phone: Comment on above: Test(s) 814231-KEA-V ; 393182-MRK-Y; 289230-MRA-J; 586469-Ogarhnalvwkyn; 608959-Nsikdcncfxf, Total; 547031-UFU-Y (Total);139687-Vdnci LDL-P; 658191-HPD Size; 018863-RD-NH Scorewas developed and its performance characteristics determinedby Lavish Skate. It has not been cleared or approved by the Foodand Drug Administration.PATIENT WAS FASTINGPERFORMED BY: Legal River[address] [id number] BY: Heverest.ru6370 [facility] [id number] ALT [Catalytic activity/Vol] 11 [iU]/L Normal 0-32 [facility] Work Phone: Comment on above: Test(s) 089106-BRY-C ; 688157-EZW-M; 153519-JCM-T; 250471-Mrtcowlocclro; 780592-Emldvnfwsnh, Total; 402734-XEA-N (Total);867357-Yckmt LDL-P; 282889-ALQ Size; 301190-OW-IV Scorewas developed and its performance characteristics determinedby Lavish Skate. It has not been cleared or approved by the Foodand Drug Administration.PATIENT WAS FASTINGPERFORMED BY: Helpr[address] [id number] BY: HelprRobert Wood Johnson University HospitalKcsqff8315 [facility] [id number] ALT [Catalytic activity/Vol] 11 U/L Normal 0-32 [facility]; [facility] Work Phone: Comment on above: Test(s) 354901-RUE-N ; 845712-QCZ-C; 968309-HKD-W; 870783-Sehcccwjskcih; 753197-Khfxhtrdvit, Total; 973155-SCO-Q (Total);198128-Uixar LDL-P; 283851-WPO Size; 503766-XQ-XG Scorewas developed and its performance characteristics determinedby Lavish Skate. It has not been cleared or approved by the Foodand Drug Administration.PATIENT WAS FASTINGPERFORMED BY: Lavish Skate [address] [id number] BY: HelprNor-Lea General HospitalYxrudf0204 [facility] [id number] AST [Catalytic activity/Vol] 19 [iU]/L Normal 0-40 [facility] Internal Medicine Work Phone: Comment on above: Test(s) 126700-QEY-S ; 709210-YTL-B; 629972-UKC-T; 547985-Jqoasfwzkyehr; 036882-Dcothhotqak, Total; 507458-XAX-E (Total);748887-Svntk LDL-P; 703024-DLV Size; 521325-WJ-YP Scorewas developed and its performance characteristics determinedby Lavish Skate. It has not been cleared or approved by the Foodand Drug Administration.PATIENT WAS FASTINGPERFORMED BY: Helpr[address] [id number] BY: HelprRobert Wood Johnson University HospitalBucdfp4039 [facility] [id number] AST [Catalytic activity/Vol] 19 U/L Normal 0-40 [facility]; [facility] Work Phone: Comment on above: Test(s) 638402-WJF-G ; 330419-DJI-M; 063548-NWS-W; 602955-Orkljvmcopyrn; 245452-Gbjpdfxxhgk, Total; 215587-ITJ-U (Total);902302-Nyhmd LDL-P; 653017-GTI Size; 468543-KW-FG Scorewas developed and its performance characteristics determinedby Lavish Skate. It has not been cleared or approved by the Foodand Drug Administration.PATIENT WAS FASTINGPERFORMED BY: BONDS.COM [address] [id number] BY: Gelato Fiasco70 [facility] [id number] Bilirubin [Mass/Vol] 0.6 mg/dL Normal 0.0-1.2 [facility] Internal Medicine Work Phone: Comment on above: Test(s) 516096-QZK-E ; 854212-ITK-I; 576643-QJF-G; 010881-Kbqktsfvdpdjw; 376777-Ifglzmntoli, Total; 378808-GWV-K (Total);527641-Hvmzr LDL-P; 056531-XWZ Size; 106249-IM-OP Scorewas developed and its performance characteristics determinedby Lavish Skate. It has not been cleared or approved by the Foodand Drug Administration.PATIENT WAS FASTINGPERFORMED BY: Lavish Skate [address] [id number] BY: Lavish Skate Qrwgag6800 [facility] [id number] Calcium [Mass/Vol] 9.5 mg/dL Normal 8.7-10.2 [facility] Internal Medicine Work Phone: Comment on above: Test(s) 654569-DFV-I ; 433992-IVP-L; 868558-XAI-O; 649457-Nfpvhbswaxeip; 364400-Gamkxcelldc, Total; 707839-ZYZ-O (Total);388456-Vuhcp LDL-P; 435629-YMY Size; 987692-WI-PZ Scorewas developed and its performance characteristics determinedby Lavish Skate. It has not been cleared or approved by the Foodand Drug Administration.PATIENT WAS FASTINGPERFORMED BY: Legal River[address] [id number] BY: Helpr Zdgtnh6735 [facility] [id number] Chloride [Moles/Vol] 103 mmol/L Normal 96-106 [facility] Work Phone: Comment on above: Test(s) 773956-PNN-F ; 555352-ZFW-S; 718950-SJK-P; 153178-Lsjlsirmopjnm; 249425-Knfopoqtmdu, Total; 281611-NUF-I (Total);177944-Ygoei LDL-P; 776307-PFC Size; 809399-VF-WH Scorewas developed and its performance characteristics determinedby Lavish Skate. It has not been cleared or approved by the Foodand Drug Administration.PATIENT WAS FASTINGPERFORMED BY: Legal River[address] [id number] BY: Heverest.ru6370 [facility] [id number] CO2 [Moles/Vol] 24 mmol/L Normal 20-29 [facility] Internal Medicine Work Phone: Comment on above: Test(s) 944786-LWR-U ; 199527-STI-B; 861527-WUT-O; 315391-Elebazsyoxuhi; 587993-Tfuoahqqtbh, Total; 537837-LUB-L (Total);732812-Tebel LDL-P; 912122-CDS Size; 857725-VY-ID Scorewas developed and its performance characteristics determinedby Lavish Skate. It has not been cleared or approved by the Foodand Drug Administration.PATIENT WAS FASTINGPERFORMED BY: BONDS.COM [address] [id number] BY: NewCondosOnlinelin6370 [facility] [id number] Creatinine [Mass/Vol] 0.70 mg/dL Normal 0.57-1.00 [facility] Work Phone: Comment on above: Test(s) 214393-VMC-L ; 229163-RKP-M; 287533-NAF-E; 812556-Hrzpfforhpiwl; 170633-Nubnqvienoj, Total; 540724-SOW-X (Total);937668-Hgmkn LDL-P; 502245-RZJ Size; 533683-MA-OP Scorewas developed and its performance characteristics determinedby Lavish Skate. It has not been cleared or approved by the Foodand Drug Administration.PATIENT WAS FASTINGPERFORMED BY: BONDS.COM [address] [id number] BY: Lavish Skate Kbvjzy8871 [facility] [id number] GFR/1.73 sq M predicted among blacks CKD-EPI (S/P/Bld) [Vol rate/Area] 111 mL/min/1.73 Normal [facility] Work Phone: Comment on above: Test(s) 316942-TXB-Z ; 865554-YYJ-V; 266612-ZCE-O; 021769-Becgfpzmeytxp; 331822-Bkfclrjvegx, Total; 918843-YCA-B (Total);140168-Hnrxo LDL-P; 753656-DEW Size; 250107-NF-KF Scorewas developed and its performance characteristics determinedby Lavish Skate. It has not been cleared or approved by the Foodand Drug Administration.PATIENT WAS FASTINGPERFORMED BY: Lavish Skate [address] [id number] BY: Lavish Skate Ublfpn4004 [facility] [id number] GFR/1.73 sq M predicted among non-blacks CKD-EPI (S/P/Bld) [Vol rate/Area] 96 mL/min/1.73 Normal [facility] Work Phone: Comment on above: Test(s) 640108-CXO-Z ; 534502-TBE-B; 652855-JAK-V; 637372-Xfyudhwecvatn; 444777-Jalrydsjgfm, Total; 182023-LWI-U (Total);791647-Nymqh LDL-P; 627381-KQM Size; 984735-LH-UG Scorewas developed and its performance characteristics determinedby [employer]ish [employer]. It has not been cleared or approved by the Foodand Drug Administration.PATIENT WAS FASTINGPERFORMED BY: [email or web address] [address] [id number] BY: Helpr Setrgy4482 [facility] [id number] Globulin (S) [Mass/Vol] 2.3 g/dL Normal 1.5-4.5 [facility] Internal Medicine Work Phone: Comment on above: Test(s) 856896-DVB-B ; 225132-WRX-W; 949243-HAX-S; 238652-Uesiswgfuheuo; 046711-Pefeznptqnu, Total; 596699-CLJ-B (Total);009819-Siyla LDL-P; 786582-NYO Size; 057035-DJ-BF Scorewas developed and its performance characteristics determinedby [employer]. It has not been cleared or approved by the Foodand Drug Administration.PATIENT WAS FASTINGPERFORMED BY: Legal River[address] [id number] BY: [employer]6370 [facility] [id number] Glucose [Mass/Vol] 87 mg/dL Normal 65-99 [facility] Internal Medicine Work Phone: Comment on above: Test(s) 680836-MPG-E ; 805061-WED-P; 800820-UMW-P; 512462-Jwfgcxgvjvswz; 942194-Oepzifoxdqy, Total; 265577-DRZ-Q (Total);648604-Cqhuu LDL-P; 304767-FPU Size; 840899-QE-ZF Scorewas developed and its performance characteristics determinedby [employer]. It has not been cleared or approved by the Foodand Drug Administration.PATIENT WAS FASTINGPERFORMED BY: [email or web address] [address] [id number] BY: [employer]6370 [facility] [id number] Potassium [Moles/Vol] 4.5 mmol/L Normal 3.5-5.2 [facility] Work Phone: Comment on above: Test(s) 452139-LND-H ; 695942-GWD-Q; 365835-KPU-E; 002230-Tgczxvaqwhmcp; 231784-Prckdhdfxrk, Total; 552716-NWU-C (Total);454634-Oubog LDL-P; 168791-DIR Size; 799930-TI-HG Scorewas developed and its performance characteristics determinedby [employer]. It has not been cleared or approved by the Foodand Drug Administration.PATIENT WAS FASTINGPERFORMED BY: [email or web address] [address] [id number] BY: Gelato Fiasco70 [facility]At[facility] [id number] Protein [Mass/Vol] 6.9 g/dL Normal 6.0-8.5 [facility] Internal Medicine Work Phone: Comment on above: Test(s) 042885-KCG-H ; 870306-OFZ-S; 063416-FIX-G; 257879-Pxtvpsnffsqlp; 072766-Gztdisfesui, Total; 941664-LYM-I (Total);077305-Orjgw LDL-P; 945493-RXE Size; 753533-ZY-NS Scorewas developed and its performance characteristics determinedby [employer]. It has not been cleared or approved by the Foodand Drug Administration.PATIENT WAS FASTINGPERFORMED BY: [email or web address] [address] [id number] BY: Heverest.ru6370 [facility]enaAtrium [facility] [id number] Sodium [Moles/Vol] 142 mmol/L Normal 134-144 [facility] Internal Medicine Work Phone: Comment on above: Test(s) 434763-EHF-D ; 131097-GRP-H; 720042-ZQQ-I; 331786-Uakxbhxmiaijg; 168624-Wmztfihsykw, Total; 457428-VNI-J (Total);543836-Wyalh LDL-P; 459875-EOG Size; 104610-UO-SQ Scorewas developed and its performance characteristics determinedby [employer]. It has not been cleared or approved by the Foodand Drug Administration.PATIENT WAS FASTINGPERFORMED BY: [email or web address] [address] [id number] BY: HelprNor-Lea General HospitalUvmrms1479 [facility] [id number] Urea nitrogen [Mass/Vol] 13 mg/dL Normal 6-24 [facility] Work Phone: Comment on above: Test(s) 770393-BGW-V ; 221658-KCN-E; 985207-CAR-B; 123315-Bustsmzxmronx; 443530-Huivcclngvp, Total; 262420-WCR-S (Total);243091-Suipl LDL-P; 534045-NIC Size; 047153-II-RJ Scorewas developed and its performance characteristics determinedby [employer]. It has not been cleared or approved by the Foodand Drug Administration.PATIENT WAS FASTINGPERFORMED BY: [email or web address] [address] [id number] BY: HelprNor-Lea General HospitalUmnyuz7857 [facility] [id number] Urea nitrogen/Creatinine [Mass ratio] 19 mg/mg Normal 9-23 [facility] Work Phone: Comment on above: Test(s) 999390-VWC-Q ; 181391-CQL-Y; 377766-SBY-J; 797406-Yfzdchvnoplck; 985364-Ylvorgjktzp, Total; 023104-XNS-F (Total);524418-Izadf LDL-P; 642417-ZUQ Size; 212077-CT-SP Scorewas developed and its performance characteristics determinedby [employer]. It has not been cleared or approved by the Foodand Drug Administration.PATIENT WAS FASTINGPERFORMED BY: [email or web address] [address] [id number] BY: HelprRobert Wood Johnson University HospitalKdymnj8440 [facility] [id number] NMR Profile (12358)Ordered B y: Leaf Coverer on 05-16-2019 Cholesterol [Mass/Vol] 224 mg/dL Abnormal 100-199 [facility] Work Phone: Comment on above: Test(s) 163019-RMW-V ; 105484-AQS-Q; 227605-TDW-P; 514567-Ejgvnsfzerpii; 454908-Fszrfospkrq, Total; 394237-NFA-M (Total);058516-Lfamz LDL-P; 555869-UNS Size; 415091-LQ-CX Scorewas developed and its performance characteristics determinedby [employer]. It has not been cleared or approved by the Foodand Drug Administration.PATIENT WAS FASTINGPERFORMED BY: [email or web address] [address] [id number] BY: Gelato Fiasco70 [facility] LoftsFirst[facility] [id number] Lipoprotein.alpha [Moles/Vol] 37.5 umol/L Normal [facility] Work Phone: Comment on above: Test(s) 465499-ZHA-E ; 279343-JLH-R; 548801-IZG-H; 851855-Vjtlleffklsuj; 659238-Saomqmcqrdk, Total; 423812-ZKQ-W (Total);260633-Mmaht LDL-P; 135290-OZC Size; 896707-OF-CJ Scorewas developed and its performance characteristics determinedby [employer]. It has not been cleared or approved by the Foodand Drug Administration.PATIENT WAS FASTINGPERFORMED BY: [email or web address] [address] [id number] BY: Gelato Fiasco70 [facility]osaL[facility] [id number] Lipoprotein.beta.subp article [Entitic length] 21.4 nm Normal [...] not afterLDL-P is taken into account. Test(s) 838152-KYU-W ; 013769-PVN-A; 978444-FPT-Q; 222026-Sxzarrcpeuiht; 275392-Ztqiaanoojy, Total; 983570-DMK-E (Total);012161-Ybput LDL-P; 490363-LZM Size; 464051-HK-KE Scorewas developed and its performance characteristics determinedby [employer]. It has not been cleared or approved by the Foodand Drug Administration.PATIENT WAS FASTINGPERFORMED BY: [email or web address] [address] [id number] BY: Lavish Skate Zykudf9620 [facility] [id number] Lipoprotein.beta.subp article [Moles/Vol] 1099 nmol/L Abnormal Comprehensiv e Internal Medicine Work Phone: Comment on above: Low < 1000 Moderate 1000 - 1299 Borderline-High 1300 - 1599 High 1600 - 2000 Very High > 2000 Test(s) 918050-TIU-L ; 380500-DGV-L; 375696-SMC-N; 532891-Xlohesloeylsa; 710455-Wjnypxezzmw, Total; 141076-DIU-F (Total);425315-Oplyo LDL-P; 174068-MON Size; 377820-ER-MF Scorewas developed and its performance characteristics determinedby [employer]ish [employer]. It has not been cleared or approved by the Foodand Drug Administration.PATIENT WAS FASTINGPERFORMED BY: [email or web address] [address] [id number] BY: Heverest.ru6370 [facility] [id number] Lipoprotein.beta.subp article.small [Moles/Vol] <90 Normal [facility] Work Phone: Comment on above: Test(s) 467702-JHM-F ; 152969-UJE-M; 261904-CAW-N; 054685-Mrjlbtdgiccxk; 086346-Hnufzjlnjlo, Total; 591614-MFR-W (Total);287322-Aqfac LDL-P; 336855-MVU Size; 508523-PZ-HO Scorewas developed and its performance characteristics determinedby [employer]. It has not been cleared or approved by the Foodand Drug Administration.PATIENT WAS FASTINGPERFORMED BY: Legal River[address] [id number] BY: Heverest.ru6370 [facility] [id number] Triglyceride [Mass/Vol] 62 mg/dL Normal 0-149 [facility] Work Phone: Comment on above: Test(s) 503159-ALL-S ; 345875-RQZ-N; 080928-PLR-D; 066298-Khucmgkjknodg; 833120-Pqmqpqoiuih, Total; 144005-LSL-S (Total);548872-Asxku LDL-P; 509467-INQ Size; 197061-PH-LE Scorewas developed and its performance characteristics determinedby Lavish Skate. It has not been cleared or approved by the Foodand Drug Administration.PATIENT WAS FASTINGPERFORMED BY: [email or web address] [address] [id number] BY: NewCondosOnlinelin6370 [facility] [id number] NMR Profile (35170) 93 mg/dL Normal [facility] Internal Medicine Work Phone: Comment on above: Test(s) 904314-VDA-K ; 627432-BMC-H; 637580-TQO-I; 169913-Qjcxketbnqmrt; 613264-Zsiaafjjyua, Total; 144617-KAZ-P (Total);589031-Zpqwl LDL-P; 289067-DYJ Size; 451282-NO-AJ Scorewas developed and its performance characteristics determinedby [employer]ish Sk[employer]. It has not been cleared or approved by the Foodand Drug Administration.PATIENT WAS FASTINGPERFORMED BY: Helpr[address] [id number] BY: HelprRobert Wood Johnson University HospitalAvpepb9933 [facility] [id number] NMR Profile (80269) 119 mg/dL Abnormal 0-99 [facility] Internal Medicine Work Phone: Comment on above: . Optimal < 100 Abov e optimal 100 - 129 Borderline 130 - 159 High 160 - 189 Very high > 189 .LDL-C is inaccurate if patient is non-fasting. Test(s) 327816-RIM-T ; 948455-YXD-A; 346968-PNG-V; 193490-Qyvwrdzwoowga; 389084-Qecrqkdlpqp, Total; 352126-BNP-Y (Total);198205-Ogumy LDL-P; 887775-SGU Size; 627888-CT-CF Scorewas developed and its performance characteristics determinedby Lavish Skate. It has not been cleared or approved by the Foodand Drug Administration.PATIENT WAS FASTINGPERFORMED BY: [email or web address] [address] [id number] BY: HelprRobert Wood Johnson University HospitalEkreft9802 [facility] [id number] T3, FREE (TRIDOTHYRONINE) (8 8351)Ordered By: Leaf Coverer on 05-16-2019 Free T3 [Mass/Vol] 2.7 pg/mL Normal 2.0-4.4 [facility] Internal Medicine Work Phone: Comment on above: Test(s) 583854-ZWM-O ; 901540-GTR-C; 752162-SSC-U; 421506-Jogueqbecwuaz; 882574-Jjetwvatqds, Total; 624937-FKE-J (Total);695721-Xhkjc LDL-P; 408096-KMJ Size; 031422-ON-QD Scorewas developed and its performance characteristics determinedby Lavish Skate. It has not been cleared or approved by the Foodand Drug Administration.PATIENT WAS FASTINGPERFORMED BY: Legal River[address] [id number] BY: Gelato Fiasco70 XlumenaAtrium Health [facility] [id number] T4, FREE (THYROXINE) (21940) Ordered By: Leaf Coverer on 05-16-2019 Free T4 [Mass/Vol] 0.91 ng/dL Normal 0.82-1.77 [facility] Internal Medicine Work Phone: Comment on above: Test(s) 086890-JKY-L ; 263307-QWN-C; 629580-BRM-U; 397061-Nldpzashbbmej; 787147-Cbobwatxzlm, Total; 799303-ALC-T (Total);382565-Gpkdz LDL-P; 835989-LDS Size; 044425-SV-UU Scorewas developed and its performance characteristics determinedby [employer]ish Skate. It has not been cleared or approved by the Foodand Drug Administration.PATIENT WAS FASTINGPERFORMED BY: Legal River[address] [id number] BY: Gelato Fiasco70 XlumenaAtrium Health [facility] [id number] TSH (43745)Ordered By: Collaborate Cloud Carry Out Clerk on 05-16-2019 TSH Qn 0.875 {uIU/mL} Normal 0.450-4.500 [facility] Internal Medicine Work Phone: Comment on above: Test(s) 536299-ADN-B ; 352930-NXH-A; 734882-JQM-Z; 769004-Ziozaqeshquyj; 207242-Elxrbgxuyrj, Total; 187625-LBS-G (Total);918820-Paqnt LDL-P; 908854-ROB Size; 171492-BA-LR Scorewas developed and its performance characteristics determinedby [employer]ish Skate. It has not been cleared or approved by the Foodand Drug Administration.PATIENT WAS FASTINGPERFORMED BY: [email or web address] [address] [id number] BY: Gelato Fiasco70 [address] OCZ TechnologyAtrium Health [facility] [id number] C-REACTIVE PROTEIN (70973)Or dered By: Leaf Coverer on 04-18-2016 CRP [Mass/Vol] 0.6 mg/L Normal 0.0-4.9 [facility] Internal Medicine Work Phone: Comment on above: PATIENT WAS FASTINGP ERFORMED BY: RAMU Garcia6370 [address]osa RoadDublin [place] [id number] LIPID PANEL (66266)Ordered B y: Leaf Coverer on 04-18-2016 Cholesterol [Mass/Vol] 181 mg/dL Normal 100-199 [facility] Work Phone: Comment on above: PATIENT WAS FASTINGP ERFORMED BY: RAMU Garcia6370 [address] RoadDublin [place] [id number] Cholesterol in HDL [Mass/Vol] 81 mg/dL Normal [facility] Work Phone: Comment on above: PATIENT WAS FASTINGP ERFORMED BY: RAMU Garcia[address] IFCO SystemsDublin [place] [id number] Cholesterol in LDL [Mass/Vol] 90 mg/dL Normal 0-99 [facility] Work Phone: Comment on above: PATIENT WAS FASTINGP ERFORMED BY: RAMU Garcia[address] IFCO Systemsblin [place] [id number] Cholesterol in LDL/Cholesterol in HDL [Mass ratio] 1.1 {ratio_units} Normal 0.0-3.2 [facility] Work Phone: Comment on above: LDL/HDL Ratio Men Wo men 1/2 Avg.Risk 1.0 1.5 Avg.Risk 3.6 3.2 2X Avg.Risk 6.2 5.0 3X Avg.Risk 8.0 6.1 PATIENT WAS FASTINGP ERFORMED BY: RAMU Messerlin6[address] IFCO SystemsDublin [place] [id number] Cholesterol in VLDL [Mass/Vol] 10 mg/dL Normal 5-40 [facility] Work Phone: Comment on above: PATIENT WAS FASTINGP ERFORMED BY: RAMU Messerlin6370 [address] RoadDublin [place] [id number] Triglyceride [Mass/Vol] 51 mg/dL Normal 0-149 [facility] Work Phone: Comment on above: PATIENT WAS FASTINGP ERFORMED BY: RAMU LabCoRobert Wood Johnson University HospitalPopvyu3565 [facility] [id number] METABOLIC PANEL, COMPREHENSI VE (37697)Ordered By: Leaf Coverer on 04-18-2016 Albumin [Mass/Vol] 4.5 g/dL Normal 3.5-5.5 [facility] Internal Medicine Work Phone: Comment on above: PATIENT WAS FASTINGP ERFORMED BY: RAMU LabMymichigan Medical Center Gladwin6370 [facility] [id number] Albumin/Globulin [Mass ratio] 1.9 {ratio} Normal 1.1-2.5 [...] - 2.2 PATIENT WAS FASTINGP ERFORMED BY: RAMU [facility]6370 [facility] [id number] ALP [Catalytic activity/Vol] 65 [iU]/L Normal 39-117 [facility] Work Phone: Comment on above: PATIENT WAS FASTINGP ERFORMED BY: RAMU LabMymichigan Medical Center Gladwin6370 [facility] [id number] ALP [Catalytic activity/Vol] 65 U/L Normal 39-117 [facility]; [facility] Work Phone: Comment on above: PATIENT WAS FASTINGP ERFORMED BY: RAMU LabCoRobert Wood Johnson University HospitalXstfkk0141 [facility] [id number] ALT [Catalytic activity/Vol] 11 [iU]/L Normal 0-32 [facility] Work Phone: Comment on above: PATIENT WAS FASTINGP ERFORMED BY: RAMU [facility] Jjiaaa4419 [address] RoadDublin [place] [id number] ALT [Catalytic activity/Vol] 11 U/L Normal 0-32 [facility]; [facility] Work Phone: Comment on above: PATIENT WAS FASTINGP ERFORMED BY: [facility] Gdhxtr0700 [address] RoadDublin [place] [id number] AST [Catalytic activity/Vol] 15 [iU]/L Normal 0-40 [facility] Work Phone: Comment on above: PATIENT WAS FASTINGP ERFORMED BY: [facility] Usqtfv4680 S[address] RoadDublin [place] [id number] AST [Catalytic activity/Vol] 15 U/L Normal 0-40 [facility]; [facility] Work Phone: Comment on above: PATIENT WAS FASTINGP ERFORMED BY: RAMU LabCo Llvrws1131 S[address] RoadDublin [place] [id number] Bilirubin [Mass/Vol] 0.9 mg/dL Normal 0.0-1.2 Comp rehensive Internal Medicine Work Phone: Comment on above: PATIENT WAS FASTINGP ERFORMED BY: RAMU [facility] Dxznas6236 [address] RoadDublin [place] [id number] Calcium [Mass/Vol] 9.1 mg/dL Normal 8.7-10.2 [facility] Internal Medicine Work Phone: Comment on above: PATIENT WAS FASTINGP ERFORMED BY: CB [facility] Kkmcrq0917 [address] RoadDublin [place] [id number] Chloride [Moles/Vol] 104 mmol/L Normal 96-106 Comp [facility] hospitalensive Internal [facility] Work Phone: Comment on above: PATIENT WAS FASTINGP ERFORMED BY: CB [facility] Mxppuw0128 [address] RoadDublin [place] [id number] CO2 [Moles/Vol] 21 mmol/L Normal 18-29 [facility] Internal Medicine Work Phone: Comment on above: PATIENT WAS FASTINGP ERFORMED BY: CB [facility] Mpvjup3556 [address] RoadDublin [place] [id number] Creatinine [Mass/Vol] 0.67 mg/dL Normal 0.57-1.00 [facility] Work Phone: Comment on above: PATIENT WAS FASTINGP ERFORMED BY: LabCoRobert Wood Johnson University HospitalBqvevz5608 [address] [facility]in [place] [id number] GFR/1.73 sq M predicted among blacks CKD-EPI (S/P/Bld) [Vol rate/Area] 115 mL/min/1.73 Normal [facility] Work Phone: Comment on above: PATIENT WAS FASTINGP ERFORMED BY: LabMymichigan Medical Center Gladwin6[address] [facility] [id number] GFR/1.73 sq M predicted among non-blacks CKD-EPI (S/P/Bld) [Vol rate/Area] 100 mL/min/1.73 Normal [facility] Work Phone: Comment on above: PATIENT WAS FASTINGP ERFORMED BY: [facility]6370 [facility] [id number] Globulin (S) [Mass/Vol] 2.4 g/dL Normal 1.5-4.5 [facility] Internal Medicine Work Phone: Comment on above: PATIENT WAS FASTINGP ERFORMED BY: LabWashington University Medical CenterUadsws9857 [facility] [id number] Glucose [Mass/Vol] 83 mg/dL Normal 65-99 [facility] Internal Medicine Work Phone: Comment on above: PATIENT WAS FASTINGP ERFORMED BY: LabCox North Dvdxzs6164 [facility] Centerin [place] [id number] Potassium [Moles/Vol] 4.5 mmol/L Normal 3.5-5.2 [facility] Internal [facility] Work Phone: Comment on above: PATIENT WAS FASTINGP ERFORMED BY: LabCo Vbltix9684 [facility] [id number] Protein [Mass/Vol] 6.9 g/dL Normal 6.0-8.5 [facility] Internal Medicine Work Phone: Comment on above: PATIENT WAS FASTINGP ERFORMED BY: RAMU [facility] Sdohjw0983 [address] [facility] Hospitalblin [place] [id number] Sodium [Moles/Vol] 141 mmol/L Normal 134-144 Compre henslifep[facility] hospitals Internal Medicine Work Phone: Comment on above: PATIENT WAS FASTINGP ERFORMED BY: RAMU [facility] Dhmxhr7906 [address] RoadDublin [place] [id number] Urea nitrogen [Mass/Vol] 20 mg/dL Normal 6-24 [facility] Work Phone: Comment on above: PATIENT WAS FASTINGP ERFORMED BY: RAMU [facility] Scnwxe1025 S[address] Roadblin [place] [id number] Urea nitrogen/Creatinine [Mass ratio] 30 mg/mg Abnormal 9- [facility] Work Phone: Comment on above: PATIENT WAS FASTINGP ERFORMED BY: RAMU [facility] Bterdv4414 [address] [facility]in [place] [id number] SED RATE ERYTHROCYTE (78482) Ordered By: Leaf Coverer on 04-18-2016 ESR (Bld) [Velocity] 2 mm/h Normal 0-40 Comp rehensive Internal Medicine Work Phone: Comment on above: PATIENT WAS FASTINGP ERFORMED BY: RAMU [facility] Kukotq3405 [address] [facility]in [place] [id number] LIPID PANEL (11610)Ordered B y: Leaf Coverer on 07-24-2015 Cholesterol [Mass/Vol] 173 mg/dL Normal 100-199 [facility] Work Phone: Comment on above: PATIENT WAS FASTINGP ERFORMED BY: RAMU [facility] Ippwkt5216 [address] [facility]in [place] [id number]; non-emergent till apt Cholesterol in HDL [Mass/Vol] 88 mg/dL Normal [facility] Work Phone: Comment on above: According to ATP-III Guidelines, HDL-C >59 mg/dL is considered anegative risk factor for CHD. PATIENT WAS FASTINGP ERFORMED BY: RAMU [facility] Ttnggq3345 S[address] Roadblin [place] [id number]; non-emergent till apt Cholesterol in LDL [Mass/Vol] 75 mg/dL Normal 0-99 [facility] Work Phone: Comment on above: PATIENT WAS FASTINGP ERFORMED BY: RAMU LabCecily MesserVbvvgp8451 [facility] [id number]; non-emergent till apt Cholesterol in LDL/Cholesterol in HDL [Mass ratio] 0.9 {ratio_units} Normal 0.0-3.2 [facility] Work Phone: Comment on above: LDL/HDL Ratio Men Wo men 1/2 Avg.Risk 1.0 1.5 Avg.Risk 3.6 3.2 2X Avg.Risk 6.2 5.0 3X Avg.Risk 8.0 6.1 PATIENT WAS FASTINGP ERFORMED BY: RAMU LabCecily MesserRperid6061 [facility] [id number]; non-emergent till apt Cholesterol in VLDL [Mass/Vol] 10 mg/dL Normal 5-40 [facility] Work Phone: Comment on above: PATIENT WAS FASTINGP ERFORMED BY: RAMU LabCecily MesserHmkdgi4707 [facility] [id number]; non-emergent till apt Triglyceride [Mass/Vol] 51 mg/dL Normal 0-149 [facility] Work Phone: Comment on above: PATIENT WAS FASTINGP ERFORMED BY: RAMU LabCeicly MesserWhesuz6398 [facility] [id number]; non-emergent till apt METABOLIC PANEL, COMPREHENSI VE (76021)Ordered By: Leaf Coverer on 07-24-2015 Albumin [Mass/Vol] 4.5 g/dL Normal 3.5-5.5 [facility] Internal Medicine Work Phone: Comment on above: PATIENT WAS FASTINGP ERFORMED BY: RAMU LabCarolann Wodnpa0608 [facility] [id number] Information: [id number] Albumin/Globulin [Mass ratio] 2.0 {ratio} Normal 1.1-2.5 [facility] Work Phone: Comment on above: PATIENT WAS FASTINGP ERFORMED BY: RAMU LylesNor-Lea General HospitalGhqwab9304 [address] RoadDublin [place] [id number] Information: [id number] ALP [Catalytic activity/Vol] 62 [iU]/L Normal 39-117 [facility] Work Phone: Comment on above: PATIENT WAS FASTINGP ERFORMED BY: LabCo Vqkinn0125 [address] RoadDublin [place] [id number] Information: [id number] ALP [Catalytic activity/Vol] 62 U/L Normal 39-117 [facility]; [facility] Work Phone: Comment on above: PATIENT WAS FASTINGP ERFORMED BY: LabCoRobert Wood Johnson University HospitalJbzzwj6527 S[address] RoadDublin [place] [id number] Information: [id number] ALT [Catalytic activity/Vol] 8 [iU]/L Normal 0-32 [facility] Work Phone: Comment on above: PATIENT WAS FASTINGP ERFORMED BY: LabMymichigan Medical Center Gladwin6[address] Roadblin [place] [id number] Information: [id number] ALT [Catalytic activity/Vol] 8 U/L Normal 0-32 [facility]; [facility] Work Phone: Comment on above: PATIENT WAS FASTINGP ERFORMED BY: LabWashington University Medical CenterZbwciw0265 [address] [facility] Hospitalblin [place] [id number] Information: [id number] AST [Catalytic activity/Vol] 16 [iU]/L Normal 0-40 [facility] Work Phone: Comment on above: PATIENT WAS FASTINGP ERFORMED BY: LabCo Rrjjsh1536 [address] RoadDublin [place] [id number] Information: [id number] AST [Catalytic activity/Vol] 16 U/L Normal 0-40 [facility]; [facility] Work Phone: Comment on above: PATIENT WAS FASTINGP ERFORMED BY: LabCox North Cmzmju2939 [address] RoadDublin [place] [id number] Information: [id number] Bilirubin [Mass/Vol] 1.0 mg/dL Normal 0.0-1.2 [facility] Childrenensive Internal [facility] Work Phone: Comment on above: PATIENT WAS FASTINGP ERFORMED BY: RAMU LabCo Eflpmk4[address] [facility]in [place] [id number] Information: [id number] Calcium [Mass/Vol] 9.3 mg/dL Normal 8.7-10.2 [facility] Internal Medicine Work Phone: Comment on above: PATIENT WAS FASTINGP ERFORMED BY: LabCo Qmvdrc3402 [address] [facility] [id number] Information: [id number] Chloride [Moles/Vol] 102 mmol/L Normal 97-108 [facility] Internal Medicine Work Phone: Comment on above: PATIENT WAS FASTINGP ERFORMED BY: RAMU [facility] Mhmsoa0588 [facility] [id number] Information: [id number] CO2 [Moles/Vol] 24 mmol/L Normal 18-29 [facility] Internal Medicine Work Phone: Comment on above: PATIENT WAS FASTINGP ERFORMED BY: RAMU [facility] Pcmmiq0650 [facility] [id number] Information: [id number] Creatinine [Mass/Vol] 0.70 mg/dL Normal 0.57-1.00 [facility] Work Phone: Comment on above: PATIENT WAS FASTINGP ERFORMED BY: [facility] Uvmjsk5622 [facility] [id number] Information: [id number] GFR/1.73 sq M predicted among blacks CKD-EPI (S/P/Bld) [Vol rate/Area] 114 mL/min/1.73 Normal [facility] Internal Medicine Work Phone: Comment on above: PATIENT WAS FASTINGP ERFORMED BY: [facility] Mvbpgc6689 [facility] [id number] Information: [id number] GFR/1.73 sq M predicted among non-blacks CKD-EPI (S/P/Bld) [Vol rate/Area] 99 mL/min/1.73 Normal [facility] Internal Medicine Work Phone: Comment on above: PATIENT WAS FASTINGP ERFORMED BY: [facility]6370 [facility] [id number] Information: [id number] Globulin (S) [Mass/Vol] 2.2 g/dL Normal 1.5-4.5 [facility] Internal Medicine Work Phone: Comment on above: PATIENT WAS FASTINGP ERFORMED BY: [facility]6370 [facility] [id number] Information: [id number] Glucose [Mass/Vol] 91 mg/dL Normal 65-99 [facility] Internal Medicine Work Phone: Comment on above: PATIENT WAS FASTINGP ERFORMED BY: [facility]6370 [facility] [id number] Information: [id number] Potassium [Moles/Vol] 4.3 mmol/L Normal 3.5-5.2 [facility] Work Phone: Comment on above: PATIENT WAS FASTINGP ERFORMED BY: [facility]6370 [facility] [id number] Information: [id number] Protein [Mass/Vol] 6.7 g/dL Normal 6.0-8.5 [facility] Internal Medicine Work Phone: Comment on above: PATIENT WAS FASTINGP ERFORMED BY: [facility] Mhybmm5546 [facility] [id number] Information: [id number] Sodium [Moles/Vol] 141 mmol/L Normal 134-144 [facility] Internal Medicine Work Phone: Comment on above: PATIENT WAS FASTINGP ERFORMED BY: [facility] Uqrhjd7543 [facility] [id number] Information: [id number] Urea nitrogen [Mass/Vol] 14 mg/dL Normal 6-24 [facility] Work Phone: Comment on above: PATIENT WAS FASTINGP ERFORMED BY: [facility] Pfznra6737 [facility] [id number] Information: [id number] Urea nitrogen/Creatinine [Mass ratio] 20 mg/mg Normal 9-23 [facility] Work Phone: Comment on above: PATIENT WAS FASTINGP ERFORMED BY: [facility]CoRobert [facility] HospitalKurkdk9531 [facility] [id number] Information: [id number] LIPID PANEL ([id number])Ordered B y: Leaf Coverer on 02-10-2015 Cholesterol [Mass/Vol] 172 mg/dL Normal 100-199 [facility] Work Phone: Comment on above: PATIENT WAS FASTINGP ERFORMED BY: [facility] Pupesd0868 [facility] [id number] Cholesterol in HDL [Mass/Vol] 88 mg/dL Normal [facility] Work Phone: Comment on above: According to ATP-III Guidelines, HDL-C >59 mg/dL is considered anegative risk factor for CHD. PATIENT WAS FASTINGP ERFORMED BY: [facility] Psgeet3986 [facility] [id number] Cholesterol in LDL [Mass/Vol] 75 mg/dL Normal 0-99 [facility] Work Phone: Comment on above: PATIENT WAS FASTINGP ERFORMED BY: [facility] Fipnrj3672 [facility] [id number] Cholesterol in LDL/Cholesterol in HDL [Mass ratio] 0.9 {ratio_units} Normal 0.0-3.2 [facility] Work Phone: Comment on above: LDL/HDL Ratio Men Wo men 1/2 Avg.Risk 1.0 1.5 Avg.Risk 3.6 3.2 2X Avg.Risk 6.2 5.0 3X Avg.Risk 8.0 6.1 PATIENT WAS FASTINGP ERFORMED BY: RAMU [facility] Ktvwzw0000 [facility] [place] [id number] Cholesterol in VLDL [Mass/Vol] 9 mg/dL Normal 5-40 [facility] Work Phone: Comment on above: PATIENT WAS FASTINGP ERFORMED BY: RAMU [facility] Padrsd1691 [facility] [place] [id number] Triglyceride [Mass/Vol] 45 mg/dL Normal 0-149 [facility] Work Phone: Comment on above: PATIENT WAS FASTINGP ERFORMED BY: RAMU [facility] Fbtwlc9924 [facility] [id number] METABOLIC PANEL, COMPREHENSI VE ([id number])Ordered By: Leaf Coverer on 02-10-2015 Albumin [Mass/Vol] 4.2 g/dL Normal 3.5-5.5 [facility] Internal Medicine Work Phone: Comment on above: PATIENT WAS FASTINGP ERFORMED BY: RAMU [facility] Zpddbs6577 [facility] [id number] Information: [id number]; apt. Albumin/Globulin [Mass ratio] 1.8 {ratio} Normal 1.1-2.5 [facility] Work Phone: Comment on above: PATIENT WAS FASTINGP ERFORMED BY: RAMU [facility] Rbjvxe8963 [facility] [id number] Information: [id number]; apt. ALP [Catalytic activity/Vol] 69 [iU]/L Normal 39-117 [facility] Work Phone: Comment on above: PATIENT WAS FASTINGP ERFORMED BY: [facility] Vfiqiv0803 [facility] [place] [id number] Information: [id number]; apt. ALP [Catalytic activity/Vol] 69 U/L Normal 39-117 [facility]; [facility] Work Phone: Comment on above: PATIENT WAS FASTINGP ERFORMED BY: [facility] Wjvxef2004 [facility] [id number] Information: [id number]; apt. ALT [Catalytic activity/Vol] 14 [iU]/L Normal 0-32 [facility] Work Phone: Comment on above: PATIENT WAS FASTINGP ERFORMED BY: [facility] Qzrxwd3778 [facility] [place] [id number] Information: [id number]; apt. ALT [Catalytic activity/Vol] 14 U/L Normal 0-32 [facility]; [facility] Work Phone: Comment on above: PATIENT WAS FASTINGP ERFORMED BY: [facility] Ghqxor1183 [facility] [place] [id number] Information: [id number]; apt. AST [Catalytic activity/Vol] 19 [iU]/L Normal 0-40 [facility] Work Phone: Comment on above: PATIENT WAS FASTINGP ERFORMED BY: [facility] Yupvek1154 [facility] [place] [id number] Information: [id number]; apt. AST [Catalytic activity/Vol] 19 U/L Normal 0-40 [facility]; [facility] Work Phone: Comment on above: PATIENT WAS FASTINGP ERFORMED BY: [facility] Mtsxtd1136 [facility] [place] [id number] Information: [id number]; apt. Bilirubin [Mass/Vol] 0.5 mg/dL Normal 0.0-1.2 [facility] Work Phone: Comment on above: PATIENT WAS FASTINGP ERFORMED BY: [facility] Uxvegp4444 [address] Roadblin [place] [id number] Information: [id number]; apt. Calcium [Mass/Vol] 9.6 mg/dL Normal 8.7-10.2 Compre [facility] Internal Medicine Work Phone: Comment on above: PATIENT WAS FASTINGP ERFORMED BY: [facility] Zufofx7692 [facility] [place] [id number] Information: [id number]; apt. Chloride [Moles/Vol] 105 mmol/L Normal 97-108 [facility] Work Phone: Comment on above: PATIENT WAS FASTINGP ERFORMED BY: [facility] Fncvjq5581 [facility] RoadAs[facility] Hospitalin [place] [id number] Information: [id number]; apt. CO2 [Moles/Vol] 26 mmol/L Normal 18-29 [facility] Internal Medicine Work Phone: Comment on above: PATIENT WAS FASTINGP ERFORMED BY: [facility] Hcbsyz2981 S[facility] RoadAshe Memorial Hospitalin [place] [id number] Information: [id number],[id number]; apt. Creatinine [Mass/Vol] 0.76 mg/dL Normal 0.57-1.00 [facility] Work Phone: Comment on above: PATIENT WAS FASTINGP ERFORMED BY: LabCoNor-Lea General HospitalGutpeb9010 [facility] [id number] Information: [id number]; apt. GFR/1.73 sq M predicted among blacks CKD-EPI (S/P/Bld) [Vol rate/Area] 104 mL/min/1.73 Normal [facility] Work Phone: Comment on above: PATIENT WAS FASTINGP ERFORMED BY: [facility] Xwwwfl7125 [facility] [place] [id number] Information: [id number]; apt. GFR/1.73 sq M predicted among non-blacks CKD-EPI (S/P/Bld) [Vol rate/Area] 90 mL/min/1.73 Normal [facility] Work Phone: Comment on above: PATIENT WAS FASTINGP ERFORMED BY: [facility] Uhuymw5516 [facility] [place] [id number] Information: [id number]; apt. Globulin (S) [Mass/Vol] 2.4 g/dL Normal 1.5-4.5 [facility] Internal Medicine Work Phone: Comment on above: PATIENT WAS FASTINGP ERFORMED BY: RAMU [facility]6370 [facility] [id number] Information: [id number]; apt. Glucose [Mass/Vol] 95 mg/dL Normal 65-99 [facility] Internal Medicine Work Phone: Comment on above: PATIENT WAS FASTINGP ERFORMED BY: RAMU [facility] Wskkxb0122 [facility] [id number] Information: [id number]; apt. Potassium [Moles/Vol] 4.8 mmol/L Normal 3.5-5.2 [facility] Internal [facility] Work Phone: Comment on above: PATIENT WAS FASTINGP ERFORMED BY: RAMU [place] 5950070 [facility] [id number] Information: [id number]; apt. Protein [Mass/Vol] 6.6 g/dL Normal 6.0-8.5 [facility] Internal Medicine Work Phone: Comment on above: PATIENT WAS FASTINGP ERFORMED BY: RAMU [place] 5950070 [facility] [id number] Information: [id number]; apt. Sodium [Moles/Vol] 142 mmol/L Normal 134-144 [facility] Internal Medicine Work Phone: Comment on above: PATIENT WAS FASTINGP ERFORMED BY: [facility]6370 [facility] [id number] Information: [id number]; apt. Urea nitrogen [Mass/Vol] 13 mg/dL Normal 6-24 [facility] Internal Medicine Work Phone: Comment on above: PATIENT WAS FASTINGP ERFORMED BY: RAMU [facility]6370 [facility] [id number] Information: [id number]; apt. Urea nitrogen/Creatinine [Mass ratio] 17 mg/mg Normal 11-26 [facility] Work Phone: Comment on above: PATIENT WAS FASTINGP ERFORMED BY: [facility]6370 [facility] [id number] Information: [id number]; apt. Rapid Strep Test, Office ([phone])on 12-11-2014 S. pyogenes Ag EIA Ql (Throat) Negative Normal [facility]; [facility] Work Phone: S. pyogenes Ag IA Ql (Unsp spec) Negative Normal [facility] Work Phone: FRANSISCA CULTURE-OTHER ([id number])Ord ered By: Leaf Coverer on 03-29-2011 Bacteria identified Respiratory culture Nom (Unsp spec) RRF Normal [facility] Work Phone: Comment on above: Routine respiratory addy throat; PATIENT NOT FASTINGPERFORMED BY: [facility]6370 [facility] [id number] Information: SRC:GAYATRI [id number] Bacteria identified Respiratory culture Nom (Unsp spec) Final report Normal [facility] Work Phone: Comment on above: throat; PATIENT NOT FASTINGPERFORMED BY: [facility]6370 [facility] [id number] Information: SRC:GAYATRI [id number] Rapid Strep Test, Office ([phone])on 03-29-2011 S. pyogenes Ag EIA Ql (Throat) Negative Normal [facility]; [facility] Work Phone: S. pyogenes Ag IA Ql (Unsp spec) Negative Normal [facility] Work Phone: LIPID PANEL ([id number])Ordered B y: Leaf Coverer on 07-28-2009 Cholesterol [Mass/Vol] 181 mg/dL Normal 100-199 [facility] Work Phone: Comment on above: PATIENT WAS FASTINGP ERFORMED BY: RAMU [facility] Cphhtz1726 [facility] [id number] Information: ADD [id number] AND DRAW FEE 99 6660 Cholesterol in HDL [Mass/Vol] 87 mg/dL Normal [facility] Work Phone: Comment on above: According to ATP-III Guidelines, HDL-C >59 mg/dL is considered anegative risk factor for CHD. PATIENT WAS FASTINGP ERFORMED BY: RAMU LabTara [place] 5338770 [facility] [id number] Information: ADD [id number] AND DRAW FEE 99 [id number] Cholesterol in LDL [Mass/Vol] 85 mg/dL Normal 0-99 [facility] Work Phone: Comment on above: PATIENT WAS FASTINGP ERFORMED BY: [facility] Vjljtd6249 [facility] [id number] Information: ADD [id number] AND DRAW FEE 99 6660 Cholesterol in LDL/Cholesterol in HDL [Mass ratio] 1.0 {ratio_units} Normal 0.0-3.2 [facility] Work Phone: Comment on above: PATIENT WAS FASTINGP ERFORMED BY: [place] 9512470 [facility] [id number] Information: ADD [id number] AND DRAW FEE 99 6660 Cholesterol in VLDL [Mass/Vol] 9 mg/dL Normal 5-40 [facility] Work Phone: Comment on above: PATIENT WAS FASTINGP ERFORMED BY: [place] 9512470 [facility] [id number] Information: ADD [id number] AND DRAW FEE 99 [id number] Triglyceride [Mass/Vol] 43 mg/dL Normal 0-149 [facility] Work Phone: Comment on above: PATIENT WAS FASTINGP ERFORMED BY: [place] 9512470 [facility] [id number] Information: ADD [id number] AND DRAW FEE 99 [id number] Vital Signs [...] 04-28-2021 08:18-0500 Heart rate 76 /min Annabelle Roach DO Work Phone: [facility]; [facility] Work Phone: Comment on above: Pattern: Regular partial vs taken as this is phone encounter due to covid 04-28-2021 08:18-0500 Systolic blood pressure 114 mm[Hg] Annabelle Roach DO Work Phone: [facility]; [facility] Work Phone: Comment on above: Patient Position: Sitting partial vs taken as this is phone encounter due to covid 04-21-2021 10:08-0500 Body height 157.[address] Annabelle Roach Work Phone: [facility] Work Phone: 03-19-2021 09:43-0500 Body height 156.84 [...] 09:43-0500 Diastolic blood pressure 68 mm[Hg] Annabelle Doc DO Work Phone: [facility]; [facility] Work Phone: Comment on above: Patient Position: Sitting; Cuff Location : Left Arm; Cuff Size: Standard intentional wt loss so far 27#-- IF and exercising 03-19-2021 09:43-0500 Heart rate 73 /min Annabelle Roach DO Work Phone: [facility] [...] (Body Mass Index) 24.71 kg/m2 Vonda Jewell [employer]OUNT[employer] PAYABLE COORDINATOR [facility] Work Phone: 05-16-2019 07:31-0400 Body Temperature 96.5 [degF] Vonda Jewell CMA Comprehensiv e Internal Medicine Work Phone: Comment on above: Method: Temporal 05-16-2019 07:31-0400 Body weight 60.78 kg Vonda Jewell [facility] Work Phone: 05-16-2019 07:31-0400 BP Diastolic 87 mm[Hg] Vonda Jewell CMA [facility] Work Phone: Comment on above: Patient Position: Sitting; Cuff Location : Left Arm; Cuff Size: Standard 05-16-2019 07:31-0400 BP Systolic 126 mm[Hg] Vonda Jewell [facility] Work Phone: Comment on above: Patient Position: Sitting; Cuff Location : Left Arm; Cuff Size: Standard 05-16-2019 07:31-0400 BSA (Body Surface Area) 1.61 m2 Vonda Jewell [facility] Work Phone: 05-16-2019 07:31-0400 Height 156.84 cm Vonda Jewell [facility] Work Phone: 05-16-2019 07:31-0400 Pulse (Heart Rate) 62 /min Vonda Jewell CMA Comprehens hortencia Internal Medicine Work Phone: Comment on above: Pattern: Regular 05-16-2019 07:31-0400 Pulse Oximetry 98 % Christina Murillopawan [facility] Work Phone: Comment on above: Room air 05-16-2019 07:31-0400 Respiratory Rate 14 /min Vonda Jewell CMA Comprehensiv e Internal Medicine Work Phone: Comment on above: Pattern: Unlabored 05-16-2019 07:31-0400 SaO2% (BldA) [Mass fraction] 98 % Vonda Jewell [facility]; [facility] Work Phone: Comment on above: Room air 04-09-2019 10:08-0500 BMI (Body Mass Index) 24.15 kg/m2 Amanda Slarb [employer] [facility] Work Phone: 04-09-2019 10:08-0500 Body Temperature 97.3 [degF] Amanda Slarb [employer] [facility] Work Phone: 04-09-2019 10:08-0500 Body weight 59.42 kg Amanda Slarb [employer] [facility] Work Phone: 04-09-2019 10:08-0500 BP Diastolic 80 mm[Hg] Amanda Slarb [employer] [facility] Work Phone: Comment on above: Patient Position: Sitting; Cuff Location : Left Arm; Cuff Size: Standard 04-09-2019 10:08-0500 BP Systolic 122 mm[Hg] Amanda Slarb [employer] [facility] Work Phone: Comment on above: Patient Position: Sitting; Cuff Location : Left Arm; Cuff Size: Standard 04-09-2019 10:08-0500 BSA (Body Surface Area) 1.59 m2 Amanda Slarb [employer] [facility] Work Phone: 04-09-2019 10:08-0500 Height 156.84 cm Amanda Slarb [employer] [facility] Work Phone: 04-09-2019 10:08-0500 Pulse (Heart Rate) 83 /min Amanda Slarb [employer] Comprehensiv e Internal Medicine Work Phone: Comment on above: Pattern: Regular 04-09-2019 10:08-0500 Pulse Oximetry 98 % Christina Lawler [facility] Work Phone: Comment on above: Room air 04-09-2019 10:08-0500 Respiratory Rate 16 /min Amanda Slarb [employer] [facility] Work Phone: Comment on above: Pattern: Unlabored 04-09-2019 10:08-0500 SaO2% (BldA) [Mass fraction] 98 % Amanda Slarb [employer] [facility]; [facility] Work Phone: Comment on above: Room air 02-22-2017 08:42-0500 BMI (Body Mass Index) 24.15 kg/m2 Tania Blanco RN [facility] Work Phone: 02-22-2017 08:42-0500 Body Temperature 97.9 [degF] Tanai Blanco RN [facility] Work Phone: [...] 02-22-2017 08:42-0500 Pulse Oximetry 98 % Christina Lawler [facility] [...] (Body Mass Index) 24.15 kg/m2 Amanda Hope [employer] [facility] Work Phone: 01-13-2017 10:11-0500 Body Temperature 96.9 [degF] Amanda Arguellorb [employer] [facility] Work Phone: 01-13-2017 10:11-0500 Body weight 59.42 kg Amanda Hope [employer] [facility] Work Phone: 01-13-2017 10:11-0500 BP Diastolic 74 mm[Hg] Amanda Arguellorb [employer] [facility] Work Phone: Comment on above: Patient Position: Sitting; Cuff Location : Left Arm; Cuff Size: Standard 01-13-2017 10:110500 BP Systolic 122 mm[Hg] Amanda Arguellorb [employer] [facility] Work Phone: Comment on above: Patient Position: Sitting; Cuff Location : Left Arm; Cuff Size: Standard 01-13-2017 10:110500 BSA (Body Surface Area) 1.59 m2 Amanda Arguellorb [employer] [facility] Work Phone: 01-13-2017 10:110500 Height 156.84 cm Amanda Hope [employer] [facility] Work Phone: 01-13-2017 10:11-0500 Pulse (Heart Rate) 74 /min Amanda Hope [employer] Comprehensiv e Internal Medicine Work Phone: Comment on above: Pattern: Regular 01-13-2017 10:11-0500 Pulse Oximetry 98 % Christina Lawler [facility] Work Phone: Comment on above: Room air 01-13-2017 10:11-0500 Respiratory Rate 18 /min Amanda Hope [employer] [facility] Work Phone: Comment on above: Pattern: Unlabored 01-13-2017 10:11-0500 SaO2% (BldA) [Mass fraction] 98 % Amanda Slarb [employer] [facility]; [facility] Work Phone: Comment on above: Room air 04-19-2016 08:30-0500 BMI (Body Mass Index) 24.34 kg/m2 Mayda Teranbebetoradha [facility] Internal Medicine Work Phone: 04-19-2016 08:30-0500 Body Temperature 98 [degF] Mayda Terancrispin [facility] Internal Medicine Work Phone: Comment on above: Method: Temporal 04-19-2016 08:30-0500 Body weight 59.88 kg Mayda Terancrispin [facility] Internal Medicine Work Phone: 04-19-2016 08:30-0500 BP Diastolic 80 mm[Hg] Mayda Cee [facility] Internal Medicine Work Phone: Comment on above: Patient Position: Sitting; Cuff Location : Left Arm; Cuff Size: Standard 04-19-2016 08:30-0500 BP Systolic 128 mm[Hg] Mayda Cee [facility] Internal Medicine Work Phone: Comment on above: Patient Position: Sitting; Cuff Location : Left Arm; Cuff Size: Standard 04-19-2016 08:30-0500 BSA (Body Surface Area) 1.6 m2 Mayda Cee [facility] Internal Medicine Work Phone: 04-19-2016 08:30-0500 Height 156.84 cm Mayda Cee [facility] Internal Medicine Work Phone: 04-19-2016 08:30-0500 Pulse (Heart Rate) 74 /min Mayda Cee [facility] Internal Medicine Work Phone: Comment on above: Pattern: Regular 04-19-2016 08:30-0500 Pulse Oximetry 99 % Christina Lawler [facility] Internal Medicine Work Phone: Comment on above: Room air 04-19-2016 08:30-0500 Respiratory Rate 16 /min Mayda Cee [facility] Internal Medicine Work Phone: Comment on above: Pattern: Unlabored 04-19-2016 08:30-0500 SaO2% (BldA) [Mass fraction] 99 % Mayda Mike [facility] Internal [facility]; [facility] Work Phone: Comment on above: Room air 10-14-2015 13:29-0400 BMI (Body Mass Index) 23.6 kg/m2 Mayda Mike [facility] Internal Medicine Work Phone: 10-14-2015 13:29-0400 Body Temperature 97.8 [degF] Mayda Mike [facility] Internal Medicine Work Phone: Comment on above: Method: Temporal 10-14-2015 13:29-0400 Body weight 58.06 kg Mayda Mike [facility] Internal Medicine Work Phone: 10-14-2015 13:29-0400 BP Diastolic 72 mm[Hg] Mayda Cee [facility] Internal Medicine Work Phone: Comment on above: Patient Position: Sitting; Cuff Location : Left Arm; Cuff Size: Standard 10-14-2015 13:29-0400 BP Systolic 112 mm[Hg] Mayda Terancrispin [facility] Internal Medicine Work Phone: Comment on above: Patient Position: Sitting; Cuff Location : Left Arm; Cuff Size: Standard 10-14-2015 13:29-0400 BSA (Body Surface Area) 1.58 m2 Mayda Terancrispin [facility] Internal Medicine Work Phone: 10-14-2015 13:29-0400 Height 156.84 cm Mayda Cee [facility] Internal Medicine Work Phone: 10-14-2015 13:29-0400 Pulse (Heart Rate) 72 /min Mayda Teranbebetoradha [facility] Internal Medicine Work Phone: Comment on above: Pattern: Regular 10-14-2015 13:29-0400 Pulse Oximetry 98 % Christina Lawler [facility] Internal Medicine Work Phone: Comment on above: Room air 10-14-2015 13:29-0400 Respiratory Rate 15 /min Mayda Cee [facility] Internal Medicine Work Phone: Comment on above: Pattern: Unlabored 10-14-2015 13:29-0400 SaO2% (BldA) [Mass fraction] 98 % Mayda Cee [facility]; [facility] [facility] Work Phone: Comment on above: Room air 07-31-2015 10:45-0400 BMI (Body Mass Index) 23.42 kg/m2 Mayda Mike [facility] Internal Medicine Work Phone: 07-31-2015 10:45-0400 Body Temperature 97.6 [degF] Mayda Terancrispin [facility] Internal Medicine Work Phone: Comment on above: Method: Temporal 07-31-2015 10:45-0400 Body weight 57.61 kg Mayda Mike [facility] Internal Medicine Work Phone: 07-31-2015 10:45-0400 BP Diastolic 82 mm[Hg] Mayda Terancrispin [facility] Internal Medicine Work Phone: Comment on above: Patient Position: Sitting; Cuff Location : Left Arm; Cuff Size: Standard 07-31-2015 10:45-0400 BP Systolic 136 mm[Hg] Mayda Terancrispin [facility] Internal Medicine Work Phone: Comment on above: Patient Position: Sitting; Cuff Location : Left Arm; Cuff Size: Standard 07-31-2015 10:45-0400 BSA (Body Surface Area) 1.57 m2 Mayda Terancrispin [facility] Internal Medicine Work Phone: 07-31-2015 10:45-0400 Height 156.84 cm Mayda Cee [facility] Internal Medicine Work Phone: 07-31-2015 10:45-0400 Pulse (Heart Rate) 68 /min Mayda Terancrispin [facility] Internal Medicine Work Phone: Comment on above: Pattern: Regular 07-31-2015 10:45-0400 Pulse Oximetry 100 % Christina Lawler [facility] Internal Medicine Work Phone: Comment on above: Room air 07-31-2015 10:45-0400 Respiratory Rate 15 /min Mayda Cee [facility] Internal Medicine Work Phone: Comment on above: Pattern: Unlabored 07-31-2015 10:45-0400 SaO2% (BldA) [Mass fraction] 100 % Mayda Mike [facility] Internal Medicine; [facility] Internal Medicine Work Phone: Comment on above: Room air 06-02-2015 14:06-0400 BMI (Body Mass Index) 24.34 kg/m2 Mayda Mike [facility] Internal Medicine Work Phone: 06-02-2015 14:06-0400 Body Temperature 98.1 [degF] Mayda Mike [facility] Internal Medicine Work Phone: Comment on above: Method: Temporal 06-02-2015 14:06-0400 Body weight 59.88 kg Mayda Mike [facility] Internal Medicine Work Phone: 06-02-2015 14:06-0400 BP Diastolic 94 mm[Hg] Mayda Mike [facility] Internal Medicine Work Phone: Comment on above: Patient Position: Sitting; Cuff Location : Left Arm; Cuff Size: Standard 06-02-2015 14:06-0400 BP Systolic 138 mm[Hg] Mayda Mike [facility] Internal Medicine Work Phone: Comment on above: Patient Position: Sitting; Cuff Location : Left Arm; Cuff Size: Standard 06-02-2015 14:06-0400 BSA (Body Surface Area) 1.6 m2 Mayda Mike [facility] Internal Medicine Work Phone: 06-02-2015 14:06-0400 Height 156.84 cm Mayda Terancrispin [facility] Internal Medicine Work Phone: 06-02-2015 14:06-0400 Pulse (Heart Rate) 72 /min [facility] Work Phone: Comment on above: Pattern: Regular 06-02-2015 14:06-0400 Pulse Oximetry 96 % Christina Lawler [facility] Internal Medicine Work Phone: Comment on above: Room air 06-02-2015 14:06-0400 Respiratory Rate 15 /min Mayda Joshuaradha [facility] Internal Medicine Work Phone: Comment on above: Pattern: Unlabored 06-02-2015 14:06-0400 SaO2% (BldA) [Mass fraction] 96 % Mayda Teranbebetoradha [facility] Internal Medicine; [facility] Internal Medicine Work Phone: Comment on above: Room air 02-17-2015 08:32-0500 BMI (Body Mass Index) 23.97 kg/m2 Mayda Joshuaradha [facility] Internal Medicine Work Phone: 02-17-2015 08:32-0500 Body Temperature 98.5 [degF] Mayda Terancrispin [facility] Internal Medicine Work Phone: Comment on above: Method: Temporal 02-17-2015 08:32-0500 Body weight 58.97 kg Mayda Terancrispin [facility] Internal Medicine Work Phone: 02-17-2015 08:32-0500 BP Diastolic 78 mm[Hg] Mayda Terancrispin [facility] Internal Medicine Work Phone: Comment on above: Patient Position: Sitting; Cuff Location : Left Arm; Cuff Size: Standard 02-17-2015 08:32-0500 BP Systolic 116 mm[Hg] Mayda Terancrispin [facility] Internal Medicine Work Phone: Comment on above: Patient Position: Sitting; Cuff Location : Left Arm; Cuff Size: Standard 02-17-2015 08:32-0500 BSA (Body Surface Area) 1.59 m2 Mayda Terancrispin [facility] Internal Medicine Work Phone: 02-17-2015 08:32-0500 Height 156.84 cm Mayda Cee [facility] Internal Medicine Work Phone: 02-17-2015 08:32-0500 Pulse (Heart Rate) 88 /min Mayda Terancrispin [facility] Work Phone: Comment on above: Pattern: Regular 02-17-2015 08:32-0500 Pulse Oximetry 98 % Christina Lawler [facility] Internal Medicine Work Phone: Comment on above: Room air 02-17-2015 08:32-0500 Respiratory Rate 16 /min Mayda Cee [facility] Internal Medicine Work Phone: Comment on [...] Phone: Comment on above: Method: Temporal 12-11-2014 12:110400 Body weight 58.06 kg Tania Blanco RN [...] 12-11-2014 12:11-0400 Pulse Oximetry 98 % Christina Rizviyonypawan [facility] Work Phone: Comment on above: Room air 12-11-2014 12:11-0400 Respiratory Rate 16 /min Tania Blanco RN [facility] Work Phone: Comment on above: Pattern: Unlabored 12-11-2014 12:11-0400 SaO2% (BldA) [Mass fraction] 98 % Tania Blanco RN [facility]; [facility] Work Phone: Comment on above: Room air 11-13-2014 12:06-0400 BMI (Body Mass Index) 23.6 kg/m2 Mayda Cee [facility] Internal Medicine Work Phone: 11-13-2014 12:06-0400 Body Temperature 97.8 [degF] Mayda Cee [facility] Internal Medicine Work Phone: Comment on above: Method: Temporal 11-13-2014 12:06-0400 Body weight 58.06 kg Mayda Cee [facility] Internal Medicine Work Phone: 11-13-2014 12:06-0400 BP Diastolic 78 mm[Hg] Mayda Cee [facility] Internal Medicine Work Phone: Comment on above: Patient Position: Sitting; Cuff Location : Left Arm; Cuff Size: Standard 11-13-2014 12:06-0400 BP Systolic 116 mm[Hg] Mayda Cee [facility] Internal Medicine Work Phone: Comment on above: Patient Position: Sitting; Cuff Location : Left Arm; Cuff Size: Standard 11-13-2014 12:06-0400 BSA (Body Surface Area) 1.58 m2 Mayda Cee [facility] Internal Medicine Work Phone: 11-13-2014 12:06-0400 Height 156.84 cm Mayda Mike [facility] Internal Medicine Work Phone: 11-13-2014 12:06-0400 Pulse (Heart Rate) 94 /min [facility] Work Phone: Comment on above: Pattern: Regular 11-13-2014 12:06-0400 Respiratory Rate 16 /min Mayda Cee [facility] Internal Medicine Work Phone: Comment on above: Pattern: Unlabored 10-03-2014 08:36-0400 BMI (Body Mass Index) 23.05 kg/m2 Mayda Mike [facility] Internal Medicine Work Phone: 10-03-2014 08:36-0400 Body Temperature 97.2 [degF] Mayda Mike [facility] Internal Medicine Work Phone: Comment on above: Method: Oral 10-03-2014 08:36-0400 Body weight 56.7 kg Mayda Mike [facility] Internal Medicine Work Phone: 10-03-2014 08:36-0400 BP Diastolic 84 mm[Hg] Mayda Mike [facility] Internal Medicine Work Phone: Comment on above: Patient Position: Sitting; Cuff Location : Left Arm; Cuff Size: Standard 10-03-2014 08:36-0400 BP Systolic 126 mm[Hg] Mayda Mike [facility] Internal Medicine Work Phone: Comment on above: Patient Position: Sitting; Cuff Location : Left Arm; Cuff Size: Standard 10-03-2014 08:36-0400 BSA (Body Surface Area) 1.56 m2 Mayda Mike [facility] Internal Medicine Work Phone: 10-03-2014 08:36-0400 Height 156.84 cm Mayda Mike [facility] Internal Medicine Work Phone: 10-03-2014 08:36-0400 Pulse (Heart Rate) 72 /min Mayda Mike [facility] Internal Medicine Work Phone: Comment on above: Pattern: Regular 10-03-2014 08:36-0400 Respiratory Rate 16 /min Mayda Mike [facility] Internal Medicine Work Phone: Comment on above: Pattern: Unlabored 07-16-2014 14:33-0400 BMI (Body Mass Index) 23.79 kg/m2 Mayda Mike [facility] Internal Medicine Work Phone: 07-16-2014 14:33-0400 Body Temperature 98.7 [degF] Mayda Mike [facility] Internal Medicine Work Phone: Comment on above: Method: Oral 07-16-2014 14:33-0400 Body weight 58.51 kg Mayda Mike [facility] Internal Medicine Work Phone: 07-16-2014 14:33-0400 BP Diastolic 86 mm[Hg] Mayda Mike [facility] Internal Medicine Work Phone: Comment on above: Patient Position: Sitting; Cuff Location : Left Arm; Cuff Size: Standard 07-16-2014 14:33-0400 BP Systolic 110 mm[Hg] Mayda Cee [facility] Internal Medicine Work Phone: Comment on above: Patient Position: Sitting; Cuff Location : Left Arm; Cuff Size: Standard 07-16-2014 14:33-0400 BSA (Body Surface Area) 1.58 m2 Mayda Mike [facility] Internal Medicine Work Phone: 07-16-2014 14:33-0400 Height 156.84 cm Mayda Cee [facility] Internal Medicine Work Phone: 07-16-2014 14:33-0400 Pulse (Heart Rate) 72 /min Mayda Mike [facility] Internal Medicine Work Phone: Comment on above: Pattern: Regular 07-16-2014 14:33-0400 Respiratory Rate 16 /min Mayda Mike [facility] Internal Medicine Work Phone: Comment on [...] 03-29-2011 09:11-0500 Pulse Oximetry 98 % Christina Lawler [facility] Work Phone: Comment on above: Room air 03-29-2011 09:11-0500 Respiratory Rate 16 /min Tania Blanco RN [facility] Work Phone: Comment on above: Pattern: Unlabored 03-29-2011 09:11-0500 SaO2% (BldA) [Mass fraction] 98 % Tania Blanco RN [facility]; [facility] Work Phone: Comment on above: Room air 02-08-2011 09:13-0500 BMI (Body Mass Index) 23.97 kg/m2 Mayda Mike [facility] Internal Medicine Work Phone: 02-08-2011 09:13-0500 Body Temperature 97.7 [degF] Mayda Mike [facility] Internal Medicine Work Phone: 02-08-2011 09:13-0500 Body weight 58.97 kg Mayda Mike [facility] Internal Medicine Work Phone: 02-08-2011 09:13-0500 BP Diastolic 80 mm[Hg] Mayda Mike [facility] Internal Medicine Work Phone: Comment on above: Patient Position: Sitting; Cuff Location : Left Arm; Cuff Size: Large 02-08-2011 09:13-0500 BP Systolic 114 mm[Hg] Mayda Mike [facility] Internal Medicine Work Phone: Comment on above: Patient Position: Sitting; Cuff Location : Left Arm; Cuff Size: Large 02-08-2011 09:13-0500 BSA (Body Surface Area) 1.59 m2 Mayda Mike [facility] Internal Medicine Work Phone: 02-08-2011 09:13-0500 Height 156.84 cm Mayda Mike [facility] Internal Medicine Work Phone: 02-08-2011 09:13-0500 Pulse (Heart Rate) 88 /min Mayda Mike [facility] Work Phone: Comment on above: Pattern: Regular 02-08-2011 09:13-0500 Respiratory Rate 16 /min Mayda Mike [facility] Internal Medicine Work Phone: Comment on above: Pattern: Unlabored 02-02-2011 12:07-0500 BMI (Body Mass Index) 23.97 kg/m2 Mayda Mike [facility] Internal Medicine Work Phone: 02-02-2011 12:07-0500 Body Temperature 97 [degF] Mayda Mike [facility] Internal Medicine Work Phone: 02-02-2011 12:07-0500 Body weight 58.97 kg Mayda Mike [facility] Medicine Work Phone: 02-02-2011 12:07-0500 BP Diastolic 84 mm[Hg] Mayda Mike [facility] Internal Medicine Work Phone: Comment on above: Patient Position: Sitting; Cuff Location : Left Arm; Cuff Size: Large 02-02-2011 12:07-0500 BP Systolic 114 mm[Hg] Mayda Mike [facility] Internal Medicine Work Phone: Comment on above: Patient Position: Sitting; Cuff Location : Left Arm; Cuff Size: Large 02-02-2011 12:07-0500 BSA (Body Surface Area) 1.59 m2 Mayda Mike [facility] Internal Medicine Work Phone: 02-02-2011 12:07-0500 Height 156.84 cm Mayda Miek [facility] Internal Medicine Work Phone: 02-02-2011 12:07-0500 Pulse (Heart Rate) 80 /min Mayda Mike [facility] Work Phone: Comment on above: Pattern: Regular 02-02-2011 12:07-0500 Respiratory Rate 16 /min Mayda Cee [facility] Internal Medicine Work Phone: Comment on above: Pattern: Unlabored 10-30-2009 10:39-0400 Body Temperature 98.4 [degF] [facility] Internal Medicine Work Phone: Comment on above: Method: Oral 10-30-2009 10:39-0400 Body weight 57.15 kg [facility] Internal Medicine Work Phone: 10-30-2009 10:39-0400 BP Diastolic 78 mm[Hg] [facility] Internal Medicine Work Phone: Comment on above: Patient Position: Sitting; Cuff Location : Left Arm; Cuff Size: Standard 10-30-2009 10:39-0400 BP Systolic 104 mm[Hg] [facility] Internal Medicine Work Phone: Comment on above: Patient Position: Sitting; Cuff Location : Left Arm; Cuff Size: Standard 10-30-2009 10:39-0400 Pulse (Heart Rate) 78 /min [facility] Internal Medicine Work Phone: Comment on above: Pattern: Regular 10-30-2009 10:39-0400 Respiratory Rate 18 /min [facility] Internal Medicine Work Phone: Comment on above: Pattern: Unlabored 10-22-2009 10:20-0400 Body Temperature 97.7 [degF] [facility] Internal Medicine Work Phone: Comment on above: Method: Oral 10-22-2009 10:20-0400 Body weight 56.76 kg [facility] Internal Medicine Work Phone: 10-22-2009 10:20-0400 BP Diastolic 70 mm[Hg] [facility] Internal Medicine Work Phone: Comment on above: Patient Position: Sitting; Cuff Location : Left Arm; Cuff Size: Standard 10-22-2009 10:20-0400 BP Systolic 102 mm[Hg] [facility] Internal Medicine Work Phone: Comment on above: Patient Position: Sitting; Cuff Location : Left Arm; Cuff Size: Standard 10-22-2009 10:20-0400 Pulse (Heart Rate) 68 /min Christina Lawler [facility] Internal Medicine Work Phone: Comment on above: Pattern: Regular 10-22-2009 10:20-0400 Respiratory Rate 16 /min Christina Lawler [facility] Internal Medicine Work Phone: Comment on above: Pattern: Unlabored 07-28-2009 09:33-0400 BMI (Body Mass Index) 22.5 kg/m2 Christina Rizvipawan [facility] Internal Medicine Work Phone: 07-28-2009 09:33-0400 Body Temperature 96.1 [degF] Christina Lawler [facility] Internal Medicine Work Phone: Comment on above: Method: Oral 07-28-2009 09:33-0400 Body weight 55.79 kg Christina Lawler [facility] Internal Medicine Work Phone: 07-28-2009 09:33-0400 BP Diastolic 76 mm[Hg] Christina Rizvipawan [facility] Internal Medicine Work Phone: Comment on above: Patient Position: Sitting; Cuff Location : Left Arm; Cuff Size: Standard 07-28-2009 09:33-0400 BP Systolic 110 mm[Hg] Christina Lawler [facility] Internal Medicine Work Phone: Comment on above: Patient Position: Sitting; Cuff Location : Left Arm; Cuff Size: Standard 07-28-2009 09:33-0400 BSA (Body Surface Area) 1.55 m2 Christina Lawler [facility] Internal Medicine Work Phone: 07-28-2009 09:33-0400 Height 157.48 cm [facility] Work Phone: 07-28-2009 09:33-0400 Pulse (Heart Rate) 64 /min Christina Lawler [facility] Internal Medicine Work Phone: Comment on above: Pattern: Regular 07-28-2009 09:33-0400 Respiratory Rate 14 /min Christina Lawler [facility] Internal Medicine Work Phone: Comment on above: Pattern: Unlabored 05-28-2009 12:33-0400 Body Temperature 97.2 [degF] Christina Lawler [facility] Internal Medicine Work Phone: Comment on above: Method: Oral 05-28-2009 12:33-0400 Body weight 56.27 kg Christina Lawler [facility] Internal Medicine Work Phone: 05-28-2009 12:33-0400 BP Diastolic 60 mm[Hg] Christina Lawler [facility] Internal Medicine Work Phone: Comment on above: Patient Position: Sitting; Cuff Location : Left Arm; Cuff Size: Standard 05-28-2009 12:33-0400 BP Systolic 98 mm[Hg] Christina Lawler [facility] Internal Medicine Work Phone: Comment on above: Patient Position: Sitting; Cuff Location : Left Arm; Cuff Size: Standard 05-28-2009 12:33-0400 Pulse (Heart Rate) 64 /min Christina Lawler [facility] Internal Medicine Work Phone: Comment on above: Pattern: Regular 05-28-2009 12:33-0400 Respiratory Rate 18 /min Christina Lawler [facility] Internal Medicine Work Phone: Comment on above: Pattern: Unlabored Encounters Encounter Date Encounter Type Care Provider Facility Start: 12-04-2024 Non-patient / Non-visit Dr. Philippe eduardo MD -[facility] Start: 12-04-2024 End: 12-04-[address] Annabelle Roach DO Work Phone: -Ultrasound [facility] Start: 12-04-2024 End: 12-04-[address] Annabelle Roach DO -Ultrasound [facility] Work Phone: Start: 12-04-2024 End: 12-04-2024 ambulatory Annabelle Roach Facility:[facility] Start: 11-13-2024 End: 11-13-[address] Annabelle Roach DO Work Phone: -Laboratory Specimen Start: 11-13-2024 End: 11-13-[address] Annabelle Roach DO -Laboratory Specimen Work Phone: Start: 11-13-2024 End: 11-13-2024 ambulatory Annabelle Roach Facility:[facility] Start: 05-22-2024 ambulatory GRICEL FERNANDA FAM [place] acility:[facility] Start: 05-22-2024 End: 05-22-2024 Subsequent hospital visit by physician Mammo/Bone Density [facility] Comment on above: Encounter for screen ing for depression [Z13.31] Start: 04-25-2023 End: 04-25-2023 ambulatory [facility] Work Phone: Start: 04-25-2023 End: 04-25-2023 Patient encounter procedure [facility]-Outpatient Bone Densitometry Work Phone: Start: 03-09-2023 End: 03-09-2023 ambulatory [facility] Work Phone: Start: 03-09-2023 End: 03-09-2023 Patient encounter procedure [facility]-MRI - [facility] Work Phone: Start: 02-17-2023 End: 02-17-2023 ambulatory [facility] Work Phone: Start: 02-17-2023 End: 02-17-2023 Patient encounter procedure [facility]-Cat Scan, [facility] Work Phone: Start: 03-16-2022 Documentation procedure Mammog panda Coordinator [facility] Start: 03-16-2022 Letter encounter Mammography Coordinator [place] ANCILLARY AREA NOT LISTED Start: 03-15-2022 End: 03-15-2022 Subsequent hospital visit by physician Mammo/Bone Density [facility] Comment on above: Encounter for screen ing mammogram for malignant neoplasm of breast [Z12.31] Start: 06-10-2021 End: 06-10-2021 Annotation/Addendum Christina Lawler Work Phone: [facility] Start: 05-12-2021 End: 05-12-2021 Office outpatient visit 5 minutes Christina Lawler CNP Work Phone: [facility] Start: 05-12-2021 End: 05-12-[address] Annabelle Roach Work Phone: [facility]-Physical Therapy Start: 04-28-2021 End: 04-28-2021 Office outpatient visit 15 minutes Christina Lawler STERILIZATION TECHNICIAN Work Phone: [facility] Start: 04-23-2021 End: 05-12-2021 Phone Encounter Christina Lawler STERILIZATION TECHNICIAN Work Phone: [facility] Start: 04-23-2021 Review Christina Lawler STERILIZATION TECHNICIAN Work Phone: [facility] Start: 04-21-2021 End: 04-21-[address] Annabelle Roach Work Phone: [facility]-Outpatient Bone Densitometry Start: 04-12-2021 End: 04-12-[address] Annabelle Roach Work Phone: [facility] Start: 03-26-2021 End: 03-26-2021 Office outpatient visit 5 minutes Christina Lawler STERILIZATION TECHNICIAN Work Phone: [facility] Start: 03-26-2021 Review Christina Lawler STERILIZATION TECHNICIAN Work Phone: [facility] Start: 03-25-2021 End: 03-25-2021 Office outpatient visit 5 minutes Christina Lawler STERILIZATION TECHNICIAN Work Phone: [facility] Start: 03-23-2021 End: 04-06-2021 Office outpatient visit 5 minutes Christina Lawler STERILIZATION TECHNICIAN Work Phone: [facility] Start: 03-23-2021 Review Christina Lawler STERILIZATION TECHNICIAN Work Phone: [facility] Start: 03-19-2021 End: 03-19-[address] Annabelle Roach Work Phone: [facility] Radiology Start: 03-19-2021 End: 03-19-2021 Office outpatient visit 25 minutes Christina Murillopawan STERILIZATION TECHNICIAN Work Phone: [facility] Start: 03-19-2021 Review Christina Rizvibowen STERILIZATION TECHNICIAN Work Phone: [facility] Start: 10-02-2019 End: 10-02-2019 Subsequent hospital visit by physician Mammo/Bone Density [facility] [...] 01-13-2017 Office outpatient visit 15 minutes Christina [facility] Start: 04-19-2016 End: 04-19-2016 Office outpatient visit 25 minutes Christina Linda [facility] Start: 12-09-2015 End: 12-09-2015 Phone Encounter Christina Linda [facility] Start: 10-14-2015 End: 10-15-2015 Office [...] 03-29-2011 End: 03-29-2011 Patient encounter procedure Christina Lawler [facility] Start: 02-08-2011 End: 02-10-2011 Patient encounter procedure Christina Lawler [facility] Start: 02-02-2011 End: 02-03-2011 Patient encounter procedure Christina Lawler [facility] Start: 10-30-2009 End: 11-01-2009 Patient encounter procedure Christina Lawler [facility] Start: 10-22-2009 End: 10-22-2009 Office outpatient visit 15 minutes Christina Lawler [facility] Start: 07-28-2009 End: 07-28-2009 Patient encounter procedure Christina Lawler [facility] Start: 05-28-2009 End: 05-28-2009 Patient encounter procedure Christina Rust [facility] Procedures Date Procedure Procedure Detail Performing Clinician Start: 12-04-2024 US scan of thyroid Dr. Annabelle Roach DO Work Phone: Start: 04-25-2023 Dual energy X-ray absorptiometry Start: 03-09-2023 MRI of brain with contrast Start: 02-17-2023 CT angiography of neck vessels Start: 03-15-2022 Mammography Mammography Coordinator Start: 06-04-2021 End: 06-04-2021 PT D/C Summary (1) Comments: See Note; NOTES: [facility] Physical Therapy Health[address] [place] [address] / REHABILITATION SERVICES DISCHARGE SUMMARY MR#: [id number] Acct: [id number] Name: JUSTINE RAPP Rep #: [id number] : 1960 60 From: Diego Singleton DPGudelia Referring DrAndi: Dr. Annabelle Roach DO Status: REG RCR Insurance: [facility] [id number] [facility] PACKAGE PLAN It has been my pleasure [...] please feel free to call me at [phone]. Thank you for the referral of this patient. Sincerely, Diego Singleton, DPT Balance/Gait/Functional tests - Balance/Special Test Scores Quick DASH Score: 0 <Electronically signed by Diego Singleton DPT> 06/04/21 1213 CC: Dr. Annabelle Roach DO CLS Signed Christina Lawler Work Phone: Start: 04-21-2021 End: 04-22-2021 Dexa Bone Density Study Comments: See Note; NOTES: [facility] Imaging Services [address] [place] [address] Dexa Bone Density Study MR#: [id number] Acct: [id number] Name: JUSTINE RAPP Rep #: [id number] : 1960 F 60 From: Dalton parra MD PCP: Dr. Annabelle Roach DO Status: REG CLI Study: Dexa Bone Density Study Date of Exam: 04/21/21 Exam# [id number] Ordering Dr: Annabelle Roach DO STUDY: DUAL [...] EST , CC: Dr. Annabelle Roach DO Compressor Station Engineer Chief: Bruce Roach DO Work Phone: Start: 04-21-2021 Dual energy X-ray absorptiometry Dr. Annabelle Roach Work Phone: Start: 04-12-2021 CT angiography of neck vessels Dr. Annabelle Roach Work Phone: Start: 04-12-2021 End: 04-12-2021 CTA Neck W/WO Contrast Comments: See Note; NOTES: [facility] Imaging Services [address] [place] [address] CTA Neck W/WO Contrast MR#: [id number] Acct: [id number] Name: JUSTINE RAPP Rep #: [id number] : 1960 F 60 From: Eric Carrillo PCP: Dr. Annabelle Roach DO Status: REG CLI Study: CTA Neck W/WO Contrast Date of Exam: 04/12/21 Exam# [id number] Ordering Dr: Annabelle Roach DO EXAM: CT [...] reconstruction technique. This report was created using [employer] report [employer]ive[employer] technology. MIP reconstructed images were created and [...] Signed: Eric Larios MD at 15:14 EST , CC: Dr. Annabelle Roach DO Compressor Station Engineer Chief: Signed Annabelle Roach DO Work Phone: Start: 04-12-2021 End: 04-12-2021 Thyroid Comments: See Note; NOTES: [facility] Imaging Services [address] [place] [address] Thyroid MR#: [id number] Acct: [id number] Name: JUSTINE RAPP Rep #: [id number] : 1960 F 60 From: Eric Carrillo PCP: Dr. Annabelle Roach DO Status: REG CLI Study: Thyroid Date of Exam: 04/12/21 Exam# [id number] Ordering Dr: Annabelle Roach DO STUDY: THYROID [...] mixed cystic and solid, hyperechoic or isoechoic, ggcdd-ttfz-pxnv, smoothly marginated and contains punctate echogenic foci. TI-RADS points: 5. TI-RADS category: TR4. This nodule is moderately suspicious. Recommend follow-up thyroid ultrasounds at 1, 2, 3 and 5 years. There are left nodules. This nodule is mixed cystic and solid, hyperechoic or isoechoic, ekkdy-bnie-vlte, smoothly marginated and contains punctate echogenic foci. TI-RADS points: 5. TI-RADS category: TR4. This nodule is moderately suspicious. Recommend follow-up thyroid ultrasounds at 1, 2, 3 and 5 years. Electronically Signed: Eric Larios MD at 15:25 EST Reading Location ID and State: [facility] / [place] , Service support , CC: Dr. Annabelle Roach DO Compressor Station Engineer Chief: Signed Annabelle Roach DO Work Phone: Start: 04-12-[address] Annabelle Roach Work Phone: Start: 03-30-2021 End: 03-30-2021 Inital Evaluation (1) - PT Comments: See Note; NOTES: [facility] Physical Therapy [facility] [address] [place] [address]. [address] [place] [address] / REHABILITATION SERVICES INITIAL EVALUATION MR#: [id number] Acct: [id number] Name: JUSTINE RAPP Rep #: [id number] : 1960 60 From: Diego Singleton DPT Referring Dr.: Dr. Annabelle Roach DO Status: REG RCR Insurance: [facility] [id number] [facility] [employer] Patient's Visit Information JUSTINE RAPP is a 60 year old F referred to Physical Therapy by Dr. Annabelle Roach DO with a diagnosis of L shoulder pain. Date of Evaluation: 03/23/21 Physical Therapist: Diego Singleton DPT - Visit Plan Frequency: 1-2x /Week Duration: [...] to be FAXED BACK to us at [phone] for Medicare purposes. For Medicare only, by [...] min 2 Views Comments: See Note; NOTES: [facility] Radiology [address] [place] [address] Shoulder min 2 Views MR#: [id number] Acct: [id number] Name: JUSTINE RAPP Rep #: [id number] : 1960 F 60 From: Radu Waller MD PCP: Dr. Annabelle Roach DO Status: DEP AMB Study: Shoulder min 2 Views Date of Exam: 03/19/21 Exam# [id number] Ordering Dr: Annabelle Roach DO STUDY: X-RAY [...] support , CC: Dr. Annabelle Roach DO Compressor Station Engineer Chief: Signed Annabelle Roach DO Work Phone: Start: 03-09-2021 Mammography [facility] Start: 10-02-2019 Screening mammography bi 2-view breast inc cad [facility] Work Phone: Start: 10-02-2019 Mammography [facility] Start: 05-29-2019 End: 05-29-2019 Carotid Duplex Ultrasound Comments: See Note; NOTES: [facility] Services [address] [place] [address] Carotid Duplex Ultrasound 05/28/19 1301 MR#: [id number] Acct: [id number] Name: JUSTINE RAPP Rep #: [id number] : 1960 58 From: Rahul Velasquez MD [...] the left vertebral artery. Procedure Carotid Duplex 64192. The exam was diagnostic. Exam performed in department. Interpretation Summary Moderate (50-69%) stenosis right extracranial internal carotid. Moderate (50-69%) stenosis left extracranial internal carotid. Flow within the vertebral arteries is antegrade bilaterally. Ordering Physician: Annabelle Roach Performed By: Mane Nails RVT 05/29/192007 Date Rahul Velasquez MD CC: Annabelle Roach DO Date Dictated: 05/28/19 1301 Date Transcribed: 05/29/192007 Compressor Station Engineer Chief: Signed Annabelle Roach Work Phone: Start: 05-28-2019 End: 05-28-2019 Thyroid Comments: See Note; NOTES: [facility] Imaging Services [address] [place] [address] Thyroid MR#: [id number] Acct: [id number] Name: JUSTINE RAPP Rep #: [id number] : 1960 F 58 From: Dalton Hernandez MD PCP: Annabelle Roach DO Status: REG CLI Study: Thyroid Date of Exam: 05/28/19 Exam# [id number] Ordering Dr: Annabelle Roach DO STUDY: THYROID [...] Service support , CC: Annabelle Roach DO Compressor Station Engineer Chief: Signed Annabelle Roach Work Phone: Start: 04-09-2019 End: 04-09-2019 Foot min 3 Views Comments: See Note; NOTES: [facility] Imaging Services [address] [place] [address] Foot min 3 Views MR#: [id number] Acct: [id number] Name: JUSTINE RAPP Rep #: [id number] : 1960 F 58 From: Dalton Hernandez MD PCP: Priyanka Holliday DO Status: REG CLI Study: Foot min 3 Views Date of Exam: 04/09/19 Exam# [id number] Ordering Dr: Christina Lawler EXHIBITIONS CURATOR-Maribeth STUDY: X-RAY - LEFT FOOT CLINICAL: Female, [...] , CC: SIOMARA Lawler; Priyanka Holliday DO Compressor Station Engineer Chief: Signed Christina Lawler Work Phone: Start: 12-15-2015 End: 12-15-2015 CTA Neck W/WO Contrast Comments: See Note; NOTES: [facility] Imaging Services [address] [place] [address] Verdana 4d CTA Neck W/WO Contrast MR#: [id number] Acct: [id number] Name: JUSTINE RAPP Rep #: [id number] : 1960 F 55 From: Eric Larios MD PCP: Priyanka Holliday DO Status: REG CLI Study: CTA Neck W/WO Contrast Date of Exam: 12/15/15 Exam# [id number] Ordering Dr: Priyanka Holliday DO STUDY: CTA [...] MD at 22:28 EDT , Service support [phone], CC: Priyanka Holliday DO Compressor Station Engineer Chief: Signed Priyanka Holliday Work Phone: Start: 10-21-2015 End: 10-21-2015 MRA Neck WITH and W/O Contrast Comments: See Note; NOTES: [facility] Imaging Services [address] [place] [address] Verdana 4d MRA Neck WITH and W/O Contrast MR#: [id number] Acct: [id number] Name: TANIASAPNAEDATIERRA Lora Rep #: [id number] : 1960 F 55 From: Darwin Mays MD PCP: Priyanka Holliday DO Status: REG CLI Study: MRA Neck WITH and W/O Contrast Date of Exam: 10/21/15 Exam# [id number] Ordering Dr: Priyanka Holliday DO STUDY: MRA NECK WITH AND WITHOUT CONTRAST REASON FOR EXAM: Female, 55 years old. Carotid stenosis TECHNIQUE: 3-D ypie-wf-exqiqb (TOF) imaging was performed in an 1.5 [...] MD at 23:15 EDT , Service support [phone], CC: Priyanka Holliday DO Compressor Station Engineer Chief: Signed Priyanka Holliday Work Phone: Start: 10-20-2015 End: 10-20-2015 Dexa Bone Density Study (HP) Comments: See Note; NOTES: [facility] Imaging Services [address] [place] [address] Verdana 4d Dexa Bone Density Study () MR#: [id number] Acct: [id number] Name: JUSTINE RAPP Rep #: [id number] : 1960 F 55 From: Dalton Hernandez MD PCP: Priyanka Holliday DO Status: [facility] CLI Study: Dexa Bone Density Study (HP) Date of Exam: 10/20/15 Exam# [id number] Ordering Dr: Priyanka Holliday DO STUDY: DUAL [...] Dalton Hernandez MD at 13:10 EDT Tel [phone], Service support [phone], CC: Priyanka Holliday DO Compressor Station Engineer Chief: Signed Priyanka Holliday Work Phone: Start: 08-26-2015 End: 08-26-2015 Carotid Duplex Ultrasound Comments: See Note; NOTES: [facility] Cardiovascular Services [address] [place] [address] Carotid Duplex Ultrasound 08/24/15 0835 MR#: [id number] Acct: [id number] Name: JUSTINE RAPP Rep #: [id number] : 1960 55 From: Quinten Posadas MD [...] the left vertebral artery. Procedure Carotid Duplex 95268. Exam performed in department. Interpretation Summary Moderate (50-69%) stenosis right extracranial internal carotid. Moderate (50-69%) stenosis left extracranial internal carotid. Flow within the vertebral arteries is antegrade bilaterally. Ordering Physician: Priyanka Holliday Performed By: Marjan Tristan RVT 08/26/15 1636 Date Quinten Posadas MD CC: Priyanka Holliday DO Date Dictated: 08/24/15 0835 Date Transcribed: 08/26/15 163 Compressor Station Engineer Chief: Signed Priyanka Holliday Work Phone: Start: 08-24-2015 End: 08-24-2015 Thyroid Comments: See Note; NOTES: [facility] Imaging Services [address] [place] [address] Verdana 4d Thyroid MR#: [id number] Acct: [id number] Name: JUSTINE RAPP Rep #: [id number] : 1960 F 55 From: Dalton Hernandez MD PCP: Priyanka Holliday DO Status: REG CLI Study: Thyroid Date of Exam: 08/24/15 Exam# [id number] Ordering Dr: Priyanka Holliday DO STUDY: THYROID [...] Dalton Hernandez MD at 11:16 EDT Tel [phone], Service support [phone], CC: Priyanka Holliday DO Compressor Station Engineer Chief: Signed Priyanka Holliday Work Phone: Start: 07-31-2015 End: 07-31-2015 Hip 2-3 Views with Pelvis Comments: See Note; NOTES: [facility] Imaging Services [address] [place] [address] Verdana 4d Hip 2-3 Views with Pelvis MR#: [id number] Acct: [id number] Name: JUSTINE RAPP Rep #: [id number] : 1960 F 55 From: Dalton Hernandez MD PCP: Priyanka Holliday DO Status: REG CLI Study: Hip 2-3 Views with Pelvis Date of Exam: 07/31/15 Exam# [id number] Ordering Dr: Priyanka Holliday DO STUDY: X-RAY [...] Dalton Hernandez MD at 12:33 EDT Tel [phone], Service support [phone], RAD/Hip 2-3 Views with Pelvis IMPRESSION: No acute abnormality is seen. Electronically Signed: Dalton Hernandez MD at 12:33 EDT Tel [phone], Service support [phone], CC: Priyanka Holliday DO Compressor Station Engineer Chief: Signed Priyanka Holliday Work Phone: Start: 06-02-2015 End: 06-02-2015 Foot min 3 Views Comments: See Note; NOTES: [facility] Imaging Services [address] [place] [address] Verdana 4d Foot min 3 Views MR#: [id number] Acct: [id number] Name: JUSTINE RAPP Rep #: [id number] : 1960 F 54 From: Eric Larios MD PCP: Priyanka Holliday DO Status: REG CLI Study: Foot min 3 Views Date of Exam: 06/02/15 Exam# [id number] Ordering Dr: Priyanka Holliday DO STUDY: X-RAY [...] MD at 16:15 EDT , Service support [phone], RAD/Foot min 3 Views IMPRESSION: There is a calcaneal spur. Electronically Signed: Eric Larios MD at 16:15 EDT , Service support [phone], CC: Priyanka Holliday DO Compressor Station Engineer Chief: Bruce Holliday Work Phone: Start: 08-13-2014 End: 08-13-2014 Carotid Duplex Ultrasound Comments: See Note; NOTES: [facility] Cardiovascular Services [address] [facility] [address] Carotid Duplex Ultrasound 08/12/14 1222 MR#: [id number] Acct: [id number] Name: JUSTINE RAPP Rep #: [id number] : 1960 54 From: Quinten Posadas MD [...] the left vertebral artery. Procedure Carotid Duplex 99505. Exam performed in department. Interpretation Summary Moderate (50-69%) stenosis right extracranial internal carotid. Moderate (50-69%) stenosis left extracranial internal carotid. Flow within the vertebral arteries is antegrade bilaterally. Ordering Physician: Priyanka Holliday Performed By: Marjan Tristan RVT 08/12/14 2312 Date Quinten Posadas MD CC: Priyanka Holliday DO Date Dictated: 08/12/14 1222 Date Transcribed: 08/12/142311 Compressor Station Engineer Chief: Signed Priyanka Holliday Work Phone: Start: 08-12-2014 End: 08-12-2014 Thyroid Comments: See Note; NOTES: [facility] Imaging Services [address] [place] [address] Ultrasound Report MR#: [id number] Acct: [id number] Name: JUSTINE RAPP Rep #: [id number] : 1960 F 54 From: Emiliano Hunter MD PCP: Priyanka Holliday DO Status: REG CLI Study: Thyroid Date of Exam: 08/12/14 Exam# [id number] Ordering Dr: Priyanka Hloliday DO STUDY: THYROID ULTRASOUND REASON FOR EXAM: [...] MD at 18:50 EDT , Service support [phone], CC: Priyanka Holliday DO Compressor Station Engineer Chief: Signed Priyanka Holliday Work Phone: Screening for osteoporosis Screening for osteoporosis (Renamed from Encounter for screening for osteoporosis) Christina Lawler Screening for osteoporosis Screening for osteoporosis (Renamed from Encounter for screening for osteoporosis) Christina Lawler CNP Work Phone: Plan of Treatment Date Care Activity Detail Author Start: 2036 RSV Vaccine (1 - 1-d ose 75+ series) RSV Vaccine (1 - 1-dose 75+ series) [facility] Start: 03-23-2024 Screening for malign ant neoplasm of breast Mammogram Screening [facility] Start: 11-05-2023 Covid-19 Vaccine ( season) Covid-19 Vaccine ( season) [facility] Start: 11-05-2023 Influenza vaccination Influenza Vacc ine (#1) [facility] Start: 03-15-2023 Mammography MAMMOGRAM [facility] Start: 03-09-2022 Mammography MAMMOGRAM [facility] Start: 03-06-2022 DEPRESSION ASSESSMENT DEPRESSION ASS ESSMENT [facility] Start: 11-04-2021 Influenza vaccination INFLUENZA (#1) [facility] Start: 05-11-2021 COVID-19 VACCINE (4 - Booster for Moderna series) COVID-19 VACCINE (4 - Booster for Moderna series) [facility] Start: 04-28-2021 Procedure Education Eprescribe d prescriptions (G8553) [facility]; [facility] Work Phone: Start: 04-28-2021 Provider Instruction s for Treatment Reviewed Diagnostic Tests [facility]; [facility] Work Phone: Start: 04-28-2021 Assay of thyroid stimulating hormone tsh TSH (36416) [facility]; [facility] Work Phone: Start: 04-28-2021 Cyanocobalamin vitam in b-12 VITAMIN B-12 (CYANOCOBALAMIN) (32525) [facility]; [facility] Work Phone: Start: 04-28-2021 25 hydroxy includes fractions if performed CALCIFEDIOL (91392) [facility]; [facility] Work Phone: Start: 03-19-2021 Procedure Education Eprescribe d prescriptions (G8553) [facility]; [facility] Work Phone: Start: 03-19-2021 Assay of thyroid stimulating hormone tsh TSH (11544) [facility]; [facility] Work Phone: Start: 03-19-2021 Lipid panel LIPID PANEL (65464) [facility]; [facility] Work Phone: Start: 03-19-2021 Cyanocobalamin vitam in b-12 VITAMIN B-12 (CYANOCOBALAMIN) (03806) [facility]; [facility] Work Phone: Start: 10-01-2020 Mammography MAMMOGRAM [facility] Start: 11-05-2019 Influenza vaccination INFLUENZA (#1) [facility] Start: 06-03-2019 Provider Instruction s for Treatment [facility] Work Phone: Start: 05-16-2019 Procedure Education Eprescribe d prescriptions (G8553) [facility] Work Phone: Start: 05-16-2019 Oncology colorectal screening [place] 10 dna markrs Cologuard - Strool Based DNA Test, CRC SCREEN (80334) [facility] Work Phone: Start: 04-09-2019 [...] auto&auto difrntl wbc CBC W/AUTO DIFF WBC (68916) [facility] Work Phone: Start: 04-19-2016 Comprehensive metabo lic panel METABOLIC PANEL, COMPREHENSIVE (17482) [facility] Work Phone: Start: 10-14-2015 Procedure Education Eprescribe d prescriptions (G8553) [facility] Work Phone: Start: 07-31-2015 Procedure Education Eprescribe d prescriptions (G8553) [facility] Work Phone: Start: 07-31-2015 Assay of thyroid stimulating hormone tsh TSH (79599) [facility]; [facility] Work Phone: Start: 07-31-2015 TSH Qn TSH (32608) [facility] Work Phone: Start: 07-31-2015 Comprehensive metabo lic panel METABOLIC PANEL, COMPREHENSIVE (66241) [facility] Work Phone: Start: 07-31-2015 Lipid panel LIPID PANEL (79913) [facility] Work Phone: Start: 06-02-2015 Procedure Education Eprescribe d prescriptions (G8553) [facility] Work Phone: Start: 02-17-2015 Procedure Education Eprescribe d prescriptions (G8553) [facility] Work Phone: Start: 12-11-2014 Procedure Education Eprescribe d prescriptions (G8553) [facility] Work Phone: Start: 12-11-2014 Cul bact xcpt urine blood/stool aerobic isol Throat Culture (49719) [facility] Work Phone: Start: 11-13-2014 Procedure Education Eprescribe d prescriptions (G8553) [facility] Work Phone: Start: 10-03-2014 Procedure Education Eprescribe d prescriptions (G8553) [facility] Work Phone: Start: 07-16-2014 Urnls dip stick/tabl et reagent auto microscopy URINALYSIS, W/ MICRO (45572) [facility] Work Phone: Start: 07-16-2014 Comprehensive metabo lic panel METABOLIC PANEL, COMPREHENSIVE (74684) [facility] Work Phone: Start: 07-16-2014 Lipid panel LIPID PANEL (88545) [facility] Work Phone: Start: 07-16-2014 Assay of thyroid stimulating hormone tsh TSH (08268) [facility]; [facility] Work Phone: Start: 07-16-2014 TSH Qn TSH (28978) [facility] Work Phone: Start: 07-21-2011 Pneumococcal Vaccine : 50+ (1 of 1 - PCV) Pneumococcal Vaccine: 50+ (1 of 1 - PCV) [facility] Start: 07-21-2011 SHINGRIX VACCINE (1 of 2) SHINGRIX VACCINE (1 of 2) [facility] Start: 07-21-2011 Tuberculosis screening COLOREC LISS CANCER SCREENING,SEE MODIFIER [facility] Start: 03-29-2011 Provider Instruction s for Treatment *Antibiotic Usage Education - Female [facility] Work Phone: Start: 02-02-2011 Assay of thyroid stimulating hormone tsh TSH (54863) [facility]; [facility] Work Phone: Comment on above: stat Start: 02-02-2011 TSH Qn TSH (93765) [facility] Work Phone: Comment on above: stat Start: 02-02-2011 Blood count manual c ell count each CBC WITH MANUAL DIFF (65581) [facility] Work Phone: Comment on above: stat Start: 02-02-2011 Comprehensive metabo lic panel METABOLIC PANEL, COMPREHENSIVE (92239) [facility] Work Phone: Comment on above: stat Start: 02-02-2011 Sedimentation rate r bc non-automated SED RATE ERYTHROCYTE (45814) [facility] Work Phone: Comment on above: stat Start: 10-22-2009 Provider Instruction s for Treatment [facility] Work Phone: Start: 05-28-2009 Provider Instruction s for Treatment [facility] Work Phone: Start: 2006 COLOGUARD (FIT-DNA) COLOGUARD (FIT-D NA) [facility] Start: 2006 Colonoscopy COLONOSCOPY [facility] Start: 2006 COLORECTAL CANCER SCREENING COLORECTAL CANCER SCREENING [facility] Start: [address] COLONOGRAPHY [facility] Start: 2006 DIABETES SCREEN DIABETES SCREEN [facility] Start: 2006 Diabetes Screening Diabetes Screenin g [facility] Start: 2006 FECAL OCCULT BLOOD FECAL OCCULT BLOO D [facility] Start: 2006 Lipid panel Lipid Screening [facility] Start: 2006 LIPID SCREEN LIPID SCREEN [facility] Start: 2006 Screening for malign ant neoplasm of colon [facility] Start: 2006 [facility] Start: 07-21-1991 HPV TESTING HPV TESTING [facility] Start: 1982 PAP TESTING PAP TESTING [facility] Start: 1982 Screening for malign ant neoplasm of cervix Cervical Cancer Screening [facility] Start: 1980 Urine microalbumin profile [facility] Start: 07-21-1979 Anxiety Screening Anxiety Screening [facility] Start: 07-21-1979 Depression Screening Depression Scre [facility] Start: 07-21-1979 HEPATITIS C SCREENING HEPATITIS C [facility] Start: 07-21-1979 Hepatitis C screening Hep[facility] Start: 07-21-1979 HIV SCREENING HIV SCREENING [facility] Start: 07-21-1979 HIV screening HIV Screening [facility] Work [...] 03-16-2021 COVID-Moderna (50 MCG/0.25 ML) Christina Lawler STERILIZATION TECHNICIAN Work Phone: [facility]; [facility] Work Phone: 06-18-2020 COVID-Moderna (100 MCG/0.5 ML) Christina Lawler STERILIZATION TECHNICIAN Work Phone: [facility]; [facility] Work Phone: 05-21-2020 COVID-Moderna (100 MCG/0.5 ML) Christina Lawler STERILIZATION TECHNICIAN Work Phone: [facility]; [facility] Work Phone: Payers Date Payer Category Payer Self-pay [id number] 2017 Private Health Insurance [facility] CHO[employer] [id number] 2017-Present HMO [id number] 2017 Private Health Insurance [id number] 2015 Private Health Insurance [facility] [id number] 2015 Private Health Insurance [id number] [address] [facility] Unknown [id number] Unknown [id number] Unknown [id number] Unknown 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 Tobacco use: Tobacco use: [facility] Work Phone: Comment on above: same status 1.24.12 Start: 1960 Sex Assigned At Female [facility] Start: 02-10-2020 Area Deprivation Index [facility] National Score (1-100), lower number is lower risk Not on file [facility] Start: 03-05-2023 Gender identity Identifies as female gender (finding) [facility] Start: 03-05-2023 Sexual orientation Heterosexual (girish miranda) [facility] if ever smoked [facility] Work Phone: Functional Status Date Assessment Result Facility 05-16-2019 [...] component of a physician's clinical assessment. Test(s) 845596-XNG-O ; 762934-NKZ-D; 326586-RFS-L; 721799-Bqsonlavxygvv; 790192-Yxnymhcpcdl, Total; 239678-ZJU-Q (Total);385522-Efgzt LDL-P; 230735-NAE Size; 434381-EH-RW Scorewas developed and its performance characteristics determinedby [facility]. It has not been cleared or approved by the Foodand Drug Administration.PATIENT WAS FASTINGPERFORMED BY: BN [facility] Nakuxpkgct5389 [facility] [id number] BY: CB LabCoRobert [facility] Johnson University HospitalOstcjl8320 [facility] [id number] Clinical Notes 03-09-2021 to 12-07-2024 Parag Agrawal RT(R) - 05/22/2024 10:30 AM [place] - [facility] Coordinator - 03/16/2022 11:11 AM RT Emily(R) - 03/15/2022 8:00 AM EST Note Date & Type Note Facility 12-07-2024 Radiology Diagnostic study note [facility] Imaging Services [address] [place] [id number] Thyroid MR#: [id number] Acct: [id number] Name: JUSTINE RAPP Rep #: [id number] 5 : 1960 F 64 From: Nilesh Henriquez MD PCP: Dr. Annabelle Roach DO Status: RE G CLI Study:Thyroid Date of Exam: 12/04/24 Exam# [id number] Ordering Dr: Shanita Roach DO PROCEDURE: THYROID 12/04/2024 REASON FOR EXAM: THYROID NODULE TECHNIQUE: Procedure Code: USTHY Modality: US Procedure: THYROID COMPARISON: Previous examination dated 04/12/2021 FINDINGS: Right thyroid lobe size: 5 x 2.2 x 0.9 cm Left thyroid lobe size: 4.9 x 1.6 x 1.1 cm Isthmus: 0.2 cm Background parenchymal echotexture is homogeneous. Nodules: Mostly cystic spongiform like nodules present throughout both lobes thelargest described below. All of the nodules throughout the gland demonstrating increased cystic component. Echogenic foci appear less prominent. 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 1. Lobe: Right, Location: Mid, Size: 1.1 x 0.9 x 0.5 cm, Stability: Increased Composition: Mixed cystic and solid (+1) Echogenicity: Hyper to Isoechoic (+1) Margin: Smooth (+0) Shape: Wider than tall (+0) Echogenic Foci: None (+0) TI-RADS: 2 2. Lobe: Right, Location: Mid, Size: 0.8 x 0.6 x 0.4 cm, Stability: Slightly increased Composition: Mixed cystic and solid (+1) Echogenicity: Hyper to Isoechoic (+1) Margin: Smooth (+0) Shape: Wider than tall (+0) Echogenic Foci: None (+0) TI-RADS: 2 3. Lobe: Left, Location: Mid, Size: 0.7 x 0.5 x 0.3 cm, Stability: Slightly increased Composition: Mixed cystic and solid (+1) Echogenicity: Hyper to Isoechoic (+1) Margin: Smooth (+0) Shape: Wider than tall (+0) Echogenic Foci: None (+0) TI-RADS: 2 US/Thyroid IMPRESSION: Bilateral complex thyroid nodules with increase in cystic components when compared to previous exam. This increase appears to be symmetrical and bilateral. The largest lesion is 1.1 cm and is located in the right midgland. The appearance of these nodules is overall benign and likely reflective of colloid cysts with an overall TI-RADSscore of 2. RECOMMENDATION: Continue ultrasound surveillance with repeat imaging in 12 months Reading Location: [id number] CC: Dr. Annabelle Roach, DO ~ Compressor Station Engineer Chief: Signed [facility] 05-22-2024 History of Presen t illness Narrative [...] PATIENT PRESENTS WITH AN IMPLANTABLE OR ATTACHED TYPEWRITER OPERATOR AUTOMATIC: No RADIOLOGY DEPARTMENT: Mammography PERIPHERAL IV DATA: Not applicable SIGNED BY: CHARBEL Muhammad) May 22, 2024 10:14 AM documented in this encounter [facility] 05-22-2024 Note HNO ID: [id number] Author: PARAG AGRAWAL RT (R) Service: Radiology [...] PATIENT PRESENTS WITH AN IMPLANTABLE OR ATTACHED TYPEWRITER OPERATOR AUTOMATIC: No RADIOLOGY DEPARTMENT: Mammography PERIPHERAL IV DATA: Not applicable SIGNED BY: CHARBEL Muhammad) May 22, 2024 10:14 AM [facility] 03-16-2022 Miscellaneous Notes [address] [address] March 16, 2022 PID: [id number] Justine Rapp [address] [place] [address] Dear Ms. Rapp, We are pleased to [...] report will be kept on file at [facility] as part of your permanent medical record and are available for your continuing care. Thank you for allowing us to help in meeting your health care needs. Sincerely, Dr. Vick Interpreting Radiologist [facility] (Normal over 40) documented in this encounter [facility] 03-15-2022 History of Presen t illness Narrative [...] Not applicable SIGNED BY: CHARBEL Muhammad) March 15, 2022 8:15 AM documented in this encounter [facility] 03-09-2021 Note HNO ID: [id number] Author: CHARBEL Muhammad) Service: ? Author Type: Technologist Type: Progress [...] Not applicable SIGNED BY: RT Sabina(R) March 09, 2021 3:49 PM [facility] Evaluation note No assessment inform ation available [facility] Work Phone: Instructions Name Patient Instructions Indication:BMI 21.0-21.9, adult Start: 2 Instruction Type:Provider Instructions for Treatment How to Access Health Information Online using Patient Portal and [employer] Apps Indication:BMI 21.0-21.9, adult Start: 2 Instruction [...] online - Detail Indication:Redness of eye, left Start:10-Nov-201 7 Instruction Type:Patient Education Patient Instructions Indication:Redness of eye, left Start: 7 Instruction Type:Provider Instructions for Treatment How to access health information online Indication:BMI between 19-24,adult Start: 7 Instruction Type:Patient Education How to access health information online - Detail Indication:BMI between 19-24,adult Start: 7 Instruction Type:Patient Education Patient Instructions Indication:BMI between 19-24,adult Start: 7 Instruction Type:Provider Instructions for Treatment How to [...] Instructions Indication:Chronic heel pain, unspecified laterality Start: Instruction Type:Provider Instructions for Treatment How to access health information online Indication:Bilateral carotid artery stenosis Start: Instruction Type:Patient Education How to access [...] Informa tion Online using Patient Portal and [employer] Apps Indication:BMI 21.0-21.9, adult Start:19-Mar-2021 Instruction Type:Patient [...] tion Online using Patient Portal and [employer] Apps Indication:BMI 21.0-21.9, adult Start:19-Mar-2021 Instruction Type:Patient [...] tion Online using Patient Portal and [employer] Apps Indication:BMI 21.0-21.9, adult Start:19-Mar-2021 Instruction Type:Patient [...] tion Online using Patient Portal and [employer] Apps Indication:BMI 21.0-21.9, adult Start:19-Mar-2021 Instruction Type:Patient [...] Informa tion Online using Patient Portal and [employer] Apps Indication:BMI 21.0-21.9, adult Start:19-Mar-2021 Instruction Type:Patient [...] tion Online using Patient Portal and [employer] Apps Indication:BMI 21.0-21.9, adult Start:19-Mar-2021 Instruction Type:Patient [...] tion Online using Patient Portal and [employer] Apps Indication:BMI 21.0-21.9, adult Start:19-Mar-2021 Instruction Type:Patient [...] tion Online using Patient Portal and [employer] Apps Indication:Current non-smoker Start:28-Apr-2021 Instruction Type:Patient Education Patient Instructions Indication:BMI 21.0-21.9, adult Start:19-Mar-2021 Instruction Type:Provider Instructions for Treatment How to Access Health Informa tion Online using Patient Portal and [employer] Apps Indication:BMI 21.0-21.9, adult Start:19-Mar-2021 Instruction Type:Patient [...] tion Online using Patient Portal and [employer] Apps Indication:Current non-smoker Start:28-Apr-2021 Instruction Type:Patient Education Patient Instructions Indication:BMI 21.0-21.9, adult Start:19-Mar-2021 Instruction Type:Provider Instructions for Treatment How to Access Health Informa tion Online using Patient Portal and [employer] Apps Indication:BMI 21.0-21.9, adult Start:19-Mar-2021 Instruction Type:Patient [...] tion Online using Patient Portal and [employer] Apps Indication:Current non-smoker Start:28-Apr-2021 Instruction Type:Patient Education Patient Instructions Indication:BMI 21.0-21.9, adult Start:19-Mar-2021 Instruction Type:Provider Instructions for Treatment How to Access Health Informa tion Online using Patient Portal and [employer] Apps Indication:BMI 21.0-21.9, adult Start:19-Mar-2021 Instruction Type:Patient [...] tion Online using Patient Portal and [employer] Apps Indication:Current non-smoker Start:28-Apr-2021 Instruction Type:Patient Education Patient Instructions Indication:BMI 21.0-21.9, adult Start:19-Mar-2021 Instruction Type:Provider Instructions for Treatment How to Access Health Informa tion Online using Patient Portal and [employer] Apps Indication:BMI 21.0-21.9, adult Start:19-Mar-2021 Instruction Type:Patient [...] Internal Medicine; [facility] Work Phone: reason for referral (narrative)No reason for referral information availableWAvita Health System [facility] Work Phone: Summary Purpose Family History No [...] ARTERY STENOSIS ATTN IACS HEARING LOSS OSTEOPENIA Chief Complaint Admit Date THYROID NODULE/OCCLUSION & STENOSIS OF B I ARTERIES December 04, 2024 1:10pm Additional Source Comments INFORMATION SOURCE (unrecogn ized section and content) DATE CREATED AUTHOR 10/02/2019 Robyn Mckeon [facility] DATE CREATED AUTHOR AUTHOR'S ORGANIZ ATION 06/01/2021 [facility] DATE CREATED AUTHOR AUTHOR'S ORGANIZ ATION 07/08/2021 [facility] DATE CREATED AUTHOR AUTHOR'S ORGANIZ ATION 05/24/2024 [facility] DATE CREATED AUTHOR AUTHOR'S SANDY DALEY 12/19/2024 [facility] Source Comments (unrecognize d section and content) In the event this informatio n is protected by the Federal Confidentiality of Alcohol and Drug Abuse Patient Records regulations: The Federal rules restrict any use of the information to criminally investigate or prosecute any alcohol or drug abuse patient.[facility] the event this information is protected by the Federal Confidentiality of Alcohol and Drug Abuse Patient Records regulations: The Federal rules restrict any use of the information to criminally investigate or prosecute any alcohol or drug abuse patient.[facility] the event this information is protected by the Federal Confidentiality of Alcohol and Drug Abuse Patient Records regulations: The Federal rules restrict any use of the information to criminally investigate or prosecute any alcohol or drug abuse patient.[facility] Center[facility] the event this information is protected by the Federal Confidentiality of Alcohol and Drug Abuse Patient Records regulations: The Federal rules restrict any use of the information to criminally investigate or prosecute any alcohol or drug abuse patient.[facility] Goals (unrecognized section and content) Goals may be documented in a n alternate sectionGoals may be documented in an alternate sectionGoals may be documented in an alternate sectionGoals may be documented in an alternate sectionGoals may be documented in an alternate sectionGoals may be documented in an alternate section Care Teams (unrecognized sec tion and content) Manager Legal Relationship Specialty Start Date End Date Gricel Thomas [address] [address] PCP - General SHOE TURNER 06/14/18 Manager Legal Relationship Specialty Start Date End Date Gricel Thomas [address] [address] PCP - General SHOE TURNER 06/14/18 Team Status: Active Member Role Status Dates Dr. Priyanka Holliday DO Family Provider Active Dr. Annabelle Roach , DO Primary Care Provider Active Team Status: Inactive Member Role Status Dates Dr. Annabelle Roach DO Primary Care Pr sam, Attending Provider, Referring Provider Active Team Status: Inactive Member Role Status Dates Dr. Annabelle Roach DO Primary Care Provider Active Dr. Theron Wilkins MD Attending Provider, Referring P malcolm Active Manager Legal Relationship Specialty Start Date End Date Gricel Thomas [address] [address] PCP - General Dtp Operator 06/14/18 Team Status: Active Member Role/Relationship Status Dates Dr. Annabelle Roach DO Primary care physician Active Team Status: Inactive Member Role/Relationship Status Dates Dr. Annabelle Roach DO Primary care physician Active Start: November 13, 2024 End: November 13, 2024 Dr. Annabelle Roach DO Attending physician Active Start: November 13, 2024 End: November 13, 2024 Dr. Annabelle Roach DO Referring Provider Active Start: November 13, 2024 End: November 13, 2024 Team Status: Inactive Member Role/Relationship Status Dates Dr. Annabelle Roach DO Primary care physician Active Start: December 04, 2024 End: December 04, 2024 Dr. Annabelle Roach DO Attending physician Active Start: December 04, 2024 End: December 04, 2024 Dr. Annabelle Roach DO Referring Provider Active Start: December 04, 2024 End: December 04, 2024 Team Status: Active Member Role/Relationship Status Dates Dr. Annabelle Roach DO Primary care physician Active Start: December 04, 2024 Dr. Philippe Sams MD Attending physician Active Start: December 04, 2024 FOR RECORDS PERTAINING TO PATIENTS WHO ARE [...] BE BASED ON THE PRIMARY CLINICAL RECORDS. [employer] provides no warranty or guarantee of the accuracy or completeness of information in this document.
== END | disposition home or self-care (01) ==
LOC: OPMRI 06:57
PROVIDERS: PCP Internal Medicine; Referring Provider Internal Medicine; Visit Provider Internal Medicine
DX: R51.9 Headache, unspecified (principal); H53.9 Unspecified visual disturbance
CPT/HCPCS: 70553; A9575